=== PATIENT | male | born 1970 | race Caucasian/White ===

== ENCOUNTER 2017-01-16 16:30 | Inpatient (IN) | payer OTHER ==
[~2017-01-16] VITALS: Ht 188 cm; Wt 145.7 kg
[2017-01-16 16:00] VITALS: BP 145/91; PULSE 102; RESP 18; TEMP 100.5; O2SAT 98
[~2017-01-16 16:30] MED LIST: LOVA10TA; MORPHINE SULFATE 4 MG/ML INJ IV PRN; NALOXONE HCL 0.4 MG/ML AMP IV PRN
[2017-01-16] MEDS: MORPHINE SULFATE 4 MG/ML INJ IV PRN ×2 (17:11→21:00)
[2017-01-16] MEDS: NS + KCL 20 MEQ INJ 1,000 ML IV SCH (17:13)
--- NOTE | 2017-01-16 17:51 | PD.CONS ---
cc: Swapnil Nixon MD Attestation The exam, history, and the medical decision-making described in the above note were completed with the assistance of the mid-level provider. I reviewed and agree with the findings presented. I attest that I had a [id number] encounter with the patient on the same day, and personally performed and documented my assessment and findings in the medical record. HPI Service General Surgery Consult Requested By Dr. Carl Reason for Consult Diverticulitis with perforation Primary Care Physician Non-Staff History of Present Illness This is a 46-year-old male with a past medical history of high cholesterol. He started developing lower abdominal pain yesterday. He went about his day as usual at work. Yesterday evening he ate a yogurt and felt better. This morning , he woke up with chills and the pain had increased and became unbearable. The patient went to his Primary Care Physician who referred him to the [facility] in [place]. There he had a CT scan which showed a perforated sigmoid diverticulitis without abscess. He does have an elevated white count of 14.0. The patient was transferred to the main hospital and a General Surgery consultation has been requested. Review of Systems Constitutional: COMPLAINS OF: Fever, Chills Endocrine: DENIES: Polydipsia, Polyuria, Polyphagia Eyes: DENIES: Diplopia, Eye inflammation Ears, nose, mouth, throat: DENIES: Hearing loss, Vertigo Respiratory: DENIES: Apneas, Cough Cardiovascular: DENIES: Chest pain Gastrointestinal: COMPLAINS OF: Abdominal pain, DENIES: Nausea, Vomiting Genitourinary: DENIES: Urgency, Hematuria Musculoskeletal: DENIES: Joint pain Integumentary: DENIES: Abnormal pigmentation Hematologic/lymphatic: DENIES: Bruising Immunologic/allergic: DENIES: Eczema Neurologic: DENIES: Abnormal gait, Headache Psychiatric: DENIES: Confusion, Mood changes, Depression Past Family Social History Past Medical History High cholesterol Past Surgical History Right shoulder repair Right ACL repair Reported Medications Lovastatin 81 mg aspirin Allergies: Coded Allergies: No Known Allergies (Verified , 03/17/06) Active Ordered Medications Current Medications Medications (Trade) Dose Ordered Sig/Jesi Route Start Time Stop Time Status Last Admin (Tylenol) 650 mg Q4H PRN PO 01/16/17 15:45 (Zofran Inj) 4 mg Q6H PRN IVP 01/16/17 15:45 (Morphine Inj) 2 mg Q3H PRN IV 01/16/17 15:45 (Morphine Inj) 4 mg Q3H PRN IV 01/16/17 15:45 01/16/17 17:11 Naloxone HCl 0.4 mg 0.4 mg UNSCH PRN IV 01/16/17 15:45 Ciprofloxacin/ Dextrose 200 ml @ 200 mls/hr Q12H IV 01/17/17 04:00 Metronidazole 100 ml @ 100 mls/hr Q8H IV 01/16/17 23:00 (NS + KCl 20 Meq Inj) 1,000 ml @ 100 mls/hr Q10H IV 01/16/17 17:00 01/16/17 17:13 Family History Mother with an extensive cancer history including kidney and breast Social History Denies tobacco use Denies EtOH use Denies illicit drug use 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 SKIN: Warm and dry. HEAD: Atraumatic. Normocephalic. EYES: Pupils equal and round. No scleral icterus. No injection or drainage. ENT: No nasal bleeding or discharge. Mucous membranes pink and moist. NECK: Trachea midline. CARDIOVASCULAR: Regular rate and rhythm. RESPIRATORY: No accessory muscle use. Clear to auscultation. Breath sounds equal bilaterally. GASTROINTESTINAL: Abdomen soft, nondistended. Pain throughout abdomen with palpation---pain mainly concentrated in the bilateral lower quadrants. MUSCULOSKELETAL: Extremities without clubbing, cyanosis, or edema. No obvious deformities. NEUROLOGICAL: Awake and alert. No obvious cranial nerve deficits. Motor grossly within normal limits. Five out of 5 muscle strength in the arms and legs. Normal speech. PSYCHIATRIC: Appropriate mood and affect; insight and judgment normal. Result Diagram: 01/25/17 0354 01/25/[address] scan done at [facility] [place] [facility] shows perforated sigmoid diverticulitis without abscess Assessment and Plan Assessment and Plan 46-year-old male with perforated sigmoid diverticulitis -Continue Cipro/Flagyl IV -IVF -Monitor WBC and fevers -Labs in the AM -KUB in the AM -Pain control -NPO -Dr. Nixon to review CT and make decision of operative vs non operative treatment -General Surgery will follow along with you Discussed Condition With Dr. Nixon Phani Renteriarocky Attending Statement patient seen at bedside perforated diverticulitis with small localized free air, no abscess discussed with patient and family we will do nonoperative mgnt. Pt is clinically stable with no peritoneal signs. Will follow labs and serial abdominal exams Annemarie Hammonds January 16, 2017 17:51 Swapnil Nixon MD January 26, 2017 22:14
--- NOTE | 2017-01-16 18:09 | HHI.HP ---
[facility] Service [facility] Primary Care Physician Non-Staff Admission Diagnosis Diverticulitis with perforation Diagnoses: (1) Diverticulitis of both large and small intestine with perforation (2) Hyperlipidemia (3) Leukocytosis Chief Complaint: lower abdominal pain Travel History International Travel<30 Days: No Contact w/Intl Traveler <30 Da: No History of Present Illness Written by ARIANNE Nelson acting as scribe for Dr. Ortiz] on 01/16/17 at 17:35. 46 y/o with a history of hyperlipidemia presented to the ED with complaints of lower abdominal pain. Patient states yesterday he was having pain in his lower abdomen with associated fever, chills and night sweats. Then today he woke up and throughout the day the pain intensified. Patient states that this pain has come on and off for the last 6 months but never this severe. Denies any chest pain, shortness of breath, nausea. He does state that he vomited in the ED after receiving IV contrast for the CT scan. Denies any change in his bowel movements. Review of Systems Constitutional: COMPLAINS OF: Fever, Chills Respiratory: DENIES: Cough, Sputum production, Shortness of breath Cardiovascular: DENIES: Chest pain, Lower Extremity Edema Gastrointestinal: COMPLAINS OF: Abdominal pain, DENIES: Constipation, Diarrhea , Nausea, Vomiting Genitourinary: DENIES: Hematuria, Dysuria Musculoskeletal: DENIES: Back pain, Neck pain Integumentary: DENIES: Rash Hematologic/lymphatic: DENIES: Lymphadenopathy Immunologic/allergic: DENIES: Urticaria Neurologic: DENIES: Headache Past Family Social History Past Medical History Hyperlipidemia Past Surgical History Right shoulder surgery ACL repair right knee Reported Medications Reported Meds & Active Scripts Active Reported Mevacor (Lovastatin) 10 Mg Tab Allergies: Coded Allergies: No Known Allergies (Verified , 03/17/06) Active Ordered Medications Current Medications Medications (Trade) Dose Ordered Sig/Jesi Route Start Time Stop Time Status Last Admin (Tylenol) 650 mg Q4H PRN PO 01/16/17 15:45 (Zofran Inj) 4 mg Q6H PRN IVP 01/16/17 15:45 (Morphine Inj) 2 mg Q3H PRN IV 01/16/17 15:45 (Morphine Inj) 4 mg Q3H PRN IV 01/16/17 15:45 01/16/17 17:11 Naloxone HCl 0.4 mg 0.4 mg UNSCH PRN IV 01/16/17 15:45 Ciprofloxacin/ Dextrose 200 ml @ 200 mls/hr Q12H IV 01/17/17 04:00 Metronidazole 100 ml @ 100 mls/hr Q8H IV 01/16/17 23:00 (NS + KCl 20 Meq Inj) 1,000 ml @ 100 mls/hr Q10H IV 01/16/17 17:00 01/16/17 17:13 Family History Mom: Breast cancer, renal cell cancer, melanoma Dad: [place] Social History Tobacco use: Denies Alcohol use: Denies Illicit drug use: Denies Physical Exam Vital Signs Vital Signs Date Time Temp Pulse Resp B/P Pulse Ox O2 Delivery O2 Flow Rate FiO2 01/16/17 16:00 100.5 102 18 145/91 98 Physical Exam GENERAL: This is a well-nourished, well-developed patient, in no apparent distress. SKIN: No rashes, ecchymoses or lesions. Cool and dry. HEAD: Atraumatic. Normocephalic. No temporal or scalp tenderness. EYES: Pupils equal round and reactive. Extraocular motions intact. No scleral icterus. No injection or drainage. ENT: Nose without bleeding, purulent drainage or septal hematoma. Throat without erythema, tonsillar hypertrophy or exudate. Uvula midline. Airway patent. NECK: Trachea midline. No JVD. Supple, nontender, no meningeal signs. CARDIOVASCULAR: Regular rate and rhythm without murmurs, gallops, or rubs. RESPIRATORY: Clear to auscultation. Breath sounds equal bilaterally. No wheezes , rales, or rhonchi. GASTROINTESTINAL: Abdomen soft, LLQ tenderness, nondistended. No hepato- splenomegaly, or palpable masses. No guarding. MUSCULOSKELETAL: Extremities without clubbing, cyanosis, or edema. No joint tenderness, effusion, or edema noted. No calf tenderness. NEUROLOGICAL: Awake and alert. Motor and sensory grossly within normal limits. Normal speech. Assessment and Plan Problem List: (1) Diverticulitis of both large and small intestine with perforation ICD Code: K57.40 Status: Acute (2) Leukocytosis ICD Code: D72.829 Status: Acute (3) Hyperlipidemia ICD Code: E78.5 Status: Chronic Assessment and Plan 46-year-old male with a history of hyperlipidemia presented to the ED with complaints of lower abdominal pain. Diverticulitis with perforation, patient with left lower quadrant pain Abdomen CT shows sigmoid perforated diverticulitis without abscess. -IV antibiotics Cipro every 12 and Flagyl every 8 -Supportive IVF normal saline with 20 of K, nothing by mouth -Consultation Gen. surgery for recommendations -Pain management with IV morphine Leukocytosis, acute, likely related to perforated diverticuli, WBCs 14, neutrophils 79% -Continue IV antibiotics as above -CBC in AM Hyperlipidemia, chronic -Will cont home meds once a diet is ordered DVT prophylaxis: SCDs This note was transcribed by maria eugenia Villagomez. I, Dr. Diego Carl personally performed the history, physical exam, and medical decision making; and confirmed the accuracy of the information in the transcribed note. Authenticated by Dr. Diego Carl on 01/16/17 at 18:17. Code Status Full Discussed Condition With Patient, RN and ED physician Physician Certification 2 Midnight Certification Type: Admission for Inpatient Services Order for Inpatient Services The services are ordered in accordance with Medicare regulations or non- Medicare payer requirements, as applicable. In the case of services not specified as inpatient-only, they are appropriately provided as inpatient services in accordance with the 2-midnight benchmark. Estimated LOS (days): 3 days is the estimated time the patient will need to remain in the hospital, assuming treatment plan goals are met and no additional complications. Post-Hospital Plan: Home Problem Qualifiers (1) Hyperlipidemia: Qualified Code: E78.2 - Mixed hyperlipidemia Blessing Villagomez January 16, 2017 18:09 Diego Carl MD January 16, 2017 18:17
[2017-01-16 20:00] VITALS: BP 130/71; PULSE 104; RESP 18; TEMP 102; O2SAT 95
[2017-01-16] MEDS: ACETAMINOPHEN 1000 MG/100 ML VIAL IV SCH (22:01)
[2017-01-16] MEDS: metroNIDAZOLE 500 MG INJ 100 ML IV SCH (22:01)
[2017-01-17] VITALS: BP 116/68; PULSE 89; RESP 20; TEMP 97.9; O2SAT 94
[2017-01-17] MEDS: CIPROFLOXACIN 400 MG PREMIX 200 ML IV SCH ×2 (03:28→15:43)
[2017-01-17] MEDS: ACETAMINOPHEN 1000 MG/100 ML VIAL IV SCH ×4 (03:28→21:15)
[2017-01-17] MEDS: NS + KCL 20 MEQ INJ 1,000 ML IV SCH ×3 (03:28→21:15)
[2017-01-17 06:01] LABS: AUTOMATED NEUTROPHIL # 12.6 TH/MM3 (1.8-7.7); BASOPHIL # 0.1 TH/MM3 (0-0.2); BASOPHIL % 0.3 % (0.0-2.0); HEMATOCRIT 41.2 % (39.0-51.0); HEMO FLAGS DIFF FINAL; LYMPH % 8.5 % (9.0-44.0); LYMPHOCYTE # 1.3 TH/MM3 (1.0-4.8); MEAN CELL VOLUME 87.6 FL (80.0-100.0); MEAN CORPUSCULAR HGB CONC 33.1 % (32.0-36.0); MONO % 11.3 % (0.0-8.0); NEUT % 79.9 % (16.0-70.0); PLATELET COUNT 203 TH/MM3 (150-450); RED BLOOD COUNT 4.71 MIL/MM3 (4.50-5.90); RED CELL DISTRIBUTION WIDTH 13.6 % (11.6-17.2); WHITE BLOOD COUNT 15.8 TH/MM3 (4.0-11.0)
--- NOTE | 2017-01-17 06:25 | RADRPT ---
EXAM DATE/TIME: 01/17/2017 05:35 [facility] COMPARISON: No previous studies available for comparison. INDICATIONS : Mid lower abdomen pain. MEDICAL HISTORY : Hypercholesterolemia. SURGICAL HISTORY : None. ENCOUNTER: Subsequent ACUITY: 2 days PAIN SCORE: 7/10 LOCATION: Abdomen FINDINGS: Supine view of the abdomen was performed. The abdominal bowel gas pattern is normal. No abnormal ma sses, calcifications, or organomegaly is seen. The osseous structures are unremarkable. CONCLUSION: No acute findings. Residual contrast in large bowel. Casey Gaspar MD on January 17, 2017 at 6:21 Board Certified Radiologist. This report was verified electronically.
[2017-01-17 06:26] LABS: BICARBONATE 28.3 MEQ/L (21.0-32.0); POTASSIUM 3.8 MEQ/L (3.5-5.1)
[2017-01-17] MEDS: metroNIDAZOLE 500 MG INJ 100 ML IV SCH ×3 (06:50→23:55)
[2017-01-17 08:00] VITALS: BP 139/75; PULSE 50; RESP 16; TEMP 97.5; O2SAT 95
[2017-01-17] MEDS: ONDANSETRON HCL 4 MG/2 ML VIAL IVP PRN (09:20)
[2017-01-17] MEDS ORDERED: HYDROmorphone HCL PF 1 MG/ML VIAL IV PUSH PRN (09:45)
--- NOTE | 2017-01-17 11:02 | HHI.PR ---
Subjective Subjective Notes Sitting on the side of the bed Reports fever overnight Feels better in comparison to yesterday Objective Vitals/I&O Vital Signs Date Time Temp Pulse Resp B/P Pulse Ox O2 Delivery O2 Flow Rate FiO2 01/17/17 08:00 97.5 50 16 139/75 95 Labs Laboratory Tests Test 01/17/17 05:15 White Blood Count 15.8 Red Blood Count 4.71 Hemoglobin 13.6 Hematocrit 41.2 Mean Corpuscular Volume 87.6 Mean Corpuscular Hemoglobin 29.0 Mean Corpuscular Hemoglobin 33.1 Concent Red Cell Distribution Width 13.6 Platelet Count 203 Mean Platelet Volume 9.1 Neutrophils (%) (Auto) 79.9 Lymphocytes (%) (Auto) 8.5 Monocytes (%) (Auto) 11.3 Eosinophils (%) (Auto) 0.0 Basophils (%) (Auto) 0.3 Neutrophils # (Auto) 12.6 Lymphocytes # (Auto) 1.3 Monocytes # (Auto) 1.8 Eosinophils # (Auto) 0.0 Basophils # (Auto) 0.1 CBC Comment DIFF FINAL Differential Comment Sodium Level 138 Potassium Level 3.8 Chloride Level 102 Carbon Dioxide Level 28.3 Anion Gap 8 Blood Urea Nitrogen 12 Creatinine 1.01 Estimat Glomerular Filtration 79 Rate Random Glucose 115 Calcium Level 8.[address] scan done at [facility] ER shows perforated sigmoid diverticulitis without abscess Cardiovascular: Regular Lungs: Clear Abdomen: Other (obese abdomen; tender throughout; mildly distended ) Extremities: No edema A/P Assessment and Plan 46-year-old male with perforated sigmoid diverticulitis -Continue Cipro/Flagyl IV -IVF -Monitor WBC and fevers -Labs in the AM -KUB today stable -Pain control---changed to IV Dilaudid -NPO---okay for ice chips -Continue non operative treatment at this time Attending Statement patient see seen at bedside feels better, but spiked a fever overnight continue observation consider CT if continued fevers Attestation The exam, history, and the medical decision-making described in the above note were completed with the assistance of the mid-level provider. I reviewed and agree with the findings presented. I attest that I had a [id number] encounter with the patient on the same day, and personally performed and documented my assessment and findings in the medical record. Annemarie Hammonds January 17, 2017 11:02 Swapnil Nixon MD January 26, 2017 22:27
--- NOTE | 2017-01-17 11:29 | HHI.PR ---
Subjective Remarks Follow up diverticulitis. Patient is still having abdominal pain, slightly better today (02/08 compared to 03/10 yesterday). Had fever overnight. Subjective fever currently. Objective Vitals Vital Signs Date Time Temp Pulse Resp B/P Pulse Ox O2 Delivery O2 Flow Rate FiO2 01/17/17 08:00 97.5 50 16 139/75 95 01/17/17 00:00 97.9 89 20 116/68 94 01/16/17 20:00 102.0 104 18 130/71 95 01/16/17 16:00 100.5 102 18 145/91 98 I/O 01/16/17 01/16/17 01/16/17 01/17/17 01/17/17 01/17/17 07:00 15:00 23:00 07:00 15:00 23:00 Intake Total 0 ml 1108 ml Output Total 400 ml 450 ml Balance -400 ml 658 ml Intake Oral 0 ml 0 ml IV Total 1108 ml Output Urine Total 400 ml 450 ml # Bowel Movements 0 0 Result Diagram: 01/17/1751401/17/17 05 Imaging Last Impressions Abdomen X-Ray 01/17/17 06 Signed Impressions: Service Date/Time: Tuesday, January 17, 2017 05:35 - CONCLUSION: No acute findings. Residual contrast in large bowel. Casey Gaspar MD Objective Remarks General: Obese male in no acute distress. Heart: Regular rate and rhythm. No murmur. Lungs: Clear to auscultation bilaterally. No wheezes, rales, or rhonchi. Breathing is nonlabored. Abdomen: Soft, tender to palpation in right lower quadrant and left lower quadrant without rebound or guarding, nondistended. Extremities: No lower extremity edema. Psych: Alert and oriented. Urinary Catheter: No Vascular Central Line Catheter: No A/P Problem List: (1) Diverticulitis of colon with perforation ICD Code: K57.20 Status: Acute (2) Hyperlipidemia ICD Code: E78.5 Status: Chronic (3) Leukocytosis ICD Code: D72.829 Status: Acute Assessment and Plan 1. Diverticulitis with perforation: Appreciate general surgery recommendations. Continue bowel rest, antibiotics, IV fluids. Continue pain control. 2. Leukocytosis, fever: Secondary to diverticulitis. Monitor labs. Tylenol as needed. 3. Hyperlipidemia: Chronic. Resume statin when able to tolerate by mouth. 4. DVT prophylaxis: SCDs. Problem Qualifiers (1) Diverticulitis of colon with perforation: Qualified Code: K57.20 - Diverticulitis of large intestine with perforation without bleeding (2) Hyperlipidemia: Qualified Code: E78.2 - Mixed hyperlipidemia Diego Carl MD January 17, 2017 11:29
[2017-01-17 12:00] VITALS: BP 126/76; PULSE 61; RESP 16; TEMP 96.9
[2017-01-17 16:00] VITALS: BP 115/59; PULSE 93; RESP 18; TEMP 97.8; O2SAT 95
[2017-01-17 20:00] VITALS: BP 136/70; PULSE 83; RESP 20; TEMP 96.5; O2SAT 95
[2017-01-18] VITALS: BP 114/60; PULSE 74; RESP 20; TEMP 98.2; O2SAT 94
[2017-01-18] MEDS: ACETAMINOPHEN 1000 MG/100 ML VIAL IV SCH (03:55)
[2017-01-18] MEDS: CIPROFLOXACIN 400 MG PREMIX 200 ML IV SCH (03:55)
[2017-01-18 04:32] LABS: AUTOMATED NEUTROPHIL # 11.7 TH/MM3 (1.8-7.7); BASOPHIL % 0.3 % (0.0-2.0); EOSINOPHIL % 0.2 % (0.0-4.0); HEMATOCRIT 43.3 % (39.0-51.0); HEMO FLAGS DIFF FINAL; LYMPH % 9.4 % (9.0-44.0); LYMPHOCYTE # 1.4 TH/MM3 (1.0-4.8); MEAN CELL VOLUME 88.7 FL (80.0-100.0); MEAN CORPUSCULAR HEMOGLOBIN 28.7 PG (27.0-34.0); MEAN CORPUSCULAR HGB CONC 32.3 % (32.0-36.0); NEUT % 81.1 % (16.0-70.0); PLATELET COUNT 198 TH/MM3 (150-450); RED BLOOD COUNT 4.87 MIL/MM3 (4.50-5.90); RED CELL DISTRIBUTION WIDTH 13.4 % (11.6-17.2); WHITE BLOOD COUNT 14.4 TH/MM3 (4.0-11.0)
[2017-01-18 05:06] LABS: ALT (GPT) 32 U/L (12-78); ANION GAP 11 MEQ/L (5-15); AST (GOT) 27 U/L (15-37); BICARBONATE 21.7 MEQ/L (21.0-32.0); BLOOD UREA NITROGEN 10 MG/DL (7-18); CHLORIDE 104 MEQ/L (98-107); GLOMERULAR FILTRATION RATE 100 ML/MIN (>89); POTASSIUM 4.1 MEQ/L (3.5-5.1); SODIUM (NA) 137 MEQ/L (136-145)
[2017-01-18 05:07] LABS: ALKALINE PHOSPHATASE 69 U/L (45-117); TOTAL BILIRUBIN ADULT 0.9 MG/DL (0.2-1.0)
[2017-01-18] MEDS: metroNIDAZOLE 500 MG INJ 100 ML IV SCH (06:17)
[2017-01-18 08:00] VITALS: BP 139/78; PULSE 75; RESP 19; TEMP 96.9; O2SAT 95
[2017-01-18] MEDS ORDERED: PETROLEUM/SHARK LIVER OIL 60 GM TUBE RECTAL PRN (08:15)
--- NOTE | 2017-01-18 08:16 | HHI.PR ---
Subjective Subjective Notes Abdomen feels better, wants to go home. Having severe diarrhea, he thinks related to antibiotics, wants them changed Objective Vitals/I&O Vital Signs Date Time Temp Pulse Resp B/P Pulse Ox O2 Delivery O2 Flow Rate FiO2 01/18/17 00:00 98.2 74 20 114/60 94 Labs Laboratory Tests Test 01/18/17 03:33 White Blood Count 14.4 Red Blood Count 4.87 Hemoglobin 14.0 Hematocrit 43.3 Mean Corpuscular Volume 88.7 Mean Corpuscular Hemoglobin 28.7 Mean Corpuscular Hemoglobin 32.3 Concent Red Cell Distribution Width 13.4 Platelet Count 198 Mean Platelet Volume 9.4 Neutrophils (%) (Auto) 81.1 Lymphocytes (%) (Auto) 9.4 Monocytes (%) (Auto) 9.0 Eosinophils (%) (Auto) 0.2 Basophils (%) (Auto) 0.3 Neutrophils # (Auto) 11.7 Lymphocytes # (Auto) 1.4 Monocytes # (Auto) 1.3 Eosinophils # (Auto) 0.0 Basophils # (Auto) 0.0 CBC Comment DIFF FINAL Differential Comment Sodium Level 137 Potassium Level 4.1 Chloride Level 104 Carbon Dioxide Level 21.7 Anion Gap 11 Blood Urea Nitrogen 10 Creatinine 0.82 Estimat Glomerular Filtration 100 Rate Random Glucose 92 Calcium Level 8.9 Total Bilirubin 0.9 Aspartate Amino Transf 27 (AST/SGOT) Alanine Aminotransferase 32 (ALT/SGPT) Alkaline Phosphatase 69 Total Protein 7.[address] scan done at [facility] shows perforated sigmoid diverticulitis without abscess Abdomen: Non-distended, Non-tender Extremities: No edema, Perfused A/P Assessment and Plan complicated diverticulitis. Improved. WBC 15- 14. bad diarrhea. change abx to zosyn. preparation H for irritated anus. Probiotic Gordon Munson MD January 18, 2017 08:16
[2017-01-18] MEDS: NS + KCL 20 MEQ INJ 1,000 ML IV SCH ×3 (09:00→20:56)
[2017-01-18] MEDS: PIPERACIL-TAZO 4.5 GM PREMIX 100 ML IV SCH ×3 (09:55→20:56)
--- NOTE | 2017-01-18 11:36 | HHI.PR ---
Subjective Remarks Follow up diverticulitis with perforation. Patient reports significant diarrhea overnight and this morning. Abdominal pain is improving. No nausea/vomiting today. Objective Vitals Vital Signs Date Time Temp Pulse Resp B/P Pulse Ox O2 Delivery O2 Flow Rate FiO2 01/18/17 08:00 96.9 75 19 139/78 95 01/18/17 00:00 98.2 74 20 114/60 94 01/17/17 20:00 96.5 83 20 136/70 95 01/17/17 16:00 97.8 93 18 115/59 95 01/17/17 16:00 97.8 93 18 115/59 95 01/17/17 12:00 96.9 61 16 126/76 I/O 01/17/17 01/17/17 01/17/17 01/18/17 01/18/17 01/18/17 07:00 15:00 23:00 07:00 15:00 23:00 Intake Total 1108 ml 999 ml 0 ml 1670 ml Output Total 450 ml Balance 658 ml 999 ml 0 ml 1670 ml Intake Oral 0 ml 240 ml 0 ml 0 ml IV Total 1108 ml 759 ml 1670 ml Output Urine Total 450 ml # Voids 4 10 # Bowel Movements 0 8 15 Result Diagram: 01/18/17 0333 01/18/17 0333 Imaging Last Impressions Abdomen X-Ray 01/17/17 0600 Signed Impressions: Service Date/Time: Tuesday, January 17, 2017 05:35 - CONCLUSION: No acute findings. Residual contrast in large bowel. Casey Gaspar MD Objective Remarks General: Obese male in no acute distress. Heart: Regular rate and rhythm. No murmur. Lungs: Clear to auscultation bilaterally. No wheezes, rales, or rhonchi. Breathing is nonlabored. Abdomen: Soft, mildly tender to palpation in right lower quadrant and left lower quadrant without rebound or guarding, nondistended. Extremities: No lower extremity edema. Psych: Alert and oriented. Procedures None Urinary Catheter: No Vascular Central Line Catheter: No A/P Problem List: (1) Diverticulitis of colon with perforation ICD Code: K57.20 Status: Acute (2) Hyperlipidemia ICD Code: E78.5 Status: Chronic (3) Leukocytosis ICD Code: D72.829 Status: Acute (4) Diarrhea ICD Code: R19.7 Status: Acute Assessment and Plan 1. Diverticulitis with perforation: Appreciate general surgery recommendations. Continue antibiotics, IV fluids. Continue pain control. Full liquid diet. 2. Leukocytosis, fever: Secondary to diverticulitis. Monitor labs. Tylenol as needed. WBCs are trending down. 3. Hyperlipidemia: Chronic. Resume statin when able to tolerate by mouth. 4. DVT prophylaxis: SCDs. 5. Diarrhea: Check stool for C difficile. Problem Qualifiers (1) Diverticulitis of colon with perforation: Qualified Code: K57.20 - Diverticulitis of large intestine with perforation without bleeding (2) Hyperlipidemia: Qualified Code: E78.2 - Mixed hyperlipidemia Diego Carl MD January 18, 2017 11:36
[2017-01-18 11:39] VITALS: BP 128/63; PULSE 77; RESP 16; TEMP 98.5; O2SAT 95
[2017-01-18 15:59] LABS: C. DIFF EPI 027 PRESUMPTIVE NEGATIVE (NEGATIVE); C. DIFF TOXIN PCR NEGATIVE (NEGATIVE)
[2017-01-18 16:00] VITALS: BP 137/87; PULSE 99; RESP 18; TEMP 98.9; O2SAT 97
[2017-01-18 20:00] VITALS: BP 130/63; PULSE 95; RESP 20; TEMP 100; O2SAT 96
[2017-01-18] MEDS: ACETAMINOPHEN 325 MG TAB PO PRN (21:02)
[2017-01-19] VITALS: BP 140/70; PULSE 77; RESP 20; TEMP 98.4; O2SAT 96
[2017-01-19 04:00] VITALS: BP 150/87; PULSE 86; RESP 20; TEMP 99.6; O2SAT 95
[2017-01-19] MEDS: PIPERACIL-TAZO 4.5 GM PREMIX 100 ML IV SCH ×4 (04:14→20:35)
[2017-01-19] MEDS: ACETAMINOPHEN 325 MG TAB PO PRN ×3 (04:18→20:36)
[2017-01-19 05:08] LABS: AUTOMATED NEUTROPHIL # 11.8 TH/MM3 (1.8-7.7); BASOPHIL # 0.1 TH/MM3 (0-0.2); BASOPHIL % 0.5 % (0.0-2.0); EOSINOPHIL % 0.3 % (0.0-4.0); HEMATOCRIT 42.2 % (39.0-51.0); HEMO FLAGS DIFF FINAL; LYMPH % 8.5 % (9.0-44.0); LYMPHOCYTE # 1.2 TH/MM3 (1.0-4.8); MEAN CELL VOLUME 87.7 FL (80.0-100.0); MEAN CORPUSCULAR HEMOGLOBIN 29.7 PG (27.0-34.0); MEAN CORPUSCULAR HGB CONC 33.8 % (32.0-36.0); MONO % 10.5 % (0.0-8.0); NEUT % 80.2 % (16.0-70.0); PLATELET COUNT 223 TH/MM3 (150-450); RED BLOOD COUNT 4.81 MIL/MM3 (4.50-5.90); RED CELL DISTRIBUTION WIDTH 13.5 % (11.6-17.2); WHITE BLOOD COUNT 14.7 TH/MM3 (4.0-11.0)
[2017-01-19 05:22] LABS: BICARBONATE 25.2 MEQ/L (21.0-32.0)
[2017-01-19 08:00] VITALS: BP 140/81; PULSE 74; RESP 16; TEMP 96.6; O2SAT 95
[2017-01-19] MEDS: HYDROmorphone HCL PF 1 MG/ML VIAL IV PUSH PRN ×2 (11:38→20:36)
[2017-01-19] MEDS: NS + KCL 20 MEQ INJ 1,000 ML IV SCH ×2 (11:55→20:35)
[2017-01-19 12:00] VITALS: BP 129/79; PULSE 80; RESP 16; TEMP 98.5; O2SAT 95
--- NOTE | 2017-01-19 12:11 | HHI.PR ---
Subjective Remarks Follow-up diverticulitis. Pain control has improved. Diarrhea resolved. Tolerating full liquid diet. Objective Vitals Vital Signs Date Time Temp Pulse Resp B/P Pulse Ox O2 Delivery O2 Flow Rate FiO2 01/19/17 08:00 96.6 74 16 140/81 95 01/19/17 04:00 99.6 86 20 150/87 95 01/19/17 00:00 98.4 77 20 140/70 96 01/18/17 20:00 100.0 95 20 130/63 96 01/18/17 16:00 98.9 99 18 137/87 97 I/O 01/18/17 01/18/17 01/18/17 01/19/17 01/19/17 01/19/17 07:00 15:00 23:00 07:00 15:00 23:00 Intake Total 1670 ml 1020 ml 1470 ml 1245 ml Output Total 200 ml Balance 1670 ml 1020 ml 1470 ml 1045 ml Intake Oral 0 ml 120 ml 720 ml 480 ml IV Total 1670 ml 900 ml 750 ml 765 ml Output Urine Total 200 ml # Voids 10 3 4 3 # Bowel Movements 15 4 6 2 Result Diagram: 01/19/17 0409 01/19/17 0409 Imaging Last Impressions Abdomen X-Ray 01/17/17 0600 Signed Impressions: Service Date/Time: Tuesday, January 17, 2017 05:35 - CONCLUSION: No acute findings. Residual contrast in large bowel. Casey Gaspar MD Objective Remarks General: Obese male in no acute distress. Heart: Regular rate and rhythm. No murmur. Lungs: Clear to auscultation bilaterally. No wheezes, rales, or rhonchi. Breathing is nonlabored. Abdomen: Soft, mildly tender to palpation in right lower quadrant and left lower quadrant without rebound or guarding, nondistended. Extremities: No lower extremity edema. Psych: Alert and oriented. Procedures None Urinary Catheter: No Vascular Central Line Catheter: No A/P Problem List: (1) Diverticulitis of colon with perforation ICD Code: K57.20 Status: Acute (2) Hyperlipidemia ICD Code: E78.5 Status: Chronic (3) Leukocytosis ICD Code: D72.829 Status: Acute (4) Diarrhea ICD Code: R19.7 Status: Acute Assessment and Plan 1. Diverticulitis with perforation: Clinically improving. Appreciate general surgery recommendations. Continue antibiotics, IV fluids. Continue pain control. Full liquid diet. 2. Leukocytosis, fever: Secondary to diverticulitis. Monitor labs. Tylenol as needed. 3. Hyperlipidemia: Chronic. Resume statin at discharge. 4. DVT prophylaxis: SCDs. 5. Diarrhea: Resolved. C. difficile testing negative. Discharge Planning When cleared by general surgery. Problem Qualifiers (1) Diverticulitis of colon with perforation: Qualified Code: K57.20 - Diverticulitis of large intestine with perforation without bleeding (2) Hyperlipidemia: Qualified Code: E78.2 - Mixed hyperlipidemia Diego Carl MD January 19, 2017 12:11
[2017-01-19] MEDS ORDERED: HYDR-3288 PO (12:15)
[2017-01-19 16:00] VITALS: BP 136/73; PULSE 88; RESP 16; TEMP 98.1; O2SAT 95
[2017-01-19 20:00] VITALS: BP 134/71; PULSE 94; RESP 20; TEMP 98.8; O2SAT 95
--- NOTE | 2017-01-19 20:32 | HHI.PR ---
Subjective Subjective Notes More painful today than yesterday Objective Vitals/I&O Vital Signs Date Time Temp Pulse Resp B/P Pulse Ox O2 Delivery O2 Flow Rate FiO2 01/19/17 16:00 98.1 88 16 136/73 95 Labs Laboratory Tests Test 01/19/17 04:09 White Blood Count 14.7 Red Blood Count 4.81 Hemoglobin 14.3 Hematocrit 42.2 Mean Corpuscular Volume 87.7 Mean Corpuscular Hemoglobin 29.7 Mean Corpuscular Hemoglobin 33.8 Concent Red Cell Distribution Width 13.5 Platelet Count 223 Mean Platelet Volume 9.3 Neutrophils (%) (Auto) 80.2 Lymphocytes (%) (Auto) 8.5 Monocytes (%) (Auto) 10.5 Eosinophils (%) (Auto) 0.3 Basophils (%) (Auto) 0.5 Neutrophils # (Auto) 11.8 Lymphocytes # (Auto) 1.2 Monocytes # (Auto) 1.5 Eosinophils # (Auto) 0.0 Basophils # (Auto) 0.1 CBC Comment DIFF FINAL Differential Comment Sodium Level 139 Potassium Level 4.0 Chloride Level 105 Carbon Dioxide Level 25.2 Anion Gap 9 Blood Urea Nitrogen 8 Creatinine 0.87 Estimat Glomerular Filtration 94 Rate Random Glucose 107 Calcium Level 8.[address] scan done at [facility] ER shows perforated sigmoid diverticulitis without abscess Lungs: Clear Abdomen: Non-distended, Other (Tender in suprapubic region and LLQ to deep palpation) A/P Assessment and Plan Complicated diverticulitis Diarrhea better today; Dr. Munson switched pt. to [place] Discussed options if he fails to improve - surgery +/- colostomy if bowel cannot be prepped or inflammation too severe Lai Cordero MD January 19, 2017 20:31
[2017-01-19] MEDS: ONDANSETRON HCL 4 MG/2 ML VIAL IVP PRN (20:35)
[2017-01-20] VITALS: BP 118/62; PULSE 90; RESP 18; TEMP 97.6; O2SAT 96
[2017-01-20] MEDS: ACETAMINOPHEN 325 MG TAB PO PRN ×5 (02:21→23:19)
[2017-01-20] MEDS: PIPERACIL-TAZO 4.5 GM PREMIX 100 ML IV SCH ×4 (02:22→20:13)
[2017-01-20] MEDS: HYDROmorphone HCL PF 1 MG/ML VIAL IV PUSH PRN ×4 (02:22→23:20)
[2017-01-20 05:57] LABS: AUTOMATED NEUTROPHIL # 9.8 TH/MM3 (1.8-7.7); BASOPHIL # 0.1 TH/MM3 (0-0.2); BASOPHIL % 0.5 % (0.0-2.0); EOSINOPHIL % 0.2 % (0.0-4.0); HEMATOCRIT 41.2 % (39.0-51.0); HEMO FLAGS DIFF FINAL; LYMPH % 13.1 % (9.0-44.0); LYMPHOCYTE # 1.7 TH/MM3 (1.0-4.8); MEAN CELL VOLUME 88.1 FL (80.0-100.0); NEUT % 73.2 % (16.0-70.0); PLATELET COUNT 239 TH/MM3 (150-450); RED BLOOD COUNT 4.68 MIL/MM3 (4.50-5.90); RED CELL DISTRIBUTION WIDTH 13.1 % (11.6-17.2); WHITE BLOOD COUNT 13.3 TH/MM3 (4.0-11.0)
[2017-01-20 08:00] VITALS: BP 127/79; PULSE 79; RESP 18; TEMP 98.1; O2SAT 96
[2017-01-20] MEDS: ONDANSETRON HCL 4 MG/2 ML VIAL IVP PRN ×3 (08:32→23:19)
--- NOTE | 2017-01-20 11:57 | HHI.PR ---
Subjective Remarks Follow up diverticulitis. Patient still having abdominal pain, nausea. He states that the pain is slightly better today. Having small soft stools. Objective Vitals Vital Signs Date Time Temp Pulse Resp B/P Pulse Ox O2 Delivery O2 Flow Rate FiO2 01/20/17 08:00 98.1 79 18 127/79 96 01/20/17 00:00 97.6 90 18 118/62 96 01/19/17 20:00 98.8 94 20 134/71 95 01/19/17 16:00 98.1 88 16 136/73 95 01/19/17 12:08 18 01/19/17 12:00 98.5 80 16 129/79 95 I/O 01/19/17 01/19/17 01/19/17 01/20/17 01/20/17 01/20/17 07:00 15:00 23:00 07:00 15:00 23:00 Intake Total 1245 ml 2945 ml 975 ml 985 ml Output Total 200 ml 400 ml 480 ml Balance 1045 ml 2945 ml 575 ml 505 ml Intake Oral 480 ml 1560 ml 240 ml 240 ml IV Total 765 ml 1385 ml 735 ml 745 ml Output Urine Total 200 ml 400 ml 480 ml # Voids 3 6 # Bowel Movements 2 0 0 0 Result Diagram: 01/20/17 0508 01/19/17 0409 Imaging Last Impressions Abdomen X-Ray 01/17/17 0600 Signed Impressions: Service Date/Time: Tuesday, January 17, 2017 05:35 - CONCLUSION: No acute findings. Residual contrast in large bowel. Casey Gaspar MD Objective Remarks General: Obese male in no acute distress. Heart: Regular rate and rhythm. No murmur. Lungs: Clear to auscultation bilaterally. No wheezes, rales, or rhonchi. Breathing is nonlabored. Abdomen: Soft, mildly tender to palpation in right lower quadrant and left lower quadrant without rebound or guarding, nondistended. Extremities: No lower extremity edema. Psych: Alert and oriented. Procedures None Urinary Catheter: No Vascular Central Line Catheter: No A/P Problem List: (1) Diverticulitis of colon with perforation ICD Code: K57.20 Status: Acute (2) Hyperlipidemia ICD Code: E78.5 Status: Chronic (3) Leukocytosis ICD Code: D72.829 Status: Acute (4) Diarrhea ICD Code: R19.7 Status: Acute Assessment and Plan 1. Diverticulitis with perforation: Clinically improving. Appreciate general surgery recommendations. Continue antibiotics, IV fluids. Continue pain control. Full liquid diet. 2. Leukocytosis, fever: Secondary to diverticulitis. Monitor labs. Tylenol as needed. WBCs trending down. 3. Hyperlipidemia: Chronic. Resume statin at discharge. 4. DVT prophylaxis: SCDs. 5. Diarrhea: Resolved. C. difficile negative. Discharge Planning When cleared by general surgery. Problem Qualifiers (1) Diverticulitis of colon with perforation: Qualified Code: K57.20 - Diverticulitis of large intestine with perforation without bleeding (2) Hyperlipidemia: Qualified Code: E78.2 - Mixed hyperlipidemia Diego Carl MD January 20, 2017 11:56
[2017-01-20 12:00] VITALS: BP 153/91; PULSE 81; RESP 17; TEMP 97.8; O2SAT 95
[2017-01-20] MEDS: NS + KCL 20 MEQ INJ 1,000 ML IV SCH ×2 (12:27→20:13)
[2017-01-20 16:00] VITALS: BP 132/82; PULSE 68; RESP 18; TEMP 95.6; O2SAT 94
--- NOTE | 2017-01-20 17:17 | HHI.PR ---
Subjective Subjective Notes Patient seen around 0700 Resting in bed Minimal abdominal pain at time of exam Objective Vitals/I&O Vital Signs Date Time Temp Pulse Resp B/P Pulse Ox O2 Delivery O2 Flow Rate FiO2 01/20/17 16:00 95.6 68 18 132/82 94 Labs Laboratory Tests Test 01/20/17 05:08 White Blood Count 13.3 Red Blood Count 4.68 Hemoglobin 13.6 Hematocrit 41.2 Mean Corpuscular Volume 88.1 Mean Corpuscular Hemoglobin 29.0 Mean Corpuscular Hemoglobin 33.0 Concent Red Cell Distribution Width 13.1 Platelet Count 239 Mean Platelet Volume 9.3 Neutrophils (%) (Auto) 73.2 Lymphocytes (%) (Auto) 13.1 Monocytes (%) (Auto) 13.0 Eosinophils (%) (Auto) 0.2 Basophils (%) (Auto) 0.5 Neutrophils # (Auto) 9.8 Lymphocytes # (Auto) 1.7 Monocytes # (Auto) 1.7 Eosinophils # (Auto) 0.0 Basophils # (Auto) 0.1 CBC Comment DIFF FINAL Differential Comment Radiology CT scan done at [facility] ER shows perforated sigmoid diverticulitis without abscess Cardiovascular: Regular Lungs: Clear Abdomen: Other (obese abdomen; mildly distended; mild tenderness with palpation ) Extremities: No edema A/P Assessment and Plan 46-year-old male with perforated sigmoid diverticulitis -Continue Zosyn -IVF -Monitor WBC and fevers -Labs in the AM -Pain control--- IV Dilaudid -Full liquids as tolerated -Continue non operative treatment at this time Attending Statement patient seen at bedside ok for fulls non op mgnt abd exams Attestation The exam, history, and the medical decision-making described in the above note were completed with the assistance of the mid-level provider. I reviewed and agree with the findings presented. I attest that I had a [id number] encounter with the patient on the same day, and personally performed and documented my assessment and findings in the medical record. Annemarie Hammonds January 20, 2017 17:17 Swapnil Nixon MD Feb 01, 2017 13:11
[2017-01-20 20:00] VITALS: BP 144/64; PULSE 75; RESP 20; TEMP 99.1; O2SAT 95
[2017-01-21] VITALS: BP 129/63; PULSE 82; RESP 20; TEMP 98.3; O2SAT 93
[2017-01-21] MEDS: ACETAMINOPHEN 325 MG TAB PO PRN ×4 (03:51→18:47)
[2017-01-21] MEDS: PIPERACIL-TAZO 4.5 GM PREMIX 100 ML IV SCH ×2 (03:52→09:18)
[2017-01-21] MEDS: NS + KCL 20 MEQ INJ 1,000 ML IV SCH ×2 (03:52→18:00)
[2017-01-21] MEDS: ONDANSETRON HCL 4 MG/2 ML VIAL IVP PRN ×2 (06:10→12:51)
[2017-01-21] MEDS: HYDROmorphone HCL PF 1 MG/ML VIAL IV PUSH PRN ×3 (06:11→17:57)
[2017-01-21 06:58] LABS: BASOPHIL # 0.1 TH/MM3 (0-0.2); BASOPHIL % 0.5 % (0.0-2.0); EOSINOPHIL # 0.3 TH/MM3 (0-0.4); EOSINOPHIL % 2.4 % (0.0-4.0); HEMO FLAGS DIFF FINAL; LYMPH % 11.3 % (9.0-44.0); LYMPHOCYTE # 1.4 TH/MM3 (1.0-4.8); MEAN CELL VOLUME 87.7 FL (80.0-100.0); MEAN CORPUSCULAR HEMOGLOBIN 28.9 PG (27.0-34.0); MEAN CORPUSCULAR HGB CONC 32.9 % (32.0-36.0); MONO % 11.2 % (0.0-8.0); NEUT % 74.6 % (16.0-70.0); PLATELET COUNT 245 TH/MM3 (150-450); RED BLOOD COUNT 4.68 MIL/MM3 (4.50-5.90); RED CELL DISTRIBUTION WIDTH 13.5 % (11.6-17.2); WHITE BLOOD COUNT 12.1 TH/MM3 (4.0-11.0)
[2017-01-21 08:00] VITALS: BP 159/98; PULSE 100; RESP 17; TEMP 98.2; O2SAT 98
--- NOTE | 2017-01-21 09:42 | HHI.PR ---
Subjective Remarks Follow up diverticulitis. Still having LLQ abdominal pain. Some nausea with one episode of vomiting. Still with occasional loose stools. Requesting infectious disease consult. Objective Vitals Vital Signs Date Time Temp Pulse Resp B/P Pulse Ox O2 Delivery O2 Flow Rate FiO2 01/21/17 08:00 98.2 100 17 159/98 98 01/21/17 00:00 98.3 82 20 129/63 93 01/20/17 20:00 99.1 75 20 144/64 95 01/20/17 16:00 95.6 68 18 132/82 94 01/20/17 12:00 97.8 81 17 153/91 95 I/O 01/20/17 01/20/17 01/20/17 01/21/17 01/21/17 01/21/17 07:00 15:00 23:00 07:00 15:00 23:00 Intake Total 985 ml 1071 ml 1185 ml 1200 ml Output Total 480 ml 400 ml 650 ml Balance 505 ml 1071 ml 785 ml 550 ml Intake Oral 240 ml 350 ml 440 ml 440 ml IV Total 745 ml 721 ml 745 ml 760 ml Output Urine Total 480 ml 400 ml 650 ml # Voids 4 # Bowel Movements 0 0 0 0 Result Diagram: 01/21/17 0608 01/19/17 0409 Imaging Last Impressions Abdomen X-Ray 01/17/17 0600 Signed Impressions: Service Date/Time: Tuesday, January 17, 2017 05:35 - CONCLUSION: No acute findings. Residual contrast in large bowel. Casey Gaspar MD Objective Remarks General: Obese male in no acute distress. Heart: Regular rate and rhythm. No murmur. Lungs: Clear to auscultation bilaterally. No wheezes, rales, or rhonchi. Breathing is nonlabored. Abdomen: Soft, mildly tender to palpation in right lower quadrant and left lower quadrant without rebound or guarding, nondistended. Extremities: No lower extremity edema. Psych: Alert and oriented. Procedures None Urinary Catheter: No Vascular Central Line Catheter: No A/P Problem List: (1) Diverticulitis of colon with perforation ICD Code: K57.20 Status: Acute (2) Hyperlipidemia ICD Code: E78.5 Status: Chronic (3) Leukocytosis ICD Code: D72.829 Status: Acute (4) Diarrhea ICD Code: R19.7 Status: Acute (5) Sepsis ICD Code: A41.9 Status: Acute Assessment and Plan 1. Diverticulitis with perforation: Clinically improving. Appreciate general surgery recommendations. Continue antibiotics, IV fluids. Continue pain control. Full liquid diet. Consult infectious disease. 2. Leukocytosis, fever: Meets sepsis criteria. Secondary to diverticulitis. Monitor labs. Tylenol as needed. WBCs trending down. 3. Hyperlipidemia: Chronic. Resume statin at discharge. 4. DVT prophylaxis: SCDs. 5. Diarrhea: Resolved. C. difficile negative. Discharge Planning When cleared by general surgery. Problem Qualifiers (1) Diverticulitis of colon with perforation: Qualified Code: K57.20 - Diverticulitis of large intestine with perforation without bleeding (2) Hyperlipidemia: Qualified Code: E78.2 - Mixed hyperlipidemia Diego Carl MD January 21, 2017 09:42
--- NOTE | 2017-01-21 11:53 | HHI.PR ---
Subjective Subjective Notes Resting in bed Has been out of bed and mobilize Mother at beside Objective Vitals/I&O Vital Signs Date Time Temp Pulse Resp B/P Pulse Ox O2 Delivery O2 Flow Rate FiO2 01/21/17 10:17 17 01/21/17 08:00 98.2 100 159/98 98 Labs Laboratory Tests Test 01/21/17 06:08 White Blood Count 12.1 Red Blood Count 4.68 Hemoglobin 13.5 Hematocrit 41.0 Mean Corpuscular Volume 87.7 Mean Corpuscular Hemoglobin 28.9 Mean Corpuscular Hemoglobin 32.9 Concent Red Cell Distribution Width 13.5 Platelet Count 245 Mean Platelet Volume 9.3 Neutrophils (%) (Auto) 74.6 Lymphocytes (%) (Auto) 11.3 Monocytes (%) (Auto) 11.2 Eosinophils (%) (Auto) 2.4 Basophils (%) (Auto) 0.5 Neutrophils # (Auto) 9.0 Lymphocytes # (Auto) 1.4 Monocytes # (Auto) 1.4 Eosinophils # (Auto) 0.3 Basophils # (Auto) 0.1 CBC Comment DIFF FINAL Differential Comment Radiology CT scan done at [facility] ER shows perforated sigmoid diverticulitis without abscess Cardiovascular: Regular Lungs: Clear Abdomen: Non-distended, Other (tender in LLQ with palpation ) Extremities: No edema A/P Assessment and Plan 46-year-old male with perforated sigmoid diverticulitis -Continue Zosyn -IVF -Monitor WBC and fevers---afebrile overnight and WBC continues to trend down -Labs in the AM -Pain control--- IV Dilaudid -Full liquids as tolerated -Continue non operative treatment at this time Attending Statement Patient seen at bedside wbc continues to trend down pt is doing well continue non op mgnt Attestation The exam, history, and the medical decision-making described in the above note were completed with the assistance of the mid-level provider. I reviewed and agree with the findings presented. I attest that I had a [id number] encounter with the patient on the same day, and personally performed and documented my assessment and findings in the medical record. Annemarie Hammonds January 21, 2017 11:53 Swapnil Nixon MD Feb 02, 2017 21:10
[2017-01-21 12:00] VITALS: BP 118/55; PULSE 102; RESP 18; TEMP 100.8; O2SAT 94
--- NOTE | 2017-01-21 15:02 | HHI.IDPN ---
Subjective Subjective Allergies: Coded Allergies: No Known Allergies (Verified , 03/17/06) Objective . Vital Signs Date Time Temp Pulse Resp B/P Pulse Ox O2 Delivery O2 Flow Rate FiO2 01/21/17 13:22 18 01/21/17 12:00 100.8 102 18 118/55 94 01/21/17 10:17 17 01/21/17 08:00 98.2 100 17 159/98 98 01/21/17 00:00 98.3 82 20 129/63 93 01/20/17 20:00 99.1 75 20 144/64 95 01/20/17 16:00 95.6 68 18 132/82 94 01/20/17 01/20/17 01/21/17 15:00 23:00 07:00 Intake Total 1071 ml 1185 ml 1200 ml Output Total 400 ml 650 ml Balance 1071 ml 785 ml 550 ml Intake Oral 350 ml 440 ml 440 ml IV Total 721 ml 745 ml 760 ml Output Urine Total 400 ml 650 ml # Voids 4 # Bowel Movements 0 0 0 . Laboratory Tests Test 01/20/17 01/21/17 05:08 06:08 White Blood Count 13.3 TH/MM3 12.1 TH/MM3 Red Blood Count 4.68 MIL/MM3 4.68 MIL/MM3 Hemoglobin 13.6 GM/DL 13.5 GM/DL Hematocrit 41.2 % 41.0 % Mean Corpuscular Volume 88.1 FL 87.7 FL Mean Corpuscular Hemoglobin 29.0 PG 28.9 PG Mean Corpuscular Hemoglobin 33.0 % 32.9 % Concent Red Cell Distribution Width 13.1 % 13.5 % Platelet Count 239 TH/MM3 245 TH/MM3 Mean Platelet Volume 9.3 FL 9.3 FL Neutrophils (%) (Auto) 73.2 % 74.6 % Lymphocytes (%) (Auto) 13.1 % 11.3 % Monocytes (%) (Auto) 13.0 % 11.2 % Eosinophils (%) (Auto) 0.2 % 2.4 % Basophils (%) (Auto) 0.5 % 0.5 % Neutrophils # (Auto) 9.8 TH/MM3 9.0 TH/MM3 Lymphocytes # (Auto) 1.7 TH/MM3 1.4 TH/MM3 Monocytes # (Auto) 1.7 TH/MM3 1.4 TH/MM3 Eosinophils # (Auto) 0.0 TH/MM3 0.3 TH/MM3 Basophils # (Auto) 0.1 TH/MM3 0.1 TH/MM3 CBC Comment DIFF FINAL DIFF FINAL Differential Comment Mar Nicholson MD January 21, 2017 15:02
--- NOTE | 2017-01-21 15:07 | PD.ID.CON ---
History of Present Illness Service ID Consult Requested By Reason for Consult Evaluation of persistent fevers in a patient with diverticulitis with perforation. Primary Care Physician Non-Staff Diagnoses: History of Present Illness is a 46 y/o CM with PMHx of Obesity, hyperlipidemia, who presented to the ED with complaints of lower abdominal pain. Patient states yesterday he was having pain in his lower abdomen with associated fever, chills and night sweats. Then today he woke up and throughout the day the pain intensified. Patient states that this pain has come on and off for the last 6 months but never this severe. Denies any chest pain, shortness of breath, nausea. Denies any change in his bowel movements. Patient underwent imaging and evaluation by [facility] dept and is currently undergoing treatment for Diverticulitis and perforation with IV zosyn. Patient reports ongoing abdominal discomfort, sweats and low grade fevers. ID consulted for evaluation and Mment of persistent fevers on IV antibiotics. Review of Systems ROS Limitations: Poor Historian Constitutional: DENIES: Diaphoretic episodes, Fatigue, Fever, Weight gain, Weight loss, Chills, Dizziness, Change in appetite, Night Sweats Endocrine: DENIES: Heat/cold intolerance, Polydipsia, Polyuria, Polyphagia Eyes: DENIES: Blurred vision, Diplopia, Eye inflammation, Eye pain, Vision loss , Photosensitivity, Double Vision Ears, nose, mouth, throat: DENIES: Tinnitus, Hearing loss, Vertigo, Nasal discharge, Oral lesions, Throat pain, Hoarseness, Ear Pain, Running Nose, Epistaxis, Sinus Pain, Toothache, Odynophagia Respiratory: DENIES: Apneas, Cough, Snoring, Wheezing, Hemoptysis, Sputum production, Shortness of breath Cardiovascular: DENIES: Chest pain, Palpitations, Syncope, Dyspnea on Exertion , PND, Lower Extremity Edema, Orthopnea, Claudication Gastrointestinal: COMPLAINS OF: Abdominal pain, DENIES: Black stools, Bloody stools, Constipation, Diarrhea, Nausea, Vomiting, Difficulty Swallowing, Anorexia Musculoskeletal: DENIES: Joint pain, Muscle aches, Stiffness, Joint Swelling, Back pain, Neck pain Integumentary: DENIES: Abnormal pigmentation, Nail changes, Pruritus, Rash Hematologic/lymphatic: DENIES: Bruising, Lymphadenopathy Immunologic/allergic: DENIES: Eczema, Urticaria Neurologic: DENIES: Abnormal gait, Headache, Localized weakness, Paresthesias, Seizures, Speech Problems, Tremor, Poor Balance Psychiatric: DENIES: Anxiety, Confusion, Mood changes, Depression, Hallucinations, Agitation, Suicidal Ideation, Homicidal Ideation, Delusions Except as stated in HPI: all other systems reviewed are Neg Past Family Social History Allergies: Coded Allergies: No Known Allergies (Verified , 03/17/06) Past Medical History Hyperlipidemia Obesity Diverticulitis Constipation Past Surgical History Right shoulder surgery ACL repair right knee Reported Medications Reported Meds & Active Scripts Active [place] (Hydrocodone-Acetaminophen) 7.5-325 mg Tab 1 Tab PO Q6H PRN Reported Mevacor (Lovastatin) 10 Mg Tab Active Ordered Medications Current Medications Medications (Trade) Dose Ordered Sig/Jesi Route Start Time Stop Time Status Last Admin (Tylenol) 650 mg Q4H PRN PO 01/16/17 15:45 01/21/17 18:47 (Zofran Inj) 4 mg Q6H PRN IVP 01/16/17 15:45 01/21/17 12:51 Naloxone HCl 0.4 mg 0.4 mg UNSCH PRN IV 01/16/17 15:45 (NS + KCl 20 Meq Inj) 1,000 ml @ 100 mls/hr Q10H IV 01/16/17 17:00 01/21/17 18:00 (Dilaudid Pf Inj) 0.5 mg Q2H PRN IV PUSH 01/17/17 09:45 (Dilaudid Pf Inj) 1 mg Q2H PRN IV PUSH 01/17/17 09:45 01/21/17 17:57 Shark Liver Oil 1 applic 1 applic Q6H PRN RECTAL 01/18/17 08:15 Fluconazole/ Sodium Chloride 50 ml @ 50 mls/hr Q24H IV 01/21/17 17:00 01/21/17 17:03 Levofloxacin/ Dextrose 100 ml @ 100 mls/hr Q24H IV 01/21/17 16:00 01/21/17 15:57 (Flagyl 500 Mg Inj) 100 ml @ 100 mls/hr Q8H IV 01/21/17 18:00 01/21/17 18:00 Family History Mom: Breast cancer, renal cell cancer, melanoma Dad: [place] Social History Tobacco use: Denies Alcohol use: Denies Illicit drug use: Denies Physical Exam Vital Signs Vital Signs Date Time Temp Pulse Resp B/P Pulse Ox O2 Delivery O2 Flow Rate FiO2 01/21/17 13:22 18 01/21/17 12:00 100.8 102 18 118/55 94 01/21/17 10:17 17 01/21/17 08:00 98.2 100 17 159/98 98 01/21/17 00:00 98.3 82 20 129/63 93 01/20/17 20:00 99.1 75 20 144/64 95 01/20/17 16:00 95.6 68 18 132/82 94 Physical Exam GENERAL: This is a well-nourished, well-developed patient, in no apparent distress. SKIN: No rashes, ecchymoses or lesions. Cool and dry. HEAD: Atraumatic. Normocephalic. No temporal or scalp tenderness. EYES: Pupils equal round and reactive. Extraocular motions intact. No scleral icterus. No injection or drainage. ENT: Nose without bleeding, purulent drainage or septal hematoma. Throat without erythema, tonsillar hypertrophy or exudate. Uvula midline. Airway patent. NECK: Trachea midline. No JVD or lymphadenopathy. Supple, nontender, no meningeal signs. CARDIOVASCULAR: Regular rate and rhythm without murmurs, gallops, or rubs. RESPIRATORY: Clear to auscultation. Breath sounds equal bilaterally. No wheezes , rales, or rhonchi. GASTROINTESTINAL: Abdomen soft, diffuse tenderness in upper abdomen. No rebound or rigidity. MUSCULOSKELETAL: Extremities without clubbing, cyanosis, or edema. No joint tenderness, effusion, or edema noted. No calf tenderness. Negative Homans sign bilaterally. NEUROLOGICAL: Awake and alert. Grossly non focal Psych: cooperative IV line sites with no e/o infection. Laboratory Laboratory Tests Test 01/21/17 06:08 White Blood Count 12.1 Red Blood Count 4.68 Hemoglobin 13.5 Hematocrit 41.0 Mean Corpuscular Volume 87.7 Mean Corpuscular Hemoglobin 28.9 Mean Corpuscular Hemoglobin 32.9 Concent Red Cell Distribution Width 13.5 Platelet Count 245 Mean Platelet Volume 9.3 Neutrophils (%) (Auto) 74.6 Lymphocytes (%) (Auto) 11.3 Monocytes (%) (Auto) 11.2 Eosinophils (%) (Auto) 2.4 Basophils (%) (Auto) 0.5 Neutrophils # (Auto) 9.0 Lymphocytes # (Auto) 1.4 Monocytes # (Auto) 1.4 Eosinophils # (Auto) 0.3 Basophils # (Auto) 0.1 CBC Comment DIFF FINAL Differential Comment Result Diagram: 01/21/17 0608 01/19/17 0409 Imaging Last Impressions Abdomen X-Ray 01/17/17 0600 Signed Impressions: Service Date/Time: Tuesday, January 17, 2017 05:35 - CONCLUSION: No acute findings. Residual contrast in large bowel. Casey Gaspar MD Assessment and Plan Assessment and Plan Diverticulitis with perforation. Fever on antibiotics DDX: ? Drug fever (Zosyn IV), ? additional need for antifungal given tariq as normal GI rolando. Leucocytosis trending downwards. Obesity Recs DC Zosyn IV (may take upto 24 hours for fevers to defervesce depending on elimination life) Start IV Levaquin Start IV Flagyl Start Diflucan IV Hopefully if no fevers overnight and WBC stable or down trending may be considered as candidate for switch to oral. If fevers persist may consider repeat imaging after discussion with Dr.Lars Nixon. Will follow clinically for now. d/w Ms.Copley MCCLELLAND. Mar Nicholson MD January 21, 2017 15:07
[2017-01-21 16:00] VITALS: BP 128/74; PULSE 101; RESP 19; TEMP 99.8; O2SAT 95
[2017-01-21] MEDS ORDERED: LEVOFLOXACIN 500 MG PREMIX INJ 100 ML IV SCH (16:00)
[2017-01-21] MEDS: FLUCONAZOLE 100 MG PREMIX BAG 50 ML IV SCH (17:03)
[2017-01-21] MEDS: metroNIDAZOLE 500 MG INJ 100 ML IV SCH (18:00)
[2017-01-21 20:00] VITALS: BP 143/81; PULSE 96; RESP 20; TEMP 96.4; O2SAT 94
[2017-01-22] VITALS: BP 140/75; PULSE 94; RESP 20; TEMP 99.2; O2SAT 94
[2017-01-22] MEDS: HYDROmorphone HCL PF 1 MG/ML VIAL IV PUSH PRN ×5 (01:45→21:51)
[2017-01-22] MEDS: ONDANSETRON HCL 4 MG/2 ML VIAL IVP PRN ×3 (01:45→21:51)
[2017-01-22] MEDS: metroNIDAZOLE 500 MG INJ 100 ML IV SCH ×3 (01:46→10:00)
[2017-01-22 05:22] LABS: AUTOMATED NEUTROPHIL # 10.6 TH/MM3 (1.8-7.7); BASOPHIL # 0.1 TH/MM3 (0-0.2); BASOPHIL % 0.5 % (0.0-2.0); EOSINOPHIL # 0.1 TH/MM3 (0-0.4); EOSINOPHIL % 0.6 % (0.0-4.0); HEMATOCRIT 39.8 % (39.0-51.0); HEMO FLAGS DIFF FINAL; LYMPH % 8.6 % (9.0-44.0); LYMPHOCYTE # 1.1 TH/MM3 (1.0-4.8); MEAN CELL VOLUME 87.6 FL (80.0-100.0); MEAN CORPUSCULAR HEMOGLOBIN 29.2 PG (27.0-34.0); MEAN CORPUSCULAR HGB CONC 33.3 % (32.0-36.0); MONO % 11.5 % (0.0-8.0); NEUT % 78.8 % (16.0-70.0); PLATELET COUNT 291 TH/MM3 (150-450); RED BLOOD COUNT 4.54 MIL/MM3 (4.50-5.90); RED CELL DISTRIBUTION WIDTH 13.4 % (11.6-17.2); WHITE BLOOD COUNT 13.4 TH/MM3 (4.0-11.0)
[2017-01-22 05:48] LABS: BICARBONATE 28.4 MEQ/L (21.0-32.0); POTASSIUM 4.1 MEQ/L (3.5-5.1)
[2017-01-22 08:00] VITALS: BP 131/67; PULSE 98; RESP 17; TEMP 99.9; O2SAT 94
[2017-01-22] MEDS: NS + KCL 20 MEQ INJ 1,000 ML IV SCH ×3 (08:16→17:04)
[2017-01-22] MEDS: ACETAMINOPHEN 325 MG TAB PO PRN (08:19)
--- NOTE | 2017-01-22 11:08 | HHI.PR ---
Subjective Remarks Follow up diverticulitis. Patient still having some LLQ pain. He has had diarrhea overnight, which he attributes to Flagyl. Objective Vitals Vital Signs Date Time Temp Pulse Resp B/P Pulse Ox O2 Delivery O2 Flow Rate FiO2 01/22/17 09:19 17 01/22/17 08:00 99.9 98 17 131/67 94 01/22/17 02:15 18 01/22/17 00:00 99.2 94 20 140/75 94 01/21/17 20:00 96.4 96 20 143/81 94 01/21/17 16:00 99.8 101 19 128/74 95 01/21/17 12:00 100.8 102 18 118/55 94 I/O 01/21/17 01/21/17 01/21/17 01/22/17 01/22/17 01/22/17 07:00 15:00 23:00 07:00 15:00 23:00 Intake Total 1200 ml 1377 ml 960 ml 720 ml Output Total 650 ml Balance 550 ml 1377 ml 960 ml 720 ml Intake Oral 440 ml 560 ml 960 ml 720 ml IV Total 760 ml 817 ml Output Urine Total 650 ml # Voids 6 3 8 # Bowel Movements 0 4 3 8 Result Diagram: 01/22/178 01/22/17 0448 Imaging Last Impressions Abdomen X-Ray 01/17/17 0600 Signed Impressions: Service Date/Time: Tuesday, January 17, 2017 05:35 - CONCLUSION: No acute findings. Residual contrast in large bowel. Casey Gaspar MD Objective Remarks General: Obese male in no acute distress. Heart: Regular rate and rhythm. No murmur. Lungs: Clear to auscultation bilaterally. No wheezes, rales, or rhonchi. Breathing is nonlabored. Abdomen: Soft, mildly tender to palpation in right lower quadrant and left lower quadrant without rebound or guarding, nondistended. Extremities: No lower extremity edema. Psych: Alert and oriented. Procedures None Urinary Catheter: No Vascular Central Line Catheter: No A/P Problem List: (1) Diverticulitis of colon with perforation ICD Code: K57.20 Status: Acute (2) Hyperlipidemia ICD Code: E78.5 Status: Chronic (3) Leukocytosis ICD Code: D72.829 Status: Acute (4) Diarrhea ICD Code: R19.7 Status: Acute (5) Sepsis ICD Code: A41.9 Status: Acute Assessment and Plan 1. Diverticulitis with perforation: Clinically improving. Appreciate general surgery recommendations. Continue antibiotics, IV fluids. Continue pain control. Full liquid diet. Appreciate infectious disease recommendations. May need repeat CT. 2. Leukocytosis, fever: Meets sepsis criteria. Secondary to diverticulitis. Monitor labs. Tylenol as needed. WBCs increased again today. 3. Hyperlipidemia: Chronic. Resume statin at discharge. 4. DVT prophylaxis: SCDs. 5. Diarrhea: C. difficile negative. Patient feels that Flagyl is causing his diarrhea. Discharge Planning When cleared by general surgery. Problem Qualifiers (1) Diverticulitis of colon with perforation: Qualified Code: K57.20 - Diverticulitis of large intestine with perforation without bleeding (2) Hyperlipidemia: Qualified Code: E78.2 - Mixed hyperlipidemia Diego Carl MD January 22, 2017 11:08
[2017-01-22 12:00] VITALS: BP 139/82; PULSE 91; RESP 18; TEMP 98.7; O2SAT 93
--- NOTE | 2017-01-22 14:55 | HHI.IDPN ---
Subjective Subjective Remarks is a 46 y/o CM with PMHx of Obesity, hyperlipidemia, who presented to the ED with complaints of lower abdominal pain. Patient states yesterday he was having pain in his lower abdomen with associated fever, chills and night sweats. Then today he woke up and throughout the day the pain intensified. Patient states that this pain has come on and off for the last 6 months but never this severe. Denies any chest pain, shortness of breath, nausea. Denies any change in his bowel movements. Patient underwent imaging and evaluation by [facility] dept and is currently undergoing treatment for Diverticulitis and perforation with IV zosyn. Patient reports ongoing abdominal discomfort, sweats and low grade fevers. ID consulted for evaluation and Mment of persistent fevers on IV antibiotics. Overnight events reviewed Fevers defervesced. No rash Reports diarrhea with flagyl IV and has refused several doses. Antibiotics Levaquin IV Flagyl IV Diflucan IV Lines Line sites with no e/o infection Past Medical History reviewed Allergies: Coded Allergies: No Known Allergies (Verified , 03/17/06) Objective . Vital Signs Date Time Temp Pulse Resp B/P Pulse Ox O2 Delivery O2 Flow Rate FiO2 01/22/17 12:11 18 01/22/17 12:00 98.7 91 18 139/82 93 01/22/17 09:19 17 01/22/17 08:00 99.9 98 17 131/67 94 01/22/17 00:00 99.2 94 20 140/75 94 01/21/17 20:00 96.4 96 20 143/81 94 01/21/17 16:00 99.8 101 19 128/74 95 01/21/17 01/21/17 01/22/17 15:00 23:00 07:00 Intake Total 1377 ml 960 ml 720 ml Balance 1377 ml 960 ml 720 ml Intake Oral 560 ml 960 ml 720 ml IV Total 817 ml # Voids 6 3 8 # Bowel Movements 4 3 8 . Laboratory Tests Test 01/21/17 01/22/17 06:08 04:48 White Blood Count 12.1 TH/MM3 13.4 TH/MM3 Red Blood Count 4.68 MIL/MM3 4.54 MIL/MM3 Hemoglobin 13.5 GM/DL 13.2 GM/DL Hematocrit 41.0 % 39.8 % Mean Corpuscular Volume 87.7 FL 87.6 FL Mean Corpuscular Hemoglobin 28.9 PG 29.2 PG Mean Corpuscular Hemoglobin 32.9 % 33.3 % Concent Red Cell Distribution Width 13.5 % 13.4 % Platelet Count 245 TH/MM3 291 TH/MM3 Mean Platelet Volume 9.3 FL 9.1 FL Neutrophils (%) (Auto) 74.6 % 78.8 % Lymphocytes (%) (Auto) 11.3 % 8.6 % Monocytes (%) (Auto) 11.2 % 11.5 % Eosinophils (%) (Auto) 2.4 % 0.6 % Basophils (%) (Auto) 0.5 % 0.5 % Neutrophils # (Auto) 9.0 TH/MM3 10.6 TH/MM3 Lymphocytes # (Auto) 1.4 TH/MM3 1.1 TH/MM3 Monocytes # (Auto) 1.4 TH/MM3 1.5 TH/MM3 Eosinophils # (Auto) 0.3 TH/MM3 0.1 TH/MM3 Basophils # (Auto) 0.1 TH/MM3 0.1 TH/MM3 CBC Comment DIFF FINAL DIFF FINAL Differential Comment Laboratory Tests Test 01/22/17 04:48 Sodium Level 138 MEQ/L Potassium Level 4.1 MEQ/L Chloride Level 102 MEQ/L Carbon Dioxide Level 28.4 MEQ/L Anion Gap 8 MEQ/L Blood Urea Nitrogen 6 MG/DL Creatinine 0.82 MG/DL Estimat Glomerular Filtration 100 ML/MIN Rate Random Glucose 106 MG/DL Calcium Level 9.0 MG/DL Imaging Last Impressions Abdomen X-Ray 01/17/17 0600 Signed Impressions: Service Date/Time: Tuesday, January 17, 2017 05:35 - CONCLUSION: No acute findings. Residual contrast in large bowel. Casey Gaspar MD Physical Exam GENERAL: This is a well-nourished, well-developed patient, in no apparent distress. SKIN: No rashes, ecchymoses or lesions. Cool and dry. HEAD: Atraumatic. Normocephalic. No temporal or scalp tenderness. EYES: Pupils equal round and reactive. Extraocular motions intact. No scleral icterus. No injection or drainage. ENT: Nose without bleeding, purulent drainage or septal hematoma. Throat without erythema, tonsillar hypertrophy or exudate. Uvula midline. Airway patent. NECK: Trachea midline. No JVD or lymphadenopathy. Supple, nontender, no meningeal signs. CARDIOVASCULAR: Regular rate and rhythm without murmurs, gallops, or rubs. RESPIRATORY: Clear to auscultation. Breath sounds equal bilaterally. No wheezes , rales, or rhonchi. GASTROINTESTINAL: Abdomen soft, diffuse tenderness in upper abdomen. No rebound or rigidity. MUSCULOSKELETAL: Extremities without clubbing, cyanosis, or edema. No joint tenderness, effusion, or edema noted. No calf tenderness. Negative Homans sign bilaterally. NEUROLOGICAL: Awake and alert. Grossly non focal Psych: cooperative IV line sites with no e/o infection. Assessment & Plan Remarks Diverticulitis with perforation. Fever on antibiotics DDX: ? Drug fever (Zosyn IV), ? additional need for antifungal given tariq as normal GI rolando. Leucocytosis trending downwards. Obesity Recs DC IV Levaquin DC IV Flagyl Continue Diflucan IV Start Liquid augmentin Fevers defervescing some. Diarrhea and abdominal discomfort persist. Consider repeat imaging after discussion with Dr.Lars Nixon. Will follow clinically for now. d/w Ms.Copley MCCLELLAND and . Mar Nicholson MD January 22, 2017 14:55
--- NOTE | 2017-01-22 15:37 | HHI.PR ---
Subjective Subjective Notes Resting in bed Objective Vitals/I&O Vital Signs Date Time Temp Pulse Resp B/P Pulse Ox O2 Delivery O2 Flow Rate FiO2 01/22/17 12:11 18 01/22/17 12:00 98.7 91 139/82 93 Labs Laboratory Tests Test 01/22/17 04:48 White Blood Count 13.4 Red Blood Count 4.54 Hemoglobin 13.2 Hematocrit 39.8 Mean Corpuscular Volume 87.6 Mean Corpuscular Hemoglobin 29.2 Mean Corpuscular Hemoglobin 33.3 Concent Red Cell Distribution Width 13.4 Platelet Count 291 Mean Platelet Volume 9.1 Neutrophils (%) (Auto) 78.8 Lymphocytes (%) (Auto) 8.6 Monocytes (%) (Auto) 11.5 Eosinophils (%) (Auto) 0.6 Basophils (%) (Auto) 0.5 Neutrophils # (Auto) 10.6 Lymphocytes # (Auto) 1.1 Monocytes # (Auto) 1.5 Eosinophils # (Auto) 0.1 Basophils # (Auto) 0.1 CBC Comment DIFF FINAL Differential Comment Sodium Level 138 Potassium Level 4.1 Chloride Level 102 Carbon Dioxide Level 28.4 Anion Gap 8 Blood Urea Nitrogen 6 Creatinine 0.82 Estimat Glomerular Filtration 100 Rate Random Glucose 106 Calcium Level 9.[address] scan done at [facility] shows perforated sigmoid diverticulitis without abscess Cardiovascular: Regular Lungs: Clear Abdomen: Non-distended, Other (bilateral lower abdominal pain with tenderness ) Extremities: No edema A/P Assessment and Plan 46-year-old male with perforated sigmoid diverticulitis -Antibiotics per ID -IVF -Monitor WBC and fevers---tmax 100.8 overnight and WBC 13.4 -Labs in the AM -Pain control--- IV Dilaudid -Full liquids as tolerated -Continue non operative treatment at this time Attending Statement leukocytosis, slow progression obtain CTa/p with large abscess- consult IR for perc drain npo after mn pain control iv abx Annemarie Hammonds January 22, 2017 15:37 Swapnil Nixon MD January 22, 2017 21:50
[2017-01-22 16:00] VITALS: BP 131/83; PULSE 111; RESP 18; TEMP 98.5; O2SAT 93
[2017-01-22] MEDS: FLUCONAZOLE 100 MG PREMIX BAG 50 ML IV SCH (16:17)
[2017-01-22] MEDS ORDERED: IOHEXOL 350 MG/ML 10 ML VIAL (for RAD DIAG) IV ONE (19:25)
--- NOTE | 2017-01-22 19:36 | RADRPT ---
EXAM DATE/TIME: 01/22/2017 19:09 [facility] COMPARISON: CT ABDOMEN & PELVIS W CONTRAST, January 16, 2017, 13:59. INDICATIONS : Diffuse abdomen pain. IV CONTRAST: 80 cc Omnipaque 350 (iohexol) IV ORAL CONTRAST: No oral contrast ingested. RADIATION DOSE: 24.19 CTDIvol (mGy) MEDICAL HISTORY : Cardiovascular disease. SURGICAL HISTORY : None. ENCOUNTER: Subsequent ACUITY: 1 week PAIN SCALE: 5/10 LOCATION: Bilateral lower quadrant TECHNIQUE: Volumetric scanning of the abdomen and pelvis was performed. Using automated exposure control and ad justment of the mA and/or kV according to patient size, radiation dose was kept as low as reasonably achievable to obtain optimal diagnostic quality images. FINDINGS: Small pericardial effusion. Hepatic steatosis and perihepatic and perisplenic free fluid with fluid t racking into the right paracolic gutter into the pelvis. Prostatic calcifications are noted. Urinary bladder unremarkable. There is sigmoid diverticulosis and descending colonic diverticulosis. There is now identified at the level of extraluminal air seen previously adjacent to the sigmoid colon a rim- enhancing air fluid collection with adjacent inflammatory stranding characteristic of an abscess. Thi s measures 6.2 x 2.7 cm in transverse and AP dimension on axial 74. There are adjacent foci of extral uminal air consistent with the clinical or perforation. There is mild sigmoid wall thickening. No lym phadenopathy. Nonobstructing left renal calculus measuring 3.9 mm. Spleen, pancreas and adrenal gland s and gallbladder are normal. There is atelectasis at the left lung base. Osseous structures are inta ct. Foci of free air are also seen in the upper abdomen on image 30 in the right upper quadrant image 39 in the midline abdomen. There are dilated loops of small intestine also seen likely representing an ileus. CONCLUSION: 1. Perforated sigmoid diverticulitis with interval abscess formation in free fluid. 2. Hepatic steatosis. 3. Nonobstructing left renal calculus. 4. Distended loops of bowel are identified characteristic of an ileus. Breezy Borges MD on January 22, 2017 at 19:27 Board Certified Radiologist. This report was verified electronically.
[2017-01-22 20:00] VITALS: BP 162/80; PULSE 117; RESP 18; TEMP 98.1; O2SAT 95
[2017-01-22] MEDS: AMOXICIL-CLAV 600 MG/5 ML LIQ 125 ML BTL PO SCH (21:21)
[2017-01-22] MEDS ORDERED: CHOLESTYRAMINE 4 GM PACKET PO ONE (21:45)
[2017-01-23] VITALS (7 sets, daily range): BP systolic 136–149; BP diastolic 55–86; PULSE 84–108; RESP 17–20; TEMP 98–100.1; O2SAT 91–95
[2017-01-23] MEDS: HYDROmorphone HCL PF 1 MG/ML VIAL IV PUSH PRN ×3 (02:08→19:13)
[2017-01-23 05:38] LABS: AUTOMATED NEUTROPHIL # 11.7 TH/MM3 (1.8-7.7); BASOPHIL % 0.3 % (0.0-2.0); EOSINOPHIL % 0.2 % (0.0-4.0); HEMATOCRIT 37.7 % (39.0-51.0); HEMO FLAGS DIFF FINAL; LYMPH % 6.5 % (9.0-44.0); MEAN CELL VOLUME 87.8 FL (80.0-100.0); MEAN CORPUSCULAR HEMOGLOBIN 29.1 PG (27.0-34.0); MEAN CORPUSCULAR HGB CONC 33.1 % (32.0-36.0); MONO % 13.9 % (0.0-8.0); NEUT % 79.1 % (16.0-70.0); PLATELET COUNT 290 TH/MM3 (150-450); RED CELL DISTRIBUTION WIDTH 13.2 % (11.6-17.2); WHITE BLOOD COUNT 14.8 TH/MM3 (4.0-11.0)
[2017-01-23 05:41] LABS: APTT (PATIENT) 28.8 SEC (24.3-30.1); INTERNATIONAL NORMALIZED RATIO 1.3 RATIO
[2017-01-23] MEDS: NS + KCL 20 MEQ INJ 1,000 ML IV SCH ×2 (05:44→20:27)
[2017-01-23 06:11] LABS: BICARBONATE 27.5 MEQ/L (21.0-32.0)
[2017-01-23] MEDS: AMOXICIL-CLAV 600 MG/5 ML LIQ 125 ML BTL PO SCH (08:47)
[2017-01-23 09:39] LABS: C. DIFF EPI 027 PRESUMPTIVE NEGATIVE (NEGATIVE); C. DIFF TOXIN PCR NEGATIVE (NEGATIVE)
--- NOTE | 2017-01-23 10:45 | HHI.IDPN ---
Subjective Subjective Remarks is a 46 y/o CM with PMHx of Obesity, hyperlipidemia, who presented to the ED with complaints of lower abdominal pain. Patient states yesterday he was having pain in his lower abdomen with associated fever, chills and night sweats. Then today he woke up and throughout the day the pain intensified. Patient states that this pain has come on and off for the last 6 months but never this severe. Denies any chest pain, shortness of breath, nausea. Denies any change in his bowel movements. Patient underwent imaging and evaluation by [facility] dept and is currently undergoing treatment for Diverticulitis and perforation with IV zosyn. Patient reports ongoing abdominal discomfort, sweats and low grade fevers. ID consulted for evaluation and Mment of persistent fevers on IV antibiotics. Overnight events reviewed persistent low grade fevers. No rash Reports diarrhea 7-8 times watery large volume. Requests some med to stop it. Going to IR for CT guided aspiration of IA abscess. Antibiotics Levaquin IV Flagyl IV Diflucan IV Lines Line sites with no e/o infection Past Medical History reviewed Allergies: Coded Allergies: No Known Allergies (Verified , 03/17/06) Objective . Vital Signs Date Time Temp Pulse Resp B/P Pulse Ox O2 Delivery O2 Flow Rate FiO2 01/23/17 08:00 100.1 101 17 142/78 91 01/23/17 04:00 98.2 96 18 147/86 95 01/23/17 00:00 100.1 108 20 149/85 92 01/22/17 20:00 98.1 117 18 162/80 95 01/22/17 16:41 17 01/22/17 16:00 98.5 111 18 131/83 93 01/22/17 12:00 98.7 91 18 139/82 93 01/22/17 01/22/17 01/23/17 15:00 23:00 07:00 Intake Total 2282 ml 782 ml 740 ml Balance 2282 ml 782 ml 740 ml Intake Oral 240 ml IV Total 2282 ml 542 ml 740 ml # Voids 2 2 # Bowel Movements 0 1 . Laboratory Tests Test 01/22/17 01/23/17 04:48 04:49 White Blood Count 13.4 TH/MM3 14.8 TH/MM3 Red Blood Count 4.54 MIL/MM3 4.30 MIL/MM3 Hemoglobin 13.2 GM/DL 12.5 GM/DL Hematocrit 39.8 % 37.7 % Mean Corpuscular Volume 87.6 FL 87.8 FL Mean Corpuscular Hemoglobin 29.2 PG 29.1 PG Mean Corpuscular Hemoglobin 33.3 % 33.1 % Concent Red Cell Distribution Width 13.4 % 13.2 % Platelet Count 291 TH/MM3 290 TH/MM3 Mean Platelet Volume 9.1 FL 9.3 FL Neutrophils (%) (Auto) 78.8 % 79.1 % Lymphocytes (%) (Auto) 8.6 % 6.5 % Monocytes (%) (Auto) 11.5 % 13.9 % Eosinophils (%) (Auto) 0.6 % 0.2 % Basophils (%) (Auto) 0.5 % 0.3 % Neutrophils # (Auto) 10.6 TH/MM3 11.7 TH/MM3 Lymphocytes # (Auto) 1.1 TH/MM3 1.0 TH/MM3 Monocytes # (Auto) 1.5 TH/MM3 2.0 TH/MM3 Eosinophils # (Auto) 0.1 TH/MM3 0.0 TH/MM3 Basophils # (Auto) 0.1 TH/MM3 0.0 TH/MM3 CBC Comment DIFF FINAL DIFF FINAL Differential Comment Laboratory Tests Test 01/22/17 01/23/17 04:48 04:49 Sodium Level 138 MEQ/L 137 MEQ/L Potassium Level 4.1 MEQ/L 4.0 MEQ/L Chloride Level 102 MEQ/L 102 MEQ/L Carbon Dioxide Level 28.4 MEQ/L 27.5 MEQ/L Anion Gap 8 MEQ/L 8 MEQ/L Blood Urea Nitrogen 6 MG/DL 7 MG/DL Creatinine 0.82 MG/DL 0.78 MG/DL Estimat Glomerular Filtration 100 ML/MIN 106 ML/MIN Rate Random Glucose 106 MG/DL 101 MG/DL Calcium Level 9.0 MG/DL 8.6 MG/DL Imaging Last Impressions Abdomen X-Ray 01/17/17 0600 Signed Impressions: Service Date/Time: Tuesday, January 17, 2017 05:35 - CONCLUSION: No acute findings. Residual contrast in large bowel. Casey Gaspar MD Physical Exam GENERAL: This is a well-nourished, well-developed patient, in no apparent distress. SKIN: No rashes, ecchymoses or lesions. Cool and dry. HEAD: Atraumatic. Normocephalic. No temporal or scalp tenderness. EYES: Pupils equal round and reactive. Extraocular motions intact. No scleral icterus. No injection or drainage. ENT: Nose without bleeding, purulent drainage or septal hematoma. Throat without erythema, tonsillar hypertrophy or exudate. Uvula midline. Airway patent. NECK: Trachea midline. No JVD or lymphadenopathy. Supple, nontender, no meningeal signs. CARDIOVASCULAR: Regular rate and rhythm without murmurs, gallops, or rubs. RESPIRATORY: Clear to auscultation. Breath sounds equal bilaterally. No wheezes , rales, or rhonchi. GASTROINTESTINAL: Abdomen soft, diffuse tenderness in upper abdomen. No rebound or rigidity. MUSCULOSKELETAL: Extremities without clubbing, cyanosis, or edema. No joint tenderness, effusion, or edema noted. No calf tenderness. Negative Homans sign bilaterally. NEUROLOGICAL: Awake and alert. Grossly non focal Psych: cooperative IV line sites with no e/o infection. Assessment & Plan Remarks Diverticulitis with perforation. Intra abdominal abscess Fever on antibiotics DDX: source control needs to be achieved. Leucocytosis persistent. Obesity Recs Start Zosyn IV (may need Carbapenem post procedure if fevers persist until cultures back) Continue Diflucan IV DC Liquid augmentin Fevers defervescing some. Diarrhea and abdominal discomfort persist: Imodium ok as Cdiff negative. d/w Ms.Copley MCCLELLAND and . I will be OOT from 01/24/17 to 01/29/2017. Other ID MDs covering for me. Please call center. Mar Nicholson MD January 23, 2017 10:45
[2017-01-23] MEDS ORDERED: PIPERACIL-TAZO 4.5 GM PREMIX 100 ML IV ONE (11:00)
--- NOTE | 2017-01-23 13:49 | HHI.PR ---
Subjective Remarks Follow up diverticulitis, abscess. Patient still having diarrhea. Intermittent low-grade fevers. Still having abdominal pain. Objective Vitals Vital Signs Date Time Temp Pulse Resp B/P Pulse Ox O2 Delivery O2 Flow Rate FiO2 01/23/17 12:00 98.0 84 17 136/55 92 01/23/17 08:00 100.1 101 17 142/78 91 01/23/17 04:00 98.2 96 18 147/86 95 01/23/17 00:00 100.1 108 20 149/85 92 01/22/17 20:00 98.1 117 18 162/80 95 01/22/17 16:41 17 01/22/17 16:00 98.5 111 18 131/83 93 I/O 01/22/17 01/22/17 01/22/17 01/23/17 01/23/17 01/23/17 07:00 15:00 23:00 07:00 15:00 23:00 Intake Total 720 ml 2282 ml 782 ml 740 ml Balance 720 ml 2282 ml 782 ml 740 ml Intake Oral 720 ml 240 ml IV Total 2282 ml 542 ml 740 ml # Voids 8 2 2 # Bowel Movements 8 0 1 Result Diagram: 01/23/17 0449 01/23/17 0449 Imaging Last Impressions Abdomen/Pelvis CT 01/22/17 0000 Signed Impressions: Service Date/Time: Sunday, January 22, 2017 19:09 - CONCLUSION: 1. Perforated sigmoid diverticulitis with interval abscess formation in free fluid. 2. Hepatic steatosis. 3. Nonobstructing left renal calculus. 4. Distended loops of bowel are identified characteristic of an ileus. Breezy Borges MD Abdomen X-Ray 01/17/17 0600 Signed Impressions: Service Date/Time: Tuesday, January 17, 2017 05:35 - CONCLUSION: No acute findings. Residual contrast in large bowel. Casey Gaspar MD Objective Remarks General: Obese male in no acute distress. Heart: Regular rate and rhythm. No murmur. Lungs: Clear to auscultation bilaterally. No wheezes, rales, or rhonchi. Breathing is nonlabored. Abdomen: Soft, mildly tender to palpation in right lower quadrant and left lower quadrant without rebound or guarding, nondistended. Extremities: No lower extremity edema. Psych: Alert and oriented. Procedures None Urinary Catheter: No Vascular Central Line Catheter: No A/P Problem List: (1) Diverticulitis of colon with perforation ICD Code: K57.20 Status: Acute (2) Hyperlipidemia ICD Code: E78.5 Status: Chronic (3) Leukocytosis ICD Code: D72.829 Status: Acute (4) Diarrhea ICD Code: R19.7 Status: Acute (5) Sepsis ICD Code: A41.9 Status: Acute Assessment and Plan 1. Diverticulitis with perforation, abscess: Patient still febrile. Appreciate general surgery recommendations. Continue antibiotics, IV fluids. Continue pain control. Full liquid diet. Appreciate infectious disease recommendations. Repeat CT shows abscess. IR consulted for CT-guided drainage. 2. Leukocytosis, fever: Meets sepsis criteria. Secondary to diverticulitis, abscess. Monitor labs. Tylenol as needed. WBCs are increasing. 3. Hyperlipidemia: Chronic. Resume statin at discharge. 4. DVT prophylaxis: SCDs. 5. Diarrhea: C. difficile negative. Patient feels that Flagyl is causing his diarrhea. Problem Qualifiers (1) Diverticulitis of colon with perforation: Qualified Code: K57.20 - Diverticulitis of large intestine with perforation without bleeding (2) Hyperlipidemia: Qualified Code: E78.2 - Mixed hyperlipidemia Diego Carl MD January 23, 2017 13:49
[2017-01-23] MEDS: LOPERAMIDE HCL SOLN 2 MG/10 ML UDC PO PRN ×2 (14:29→19:16)
--- NOTE | 2017-01-23 14:39 | HHI.PR ---
Subjective Subjective Notes Out of bed Had multiple episodes of diarrhea overnight Inquiring about timing of IR drainage Objective Vitals/I&O Vital Signs Date Time Temp Pulse Resp B/P Pulse Ox O2 Delivery O2 Flow Rate FiO2 01/23/17 12:00 98.0 84 17 136/55 92 Labs Laboratory Tests Test 01/23/17 01/23/17 04:49 05:09 White Blood Count 14.8 Red Blood Count 4.30 Hemoglobin 12.5 Hematocrit 37.7 Mean Corpuscular Volume 87.8 Mean Corpuscular Hemoglobin 29.1 Mean Corpuscular Hemoglobin 33.1 Concent Red Cell Distribution Width 13.2 Platelet Count 290 Mean Platelet Volume 9.3 Neutrophils (%) (Auto) 79.1 Lymphocytes (%) (Auto) 6.5 Monocytes (%) (Auto) 13.9 Eosinophils (%) (Auto) 0.2 Basophils (%) (Auto) 0.3 Neutrophils # (Auto) 11.7 Lymphocytes # (Auto) 1.0 Monocytes # (Auto) 2.0 Eosinophils # (Auto) 0.0 Basophils # (Auto) 0.0 CBC Comment DIFF FINAL Differential Comment Prothrombin Time 14.0 Prothromb Time International 1.3 Ratio Activated Partial 28.8 Thromboplast Time Sodium Level 137 Potassium Level 4.0 Chloride Level 102 Carbon Dioxide Level 27.5 Anion Gap 8 Blood Urea Nitrogen 7 Creatinine 0.78 Estimat Glomerular Filtration 106 Rate Random Glucose 101 Calcium Level 8.6 Stool C. difficile Toxin (PCR) NEGATIVE Stl C. difficile Toxin PRESUMPTIVE Epiderm [address] scan done at [facility] shows perforated sigmoid diverticulitis without abscess Cardiovascular: Regular Lungs: Clear Abdomen: Other (BLQ tenderness; obese abdomen; mildly tender ) Extremities: No edema A/P Assessment and Plan 46-year-old male with perforated sigmoid diverticulitis -Repeat CT abd/pelvis shows abscess---IR consulted for drainage today -NPO for procedure -Added Imodium -Antibiotics per ID -IVF -Monitor WBC and fevers---tmax 100.1 overnight and WBC 14.8 today -Labs in the AM -Pain control--- IV Dilaudid -Continue non operative treatment at this time Attending Statement Patient seen at bedside ct with abscess consult IR for drainage Attestation The exam, history, and the medical decision-making described in the above note were completed with the assistance of the mid-level provider. I reviewed and agree with the findings presented. I attest that I had a [id number] encounter with the patient on the same day, and personally performed and documented my assessment and findings in the medical record. Annemarie Hammonds January 23, 2017 14:39 Swapnil Nixon MD Feb 02, 2017 21:15
[2017-01-23] MEDS ORDERED: LIDOCAINE HCL 1% 20 ML VIAL ONE (15:06)
[2017-01-23] MEDS ORDERED: fentaNYL CITRATE 250 MCG/5 ML AMP ONE (15:14)
[2017-01-23] MEDS ORDERED: MIDAZOLAM HCL 5 MG/5 ML VIAL ONE (15:15)
--- NOTE | 2017-01-23 16:46 | RADRPT ---
EXAM DATE/TIME: 01/23/2017 15:32 [facility] COMPARISON: CT ABDOMEN & PELVIS W CONTRAST, January 22, 2017, 19:09. INDICATIONS : Perforated diverticulitis with abscess SEDATION TIME: 15 minutes MEDICATION(S): 1.) 2 mg midazolam (Versed) IV 2.) 100 mcg fentanyl (Sublimaze) IV DEVICE(S): 1.) 18 gauge Cano blunt needle 15cm FLUID: Total volume of 15 cc of brown fluid was removed. Fluid was sent for laboratory ordered studies. MEDICAL HISTORY : None. SURGICAL HISTORY : None. ENCOUNTER: Initial ACUITY: 1 day PAIN SCORE: 3/10 LOCATION: Bilateral pelvis PROCEDURE: 1.) Conscious sedation with continuous EKG and oximetry monitoring. PROCEDURE : CT guided aspiration of a pelvis/pericolonic abscess. The risks, benefits and alternatives to the procedure were explained and verbal and written consent w as obtained. Using automated exposure control and adjustment of the mA and/or kV according to patien t size, radiation dose was kept as low as reasonably achievable to obtain optimal diagnostic quality images. The site was prepped in sterile fashion. Full sterile technique was used, including cap, ma sk, sterile gloves and gown and a large sterile sheet. Hand hygiene and 2% chlorhexidine and/or beta dine/alcohol prep was utilized per protocol for cutaneous antisepsis. The skin and subcutaneous tiss ues were infiltrated with local anesthetic solution. Initial images demonstrate the extraluminal fluid collection in the upper midline pelvis to measure 5 .6 x 2.3 cm. This is too small to place a drain. Therefore, aspiration was performed. An 18 gauge 15 cm Cano needle was advanced into the fluid collection under CT guidance. Once an appropriate locat ion, aspiration yielded 15 cc of dark brown fluid. Post-aspiration images demonstrate essentially com plete evacuation of the fluid collection with a few small extraluminal air bubbles remaining. Patient tolerated the procedure well. CONCLUSION: Uncomplicated aspiration of the pericolonic pelvic fluid collection with removal of 15 cc of dark bro wn fluid. Sample was saved and sent to the lab for evaluation. No drain was left in the fluid collect ion due to the small size. Hi Wood MD on January 23, 2017 at 16:42 Board Certified Radiologist. This report was verified electronically.
[2017-01-23] MEDS: FLUCONAZOLE 100 MG PREMIX BAG 50 ML IV SCH (17:04)
[2017-01-23] MEDS: PIPERACIL-TAZO 4.5 GM PREMIX 100 ML IV SCH (20:28)
[2017-01-23] MEDS: ACETAMINOPHEN 325 MG TAB PO PRN (23:35)
[2017-01-24] VITALS: BP 149/79; PULSE 91; RESP 20; TEMP 99.6; O2SAT 96
[2017-01-24 04:00] VITALS: BP 137/87; PULSE 71; RESP 18; TEMP 98.4; O2SAT 96
[2017-01-24] MEDS: ACETAMINOPHEN 325 MG TAB PO PRN (04:36)
[2017-01-24] MEDS: PIPERACIL-TAZO 4.5 GM PREMIX 100 ML IV SCH ×3 (04:37→20:43)
[2017-01-24 05:33] LABS: AUTOMATED NEUTROPHIL # 8.3 TH/MM3 (1.8-7.7); BASOPHIL # 0.1 TH/MM3 (0-0.2); BASOPHIL % 0.6 % (0.0-2.0); EOSINOPHIL # 0.3 TH/MM3 (0-0.4); EOSINOPHIL % 2.5 % (0.0-4.0); HEMATOCRIT 36.1 % (39.0-51.0); HEMO FLAGS DIFF FINAL; LYMPHOCYTE # 0.7 TH/MM3 (1.0-4.8); MEAN CELL VOLUME 87.2 FL (80.0-100.0); MEAN CORPUSCULAR HEMOGLOBIN 30.1 PG (27.0-34.0); MEAN CORPUSCULAR HGB CONC 34.5 % (32.0-36.0); MONO % 12.2 % (0.0-8.0); NEUT % 77.7 % (16.0-70.0); PLATELET COUNT 307 TH/MM3 (150-450); RED BLOOD COUNT 4.15 MIL/MM3 (4.50-5.90); RED CELL DISTRIBUTION WIDTH 13.3 % (11.6-17.2); WHITE BLOOD COUNT 10.7 TH/MM3 (4.0-11.0)
[2017-01-24] MEDS: NS + KCL 20 MEQ INJ 1,000 ML IV SCH ×3 (05:48→17:40)
[2017-01-24] MEDS: LOPERAMIDE HCL SOLN 2 MG/10 ML UDC PO PRN (07:48)
[2017-01-24 08:00] VITALS: BP 128/76; PULSE 78; RESP 17; TEMP 96.8; O2SAT 95
--- NOTE | 2017-01-24 09:19 | HHI.PR ---
Subjective Remarks f/u for diverticulitis with drain patient stated abdominal pain has improved. Denied any N/V and tolerating diet. afebrile. anxious to go home. Objective Vitals Vital Signs Date Time Temp Pulse Resp B/P Pulse Ox O2 Delivery O2 Flow Rate FiO2 01/24/17 08:00 96.8 78 17 128/76 95 01/24/17 04:00 98.4 71 18 137/87 96 01/24/17 00:00 99.6 91 20 149/79 96 01/23/17 20:00 99.9 102 18 140/83 92 01/23/17 16:30 85 20 141/73 92 01/23/17 16:15 89 20 142/84 94 01/23/17 12:00 98.0 84 17 136/55 92 I/O 01/23/17 01/23/17 01/23/17 01/24/17 01/24/17 01/24/17 07:00 15:00 23:00 07:00 15:00 23:00 Intake Total 740 ml 891 ml 744 ml 1243 ml Balance 740 ml 891 ml 744 ml 1243 ml Intake Oral 0 ml 360 ml 360 ml IV Total 740 ml 891 ml 384 ml 883 ml # Voids 2 2 2 2 # Bowel Movements 1 1 0 0 Result Diagram: 01/24/17 0503 01/23/17 0449 Objective Remarks GENERAL: in NAD SKIN: Warm and dry. HEAD: Normocephalic. EYES: No scleral icterus. No injection or drainage. NECK: Supple, trachea midline. No JVD or lymphadenopathy. CARDIOVASCULAR: Regular rate and rhythm without murmurs, gallops, or rubs. RESPIRATORY: Breath sounds equal bilaterally. No accessory muscle use. GASTROINTESTINAL: Abdomen soft, mild TTP with deep palpitations in the lower abdominal region, nondistended. no peritoneal signs. MUSCULOSKELETAL: No cyanosis, or edema. BACK: Nontender without obvious deformity. No CVA tenderness. Procedures None Medications and IVs Current Medications Acetaminophen (Tylenol) 650 mg Q4H PRN PO TEMP > 100.4 or headache Last administered on 01/24/17t 04:36; Start 01/16/17 at 15:45 Ondansetron HCl (Zofran Inj) 4 mg Q6H PRN IVP NAUSEA OR VOMITING Last administered on 01/22/17 21:51; Start 01/16/17 at 15:45 Morphine Sulfate (Morphine Inj) 2 mg Q3H PRN IV Pain 3-5; if unable to take PO Last administered on 01/17/17 09:21; Start 01/16/17 at 15:45; Stop 01/17/17 at 09:39; Status DC Morphine Sulfate (Morphine Inj) 4 mg Q3H PRN IV Pain 6-10;if unable to take PO Last administered on 01/16/17 21:00; Start 01/16/17 at 15:45; Stop 01/17/17 at 09:39; Status DC Naloxone HCl 0.4 mg 0.4 mg UNSCH PRN IV SEE LABEL COMMENTS; Start 01/16/17 at 15:45 Ciprofloxacin/ Dextrose 200 ml @ 200 mls/hr Q12H IV Last administered on 15:43; Start 01/17/17 at 04:00; Stop 01/18/17 at 08:13; Status DC Metronidazole 100 ml @ 100 mls/hr Q8H IV Last administered on 01/18/17 06:17 ; Start 01/16/17 at 23:00; Stop 01/18/17 at 08:14; Status DC Potassium Chloride/Sodium Chloride (NS + KCl 20 Meq Inj) 1,000 ml @ 100 mls/hr Q10H IV Last administered on 01/24/17 05:48; Start 01/16/17 at 17:00 Acetaminophen (Ofirmev Inj) 1,000 mg Q6H IV Last administered on 01/18/17 03: 55; Start 01/16/17 at 22:00; Stop 01/18/17 at 11:33; Status DC Hydromorphone HCl (Dilaudid Pf Inj) 0.5 mg Q2H PRN IV PUSH pain 1-5; Start at 09:45 Hydromorphone HCl 1 mg 1 mg Q2H PRN IV PUSH pain 6-10 Last administered on 01/23 19:13; Start 01/17/17 at 09:45 Piperacillin Sod/ Tazobactam Sod (Zosyn 4.5 Gm Premix) 100 ml @ 200 mls/hr Q6H IV Last administered on 01/21/17 09:18; Start 01/18/17 at 10:00; Stop at 15:08; Status DC Shark Liver Oil 1 applic 1 applic Q6H PRN RECTAL HEMORRHOIDS; Start 01/18/17 at 08:15 Fluconazole/ Sodium Chloride 50 ml @ 50 mls/hr Q24H IV Last administered on 17:04; Start 01/21/17 at 17:00 Levofloxacin/ Dextrose 100 ml @ 100 mls/hr Q24H IV Last administered on 15:57; Start 01/21/17 at 16:00; Stop 01/22/17 at 14:56; Status DC Metronidazole (Flagyl 500 Mg Inj) 100 ml @ 100 mls/hr Q8H IV Last administered on 01/21/17 18:00; Start 01/21/17 at 18:00; Stop 01/22/17 at 14:56 ; Status DC Amoxicillin/ Clavulanate Potassium (Augmentin 600 Mg/5 ml Liq) 600 mg Q12HR PO Last administered on 01/23/17 08:47; Start 01/22/17 at 21:00; Stop 01/23/17 at 10:26; Status DC Iohexol (Omnipaque 350 Inj) 80 ml STK-MED ONCE IV Last administered on 19:25; Start 01/22/17 at 19:25; Stop 01/22/17 at 19:26; Status DC Cholestyramine Resin 4 gm 4 gm ONCE ONCE PO Last administered on 01/22/17 22: 41; Start 01/22/17 at 21:45; Stop 01/22/17 at 21:48; Status DC Piperacillin Sod/ Tazobactam Sod 100 ml @ 200 mls/hr ONCE ONCE IV Last administered on 01/23/17 11:28; Start 01/23/17 at 11:00; Stop 01/23/17 at 11:29 ; Status DC Piperacillin Sod/ Tazobactam Sod (Zosyn 4.5 Gm Premix) 100 ml @ 200 mls/hr Q8H IV Last administered on 01/24/17 04:37; Start 01/23/17 at 20:00 Loperamide HCl (Imodium Liq) 2 mg UNSCH PRN PO DIARRHEA Last administered on 07:48; Start 01/23/17 at 11:30 Lidocaine HCl (Xylocaine 1% Inj) 20 ml STK-MED ONCE .ROUTE Last administered on 01/23/17 15:06; Start 01/23/17 at 15:06; Stop 01/23/17 at 15:07; Status DC Fentanyl Citrate (fentaNYL INJ) 250 mcg STK-MED ONCE .ROUTE Last administered on 01/23/17 15:30; Start 01/23/17 at 15:14; Stop 01/23/17 at 15:15; Status DC Midazolam HCl (Versed Inj) 5 mg STK-MED ONCE .ROUTE Last administered on 15:30; Start 01/23/17 at 15:15; Stop 01/23/17 at 15:16; Status DC A/P Problem List: (1) Diverticulitis of colon with perforation ICD Code: K57.20 Status: Acute (2) Hyperlipidemia ICD Code: E78.5 Status: Chronic (3) Leukocytosis ICD Code: D72.829 Status: Acute (4) Diarrhea ICD Code: R19.7 Status: Acute (5) Sepsis ICD Code: A41.9 Status: Acute Assessment and Plan Diverticulitis with perforation, abscess: -last fever was low grade yesterday. improving and clinically doing well. -on clear liquid. advance per surgery. -on zosyn pending cultures. Diarrhea -C-diff neg. on imodium. -due to antibiotics use. Sepsis - Leukocytosis, fever. + infectious source. see treatment as above. Hyperlipidemia - Chronic. Resume statin at discharge. DVT prophylaxis: SCDs. Problem Qualifiers (1) Diverticulitis of colon with perforation: Qualified Code: K57.20 - Diverticulitis of large intestine with perforation without bleeding (2) Hyperlipidemia: Qualified Code: E78.2 - Mixed hyperlipidemia Rosalina Simpson MD January 24, 2017 09:19
[2017-01-24 12:00] VITALS: BP 139/85; PULSE 86; RESP 18; TEMP 95.8; O2SAT 98
[2017-01-24] MEDS: ONDANSETRON HCL 4 MG/2 ML VIAL IVP PRN (13:22)
[2017-01-24] MEDS: HYDROmorphone HCL PF 1 MG/ML VIAL IV PUSH PRN (13:23)
--- NOTE | 2017-01-24 15:20 | HHI.PR ---
Subjective Subjective Notes Resting in bed Reports pain much improved from yesterday Only one episode of diarrhea since last evening Objective Vitals/I&O Vital Signs Date Time Temp Pulse Resp B/P Pulse Ox O2 Delivery O2 Flow Rate FiO2 01/24/17 12:00 95.8 86 18 139/85 98 Labs Laboratory Tests Test 01/24/17 05:03 White Blood Count 10.7 Red Blood Count 4.15 Hemoglobin 12.5 Hematocrit 36.1 Mean Corpuscular Volume 87.2 Mean Corpuscular Hemoglobin 30.1 Mean Corpuscular Hemoglobin 34.5 Concent Red Cell Distribution Width 13.3 Platelet Count 307 Mean Platelet Volume 8.9 Neutrophils (%) (Auto) 77.7 Lymphocytes (%) (Auto) 7.0 Monocytes (%) (Auto) 12.2 Eosinophils (%) (Auto) 2.5 Basophils (%) (Auto) 0.6 Neutrophils # (Auto) 8.3 Lymphocytes # (Auto) 0.7 Monocytes # (Auto) 1.3 Eosinophils # (Auto) 0.3 Basophils # (Auto) 0.1 CBC Comment DIFF FINAL Differential Comment Date/Time Procedure Status Source Growth 01/23/17 16:00 Gram Stain - Final Resulted Abscess Abdomen 01/23/17 16:00 Wound Culture - Preliminary Resulted Gram Negative Cesar 01/23/17 16:00 Fungal Smear - Final Resulted Abscess Abdomen RARE BUDDING YEAST WITH PSEUDOHYPHAE 01/23/17 16:00 Fungal Culture Resulted Abscess Abdomen Pending 01/23/17 05:09 Cryptosporidium Exam Received Stool Stool Pending 01/23/17 05:09 Giardia Antigen (LAY) Received Stool Stool Pending 01/23/17 05:09 Received Stool Stool Pending Radiology CT scan done at [facility] ER shows perforated sigmoid diverticulitis without abscess Cardiovascular: Regular Lungs: Clear Abdomen: Other (minimal pain with palpation; abdomen soft ) Extremities: No edema A/P Assessment and Plan 46-year-old male with perforated sigmoid diverticulitis -S/p IR drainage of abscess -Advanced to soft diet -Imodium -Antibiotics per ID -IVF -Monitor WBC and fevers---tmax 99.9 overnight and WBC 10.7 today -Labs in the AM -Pain control--- IV Dilaudid -Continue non operative treatment at this time Attending Statement Patient seen at bedside patient significantly improved after ir aspiration f/u cx Attestation The exam, history, and the medical decision-making described in the above note were completed with the assistance of the mid-level provider. I reviewed and agree with the findings presented. I attest that I had a [id number] encounter with the patient on the same day, and personally performed and documented my assessment and findings in the medical record. Annemarie Hammonds January 24, 2017 15:20 Swapnil Nixon MD Feb 02, 2017 21:42
[2017-01-24 16:00] VITALS: BP 135/72; PULSE 81; RESP 17; TEMP 98.6; O2SAT 95
[2017-01-24] MEDS: FLUCONAZOLE 100 MG PREMIX BAG 50 ML IV SCH (17:40)
[2017-01-24 20:00] VITALS: BP 121/63; PULSE 88; RESP 20; TEMP 98.6; O2SAT 98
[2017-01-24] MEDS ORDERED: TEMAZEPAM 7.5 MG CAP PO PRN (22:45)
[2017-01-25] VITALS: BP 128/70; PULSE 90; RESP 20; TEMP 97.9; O2SAT 94
[2017-01-25] MEDS: PIPERACIL-TAZO 4.5 GM PREMIX 100 ML IV SCH ×2 (04:17→14:00)
[2017-01-25] MEDS: NS + KCL 20 MEQ INJ 1,000 ML IV SCH ×2 (04:17→20:30)
[2017-01-25 05:25] LABS: HEMATOCRIT 37.5 % (39.0-51.0); MEAN CELL VOLUME 88.3 FL (80.0-100.0); MEAN CORPUSCULAR HEMOGLOBIN 30.5 PG (27.0-34.0); MEAN CORPUSCULAR HGB CONC 34.6 % (32.0-36.0); PLATELET COUNT 351 TH/MM3 (150-450); RED BLOOD COUNT 4.25 MIL/MM3 (4.50-5.90); RED CELL DISTRIBUTION WIDTH 13.3 % (11.6-17.2); REVIEW FLAG FINAL; WHITE BLOOD COUNT 9.2 TH/MM3 (4.0-11.0)
[2017-01-25 05:39] LABS: BICARBONATE 26.3 MEQ/L (21.0-32.0); POTASSIUM 4.2 MEQ/L (3.5-5.1)
[2017-01-25 08:00] VITALS: BP 131/66; PULSE 88; RESP 18; TEMP 97.6; O2SAT 96
--- NOTE | 2017-01-25 09:20 | HHI.PR ---
Subjective Subjective Notes feels fine, wants to go home. bowels working. pain much improved, no fever Objective Vitals/I&O Vital Signs Date Time Temp Pulse Resp B/P Pulse Ox O2 Delivery O2 Flow Rate FiO2 01/25/17 08:00 97.6 88 18 131/66 96 Labs Laboratory Tests Test 01/25/17 03:54 White Blood Count 9.2 Red Blood Count 4.25 Hemoglobin 13.0 Hematocrit 37.5 Mean Corpuscular Volume 88.3 Mean Corpuscular Hemoglobin 30.5 Mean Corpuscular Hemoglobin 34.6 Concent Red Cell Distribution Width 13.3 Platelet Count 351 Mean Platelet Volume 9.3 Sodium Level 137 Potassium Level 4.2 Chloride Level 103 Carbon Dioxide Level 26.3 Anion Gap 8 Blood Urea Nitrogen 7 Creatinine 0.80 Estimat Glomerular Filtration 103 Rate Random Glucose 100 Calcium Level 9.0 Date/Time Procedure Status Source Growth 01/23/17 16:00 Gram Stain - Final Complete Abscess Abdomen 01/23/17 16:00 Wound Culture - Final Complete Escherichia Coli Yamileth Albicans 01/23/17 16:00 Fungal Smear - Final Resulted Abscess Abdomen RARE BUDDING YEAST WITH PSEUDOHYPHAE 01/23/17 16:00 Fungal Culture Resulted Abscess Abdomen Pending 01/23/17 05:09 Cryptosporidium Exam Received Stool Stool Pending 01/23/17 05:09 Giardia Antigen (LAY) Received Stool Stool Pending 01/23/17 05:09 - Final Complete Stool Stool NO ENTERIC PATHOGENS DETECTED BY PCR... Abdomen: Non-distended, Non-tender, BS normal A/P Assessment and Plan Perforated diverticulitis doing well ok for DC home - FU Dr. Nixon next week in office PO ABX per ID Kleber Russell MD January 25, 2017 09:20
--- NOTE | 2017-01-25 10:02 | HHI.PR ---
Subjective Remarks Follow-up for abdominal infection Patient is very anxious to go home. Mild abdominal pain. He stated that he is not requiring any pain medication. Denies any nausea vomiting. He has been afebrile. Objective Vitals Vital Signs Date Time Temp Pulse Resp B/P Pulse Ox O2 Delivery O2 Flow Rate FiO2 01/25/17 08:00 97.6 88 18 131/66 96 01/25/17 00:00 97.9 90 20 128/70 94 01/24/17 20:00 98.6 88 20 121/63 98 01/24/17 16:00 98.6 81 17 135/72 95 01/24/17 12:00 95.8 86 18 139/85 98 I/O 01/24/17 01/24/17 01/24/17 01/25/17 01/25/17 01/25/17 07:00 15:00 23:00 07:00 15:00 23:00 Intake Total 1243 ml 1044 ml 2280 ml 1427 ml Balance 1243 ml 1044 ml 2280 ml 1427 ml Intake Oral 360 ml 240 ml 1440 ml 720 ml IV Total 883 ml 804 ml 840 ml 707 ml # Voids 2 4 4 4 # Bowel Movements 0 2 4 Result Diagram: 01/25/17 0354 01/25/17 0354 Objective Remarks GENERAL: in NAD SKIN: Warm and dry. HEAD: Normocephalic. EYES: No scleral icterus. No injection or drainage. NECK: Supple, trachea midline. No JVD or lymphadenopathy. CARDIOVASCULAR: Regular rate and rhythm without murmurs, gallops, or rubs. RESPIRATORY: Breath sounds equal bilaterally. No accessory muscle use. GASTROINTESTINAL: Abdomen soft, mild TTP with deep palpitations in the lower abdominal region, nondistended. no peritoneal signs. MUSCULOSKELETAL: No cyanosis, or edema. BACK: Nontender without obvious deformity. No CVA tenderness. Procedures None Medications and IVs Current Medications Acetaminophen (Tylenol) 650 mg Q4H PRN PO TEMP > 100.4 or headache Last administered on 01/24/17 04:36; Start 01/16/17 at 15:45 Ondansetron HCl (Zofran Inj) 4 mg Q6H PRN IVP NAUSEA OR VOMITING Last administered on 01/24/17 13:22; Start 01/16/17 at 15:45 Morphine Sulfate (Morphine Inj) 2 mg Q3H PRN IV Pain 3-5; if unable to take PO Last administered on 01/17/17 09:21; Start 01/16/17 at 15:45; Stop 01/17/17 at 09:39; Status DC Morphine Sulfate (Morphine Inj) 4 mg Q3H PRN IV Pain 6-10;if unable to take PO Last administered on 01/16/17 21:00; Start 01/16/17 at 15:45; Stop 01/17/17 at 09:39; Status DC Naloxone HCl 0.4 mg 0.4 mg UNSCH PRN IV SEE LABEL COMMENTS; Start 01/16/17 at 15:45 Ciprofloxacin/ Dextrose 200 ml @ 200 mls/hr Q12H IV Last administered on 15:43; Start 01/17/17 at 04:00; Stop 01/18/17 at 08:13; Status DC Metronidazole 100 ml @ 100 mls/hr Q8H IV Last administered on 01/18/17 06:17 ; Start 01/16/17 at 23:00; Stop 01/18/17 at 08:14; Status DC Potassium Chloride/Sodium Chloride (NS + KCl 20 Meq Inj) 1,000 ml @ 100 mls/hr Q10H IV Last administered on 01/25/17 04:17; Start 01/16/17 at 17:00 Acetaminophen (Ofirmev Inj) 1,000 mg Q6H IV Last administered on 01/18/17 03: 55; Start 01/16/17 at 22:00; Stop 01/18/17 at 11:33; Status DC Hydromorphone HCl (Dilaudid Pf Inj) 0.5 mg Q2H PRN IV PUSH pain 1-5 Last administered on 01/24/17 23:40; Start 01/17/17 at 09:45 Hydromorphone HCl 1 mg 1 mg Q2H PRN IV PUSH pain 6-10 Last administered on 01/24 13:23; Start 01/17/17 at 09:45 Piperacillin Sod/ Tazobactam Sod (Zosyn 4.5 Gm Premix) 100 ml @ 200 mls/hr Q6H IV Last administered on 01/21/17 09:18; Start 01/18/17 at 10:00; Stop at 15:08; Status DC Shark Liver Oil 1 applic 1 applic Q6H PRN RECTAL HEMORRHOIDS; Start 01/18/17 at 08:15 Fluconazole/ Sodium Chloride 50 ml @ 50 mls/hr Q24H IV Last administered on 17:40; Start 01/21/17 at 17:00 Levofloxacin/ Dextrose 100 ml @ 100 mls/hr Q24H IV Last administered on 15:57; Start 01/21/17 at 16:00; Stop 01/22/17 at 14:56; Status DC Metronidazole (Flagyl 500 Mg Inj) 100 ml @ 100 mls/hr Q8H IV Last administered on 01/21/17 18:00; Start 01/21/17 at 18:00; Stop 01/22/17 at 14:56 ; Status DC Amoxicillin/ Clavulanate Potassium (Augmentin 600 Mg/5 ml Liq) 600 mg Q12HR PO Last administered on 01/23/17 08:47; Start 01/22/17 at 21:00; Stop 01/23/17 at 10:26; Status DC Iohexol (Omnipaque 350 Inj) 80 ml STK-MED ONCE IV Last administered on 19:25; Start 01/22/17 at 19:25; Stop 01/22/17 at 19:26; Status DC Cholestyramine Resin 4 gm 4 gm ONCE ONCE PO Last administered on 01/22/17 22: 41; Start 01/22/17 at 21:45; Stop 01/22/17 at 21:48; Status DC Piperacillin Sod/ Tazobactam Sod 100 ml @ 200 mls/hr ONCE ONCE IV Last administered on 01/23/17 11:28; Start 01/23/17 at 11:00; Stop 01/23/17 at 11:29 ; Status DC Piperacillin Sod/ Tazobactam Sod (Zosyn 4.5 Gm Premix) 100 ml @ 200 mls/hr Q8H IV Last administered on 01/25/17 04:17; Start 01/23/17 at 20:00 Loperamide HCl (Imodium Liq) 2 mg UNSCH PRN PO DIARRHEA Last administered on 07:48; Start 01/23/17 at 11:30 Lidocaine HCl (Xylocaine 1% Inj) 20 ml STK-MED ONCE .ROUTE Last administered on 01/23/17 15:06; Start 01/23/17 at 15:06; Stop 01/23/17 at 15:07; Status DC Fentanyl Citrate (fentaNYL INJ) 250 mcg STK-MED ONCE .ROUTE Last administered on 01/23/17 15:30; Start 01/23/17 at 15:14; Stop 01/23/17 at 15:15; Status DC Midazolam HCl (Versed Inj) 5 mg STK-MED ONCE .ROUTE Last administered on 15:30; Start 01/23/17 at 15:15; Stop 01/23/17 at 15:16; Status DC Temazepam (Restoril) 7.5 mg HS PRN PO INSOMNIA Last administered on 01/24/17 23:42; Start 01/24/17 at 22:45 A/P Problem List: (1) Diverticulitis of colon with perforation ICD Code: K57.20 Status: Acute (2) Hyperlipidemia ICD Code: E78.5 Status: Chronic (3) Leukocytosis ICD Code: D72.829 Status: Acute (4) Diarrhea ICD Code: R19.7 Status: Acute (5) Sepsis ICD Code: A41.9 Status: Acute Assessment and Plan Diverticulitis with perforation, abscess: -Patient has been afebrile on Zosyn. -He is tolerating his diet. He has been cleared by general surgery. -Dealt with Dr. Finnegan, infectious disease in regards to cultures. Cultures growing Escherichia coli and Yamileth albicans. Resistance to oral medication. Dr. Finnegan will see patient. Diarrhea -C-diff neg. on imodium. -due to antibiotics use. Sepsis - Leukocytosis, fever. + infectious source. see treatment as above. Hyperlipidemia - Chronic. Resume statin at discharge. DVT prophylaxis: SCDs. Discharge Planning Pending final recommendations from infectious disease. Cultures are resistance to PO medication. Problem Qualifiers (1) Diverticulitis of colon with perforation: Qualified Code: K57.20 - Diverticulitis of large intestine with perforation without bleeding (2) Hyperlipidemia: Qualified Code: E78.2 - Mixed hyperlipidemia Rosalina Simpson MD January 25, 2017 10:01
[2017-01-25 12:00] VITALS: BP 124/71; PULSE 85; RESP 18; TEMP 98.2; O2SAT 96
--- NOTE | 2017-01-25 12:58 | HHI.FF ---
Infusion Therapy Location of Infusion Therapy: Home [facility] Care IV Infusion Order Patient Information Patient Weight 145.7 kg Diagnosis: Diagnosis Perforated diverticulus Coded Allergies: No Known Allergies (Verified , 03/17/06) Administer Medication Ceftriaxone 2 grams IV q 24 hours Start Treatment: January 25, 2017 Stop Treatment: Feb 05, 2017 Additional Information Venous access: Other (midlene) Additional Instructions [x] Peripheral flush and dressing changes per protocol [x] Implanted port and central line analyst: * Implanted port: 10 ml Normal Saline followed by 5 ml Heparin 100 units/ml Heparin flush after each use and monthly to maintain. [] May leave port accessed during therapy. [] May leave peripheral site accessed for duration of therapy. [x] If patient has SOB or respiratory distress, check oxygen saturation. If less than 90% or clinical signs of respiratory distress, administer oxygen at 2 L/min. via nasal cannula and notify physician. [x] Anaphylaxis/Reaction orders: * Stop infusion. * Keep IV line open with saline flush. * Notify physician. * Monitor vital signs every 15 minutes until symptoms resolve. * Check Oxygen saturation; Oxygen at 2 L/min. via nasal cannula if less than 90% or clinical signs of respiratory distress. * Administer diphenhydramine (Benadryl) 25 mg IV STAT, (unless patient has received as pre-med). May repeat once, if necessary. * Solu-Cortef 250 mg IVP over 30-60 seconds, use 100 mg vials for each dissolution. * Epinephrine (1mg/1 ml) 0.3 mg subcutaneously or IVP now with any signs of respiratory distress. * Check with physician for new additional pre-med orders if patient is re- challenged or re-treated. [x] May remove PICC line when treatment complete, after confirming with Physician. [x] If the patient is admitted to the hospital, the ED, or transferred via [facility] , complete transfer form including medication reconciliation order sheet. Laboratory Tests Weekly Labs: CBC w/diff, Creatinine, LFT's (Hepatic function test) Nikki Finnegan MD January 25, 2017 12:58
--- NOTE | 2017-01-25 13:50 | HHI.IDPN ---
Subjective Subjective Remarks ID X cover for Dr Nicholson is a 46 y/o admitted with perforated diverticulitis with abscess sp CT guided aspiration of IA abscess. cont to have diarrhea C.diff negative 2/2 no fever WBC down Antibiotics zosyn Diflucan IV Lines Line sites with no e/o infection Past Medical History reviewed Allergies: Coded Allergies: No Known Allergies (Verified , 03/17/06) Objective . Vital Signs Date Time Temp Pulse Resp B/P Pulse Ox O2 Delivery O2 Flow Rate FiO2 01/25/17 12:00 98.2 85 18 124/71 96 01/25/17 08:00 97.6 88 18 131/66 96 01/25/17 00:00 97.9 90 20 128/70 94 01/24/17 20:00 98.6 88 20 121/63 98 01/24/17 16:00 98.6 81 17 135/72 95 01/24/17 01/24/17 01/25/17 15:00 23:00 07:00 Intake Total 1044 ml 2280 ml 1427 ml Balance 1044 ml 2280 ml 1427 ml Intake Oral 240 ml 1440 ml 720 ml IV Total 804 ml 840 ml 707 ml # Voids 4 4 4 # Bowel Movements 2 4 . Laboratory Tests Test 01/24/17 01/25/17 05:03 03:54 White Blood Count 10.7 TH/MM3 9.2 TH/MM3 Red Blood Count 4.15 MIL/MM3 4.25 MIL/MM3 Hemoglobin 12.5 GM/DL 13.0 GM/DL Hematocrit 36.1 % 37.5 % Mean Corpuscular Volume 87.2 FL 88.3 FL Mean Corpuscular Hemoglobin 30.1 PG 30.5 PG Mean Corpuscular Hemoglobin 34.5 % 34.6 % Concent Red Cell Distribution Width 13.3 % 13.3 % Platelet Count 307 TH/MM3 351 TH/MM3 Mean Platelet Volume 8.9 FL 9.3 FL Neutrophils (%) (Auto) 77.7 % Lymphocytes (%) (Auto) 7.0 % Monocytes (%) (Auto) 12.2 % Eosinophils (%) (Auto) 2.5 % Basophils (%) (Auto) 0.6 % Neutrophils # (Auto) 8.3 TH/MM3 Lymphocytes # (Auto) 0.7 TH/MM3 Monocytes # (Auto) 1.3 TH/MM3 Eosinophils # (Auto) 0.3 TH/MM3 Basophils # (Auto) 0.1 TH/MM3 CBC Comment DIFF FINAL Differential Comment Laboratory Tests Test 01/25/17 03:54 Sodium Level 137 MEQ/L Potassium Level 4.2 MEQ/L Chloride Level 103 MEQ/L Carbon Dioxide Level 26.3 MEQ/L Anion Gap 8 MEQ/L Blood Urea Nitrogen 7 MG/DL Creatinine 0.80 MG/DL Estimat Glomerular Filtration 103 ML/MIN Rate Random Glucose 100 MG/DL Calcium Level 9.0 MG/DL Microbiology Date/Time Procedure Status Source Growth 01/23/17 05:09 - Final Complete Stool Stool NO ENTERIC PATHOGENS DETECTED BY PCR... 01/23/17 05:09 Cryptosporidium Exam Received Stool Stool Pending 01/23/17 05:09 Giardia Antigen (LAY) Received Stool Stool Pending 01/23/17 16:00 Gram Stain - Final Complete Abscess Abdomen 01/23/17 16:00 Wound Culture - Final Complete Escherichia Coli Yamileth Albicans 01/23/17 16:00 Fungal Smear - Final Resulted Abscess Abdomen RARE BUDDING YEAST WITH PSEUDOHYPHAE 01/23/17 16:00 Fungal Culture Resulted Abscess Abdomen Pending Imaging Last Impressions Needle Aspiration CT 01/22/17 0000 Signed Impressions: Service Date/Time: December 15:32 - CONCLUSION: Uncomplicated aspiration of the pericolonic pelvic fluid collection with removal of 15 cc of dark brown fluid. Sample was saved and sent to the lab for evaluation. No drain was left in the fluid collection due to the small size. Hi Wood MD Abdomen/Pelvis CT 01/22/17 0000 Signed Impressions: Service Date/Time: Sunday, January 22, 2017 19:09 - CONCLUSION: 1. Perforated sigmoid diverticulitis with interval abscess formation in free fluid. 2. Hepatic steatosis. 3. Nonobstructing left renal calculus. 4. Distended loops of bowel are identified characteristic of an ileus. Breezy Borges MD Abdomen X-Ray 01/17/17 0600 Signed Impressions: Service Date/Time: Tuesday, January 17, 2017 05:35 - CONCLUSION: No acute findings. Residual contrast in large bowel. Casey Gaspar MD Physical Exam GENERAL: This is a well-nourished, well-developed patient, in no apparent distress. SKIN: No rashes, ecchymoses or lesions. Cool and dry. EYES: Pupils equal round and reactive. Extraocular motions intact. No scleral icterus. No injection or drainage. ENT: oral muucosae moist wo thrush CARDIOVASCULAR: Regular rate and rhythm without murmurs, gallops, or rubs. RESPIRATORY: Clear to auscultation. Breath sounds equal bilaterally. No wheezes , rales, or rhonchi. GASTROINTESTINAL: Abdomen soft, minimal tenderness in LLQ. No rebound or rigidity. MUSCULOSKELETAL: Extremities without clubbing, cyanosis, or edema. No joint tenderness, effusion, or edema noted. No calf tenderness. Negative Homans sign bilaterally. NEUROLOGICAL: Awake and alert. Grossly non focal Psych: cooperative IV line sites with no e/o infection. Assessment & Plan Remarks Diverticulitis with perforation. Intra abdominal abscess, E.coli, C. albicans - no oral options for E.coli - R zosyn Clinically improved, ready to be d/c'd Fever resolved Leucocytosis persistent. Obesity Recs dc Zosyn Continue Diflucan PO Dc Ceftriaxone 2 gm +Flagyl po + fluconazole x 10 days other optionon : Ertapenem + Fluconazole Nikki Finnegan MD January 25, 2017 13:50
[2017-01-25] MEDS ORDERED: FLUC200T2 PO (14:04)
[2017-01-25] MEDS ORDERED: METR-1 PO (14:04)
[2017-01-25 16:00] VITALS: BP 136/73; PULSE 83; RESP 18; TEMP 98.5; O2SAT 96
[2017-01-25] MEDS: FLUCONAZOLE 100 MG PREMIX BAG 50 ML IV SCH (16:32)
[2017-01-25] MEDS ORDERED: cefTRIAXone INJ 2,000 MG in SODIUM CHLORIDE 0.9% INJ 100 ML IV SCH (18:00)
[2017-01-25 20:00] VITALS: BP 131/74; PULSE 77; RESP 20; TEMP 98.6; O2SAT 95
[2017-01-25] MEDS: metroNIDAZOLE 500 MG TAB PO SCH (22:00)
[2017-01-26] MEDS: metroNIDAZOLE 500 MG TAB PO SCH (05:25)
[2017-01-26] MEDS: NS + KCL 20 MEQ INJ 1,000 ML IV SCH (06:34)
[2017-01-26 08:00] VITALS: BP 139/76; PULSE 72; RESP 19; TEMP 97.7; O2SAT 95
[2017-01-26] MEDS ORDERED: FLUCONAZOLE 200 MG TAB PO SCH (09:00)
--- NOTE | 2017-01-26 10:13 | HHI.PR ---
Subjective Subjective Notes "i want to go home", patient refusing IV antibiotics at home Objective Vitals/I&O Vital Signs Date Time Temp Pulse Resp B/P Pulse Ox O2 Delivery O2 Flow Rate FiO2 01/26/17 08:00 97.7 72 19 139/76 95 Labs Date/Time Procedure Status Source Growth 01/23/17 16:00 Gram Stain - Final Complete Abscess Abdomen 01/23/17 16:00 Wound Culture - Final Complete Escherichia Coli Yamileth Albicans 01/23/17 16:00 Fungal Smear - Final Resulted Abscess Abdomen RARE BUDDING YEAST WITH PSEUDOHYPHAE 01/23/17 16:00 Fungal Culture Resulted Abscess Abdomen Pending 01/23/17 05:09 - Final Complete Stool Stool NO ENTERIC PATHOGENS DETECTED BY PCR... 01/23/17 05:09 Cancelled Stool Stool Abdomen: Non-distended, Non-tender A/P Assessment and Plan 46yo male with diverticulitis, MDR Ecoli, clinically resolved. - diverticulitis clinically resolved - awaiting infusion for home IV ABX per ID recs, patient refusing home IV abx, will consent to oral abx only, will write for ABX and fu with Dr Nixon this week, - patient states that he understands refusing ID rec ABX could result in worse outcome and possibly , DC from surgery standpoint, will sing off Ryan Solano MD January 26, 2017 10:13
[2017-01-26] MEDS ORDERED: CEFD300C PO (10:57)
--- NOTE | 2017-01-26 10:59 | HHI.DS ---
Discharge Summary Admission Date January 16, 2017 at 16:31 Discharge Date: January 26, 2017 Admitting Diagnosis Diverticulitis with perforation (1) Diverticulitis of colon with perforation ICD Code: K57.20 Diagnosis: Principal (2) Hyperlipidemia ICD Code: E78.5 Diagnosis: Secondary (3) Diarrhea ICD Code: R19.7 Diagnosis: Secondary (4) Sepsis ICD Code: A41.9 Diagnosis: Principal Procedures None Brief History - From Admission Written by ARIANNE Nelson acting as scribe for Dr. Ortiz] on 01/16/17 at 17:35. 46 y/o with a history of hyperlipidemia presented to the ED with complaints of lower abdominal pain. Patient states yesterday he was having pain in his lower abdomen with associated fever, chills and night sweats. Then today he woke up and throughout the day the pain intensified. Patient states that this pain has come on and off for the last 6 months but never this severe. Denies any chest pain, shortness of breath, nausea. He does state that he vomited in the ED after receiving IV contrast for the CT scan. Denies any change in his bowel movements. CBC/BMP: 01/25/17 0354 01/25/17 0354 Significant Findings Laboratory Tests Test 01/24/17 01/25/17 05:03 03:54 Red Blood Count 4.15 MIL/MM3 4.25 MIL/MM3 (4.50-5.90) (4.50-5.90) Hemoglobin 12.5 GM/DL (13.0-17.0) Hematocrit 36.1 % 37.5 % (39.0-51.0) (39.0-51.0) Neutrophils (%) (Auto) 77.7 % (16.0-70.0) Lymphocytes (%) (Auto) 7.0 % (9.0-44.0) Monocytes (%) (Auto) 12.2 % (0.0-8.0) Neutrophils # (Auto) 8.3 TH/MM3 (1.8-7.7) Lymphocytes # (Auto) 0.7 TH/MM3 (1.0-4.8) Monocytes # (Auto) 1.3 TH/MM3 (0-0.9) Imaging Last Impressions Needle Aspiration CT 01/22/17 0000 Signed Impressions: Service Date/Time: December 15:32 - CONCLUSION: Uncomplicated aspiration of the pericolonic pelvic fluid collection with removal of 15 cc of dark brown fluid. Sample was saved and sent to the lab for evaluation. No drain was left in the fluid collection due to the small size. Hi Wood MD Abdomen/Pelvis CT 01/22/17 0000 Signed Impressions: Service Date/Time: Sunday, January 22, 2017 19:09 - CONCLUSION: 1. Perforated sigmoid diverticulitis with interval abscess formation in free fluid. 2. Hepatic steatosis. 3. Nonobstructing left renal calculus. 4. Distended loops of bowel are identified characteristic of an ileus. Breezy Borges MD Abdomen X-Ray 01/17/17 0600 Signed Impressions: Service Date/Time: Tuesday, January 17, 2017 05:35 - CONCLUSION: No acute findings. Residual contrast in large bowel. Casey Gaspar MD PE at Discharge GENERAL: in NAD NECK: Supple, trachea midline. No JVD or lymphadenopathy. CARDIOVASCULAR: Regular rate and rhythm without murmurs, gallops, or rubs. RESPIRATORY: Breath sounds equal bilaterally. No accessory muscle use. GASTROINTESTINAL: Abdomen soft, mild TTP with deep palpitations in the lower abdominal region, nondistended. no peritoneal signs. MUSCULOSKELETAL: No cyanosis, or edema. BACK: Nontender without obvious deformity. No CVA tenderness. Pt update on day of discharge Follow-up for infection Patient stated that he is not waiting for arrangements for IV antibiotics and that he wants to go home today. Patient stated that he will follow-up with Dr. Nixon on Friday. Patient has remained afebrile. No other issues. Per patient's nurse Dr. Finnegan is aware of this and would rather patient be on IV antibiotics based on cultures. Hospital Course Diverticulitis with perforation, abscess: -Patient was put empirically on Zosyn and did well. -He had aspiration by IR of an abscess. -Cultures grew E.coli, C. albican no oral options for E.coli so infectious disease recommended Rocephin, flucanazole, Flagyl for 10 days. -Patient refused IV antibiotics and stated that he will not stay for IV antibiotics. He spoke to general surgery and they stated that they will give him Ceftin despite knowing this may be resistant to this antibiotic. -Patient was educated extensively on treatment of infection. He was told that our recommendation was to continue with IV antibiotics due to persistence to oral medication. Despite this patient continued to refuse IV antibiotics. Patient stated that if he's not treated on the right medication this may lead to severe infection that may lead to . Patient stated that he understood and he wants to take this risk. Patient is to follow-up with Dr. Nixon on Friday. Diarrhea -C-diff neg. on imodium. -due to antibiotics use. Sepsis - Leukocytosis, fever. + infectious source. see treatment as above. Hyperlipidemia - Chronic. Resume statin at discharge. DVT prophylaxis: SCDs. Pt Condition on Discharge: Good Discharge Disposition: Discharge Home Discharge Time: <= 30 minutes Discharge Instructions DIET: Follow Instructions for: As Tolerated, No Restrictions Activities you can perform: Regular-No Restrictions Follow up Referrals: Surgical - 2-3 Days with Swapnil Nixon MD New Medications: Cefdinir (Cefdinir) 300 Mg Cap 300 MG PO BID Infection #14 Ref 0 CAP Fluconazole (Fluconazole) 200 Mg Tab 200 MG PO DAILY Infection Days 10 Ref 0 TAB Hydrocodone-Acetaminophen ([place]) 7.5-325 mg Tab 1 TAB PO Q6H PRN PAIN #15 Ref 0 TAB Metronidazole (Flagyl) 500 Mg Tab 500 MG PO TID Infection Days 10 Ref 0 TAB Continued Medications: Lovastatin (Mevacor) 10 Mg Tab Rosalina Simpson MD January 26, 2017 10:59
--- NOTE | 2017-01-26 10:59 | HHI.DCPOC ---
Discharge Care Plan Diagnosis: (1) Diverticulitis of colon with perforation (2) Hyperlipidemia Goals to Promote Your Health * To prevent worsening of your condition and complications * To maintain your health at the optimal level Directions to Meet Your Goals Take your medications as prescribed Follow your dietary instruction Follow activity as directed Keep your appointments as scheduled Take your immunizations and boosters as scheduled If your symptoms worsen call your PCP, if no PCP go to Urgent Care Center or Emergency Room Smoking is Dangerous to Your Health. Avoid second hand smoke Call the 24-hour hour crisis hotline for domestic abuse at Rosalina Simpson MD January 26, 2017 10:59
[2017-01-26 12:00] VITALS: BP 136/79; PULSE 77; RESP 18; TEMP 96.8; O2SAT 96
== END 2017-01-26 12:37 | disposition home or self-care (01) | DRG 391 ==
LOC: NEDDLT 16:30 → N07A 16:31
PROVIDERS: ADMIT Family Medicine; ATTEND Family Medicine
PROC: 0W9G3ZX Drainage of Peritoneal Cavity, Percutaneous Approach, Diagnostic (ICD-10-PCS; principal; 2017-01-23)
DX: K57.20 Diverticulitis of large intestine with perforation and abscess without bleeding (principal); A41.9 Sepsis, unspecified organism; Z68.41 Body mass index [BMI] 40.0-44.9, adult; E78.2 Mixed hyperlipidemia; R19.7 Diarrhea, unspecified; E66.9 Obesity, unspecified; K59.00 Constipation, unspecified; B96.20 Unspecified Escherichia coli [E. coli] as the cause of diseases classified elsewhere
CPT/HCPCS: 10022; 36569; 74000; 74177; 76937; 77012; 80048; 80053; 81001; 83605; 83690; 85025; 85027; 85610; 85730; 87070; 87077; 87102; 87186; 87205; 87206; 87328; 87329; 87493; 87506; 94150; 96374; 96375; 99152; 99281; J0131; J0696; J0744; J1170; J1450; J1956; J2250; J2270; J2405; J2543; J3010; J3480; Q9963; Q9967

== ENCOUNTER 2017-02-17 13:06 | Inpatient (IN) | payer OTHER ==
[~2017-02-17] VITALS: Ht 188 cm; Wt 135.5 kg
[~2017-02-17 13:06] MED LIST changes: +CEFD300C PO; +FLUC200T2 PO; +HYDR-3288 PO; +METR-1 PO; -MORPHINE SULFATE 4 MG/ML INJ IV PRN; -NALOXONE HCL 0.4 MG/ML AMP IV PRN
[2017-02-17 13:09] VITALS: BP 194/95; PULSE 94; RESP 18; TEMP 97.4; O2SAT 97
[2017-02-17] MEDS ORDERED: LOVA10TA PO (14:47)
[2017-02-17] MEDS ORDERED: SODIUM CHLORIDE 0.9% FLUSH 10 ML FLUSH IV FLUSH PRN ×2 (15:30→19:00)
--- NOTE | 2017-02-17 15:58 | PD ---
HPI Chief Complaint: Abdominal Pain Time Seen by Provider: 14:53 Travel History International Travel<30 days: No Contact w/Intl Traveler<30days: No Traveled to known affect area: No History of Present Illness HPI 46yo M with PMH of HLD, diverticulitis with perforation and abscess presents to the ED with c/o diffuse abdominal pain for 1 day. States it feels like the last time he was here. Denies any fever, n/v, chest pain, sob, diarrhea. Pt was admitted 01/16/17-01/26/17 with abscess s/p IR drainage. Pt was discharged with cefdinir, fluconazole and flagyl because he refused to stay for IV antibiotics. PFSH Past Medical History Medical History: Denies Significant Hx Cardiovascular Problems: Yes High Cholesterol: Yes Diminished Hearing: No Genitourinary: No Musculoskeletal: Yes Neurologic: No Reproductive: No Respiratory: No Tetanus Vaccination: < 5 Years Influenza Vaccination: No Past Surgical History Surgical History: No Previous Surgery Social History Alcohol Use: No Tobacco Use: No Substance Use: No Allergies-Medications (Allergen,Severity, Reaction): Coded Allergies: Flagyl (Verified Allergy, Severe, extreme diarrhea, 02/17/17) Reported Meds & Prescriptions Reported Meds & Active Scripts Active Cefdinir 300 Mg Cap 300 Mg PO BID Fluconazole 200 Mg Tab 200 Mg PO DAILY 10 Days Flagyl (Metronidazole) 500 Mg Tab 500 Mg PO TID 10 Days Reported Lovastatin 10 Mg Tab 5 Mg PO EVERY OTHER DAY Review of Systems Except as stated in HPI: all other systems reviewed are Neg Physical Exam Narrative GENERAL: 46yo M SKIN: Focused skin assessment warm/dry. HEAD: Atraumatic. Normocephalic. EYES: Pupils equal and round. No scleral icterus. No injection or drainage. ENT: No nasal bleeding or discharge. Mucous membranes pink and moist. NECK: Trachea midline. No JVD. CARDIOVASCULAR: Regular rate and rhythm. No murmur appreciated. RESPIRATORY: No accessory muscle use. Clear to auscultation. Breath sounds equal bilaterally. GASTROINTESTINAL: Abdomen soft, non-tender, nondistended. Hepatic and splenic margins not palpable. MUSCULOSKELETAL: No obvious deformities. No clubbing. No cyanosis. No edema. NEUROLOGICAL: Awake and alert. No obvious cranial nerve deficits. Motor grossly within normal limits. Normal speech. PSYCHIATRIC: Appropriate mood and affect; insight and judgment normal. Data Data Last Documented VS Vital Signs Date Time Temp Pulse Resp B/P Pulse Ox O2 Delivery O2 Flow Rate FiO2 02/17/17 16:40 20 02/17/17 13:09 97.4 94 194/95 97 Orders Complete Blood Count With Diff (02/17/17 15:17) Comprehensive Metabolic Panel (02/17/17 15:17) Lipase (02/17/17 15:17) Prothrombin Time / Inr (Pt) (02/17/17 15:17) Act Partial Throm Time (Ptt) (02/17/17 15:17) Ct Abd/Pel W Iv Contrast(Rout) (02/17/17 15:17) Iv Access Insert/Monitor (02/17/17 15:17) Ecg Monitoring (02/17/17 15:17) Oximetry (02/17/17 15:17) Sodium Chloride 0.9% Flush (Ns Flush) (02/17/17 15:30) Ondansetron Inj (Zofran Inj) (02/17/17 16:15) Morphine Inj (Morphine Inj) (02/17/17 16:30) Iohexol 350 Inj (Omnipaque 350 Inj) (02/17/17 17:56) Piperacil-Tazo 3.375 Gm Premix (Zosyn 3. (02/17/17 19:00) Blood Culture (02/17/17 18:53) Admit Order (Ed Use Only) (02/17/17 18:53) Labs Laboratory Tests Test 02/17/17 15:45 White Blood Count 13.8 TH/MM3 Red Blood Count 5.13 MIL/MM3 Hemoglobin 14.7 GM/DL Hematocrit 44.5 % Mean Corpuscular Volume 86.7 FL Mean Corpuscular Hemoglobin 28.7 PG Mean Corpuscular Hemoglobin 33.0 % Concent Red Cell Distribution Width 13.6 % Platelet Count 274 TH/MM3 Mean Platelet Volume 9.5 FL Neutrophils (%) (Auto) 82.6 % Lymphocytes (%) (Auto) 9.9 % Monocytes (%) (Auto) 6.8 % Eosinophils (%) (Auto) 0.2 % Basophils (%) (Auto) 0.5 % Neutrophils # (Auto) 11.4 TH/MM3 Lymphocytes # (Auto) 1.4 TH/MM3 Monocytes # (Auto) 0.9 TH/MM3 Eosinophils # (Auto) 0.0 TH/MM3 Basophils # (Auto) 0.1 TH/MM3 CBC Comment DIFF FINAL Differential Comment Prothrombin Time 12.0 SEC Prothromb Time International 1.1 RATIO Ratio Activated Partial 25.7 SEC Thromboplast Time Sodium Level 139 MEQ/L Potassium Level 4.3 MEQ/L Chloride Level 104 MEQ/L Carbon Dioxide Level 29.6 MEQ/L Anion Gap 5 MEQ/L Blood Urea Nitrogen 10 MG/DL Creatinine 0.96 MG/DL Estimat Glomerular Filtration 84 ML/MIN Rate Random Glucose 94 MG/DL Calcium Level 9.0 MG/DL Total Bilirubin 0.3 MG/DL Aspartate Amino Transf 47 U/L (AST/SGOT) Alanine Aminotransferase 45 U/L (ALT/SGPT) Alkaline Phosphatase 65 U/L Total Protein 7.9 GM/DL Albumin 3.3 GM/DL Lipase 215 U/L [facility] Medical Decision Making Medical Screen Exam Complete: Yes Emergency Medical Condition: Yes Differential Diagnosis Diverticulitis vs. recurrent abscess Narrative Course 46yo M with diffuse abdominal pain. Pt had history of perforated diverticulitis and abscess recently. Pt given morphine and zofran for pain and nausea. Pt also empirically given zosyn. Labs reviewed, leukocytosis at 13.8. CTa/p showed extraluminal air and fluid collection next to sigmoid colon. Place consultation for IR drainage. Discussed with hospitalist and accepted to their service. Diagnosis Primary Impression: Abscess of abdominal cavity Admitting Information Admitting Physician Requests: Admit Josephine Khalil DO Feb 17, 2017 15:58
[2017-02-17 16:10] LABS: AUTOMATED NEUTROPHIL # 11.4 TH/MM3 (1.8-7.7); BASOPHIL # 0.1 TH/MM3 (0-0.2); BASOPHIL % 0.5 % (0.0-2.0); EOSINOPHIL % 0.2 % (0.0-4.0); HEMATOCRIT 44.5 % (39.0-51.0); HEMO FLAGS DIFF FINAL; LYMPH % 9.9 % (9.0-44.0); LYMPHOCYTE # 1.4 TH/MM3 (1.0-4.8); MEAN CELL VOLUME 86.7 FL (80.0-100.0); MEAN CORPUSCULAR HEMOGLOBIN 28.7 PG (27.0-34.0); MONO % 6.8 % (0.0-8.0); NEUT % 82.6 % (16.0-70.0); PLATELET COUNT 274 TH/MM3 (150-450); RED BLOOD COUNT 5.13 MIL/MM3 (4.50-5.90); RED CELL DISTRIBUTION WIDTH 13.6 % (11.6-17.2); WHITE BLOOD COUNT 13.8 TH/MM3 (4.0-11.0)
[2017-02-17] MEDS ORDERED: ONDANSETRON HCL 4 MG/2 ML VIAL IV PUSH ONE (16:15)
[2017-02-17 16:18] LABS: APTT (PATIENT) 25.7 SEC (24.3-30.1); INTERNATIONAL NORMALIZED RATIO 1.1 RATIO
[2017-02-17] MEDS ORDERED: MORPHINE SULFATE 4 MG/ML INJ IV PUSH ONE (16:30)
[2017-02-17 16:34] LABS: ALT (GPT) 45 U/L (12-78); ANION GAP 5 MEQ/L (5-15); AST (GOT) 47 U/L (15-37); BICARBONATE 29.6 MEQ/L (21.0-32.0); BLOOD UREA NITROGEN 10 MG/DL (7-18); CHLORIDE 104 MEQ/L (98-107); GLOMERULAR FILTRATION RATE 84 ML/MIN (>89); POTASSIUM 4.3 MEQ/L (3.5-5.1); SODIUM (NA) 139 MEQ/L (136-145)
[2017-02-17 16:36] LABS: ALKALINE PHOSPHATASE 65 U/L (45-117); TOTAL BILIRUBIN ADULT 0.3 MG/DL (0.2-1.0)
[2017-02-17] MEDS ORDERED: IOHEXOL 350 MG/ML 10 ML VIAL (for RAD DIAG) IV ONE (17:56)
--- NOTE | 2017-02-17 18:33 | RADRPT ---
EXAM DATE/TIME: 02/17/2017 17:41 [facility] COMPARISON: CT ABDOMEN & PELVIS W CONTRAST, January 22, 2017, 19:09. INDICATIONS : Diffuse abdomen pain for one week. IV CONTRAST: 90 cc Omnipaque 350 (iohexol) IV ORAL CONTRAST: No oral contrast ingested. RADIATION DOSE: 24.12 CTDIvol (mGy) MEDICAL HISTORY : None SURGICAL HISTORY : None. ENCOUNTER: Initial ACUITY: 1 week PAIN SCALE: 5/10 LOCATION: Bilateral abdomen TECHNIQUE: Volumetric scanning of the abdomen and pelvis was performed. Using automated exposure control and ad justment of the mA and/or kV according to patient size, radiation dose was kept as low as reasonably achievable to obtain optimal diagnostic quality images. FINDINGS: LOWER LUNGS: The visualized lower lungs are clear. LIVER: Liver demonstrates severe low-density with sparing ap gallbladder fossa and measures 19.1 cm in zo gth. No focal lesion is seen. There is no dilation of the biliary tree. No calcified gallstones. SPLEEN: Normal size without lesion. PANCREAS: Within normal limits. KIDNEYS: Normal in size and shape. There is no mass or hydronephrosis. There is a stable 4 mm nonobstructing stone in the left mid kidney. ADRENAL GLANDS: Within normal limits. VASCULAR: There is no aortic aneurysm. There is mild atherosclerotic disease. BOWEL/MESENTERY: The stomach demonstrates no abnormality. Sort segment approximate jejunum is dilated measuring up to 3.3 cm. There is sigmoid diverticulosis with a small extraluminal air and fluid collection adjacent t o the proximal sigmoid colon measuring 3.3 x 1.9 cm. It consists mostly of air and extends into the s igmoid meso- colon. It is directly adjacent to small bowel which appears mildly thickened and inflame d. There is a small volume of free fluid in the abdomen and pelvis. ABDOMINAL WALL: Within normal limits. RETROPERITONEUM: There is no lymphadenopathy. BLADDER: No wall thickening or mass. REPRODUCTIVE: Within normal limits. INGUINAL: There is no lymphadenopathy or hernia. MUSCULOSKELETAL: There are degenerative changes of the spine. CONCLUSION: 1. There is a small extraluminal air and fluid collection extending from the proximal sigmoid colon i n the prior area of abscess. This measures approximately 3.3 x 1.9 cm and represents residual change related to prior bout of diverticulitis. 2. The extraluminal air and fluid collection again is causing inflammation and wall thickening of the adjacent small bowel. There are no features to suggest small bowel obstruction. 3. There is a small volume of free fluid in the abdomen and pelvis. 4. Stable nonacute findings include severe hepatic steatosis and 4 mm nonobstructing left renal stone . Hi Wood MD on February 17, 2017 at 18:24 Board Certified Radiologist. This report was verified electronically.
[2017-02-17] MEDS ORDERED: BISACODYL 10 MG SUPP RECTAL PRN (19:00)
[2017-02-17] MEDS ORDERED: ACETAMINOPHEN 325 MG TAB PO PRN (19:00)
[2017-02-17] MEDS ORDERED: ONDANSETRON HCL 4 MG/2 ML VIAL IVP PRN (19:00)
[2017-02-17] MEDS ORDERED: PIPERACIL-TAZO 3.375 GM PREMIX 50 ML IV SCH ×2 (19:00→21:00)
[2017-02-17] MEDS ORDERED: SENNOSIDES 8.6 MG TAB PO PRN (19:00)
[2017-02-17] MEDS ORDERED: NALOXONE HCL 0.4 MG/ML AMP IV PRN (19:00)
[2017-02-17] MEDS ORDERED: LACTULOSE SYRUP 20 GM/30 ML CUP PO PRN (19:00)
[2017-02-17] MEDS ORDERED: MAGNESIUM HYDROXIDE SUSP 30 ML CUP PO PRN (19:00)
[2017-02-17 19:22] VITALS: BP 141/65; PULSE 101; RESP 18; O2SAT 95
[2017-02-17 20:20] VITALS: BP 128/74; PULSE 100; RESP 18; TEMP 99.7; O2SAT 95
[2017-02-17] MEDS: SODIUM CHLORIDE 0.9% FLUSH 10 ML FLUSH IV FLUSH SCH (21:00)
[2017-02-17] MEDS: DOCUSATE SODIUM 50 MG/SENNA 8.6 MG TAB PO SCH (21:34)
[2017-02-17] MEDS: SODIUM CHLOR 0.9% 1000 ML INJ 1,000 ML IV SCH (21:48)
[2017-02-18] VITALS: BP 106/58; PULSE 87; RESP 16; TEMP 98.9; O2SAT 94
[2017-02-18] MEDS ORDERED: METOCLOPRAMIDE HCL 10 MG/2 ML VIAL IV PUSH ONE (02:00)
[2017-02-18] MEDS ORDERED: MORPHINE SULFATE 4 MG/ML INJ IV PUSH PRN (02:00)
--- NOTE | 2017-02-18 02:30 | HHI.HP ---
HPI Service [facility] Hospitalists Primary Care Physician Non-Staff Admission Diagnosis Intraabdominal abscess Diagnoses: Chief Complaint: abdominal pain Travel History International Travel<30 Days: No Contact w/Intl Traveler <30 Da: No Traveled to Known Affected Are: No History of Present Illness This is a 46 y/o with a history of hyperlipidemia recently treated for diverticulitis with perforation, abscess. Patient had aspiration by IR of an abscess, cultures grew E.coli, C. albican. Patient discharged January 26, 2017 with by mouth Cefdinir, fluconazole and Flagyl. Patient reports he felt, "fine, " for the first 3 weeks then, "my prescriptions ran out, " and he started having abdominal tenderness which progressively worsened. Patient contacted Dr. Nixon's office who renewed prescription. The pain continued to worsen therefore patient proceeded to ER for further evaluation and treatment. Pain described abdominal pain as a tenderness worse with palpation. Abdominal pain/ tenderness located bilateral upper quadrant and suprapubic area. Patient also has associated nausea, generalized weakness and malaise. Patient denies dysuria, fevers, chills, vomiting, diarrhea, chest pain or shortness of breath. Review of Systems Except as stated in HPI: all other systems reviewed are Neg Past Family Social History Past Medical History Hyperlipidemia diverticulitis with abscess Past Surgical History Right shoulder surgery ACL repair right knee IR drainage of abscess Reported Medications Cefdinir 300 Mg Cap 300 Mg PO BID Fluconazole 200 Mg Tab 200 Mg PO DAILY 10 Days Flagyl (Metronidazole) 500 Mg Tab 500 Mg PO TID 10 Days Lovastatin 10 Mg Tab 5 Mg PO EVERY OTHER DAY Allergies: Coded Allergies: Flagyl (Verified Allergy, Severe, extreme diarrhea, 02/17/17) Fluconazole (Verified Allergy, Unknown, Hives, 02/19/17) HIVES AND RASH Piperacillin (Verified Allergy, Unknown, Hives, 02/19/17) HIVES AND RASH Zosyn (Verified Allergy, Unknown, Hives, 02/19/17) HIVES AND RASH Active Ordered Medications Current Medications Medications (Trade) Dose Ordered Sig/Jesi Route Start Time Stop Time Status Last Admin (NS 1000 ml Inj) 1,000 ml @ 100 mls/hr Q10H IV 02/17/17 18:55 02/17/17 21:48 (NS Flush) 2 ml UNSCH PRN IV FLUSH 02/17/17 19:00 (NS Flush) 2 ml BID IV FLUSH 02/17/17 21:00 (Tylenol) 650 mg Q4H PRN PO 02/17/17 19:00 (Zofran Inj) 4 mg Q6H PRN IVP 02/17/17 19:00 02/17/17 21:51 (Narcan Inj) 0.4 mg UNSCH PRN IV 02/17/17 19:00 (Yoselyn-Colace) 1 tab BID PO 02/17/17 21:00 02/17/17 21:34 (Milk Of Magnesia Liq) 30 ml Q12H PRN PO 02/17/17 19:00 (Senokot) 17.2 mg Q12H PRN PO 02/17/17 19:00 (Dulcolax Supp) 10 mg DAILY PRN RECTAL 02/17/17 19:00 (Lactulose Liq) 30 ml DAILY PRN PO 02/17/17 19:00 (Pneumovax-23 Inj) 25 mcg ONCE ONCE IM 02/18/17 10:00 02/18/17 10:01 Morphine Sulfate 2 mg 2 mg Q4H PRN IV PUSH 02/18/17 02:00 02/18/17 02:32 (Diflucan 100 Mg Premix Bag) 50 ml @ 50 mls/hr Q24H IV 02/18/17 03:00 Family History Mom: Breast cancer, Uterine cancer, renal cell cancer, melanoma Dad: 84 living has had ND with CABG Social History Patient denies ETOH use, tobacco use or illicit drug use Physical Exam Vital Signs Vital Signs Date Time Temp Pulse Resp B/P Pulse Ox O2 Delivery O2 Flow Rate FiO2 02/18/17 00:00 98.9 87 16 106/58 94 02/17/17 20:20 99.7 100 18 128/74 95 02/17/17 19:22 101 18 141/65 95 Room Air 02/17/17 16:40 20 02/17/17 13:09 97.4 94 18 194/95 97 Physical Exam GENERAL: This is a obese, well-developed patient, in no apparent distress. SKIN: No rashes, ecchymoses or lesions. Cool and dry. HEAD: Atraumatic. Normocephalic. No temporal or scalp tenderness. EYES: Extraocular motions intact. No scleral icterus. No injection or drainage. CARDIOVASCULAR: Regular rate and rhythm without murmurs, gallops, or rubs. RESPIRATORY: Clear to auscultation. Breath sounds equal bilaterally. No wheezes , rales, or rhonchi. GASTROINTESTINAL: Abdomen soft, generalized tenderness to palpation, nondistended. MUSCULOSKELETAL: Extremities without clubbing, cyanosis, or edema. No joint tenderness, effusion, or edema noted. No calf tenderness. Negative Homans sign bilaterally. NEUROLOGICAL: Awake and alert. no focal deficits appreciated. Motor and sensory grossly within normal limits. Five out of 5 muscle strength in all muscle groups. Normal speech. Laboratory Laboratory Tests Test 02/17/17 15:45 White Blood Count 13.8 Red Blood Count 5.13 Hemoglobin 14.7 Hematocrit 44.5 Mean Corpuscular Volume 86.7 Mean Corpuscular Hemoglobin 28.7 Mean Corpuscular Hemoglobin 33.0 Concent Red Cell Distribution Width 13.6 Platelet Count 274 Mean Platelet Volume 9.5 Neutrophils (%) (Auto) 82.6 Lymphocytes (%) (Auto) 9.9 Monocytes (%) (Auto) 6.8 Eosinophils (%) (Auto) 0.2 Basophils (%) (Auto) 0.5 Neutrophils # (Auto) 11.4 Lymphocytes # (Auto) 1.4 Monocytes # (Auto) 0.9 Eosinophils # (Auto) 0.0 Basophils # (Auto) 0.1 CBC Comment DIFF FINAL Differential Comment Prothrombin Time 12.0 Prothromb Time International 1.1 Ratio Activated Partial 25.7 Thromboplast Time Sodium Level 139 Potassium Level 4.3 Chloride Level 104 Carbon Dioxide Level 29.6 Anion Gap 5 Blood Urea Nitrogen 10 Creatinine 0.96 Estimat Glomerular Filtration 84 Rate Random Glucose 94 Calcium Level 9.0 Total Bilirubin 0.3 Aspartate Amino Transf 47 (AST/SGOT) Alanine Aminotransferase 45 (ALT/SGPT) Alkaline Phosphatase 65 Total Protein 7.9 Albumin 3.3 Lipase 215 Date/Time Procedure Status Source Growth 02/17/17 19:20 Aerobic Blood Culture Received Blood Peripheral Pending 02/17/17 19:20 Anaerobic Blood Culture Received Blood Peripheral Pending Result Diagram: 02/17/17 1545 02/17/17 1545 Imaging Last Impressions Abdomen/Pelvis CT 02/17/17 1517 Signed Impressions: Service Date/Time: Friday, February 17, 2017 17:41 - CONCLUSION: 1. There is a small extraluminal air and fluid collection extending from the proximal sigmoid colon in the prior area of abscess. This measures approximately 3.3 x 1.9 cm and represents residual change related to prior bout of diverticulitis. 2. The extraluminal air and fluid collection again is causing inflammation and wall thickening of the adjacent small bowel. There are no features to suggest small bowel obstruction. 3. There is a small volume of free fluid in the abdomen and pelvis. 4. Stable nonacute findings include severe hepatic steatosis and 4 mm nonobstructing left renal stone. Hi Wood MD Assessment and Plan Problem List: (1) Diverticulitis ICD Code: K57.92 Status: Acute (2) Leukocytosis ICD Code: D72.829 Status: Acute (3) Hyperlipidemia ICD Code: E78.5 Status: Chronic Assessment and Plan This is a 46 y/o with a history of hyperlipidemia recently treated for diverticulitis with perforation, abscess. Patient had aspiration by IR of an abscess, cultures grew E.coli, C. albicans. Patient discharged January 26, 2017 with by mouth cefdinir, fluconazole and Flagyl. Patient reports he felt, "fine, " for the first 3 weeks then, "my prescriptions ran out, " and he started having abdominal tenderness which progressively worsened, with associated nausea , generalized weakness and malaise. Diverticulitis with possible recurrent abscess Leukocytosis abdominal pain CT abd/pelvis reviewed by myself and Dr. France reveals 1. There is a small extraluminal air and fluid collection extending from the proximal sigmoid colon in the prior area of abscess. This measures approximately 3.3 x 1.9 cm and represents residual change related to prior bout of diverticulitis. 2. The extraluminal air and fluid collection again is causing inflammation and wall thickening of the adjacent small bowel. There are no features to suggest small bowel obstruction. 3. There is a small volume of free fluid in the abdomen and pelvis. 4. Stable nonacute findings include severe hepatic steatosis and 4 mm nonobstructing left renal stone. Morphine IV as needed for pain Start Fluconazole IV patient has already seen a Zosyn Fluid culture reviewed resistant to Zosyn we'll DC Zosyn and consult ID for further antibiotic recommendations Patient had abscess drainage with cultures which revealed Escherichia coli and Yamileth albicans on 01/23/2017 Consult infectious disease Consult general surgery Nausea Supportive care IV fluids for hydration Nothing by mouth Zofran as needed for nausea/vomiting Hyperlipidemia- chronic continue home medications DVT prophylaxis with SCDs Discussed his ear provider, nursing and patient This is a shared visit patient seen by myself as well as Dr. France The exam, history, and the medical decision-making described in the above note were completed with the assistance of the mid-level provider. I reviewed and agree with the findings presented. I attest that I had a [id number] encounter with the patient on the same day, and personally performed and documented my assessment and findings in the medical record. pt with abdominal pain, diverticulitis, possible abscess prior culture results reviewed pt reports he cant tolerate flagyl and zosyn previously will resume antifungal regimen as per previous ID recommendations: fluconazole - and will need ID approval for imepenem group Discussed Condition With patient, his nurse, ER physician Physician Certification 2 Midnight Certification Type: Admission for Inpatient Services Order for Inpatient Services The services are ordered in accordance with Medicare regulations or non- Medicare payer requirements, as applicable. In the case of services not specified as inpatient-only, they are appropriately provided as inpatient services in accordance with the 2-midnight benchmark. Estimated LOS (days): 4 days is the estimated time the patient will need to remain in the hospital, assuming treatment plan goals are met and no additional complications. Post-Hospital Plan: Home Nayely Chavez Feb 18, 2017 02:30 Luz France MD Mar 07, 2017 05:54
[2017-02-18] MEDS ORDERED: FLUCONAZOLE 100 MG PREMIX BAG 50 ML IV SCH (03:00)
[2017-02-18] MEDS ORDERED: PILL SPLITTER OTHER PRN (03:15)
[2017-02-18 04:00] VITALS: BP 127/82; PULSE 97; RESP 16; TEMP 98.8; O2SAT 94
[2017-02-18] MEDS: SODIUM CHLOR 0.9% 1000 ML INJ 1,000 ML IV SCH ×3 (04:35→23:24)
[2017-02-18 07:01] LABS: AUTOMATED NEUTROPHIL # 9.1 TH/MM3 (1.8-7.7); BASOPHIL % 0.1 % (0.0-2.0); EOSINOPHIL % 0.1 % (0.0-4.0); HEMATOCRIT 42.9 % (39.0-51.0); HEMO FLAGS DIFF FINAL; LYMPH % 10.7 % (9.0-44.0); LYMPHOCYTE # 1.2 TH/MM3 (1.0-4.8); MEAN CELL VOLUME 86.3 FL (80.0-100.0); MEAN CORPUSCULAR HEMOGLOBIN 29.2 PG (27.0-34.0); MEAN CORPUSCULAR HGB CONC 33.8 % (32.0-36.0); MONO % 10.2 % (0.0-8.0); NEUT % 78.9 % (16.0-70.0); PLATELET COUNT 262 TH/MM3 (150-450); RED BLOOD COUNT 4.97 MIL/MM3 (4.50-5.90); RED CELL DISTRIBUTION WIDTH 14.2 % (11.6-17.2); WHITE BLOOD COUNT 11.5 TH/MM3 (4.0-11.0)
[2017-02-18 07:17] LABS: BICARBONATE 28.7 MEQ/L (21.0-32.0)
[2017-02-18 08:00] VITALS: BP 130/74; PULSE 82; RESP 18; TEMP 97.8; O2SAT 94
[2017-02-18] MEDS ORDERED: diphenhydrAMINE HCL ELIXIR 12.5 MG/5 ML CUP PO PRN (09:00)
--- NOTE | 2017-02-18 09:25 | RADRPT ---
EXAM DATE/TIME: 02/18/2017 09:15 [place] COMPARISON: CT ABDOMEN & PELVIS W CONTRAST, February 17, 2017, 17:41. INDICATIONS : Evaluate for possible abdominal abscess drainage. CONCLUSION: There is some extraluminal air on most recent CT the abdomen/pelvis but inadequate amount of fluid is seen to warrant a CT guided drain placement at this time. Terrell Vargas MD on February 18, 2017 at 9:20 Board Certified Radiologist. This report was verified electronically.
--- NOTE | 2017-02-18 09:46 | PD.CONS ---
cc: Swapnil Nixon MD [facility] Service General Surgery Consult Requested By Dr. France Reason for Consult Recurrent diverticulitis with abscess Primary Care Physician Non-Staff History of Present Illness This is a 46 year old male known to Dr. Nixon for diverticulitis with abscess who was admitted about a month ago. He was treated with antibiotics and a CT guided aspiration was completed. The patient was DCed home with PO antibiotics. He completed the prescriptions about 10 days ago and started feeling bad again. He called the office and a prescription for antibiotics was called in for him. He started the antibiotics but yesterday started feeling increased abdominal pain. A CT abdominal/pelvis was completed which shows a small fluid and air collection. He was started on antibiotics. A consult to ID has been requested. A General Surgery consultation has been requested. Review of Systems Constitutional: COMPLAINS OF: Weight loss, DENIES: Fever, Chills Endocrine: DENIES: Polydipsia, Polyuria, Polyphagia Eyes: DENIES: Diplopia, Eye inflammation Ears, nose, mouth, throat: DENIES: Vertigo Respiratory: DENIES: Cough, Snoring Cardiovascular: DENIES: Chest pain Gastrointestinal: COMPLAINS OF: Abdominal pain, DENIES: Nausea, Vomiting Genitourinary: DENIES: Urgency Musculoskeletal: DENIES: Joint pain Integumentary: DENIES: Abnormal pigmentation Hematologic/lymphatic: DENIES: Bruising Immunologic/allergic: DENIES: Eczema Neurologic: DENIES: Headache, Localized weakness Psychiatric: DENIES: Mood changes, Depression, Hallucinations Past Family Social History Past Medical History Diverticulitis with abscess (December 2016) Hyperlipidemia Past Surgical History Right shoulder surgery ACL repair right knee Reported Medications Flagyl Diflucan Cefdinir Lovastatin Allergies: Coded Allergies: Flagyl (Verified Allergy, Severe, extreme diarrhea, 02/17/17) Active Ordered Medications Current Medications Medications (Trade) Dose Ordered Sig/Jesi Route Start Time Stop Time Status Last Admin (NS 1000 ml Inj) 1,000 ml @ 100 mls/hr Q10H IV 02/17/17 18:55 02/18/17 04:35 (NS Flush) 2 ml UNSCH PRN IV FLUSH 02/17/17 19:00 (NS Flush) 2 ml BID IV FLUSH 02/17/17 21:00 (Tylenol) 650 mg Q4H PRN PO 02/17/17 19:00 (Zofran Inj) 4 mg Q6H PRN IVP 02/17/17 19:00 02/17/17 21:51 (Narcan Inj) 0.4 mg UNSCH PRN IV 02/17/17 19:00 (Yoselyn-Colace) 1 tab BID PO 02/17/17 21:00 02/17/17 21:34 (Milk Of Magnesia Liq) 30 ml Q12H PRN PO 02/17/17 19:00 (Senokot) 17.2 mg Q12H PRN PO 02/17/17 19:00 (Dulcolax Supp) 10 mg DAILY PRN RECTAL 02/17/17 19:00 (Lactulose Liq) 30 ml DAILY PRN PO 02/17/17 19:00 (Pneumovax-23 Inj) 25 mcg ONCE ONCE IM 02/18/17 10:00 02/18/17 10:01 Morphine Sulfate 2 mg 2 mg Q4H PRN IV PUSH 02/18/17 02:00 02/18/17 02:32 (Diflucan 100 Mg Premix Bag) 50 ml @ 50 mls/hr Q24H IV 02/18/17 03:00 02/18/17 04:35 (Pill Splitter) 1 ea UNSCH PRN OTHER 02/18/17 03:15 (Benadryl Liq) 12.5 mg Q6H PRN PO 02/18/17 09:00 Family History Noncontributory Social History Denies tobacco use Denies EtOH use Denies illicit drug use 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 Also on abdomen. HEAD: Atraumatic. Normocephalic. EYES: Pupils equal and round. No scleral icterus. No injection or drainage. ENT: No nasal bleeding or discharge. Mucous membranes pink and moist. NECK: Trachea midline. CARDIOVASCULAR: Regular rate and rhythm. RESPIRATORY: No accessory muscle use. Clear to auscultation. Breath sounds equal bilaterally. GASTROINTESTINAL: Abdomen soft, nondistended; minimal tenderness around umbilicus. MUSCULOSKELETAL: Extremities without clubbing, cyanosis, or edema. No obvious deformities. NEUROLOGICAL: Awake and alert. No obvious cranial nerve deficits. Motor grossly within normal limits. Five out of 5 muscle strength in the arms and legs. Normal speech. PSYCHIATRIC: Appropriate mood and affect; insight and judgment normal. Laboratory Laboratory Tests Test 02/17/17 02/18/17 15:45 06:20 White Blood Count 13.8 11.5 Red Blood Count 5.13 4.97 Hemoglobin 14.7 14.5 Hematocrit 44.5 42.9 Mean Corpuscular Volume 86.7 86.3 Mean Corpuscular Hemoglobin 28.7 29.2 Mean Corpuscular Hemoglobin 33.0 33.8 Concent Red Cell Distribution Width 13.6 14.2 Platelet Count 274 262 Mean Platelet Volume 9.5 9.5 Neutrophils (%) (Auto) 82.6 78.9 Lymphocytes (%) (Auto) 9.9 10.7 Monocytes (%) (Auto) 6.8 10.2 Eosinophils (%) (Auto) 0.2 0.1 Basophils (%) (Auto) 0.5 0.1 Neutrophils # (Auto) 11.4 9.1 Lymphocytes # (Auto) 1.4 1.2 Monocytes # (Auto) 0.9 1.2 Eosinophils # (Auto) 0.0 0.0 Basophils # (Auto) 0.1 0.0 CBC Comment DIFF FINAL DIFF FINAL Differential Comment Prothrombin Time 12.0 Prothromb Time International 1.1 Ratio Activated Partial 25.7 Thromboplast Time Sodium Level 139 140 Potassium Level 4.3 4.0 Chloride Level 104 104 Carbon Dioxide Level 29.6 28.7 Anion Gap 5 7 Blood Urea Nitrogen 10 10 Creatinine 0.96 1.01 Estimat Glomerular Filtration 84 79 Rate Random Glucose 94 118 Calcium Level 9.0 8.8 Total Bilirubin 0.3 Aspartate Amino Transf 47 (AST/SGOT) Alanine Aminotransferase 45 (ALT/SGPT) Alkaline Phosphatase 65 Total Protein 7.9 Albumin 3.3 Lipase 215 Date/Time Procedure Status Source Growth 02/17/17 19:20 Aerobic Blood Culture Received Blood Peripheral Pending 02/17/17 19:20 Anaerobic Blood Culture Received Blood Peripheral Pending Result Diagram: 02/18/17 0620 02/18/17 0620 Imaging Last 48 hours Impressions Consultation 02/18/17 0000 Signed Impressions: Service Date/Time: Saturday, February 18, 2017 09:15 - CONCLUSION: There is some extraluminal air on most recent CT the abdomen/pelvis but inadequate amount of fluid is seen to warrant a CT guided drain placement at this time. Terrell Vargas MD Abdomen/Pelvis CT 02/17/17 1517 Signed Impressions: Service Date/Time: Friday, February 17, 2017 17:41 - CONCLUSION: 1. There is a small extraluminal air and fluid collection extending from the proximal sigmoid colon in the prior area of abscess. This measures approximately 3.3 x 1.9 cm and represents residual change related to prior bout of diverticulitis. 2. The extraluminal air and fluid collection again is causing inflammation and wall thickening of the adjacent small bowel. There are no features to suggest small bowel obstruction. 3. There is a small volume of free fluid in the abdomen and pelvis. 4. Stable nonacute findings include severe hepatic steatosis and 4 mm nonobstructing left renal stone. Hi Wood MD Assessment and Plan Assessment and Plan 46 year old male with recurrent diverticulitis with small fluid/air collection visualized on CT -Spoke with Radiology--- collection mostly consists of air; not enough to aspirate or place drain -Start clear liquids -Continue antibiotics -Continue IVF -Await ID consult -Thank you for this consult; we will continue to follow along with you Discussed Condition With Dr. Hussain Shah Giuseppe Annemarie Hammonds Feb 18, 2017 09:46
[2017-02-18] MEDS ORDERED: PNEUMOCOCCAL POLYVALENT INJ 25 MCG/0.5 ML SYR IM ONE (10:00)
[2017-02-18] MEDS: DOCUSATE SODIUM 50 MG/SENNA 8.6 MG TAB PO SCH ×2 (10:18→21:00)
[2017-02-18] MEDS: PRAVASTATIN SOD 10 MG TAB PO SCH (10:18)
[2017-02-18] MEDS: SODIUM CHLORIDE 0.9% FLUSH 10 ML FLUSH IV FLUSH SCH ×2 (10:20→21:00)
[2017-02-18 12:00] VITALS: BP 130/83; PULSE 82; RESP 18; TEMP 97.7; O2SAT 95
[2017-02-18] MEDS: diphenhydrAMINE HCL ELIXIR 12.5 MG/5 ML CUP PO PRN ×2 (12:19→18:00)
[2017-02-18] MEDS ORDERED: ASP: Documented allergy to Penicillins or Cephalosporins PRN (13:00)
[2017-02-18] MEDS ORDERED: MISCELLANEOUS PHARMACY INFORMATION XX PRN (13:00)
--- NOTE | 2017-02-18 13:22 | MB ---
cc: SEUN PABON MD DATE OF CONSULTATION 02/18/[address] Avila REASON FOR CONSULTATION Diverticulitis with abscess, recently drained and now with abdominal pain and fluid collection. HISTORY OF PRESENT ILLNESS This is a 46-year-old white male who was just discharged from the hospital on January 26, 2017. The patient was admitted with diverticulitis with a perforated diverticular abscess. He was treated with intravenous antibiotics in the hospital and then he was discharged on oral antibiotics because he refused to have IV antibiotics as an outpatient. The patient had cultures taken from the abdomen fluid collection which came back with E-coli and Yamileth albicans. The E-coli was resistant to many antibiotics except for cephalosporins and Carbapenems and aztreonam. He was discharged on Cefdinir in addition to Flagyl and fluconazole p.o. He took the antibiotics for 10 days and after he started having discomfort of the abdomen, he called the surgeon and the antibiotics were continued, but he subsequently came to the emergency department for evaluation because of persistent abdominal pain. A repeat CT scan of the abdomen was performed and it shows extraluminal air and fluid collection extending from the proximal sigmoid colon in the area of the prior abscess. The fluid amount was felt to be too small for aspiration. The patient had a low grade fever of 99.7. His white blood cell count was elevated at 13.8 yesterday evening. He was started on IV antibiotics in the form of piperacillin and has developed welts with erythema of the abdomen, arms, neck and he has erythema of the face and he notes intense itching. He did receive piperacillin during the last hospitalization. He states that he has some nausea since admission. He did not have nausea prior to admission. He has no fevers today. He notes generalized weakness. PAST MEDICAL HISTORY 1. Hyperlipidemia 2. Diverticulitis with diverticular abscess 3. Right shoulder injury with right shoulder surgery 4. Right knee ACL repair ALLERGIES FLAGYL. The patient notes that he developed diarrhea with Flagyl in the hospital. He did, however, taking Flagyl as an outpatient. He does not recall any intense diarrhea while on the Flagyl as an outpatient. MEDICATIONS 1. Fluconazole 2. Piperacillin/Tazobactam, discontinued last night. 3. Yoselyn-Colace. 4. Pravachol 5. Benadryl SOCIAL HISTORY No tobacco, no alcohol. No illicit drugs. FAMILY HISTORY Noncontributory REVIEW OF SYSTEMS Negative on 10-point review except for abdominal pain and nausea and itching of the skin. PHYSICAL EXAMINATION This is an obese male who is in no acute distress. He is awake and alert and oriented. VITAL SIGNS: Temperature 97.7, BP 130/83, heart rate 82, respirations 18. HEENT: Extraocular movements grossly intact. Pupils reactive to light. No icterus. Oropharynx, moist mucosa without lesions. NECK: Supple. No adenopathy. LUNGS: Clear breath sounds. HEART: Regular rate and rhythm without murmurs. ABDOMEN: Obese, soft, tenderness around the periumbilical area. No rebound. RECTAL: Not performed. EXTREMITIES: No clubbing, cyanosis or edema. SKIN: Diffuse rash at the abdomen and neck and arms and trunk with welts. Also, the patient has erythema of the face. NEUROLOGIC: No gross focal findings. PSYCHIATRIC: The patient is calm and cooperative. LABORATORY DATA WBC 11.5, platelets 262, 78% neutrophils, 10% monocytes, 10% lymphocytes. Creatinine 1.01, BUN 10, sodium 140, AST 47, ALT 45. Blood cultures no growth in one day. IMPRESSION 1. Diverticular abscess. The patient was recently discharged on oral antibiotics and developed recurrence of abdominal pain. Fluid collection noted on CT scan of the abdomen at the proximal sigmoid colon. 2. Allergic reaction to piperacillin/Tazobactam. 3. Mild renal insufficiency. RECOMMENDATIONS 1. Continue fluconazole 2. Begin Ertapenem in a patient who is allergic to piperacillin/ Tazobactam and recent E-coli bacteria resistant to many antibiotics. 3. Short course of Solu-Medrol for the intense allergy to antibiotic reaction. 4. Monitor clinical status. Thank you for this consultation. I will monitor this patient's progress with you and make further recommendations on followup if necessary. Seun Pabon MD FD/NASRIN /12:54 PM /1:10 PM SAUNDRA
[2017-02-18] MEDS: methylPREDNISolone SOD SUCC 40 MG/1 ML VIAL IV PUSH SCH (14:38)
[2017-02-18] MEDS: ERTAPENEM INJ 1,000 MG in SODIUM CHLORIDE 0.9% INJ 100 ML IV SCH (14:38)
[2017-02-18 16:00] VITALS: BP 132/79; PULSE 78; RESP 18; TEMP 98; O2SAT 94
[2017-02-18] MEDS ORDERED: ASP: Path resistant to other antimicrobials, culture proven PRN (18:00)
[2017-02-18 19:02] LABS: BLOOD, URINE NEG (NEG); COMMENT (UR) CULT NOT INDICATED; CULTURE IF INDICATED CULT NOT INDICATED; GLUCOSE,URINE NEG (NEG); KETONE, URINE NEG (NEG); MUCUS URINE FEW /lpf (OCC); NITRITE,URINE NEG (NEG); SQUAMOUS EPITHELIAL CELL URINE <1 /hpf (0-5); URINE COLOR YELLOW (YELLW/STRAW)
[2017-02-18 20:30] VITALS: BP 126/86; PULSE 101; RESP 18; TEMP 98.1; O2SAT 94
[2017-02-18] MEDS ORDERED: methylPREDNISolone SOD SUCC 125 MG/2 ML VIAL IV PUSH ONE (22:30)
[2017-02-18] MEDS ORDERED: EPINEPHrine HCL (1:10,000) 1 MG/10 ML SYRINGE IV PRN (22:30)
[2017-02-18] MEDS ORDERED: diphenhydrAMINE HCL 50 MG/ML VIAL IV PUSH ONE (22:30)
[2017-02-19] VITALS: BP 132/76; PULSE 83; RESP 16; TEMP 97.5; O2SAT 95
[2017-02-19] MEDS: methylPREDNISolone SOD SUCC 40 MG/1 ML VIAL IV PUSH SCH (01:52)
[2017-02-19] MEDS ORDERED: diphenhydrAMINE HCL 50 MG/ML VIAL IV PUSH ONE (02:15)
[2017-02-19 04:30] VITALS: BP 119/80; PULSE 74; RESP 16; TEMP 96.5; O2SAT 94
[2017-02-19 05:47] LABS: HEMATOCRIT 45.1 % (39.0-51.0); MEAN CELL VOLUME 87.3 FL (80.0-100.0); MEAN CORPUSCULAR HEMOGLOBIN 29.5 PG (27.0-34.0); MEAN CORPUSCULAR HGB CONC 33.7 % (32.0-36.0); PLATELET COUNT 270 TH/MM3 (150-450); RED BLOOD COUNT 5.17 MIL/MM3 (4.50-5.90); RED CELL DISTRIBUTION WIDTH 14.1 % (11.6-17.2); REVIEW FLAG FINAL; WHITE BLOOD COUNT 11.3 TH/MM3 (4.0-11.0)
[2017-02-19] MEDS: diphenhydrAMINE HCL 50 MG/ML VIAL IV PUSH PRN ×4 (06:40→20:18)
[2017-02-19 07:50] VITALS: BP 122/62; PULSE 76; RESP 20; TEMP 97.2; O2SAT 95
[2017-02-19] MEDS: DOCUSATE SODIUM 50 MG/SENNA 8.6 MG TAB PO SCH ×2 (09:14→20:05)
[2017-02-19] MEDS: SODIUM CHLORIDE 0.9% FLUSH 10 ML FLUSH IV FLUSH SCH ×2 (09:14→20:04)
[2017-02-19 11:30] VITALS: BP 119/60; PULSE 69; RESP 20; TEMP 97.3; O2SAT 94
--- NOTE | 2017-02-19 12:16 | HHI.PR ---
Subjective Subjective Notes Has been up and out of bed today Reports no abdominal pain Overall feeling better Objective Vitals/I&O Vital Signs Date Time Temp Pulse Resp B/P Pulse Ox O2 Delivery O2 Flow Rate FiO2 02/19/17 07:50 97.2 76 20 122/62 95 02/17/17 19:22 Room Air Labs Laboratory Tests Test 02/18/17 02/19/17 18:45 05:13 Urine Color YELLOW Urine Turbidity CLEAR Urine pH 5.0 Urine Specific [place] 1.019 Urine Protein NEG Urine Glucose (UA) NEG Urine Ketones NEG Urine Occult Blood NEG Urine Nitrite NEG Urine Bilirubin NEG Urine Urobilinogen LESS THAN 2.0 Urine Leukocyte Esterase NEG Urine RBC 23 Urine WBC 2 Urine Squamous Epithelial <1 Cells Urine Mucus FEW Microscopic Urinalysis Comment CULT NOT INDICATED White Blood Count 11.3 Red Blood Count 5.17 Hemoglobin 15.2 Hematocrit 45.1 Mean Corpuscular Volume 87.3 Mean Corpuscular Hemoglobin 29.5 Mean Corpuscular Hemoglobin 33.7 Concent Red Cell Distribution Width 14.1 Platelet Count 270 Mean Platelet Volume 9.9 Date/Time Procedure Status Source Growth 02/17/17 19:20 Aerobic Blood Culture - Preliminary Resulted Blood Peripheral NO GROWTH IN 2 DAYS 02/17/17 19:20 Anaerobic Blood Culture - Preliminary Resulted Blood Peripheral NO GROWTH IN 2 DAYS Radiology Last 48 hours Impressions Consultation 02/18/17 0000 Signed Impressions: Service Date/Time: Saturday, February 18, 2017 09:15 - CONCLUSION: There is some extraluminal air on most recent CT the abdomen/pelvis but inadequate amount of fluid is seen to warrant a CT guided drain placement at this time. Terrell Vargas MD Abdomen/Pelvis CT 02/17/17 1517 Signed Impressions: Service Date/Time: Friday, February 17, 2017 17:41 - CONCLUSION: 1. There is a small extraluminal air and fluid collection extending from the proximal sigmoid colon in the prior area of abscess. This measures approximately 3.3 x 1.9 cm and represents residual change related to prior bout of diverticulitis. 2. The extraluminal air and fluid collection again is causing inflammation and wall thickening of the adjacent small bowel. There are no features to suggest small bowel obstruction. 3. There is a small volume of free fluid in the abdomen and pelvis. 4. Stable nonacute findings include severe hepatic steatosis and 4 mm nonobstructing left renal stone. Hi Wood MD Cardiovascular: Regular Lungs: Clear Abdomen: Non-distended, Non-tender Narrative Exam BUE with areas of redness A/P Assessment and Plan 46 year old male with recurrent abdominal pain; s/p diverticulitis with abscess -Continue to monitor WBC and for fevers -Advance to full liquid diet -Antibiotics per ID; will need PICC placed if going home with IV antibiotics -OOB and mobilize -Continue non operative treatment Attending Statement patient seen at bedside as above doing better Attestation The exam, history, and the medical decision-making described in the above note were completed with the assistance of the mid-level provider. I reviewed and agree with the findings presented. I attest that I had a [id number] encounter with the patient on the same day, and personally performed and documented my assessment and findings in the medical record. Annemarie Hammonds Feb 19, 2017 12:15 Swapnil Nioxn MD Feb 25, 2017 22:46
--- NOTE | 2017-02-19 12:27 | HHI.IDPN ---
Note Infectious Disease Note Patient feels better. Has less itching. Afebrile. Denies abdominal pain. Previously discharged from the hospital on January 26, 2017. The patient was admitted with diverticulitis with a perforated diverticular abscess. PAST MEDICAL HISTORY 1. Hyperlipidemia 2. Diverticulitis with diverticular abscess 3. Right shoulder injury with right shoulder surgery 4. Right knee ACL repair ALLERGIES FLAGYL. The patient notes that he developed diarrhea with Flagyl in the hospital. He did, however, taking Flagyl as an outpatient. He does not recall any intense diarrhea while on the Flagyl as an outpatient. MEDICATIONS 1. Fluconazole 2. Ertapenem. SOCIAL HISTORY No tobacco, no alcohol. No illicit drugs. FAMILY HISTORY Noncontributory PHYSICAL EXAMINATION GEN: No acute distress. He is awake and alert and oriented. HEENT: No icterus. Oropharynx, moist mucosa without lesions. NECK: Supple. No adenopathy. LUNGS: Clear breath sounds. HEART: Regular rate and rhythm without murmurs. ABDOMEN: Obese, soft, Non tender. EXTREMITIES: No clubbing, cyanosis or edema. SKIN: Rash almost completely resolved. Erythema of the face decreased. NEUROLOGIC: No gross focal findings. PSYCHIATRIC: Calm and cooperative. IMPRESSION 1. Diverticular abscess. The patient was recently discharged on oral antibiotics and developed recurrence of abdominal pain. Fluid collection noted on CT scan of the abdomen at the proximal sigmoid colon. 2. Allergic reaction to piperacillin/Tazobactam. 3. Mild renal insufficiency. RECOMMENDATIONS 1. Continue fluconazole 2. Continue Ertapenem 3. Begin arrangement for outpatient antibiotics after discharge. PIC line. 4. Case management to begin IV outpatient arrangements. 5. Monitor clinical status. Jarek Munoz MD Feb 19, 2017 12:27 Jarek Munoz MD Feb 19, 2017 12:27
--- NOTE | 2017-02-19 12:41 | HHI.FF ---
Infusion Therapy Location of Infusion Therapy: Home [facility] IV Infusion Order Patient Information Patient Weight 137 kg Diagnosis: Diagnosis Diverticular abscess Coded Allergies: Flagyl (Verified Allergy, Severe, extreme diarrhea, 02/17/17) Administer Medication Ertapenem 1 gram IV q 24 hours Stop Treatment: Mar 10, 2017 Additional Information Venous access: PICC Line Additional Instructions [x] Peripheral flush and dressing changes per protocol [x] Implanted port and central online content editor: * Implanted port: 10 ml Normal Saline followed by 5 ml Heparin 100 units/ml Heparin flush after each use and monthly to maintain. [] May leave port accessed during therapy. [] May leave peripheral site accessed for duration of therapy. [x] If patient has SOB or respiratory distress, check oxygen saturation. If less than 90% or clinical signs of respiratory distress, administer oxygen at 2 L/min. via nasal cannula and notify physician. [x] Anaphylaxis/Reaction orders: * Stop infusion. * Keep IV line open with saline flush. * Notify physician. * Monitor vital signs every 15 minutes until symptoms resolve. * Check Oxygen saturation; Oxygen at 2 L/min. via nasal cannula if less than 90% or clinical signs of respiratory distress. * Administer diphenhydramine (Benadryl) 25 mg IV STAT, (unless patient has received as pre-med). May repeat once, if necessary. * Solu-Cortef 250 mg IVP over 30-60 seconds, use 100 mg vials for each dissolution. * Epinephrine (1mg/1 ml) 0.3 mg subcutaneously or IVP now with any signs of respiratory distress. * Check with physician for new additional pre-med orders if patient is re- challenged or re-treated. [x] May remove PICC line when treatment complete, after confirming with Physician. [x] If the patient is admitted to the hospital, the ED, or transferred via [facility] , complete transfer form including medication reconciliation order sheet. Laboratory Tests Weekly Labs: BMP, CBC w/diff Additional Information Follow up with ID Dr Mendiola. Jarek Munoz MD Feb 19, 2017 12:41
--- NOTE | 2017-02-19 13:22 | HHI.PR ---
Subjective Remarks Patient has had a generalized rash,? Reaction to antibiotics. He was switched to ertapenem and fluconazole. He reports his abdominal pain has improved. He is eating okay. No fevers or chills. Objective Vitals Vital Signs Date Time Temp Pulse Resp B/P Pulse Ox O2 Delivery O2 Flow Rate FiO2 02/19/17 11:30 97.3 69 20 119/60 94 02/19/17 07:50 97.2 76 20 122/62 95 02/19/17 04:30 96.5 74 16 119/80 94 02/19/17 00:00 97.5 83 16 132/76 95 02/18/17 20:30 98.1 101 18 126/86 94 02/18/17 16:00 98.0 78 18 132/79 94 I/O 02/18/17 02/18/17 02/18/17 02/19/17 02/19/17 02/19/17 07:00 15:00 23:00 07:00 15:00 23:00 Intake Total 960 ml 720 ml 240 ml Balance 960 ml 720 ml 240 ml Intake Oral 960 ml 720 ml 240 ml # Voids 3 5 2 1 # Bowel Movements 2 1 Result Diagram: 02/19/17 0513 02/18/17 0620 Imaging Last Impressions Consultation 02/18/17 0000 Signed Impressions: Service Date/Time: Saturday, February 18, 2017 09:15 - CONCLUSION: There is some extraluminal air on most recent CT the abdomen/pelvis but inadequate amount of fluid is seen to warrant a CT guided drain placement at this time. Terrell Vargas MD Abdomen/Pelvis CT 02/17/17 1517 Signed Impressions: Service Date/Time: Friday, February 17, 2017 17:41 - CONCLUSION: 1. There is a small extraluminal air and fluid collection extending from the proximal sigmoid colon in the prior area of abscess. This measures approximately 3.3 x 1.9 cm and represents residual change related to prior bout of diverticulitis. 2. The extraluminal air and fluid collection again is causing inflammation and wall thickening of the adjacent small bowel. There are no features to suggest small bowel obstruction. 3. There is a small volume of free fluid in the abdomen and pelvis. 4. Stable nonacute findings include severe hepatic steatosis and 4 mm nonobstructing left renal stone. Hi Wood MD Objective Remarks GENERAL: Obese male in no apparent distress. CARDIOVASCULAR: Normal rate and regular rhythm without murmurs, gallops, or rubs. RESPIRATORY: Good respiratory efforts. Breath sounds equal and clear to auscultation bilaterally. GASTROINTESTINAL: Abdomen soft, mild diffuse tenderness, non-distended. Normal active bowel sounds MUSCULOSKELETAL: Extremities without cyanosis, or edema. NEURO: Alert & Oriented x4 to person, place, time, situation. Moves all ext x4 PSYCH: Appropriate mood and affect. A/P Problem List: (1) Diverticulitis ICD Code: K57.92 Status: Acute (2) Leukocytosis ICD Code: D72.829 Status: Acute (3) Hyperlipidemia ICD Code: E78.5 Status: Chronic Assessment and Plan 46-year-old male recently treated for diverticulitis with perforation, abscess. Patient had aspiration by IR of an abscess, cultures grew E.coli, C. albicans. Patient discharged January 26, 2017 with by mouth cefdinir, fluconazole and Flagyl. Patient readmitted to the hospital because symptoms recurred. Not enough for repeat drainage. He is being treated with antibiotics per infectious disease. Diverticulitis with possible recurrent abscess Leukocytosis abdominal pain Morphine IV as needed for pain On fluconazole and ertapenem per infectious disease. Appreciate general surgery following. Continue conservative management. He is improving. Nausea Supportive care IV fluids for hydration Diet as tolerated Zofran as needed for nausea/vomiting Allergic reaction: Offending agent is unclear. Possibly Zosyn. This was discontinued.?Flagyl but he tolerated this in the past. On Solu-Medrol IV Benadryl as needed. Continue to monitor Hyperlipidemia- chronic continue home medications DVT prophylaxis with SCDs Discharge Planning If continues to improve. Expect discharge in 1-2 days with home IV antibiotics. Connie Avitia MD Feb 19, 2017 13:22
[2017-02-19] MEDS: SODIUM CHLOR 0.9% 1000 ML INJ 1,000 ML IV SCH ×2 (15:47→20:04)
[2017-02-19] MEDS: ERTAPENEM INJ 1,000 MG in SODIUM CHLORIDE 0.9% INJ 100 ML IV SCH (15:47)
[2017-02-19 15:50] VITALS: BP 135/61; PULSE 80; RESP 20; TEMP 97.6; O2SAT 96
[2017-02-19 20:00] VITALS: BP 115/59; PULSE 71; RESP 16; TEMP 97.4; O2SAT 95
[2017-02-20] VITALS: BP 105/56; PULSE 68; RESP 16; TEMP 96.8; O2SAT 97
[2017-02-20] MEDS: diphenhydrAMINE HCL 50 MG/ML VIAL IV PUSH PRN (00:21)
[2017-02-20 04:15] VITALS: BP 118/67; PULSE 62; RESP 16; TEMP 96.1; O2SAT 96
[2017-02-20] MEDS: SODIUM CHLOR 0.9% 1000 ML INJ 1,000 ML IV SCH (05:42)
[2017-02-20 07:52] LABS: HEMATOCRIT 36.4 % (39.0-51.0); MEAN CELL VOLUME 87.6 FL (80.0-100.0); MEAN CORPUSCULAR HEMOGLOBIN 29.2 PG (27.0-34.0); MEAN CORPUSCULAR HGB CONC 33.3 % (32.0-36.0); PLATELET COUNT 238 TH/MM3 (150-450); RED BLOOD COUNT 4.15 MIL/MM3 (4.50-5.90); RED CELL DISTRIBUTION WIDTH 13.9 % (11.6-17.2); REVIEW FLAG FINAL; WHITE BLOOD COUNT 14.3 TH/MM3 (4.0-11.0)
[2017-02-20 08:00] VITALS: BP 124/70; PULSE 84; RESP 20; TEMP 96.6; O2SAT 96
[2017-02-20] MEDS: DOCUSATE SODIUM 50 MG/SENNA 8.6 MG TAB PO SCH (08:18)
[2017-02-20] MEDS: PRAVASTATIN SOD 10 MG TAB PO SCH (08:18)
[2017-02-20] MEDS: SODIUM CHLORIDE 0.9% FLUSH 10 ML FLUSH IV FLUSH SCH (08:19)
[2017-02-20 08:21] LABS: BICARBONATE 26.6 MEQ/L (21.0-32.0); POTASSIUM 4.4 MEQ/L (3.5-5.1)
--- NOTE | 2017-02-20 09:08 | HHI.DS ---
Discharge Summary Admission Date Feb 17, 2017 at 18:55 Discharge Date: Feb 20, 2017 Admitting Diagnosis Intraabdominal abscess (1) Diverticulitis ICD Code: K57.92 (2) Leukocytosis ICD Code: D72.829 (3) Hyperlipidemia ICD Code: E78.5 Procedures None Brief History - From Admission History of present illness from the admitting physician This is a 46 y/o with a history of hyperlipidemia recently treated for diverticulitis with perforation, abscess. Patient had aspiration by IR of an abscess, cultures grew E.coli, C. albican. Patient discharged January 26, 2017 with by mouth Cefdinir, fluconazole and Flagyl. Patient reports he felt, "fine, " for the first 3 weeks then, "my prescriptions ran out, " and he started having abdominal tenderness which progressively worsened. Patient contacted Dr. Nixon's office who renewed prescription. The pain continued to worsen therefore patient proceeded to ER for further evaluation and treatment. Pain described abdominal pain as a tenderness worse with palpation. Abdominal pain/ tenderness located bilateral upper quadrant and suprapubic area. Patient also has associated nausea, generalized weakness and malaise. Patient denies dysuria, fevers, chills, vomiting, diarrhea, chest pain or shortness of breath. CBC/BMP: 02/20/17 0708 02/20/17 0708 Significant Findings Laboratory Tests Test 02/17/17 02/18/17 02/18/17 02/19/17 15:45 06:20 18:45 05:13 White Blood Count 13.8 TH/MM3 11.5 TH/MM3 11.3 TH/MM3 (4.0-11.0) (4.0-11.0) (4.0-11.0) Neutrophils (%) (Auto) 82.6 % 78.9 % (16.0-70.0) (16.0-70.0) Neutrophils # (Auto) 11.4 TH/MM3 9.1 TH/MM3 (1.8-7.7) (1.8-7.7) Prothrombin Time 12.0 SEC (9.8-11.6) Estimat Glomerular Filtration 84 ML/MIN (>89) 79 ML/MIN (>89) Rate Aspartate Amino Transf 47 U/L (15-37) (AST/SGOT) Albumin 3.3 GM/DL (3.4-5.0) Monocytes (%) (Auto) 10.2 % (0.0-8.0) Monocytes # (Auto) 1.2 TH/MM3 (0-0.9) Random Glucose 118 MG/DL (74-106) Urine RBC 23 /hpf (0-3) Urine Mucus FEW /lpf (OCC) Test 02/20/17 07:08 White Blood Count 14.3 TH/MM3 (4.0-11.0) Red Blood Count 4.15 MIL/MM3 (4.50-5.90) Hemoglobin 12.1 GM/DL (13.0-17.0) Hematocrit 36.4 % (39.0-51.0) Random Glucose 117 MG/DL (74-106) Calcium Level 8.4 MG/DL (8.5-10.1) Imaging Last Impressions Consultation 02/18/17 0000 Signed Impressions: Service Date/Time: Saturday, February 18, 2017 09:15 - CONCLUSION: There is some extraluminal air on most recent CT the abdomen/pelvis but inadequate amount of fluid is seen to warrant a CT guided drain placement at this time. Terrell Vargas MD Abdomen/Pelvis CT 02/17/17 1517 Signed Impressions: Service Date/Time: Friday, February 17, 2017 17:41 - CONCLUSION: 1. There is a small extraluminal air and fluid collection extending from the proximal sigmoid colon in the prior area of abscess. This measures approximately 3.3 x 1.9 cm and represents residual change related to prior bout of diverticulitis. 2. The extraluminal air and fluid collection again is causing inflammation and wall thickening of the adjacent small bowel. There are no features to suggest small bowel obstruction. 3. There is a small volume of free fluid in the abdomen and pelvis. 4. Stable nonacute findings include severe hepatic steatosis and 4 mm nonobstructing left renal stone. Hi Wood MD PE at Discharge GENERAL: Obese male in no apparent distress. CARDIOVASCULAR: Normal rate and regular rhythm without murmurs, gallops, or rubs. RESPIRATORY: Good respiratory efforts. Breath sounds equal and clear to auscultation bilaterally. GASTROINTESTINAL: Abdomen soft, nontender, nondistended. Normal active bowel sounds MUSCULOSKELETAL: Extremities without cyanosis, or edema. NEURO: Alert & Oriented x4 to person, place, time, situation. Moves all ext x4 PSYCH: Appropriate mood and affect. Pt update on day of discharge Patient reports he is feeling great today. The best he has ever felt. No abdominal pain. No nausea or vomiting. He is eating well. Wants to go home. Hospital Course 46-year-old male recently treated for diverticulitis with perforation, abscess. Patient had aspiration by IR of an abscess, cultures grew E.coli, C. albicans. Patient discharged January 26, 2017 with by mouth cefdinir, fluconazole and Flagyl. Patient readmitted to the hospital because symptoms recurred. Not enough fluid for repeat drainage. Evaluation treatment course detailed below: Diverticulitis with possible recurrent abscess Leukocytosis abdominal pain - Patient followed by general surgery and infectious disease. Conservative management. per ID, he was treated with ertapenem and Fluconazole but appeared to develop a rash with fluconazole. Patient's symptoms significantly improved. He is discharged on IV antibiotics, ertapenem until March 10. A mid line was placed. I discussed with infectious disease, Dr. Munoz on the day of discharge. Patient will follow-up outpatient with infectious disease Dr. Mendiola. Nausea Supportive care Patient received IV fluids for hydration Symptoms resolved. Allergic reaction: Patient appear to have had allergic reaction to Zosyn, fluconazole, and possibly Flagyl. He was treated with IV Solu-Medrol and Benadryl. Symptoms resolved once the offending agents were discontinued. Hyperlipidemia- chronic continue home medications Discharge planning discussed extensively with the patient, RN, and Dr. Munoz. Pt Condition on Discharge: Good Discharge Disposition: Disch w/ Home Health Serv Discharge Time: > 30 minutes Discharge Instructions DIET: Follow Instructions for: As Tolerated, No Restrictions Activities you can perform: Regular-No Restrictions Follow up Referrals: Infectious Disease - 1 Week with Rogelio Mendiola MD Continued Medications: Lovastatin (Lovastatin) 10 Mg Tab 5 MG PO EVERY OTHER DAY Cholesterol Management Ref 0 TAB Discontinued Medications: Cefdinir (Cefdinir) 300 Mg Cap 300 MG PO BID Infection #14 Ref 0 CAP Fluconazole (Fluconazole) 200 Mg Tab 200 MG PO DAILY Infection Days 10 Ref 0 TAB Metronidazole (Flagyl) 500 Mg Tab 500 MG PO TID Infection Days 10 Ref 0 TAB Connie Avitia MD Feb 20, 2017 09:08
--- NOTE | 2017-02-20 12:05 | HHI.PR ---
Subjective Subjective Notes Up to chair "I feel the best I have felt in weeks!' Objective Vitals/I&O Vital Signs Date Time Temp Pulse Resp B/P Pulse Ox O2 Delivery O2 Flow Rate FiO2 02/20/17 08:00 96.6 84 20 124/70 96 02/17/17 19:22 Room Air Labs Laboratory Tests Test 02/20/17 07:08 White Blood Count 14.3 Red Blood Count 4.15 Hemoglobin 12.1 Hematocrit 36.4 Mean Corpuscular Volume 87.6 Mean Corpuscular Hemoglobin 29.2 Mean Corpuscular Hemoglobin 33.3 Concent Red Cell Distribution Width 13.9 Platelet Count 238 Mean Platelet Volume 10.3 Sodium Level 140 Potassium Level 4.4 Chloride Level 107 Carbon Dioxide Level 26.6 Anion Gap 6 Blood Urea Nitrogen 13 Creatinine 0.67 Estimat Glomerular Filtration 127 Rate Random Glucose 117 Calcium Level 8.4 Date/Time Procedure Status Source Growth 02/17/17 19:20 Aerobic Blood Culture - Preliminary Resulted Blood Peripheral NO GROWTH IN 3 DAYS 02/17/17 19:20 Anaerobic Blood Culture - Preliminary Resulted Blood Peripheral NO GROWTH IN 3 DAYS Radiology Last 48 hours Impressions Consultation 02/18/17 0000 Signed Impressions: Service Date/Time: Saturday, February 18, 2017 09:15 - CONCLUSION: There is some extraluminal air on most recent CT the abdomen/pelvis but inadequate amount of fluid is seen to warrant a CT guided drain placement at this time. Terrell Vargas MD Abdomen/Pelvis CT 02/17/17 1517 Signed Impressions: Service Date/Time: Friday, February 17, 2017 17:41 - CONCLUSION: 1. There is a small extraluminal air and fluid collection extending from the proximal sigmoid colon in the prior area of abscess. This measures approximately 3.3 x 1.9 cm and represents residual change related to prior bout of diverticulitis. 2. The extraluminal air and fluid collection again is causing inflammation and wall thickening of the adjacent small bowel. There are no features to suggest small bowel obstruction. 3. There is a small volume of free fluid in the abdomen and pelvis. 4. Stable nonacute findings include severe hepatic steatosis and 4 mm nonobstructing left renal stone. Hi Wood MD Cardiovascular: Regular Lungs: Clear Abdomen: Non-distended, Non-tender Extremities: No edema Narrative Exam RUE PICC in place A/P Assessment and Plan 46 year old male with recurrent abdominal pain; s/p diverticulitis with abscess -Continue to monitor WBC and for fevers; slightly elevated WBC today but clinical stable -Tolerating full liquids; suggested protein shakes as well -Antibiotics per ID; PICC in place -OOB and mobilize -HHC -Continue non operative treatment -GS clear for DC; follow up in about 2 weeks Attending Statement patient seen at bedside as above continue non op mgnt picc iv abx dc planning Annemarie Hammonds Feb 20, 2017 12:04 Swapnil Nixon MD Mar 04, 2017 14:49
[2017-02-20 12:27] VITALS: BP 105/59; PULSE 69; RESP 20; TEMP 96.3; O2SAT 96
[2017-02-20] MEDS: ERTAPENEM INJ 1,000 MG in SODIUM CHLORIDE 0.9% INJ 100 ML IV SCH (14:05)
== END 2017-02-20 17:04 | disposition home health service (06) | DRG 392 ==
LOC: NEPC 13:06 → NEDA 18:55 → HOCB 20:07
PROVIDERS: ADMIT Family Medicine; ATTEND Family Medicine
PROC: 05H533Z Insertion of Infusion Device into Right Subclavian Vein, Percutaneous Approach (ICD-10-PCS; principal; 2017-02-19)
PROC: B546ZZA Ultrasonography of Right Subclavian Vein, Guidance (ICD-10-PCS; 2017-02-19)
DX: K57.20 Diverticulitis of large intestine with perforation and abscess without bleeding (principal); E78.5 Hyperlipidemia, unspecified; E66.9 Obesity, unspecified; Z68.38 Body mass index [BMI] 38.0-38.9, adult; R21 Rash and other nonspecific skin eruption; T37.8X5A Adverse effect of other specified systemic anti-infectives and antiparasitics, initial encounter; Y92.238 Other place in hospital as the place of occurrence of the external cause; N28.9 Disorder of kidney and ureter, unspecified
CPT/HCPCS: 36569; 74177; 76937; 80048; 80053; 81001; 83690; 85025; 85027; 85610; 85730; 87040; 96374; 96375; J1200; J1335; J1450; J2270; J2405; J2543; J2765; J2920; J2930; J7030; Q9967

== ENCOUNTER 2017-04-03 00:30 | Inpatient (IN) | payer OTHER ==
[~2017-04-03] VITALS: Ht 188 cm; Wt 130.5 kg
[~2017-04-03 00:30] MED LIST changes: -CEFD300C PO; -FLUC200T2 PO; -HYDR-3288 PO; -LOVA10TA; -METR-1 PO; +MORPHINE SULFATE 4 MG/ML INJ IV PUSH PRN; +NALOXONE HCL 0.4 MG/ML AMP IV PRN; +ONDANSETRON HCL 4 MG/2 ML VIAL IVP PRN; +SODIUM CHLORIDE 0.9% FLUSH 10 ML FLUSH IV FLUSH PRN
[2017-04-03] MEDS ORDERED: diphenhydrAMINE HCL 50 MG/ML VIAL IV PUSH ONE ×2 (01:30→04:30)
[2017-04-03] MEDS ORDERED: methylPREDNISolone SOD SUCC 125 MG/2 ML VIAL IV PUSH ONE ×2 (01:30→04:30)
[2017-04-03] MEDS ORDERED: FAMOTIDINE 20 MG TAB PO SCH ×2 (01:30)
[2017-04-03 01:32] VITALS: BP 131/74; PULSE 94; RESP 18; TEMP 99.2; O2SAT 94
[2017-04-03] MEDS: SODIUM CHLOR 0.9% 1000 ML INJ 1,000 ML IV SCH ×2 (01:56→19:44)
[2017-04-03] MEDS ORDERED: EPINEPHrine HCL (1:1000) 1 MG/ML VIAL IM ONE (04:30)
[2017-04-03] MEDS ORDERED: FAMOTIDINE 20 MG/2 ML VIAL IV PUSH SCH (04:45)
--- NOTE | 2017-04-03 05:32 | HHI.HP ---
[facility] Service [facility] Primary Care Physician Non-Staff Admission Diagnosis Diagnoses: Chief Complaint: Abdominal pain, nausea, vomiting Travel History International Travel<30 Days: No Contact w/Intl Traveler <30 Da: No Traveled to Known Affected Are: No History of Present Illness History from patient, ER physician communication, nursing staff, and review of medical records. Patient is known to me from his prior hospitalization here at our facility. He reports that he came to the hospital yesterday because he was having abdominal pain. He has had prior history of complicated diverticulitis with abscess formations and therefore he got worried. He also states that he was having a high-grade fever at home. He denies any nausea. Stated he vomited once when he was going for the CAT scan at [facility]. At our facility though, he just has low-grade fever. Patient reports he was having bowel movement about 4 times a day. Somewhat diarrhea. Somewhat soft stool. Patient was on ertapenem for complicated diverticulitis with abscess formation and he was discharged home with midline to finish his antibiotics. He states that he finished the antibiotics course on March 07, 2017 and midline was removed at the same time. Patient presented to [facility] emergency room. Workup there revealed small bowel obstruction and was therefore called for admission of this patient. Upon patient's arrival to our main hospital floors, I was called by patient's nurse the patient was breaking out in hives and was itching and was complaining of difficulty breathing and some chest tightness. She reported to me that patient had similar episode which is actually worse than what he was feeling here while at [facility]. I was not informed of this then. He was given epinephrine/Solu-Medrol/Benadryl/Pepcid there which somewhat improved his symptoms. Both patient and the nurse stated that patient really started having some small rash with itching starting around 3 PM yesterday evening prior to his arrival to [facility]. Patient himself could not remember anything different that he has done. He denies being on any new medications. There is no change in laundry or house environmental situations. However, patient confirms that his rash and breathing trouble got worse after he arrives the hospital. In his previous hospitalization, patient had similar episode though not as severe. At that time, he mostly had welts, itching all over. At that time his symptoms had stopped after we had discontinued fluconazole. Prior to that similar Event happened with Zosyn use. Review of Systems Constitutional: COMPLAINS OF: Diaphoretic episodes, Fever, DENIES: Fatigue, Weight gain, Weight loss, Chills, Dizziness, Night Sweats Respiratory: DENIES: Apneas, Cough, Snoring, Wheezing, Sputum production, Shortness of breath Cardiovascular: DENIES: Chest pain, Palpitations, Syncope, Dyspnea on Exertion , PND, Lower Extremity Edema, Orthopnea Gastrointestinal: COMPLAINS OF: Abdominal pain, Diarrhea, Nausea, DENIES: Black stools, Bloody stools, Constipation, Vomiting Genitourinary: DENIES: Urinary frequency, Urinary incontinence, Urgency, Hematuria, Dysuria, Nocturia Integumentary: COMPLAINS OF: Abnormal pigmentation, Pruritus, Rash Except as stated in HPI: all other systems reviewed are Neg Past Family Social History Past Medical History Hyperlipidemia diverticulitis with abscess Past Surgical History Right shoulder surgery ACL repair right knee IR drainage of abscess Allergies: Coded Allergies: Flagyl (Verified Allergy, Severe, extreme diarrhea, 02/17/17) Fluconazole (Verified Allergy, Unknown, Hives, 02/19/17) HIVES AND RASH Piperacillin (Verified Allergy, Unknown, Hives, 02/19/17) HIVES AND RASH Zosyn (Verified Allergy, Unknown, Hives, 02/19/17) HIVES AND RASH Family History Mom: Breast cancer, Uterine cancer, renal cell cancer, melanoma Dad: 84 living has had AK with CABG Social History denies ETOH use, tobacco use or illicit drug use Physical Exam Vital Signs Vital Signs Date Time Temp Pulse Resp B/P Pulse Ox O2 Delivery O2 Flow Rate FiO2 04/03/17 01:32 99.2 94 18 131/74 94 Physical Exam GENERAL: This is a well-nourished, well-developed patient, in no apparent distress. SKIN: Diffuse nonblanching erythematous rash welts all over and then bilateral upper extremity, anterior chest, face and forehead, and bilateral lower extremity thighs. HEAD: Atraumatic. Normocephalic. No temporal or scalp tenderness. EYES:No scleral icterus. No injection or drainage. ENT: Nose without bleeding, purulent drainage or septal hematoma. Airway patent. NECK: Trachea midline. No JVD CARDIOVASCULAR: Regular rate and rhythm without murmurs, gallops, or rubs. RESPIRATORY: Clear to auscultation. Breath sounds equal bilaterally. No wheezes , rales, or rhonchi. GASTROINTESTINAL: Abdomen soft, non-tender, nondistended. No guarding. MUSCULOSKELETAL: Extremities without clubbing, cyanosis, or edema. . No calf tenderness. NEUROLOGICAL: Awake and alert. Motor and sensory grossly within normal limits Normal speech. Laboratory Labs done at [facility]. Imaging CT [facility]. Small Bowel Obstruction , No Evidence of Diverticulitis or Abscess Formation. No Free Air. Assessment and Plan Assessment and Plan Impression: Small bowel obstruction Allergic reaction/anaphylaxissource unknown Leukocytosis with left shift History of diverticulitis with abscess formations Plan: Nothing by mouth. IV hydration. Pain control. Give Solu-Medrol 125 mg IV stat one dose now. Give Benadryl 50 mg IV 1 dose now. Epinephrine 1-1000 solution 0.3 mg IM one dose now. Pepcid 20 mg IV push 1 dose now. We'll have to schedule Solu-Medrol/Benadryl/Pepcid every 4 hours for now. DVT prophylaxiswith scd GI prophylaxis on pantoprazole. Discussed Condition With patient, ER , nursing staff Physician Certification 2 Midnight Certification Type: Admission for Inpatient Services Order for Inpatient Services The services are ordered in accordance with Medicare regulations or non- Medicare payer requirements, as applicable. In the case of services not specified as inpatient-only, they are appropriately provided as inpatient services in accordance with the 2-midnight benchmark. Estimated LOS (days): 3 days is the estimated time the patient will need to remain in the hospital, assuming treatment plan goals are met and no additional complications. Post-Hospital Plan: Home Luz France MD Apr 03, 2017 05:31
[2017-04-03 05:49] VITALS: BP 128/68; PULSE 67; RESP 18; TEMP 98.5; O2SAT 97
[2017-04-03] MEDS: methylPREDNISolone SOD SUCC 40 MG/1 ML VIAL IV PUSH SCH ×3 (06:00→18:41)
[2017-04-03] MEDS ORDERED: hydrOXYzine HCL 25 MG TAB PO ONE (07:45)
[2017-04-03 08:15] VITALS: BP 126/72; PULSE 89; RESP 25; TEMP 98.2
[2017-04-03] MEDS: PANTOPRAZOLE SODIUM 40 MG VIAL IV PUSH SCH (08:16)
[2017-04-03] MEDS: diphenhydrAMINE HCL 50 MG/ML VIAL IV PUSH PRN ×4 (08:17→20:37)
[2017-04-03] MEDS: SODIUM CHLORIDE 0.9% FLUSH 10 ML FLUSH IV FLUSH SCH ×2 (09:00→19:44)
--- NOTE | 2017-04-03 09:11 | HHI.PR ---
Subjective Remarks I was contacted by the patient's nurse regarding worsening hives and itching. The patient states that he has itching "all over". It is affecting his face, chest, arms, legs, abdomen. It also involves his hands including the palms. He states that the itching started before he arrived at the ER, but worsened significantly following the CT scan, which was done with IV contrast. He denies any shortness of breath or wheezing. He states that his abdominal pain feels "significantly better". Objective Vitals Vital Signs Date Time Temp Pulse Resp B/P Pulse Ox O2 Delivery O2 Flow Rate FiO2 04/03/17 05:49 98.5 67 18 128/68 97 04/03/17 01:32 99.2 94 18 131/74 94 Objective Remarks General: Obese male in no acute distress. Heart: Regular rate and rhythm. No murmur. Lungs: Clear to auscultation bilaterally. No wheezes, rales, or rhonchi. Breathing is nonlabored. Abdomen: Soft, nontender, nondistended. Extremities: No lower extremity edema. Psych: Alert and oriented. Skin: Diffuse urticaria involving the face, neck, chest, abdomen, arms, legs. The back is mostly spared. Procedures None Urinary Catheter: No Vascular Central Line Catheter: No A/P Problem List: (1) Bowel obstruction ICD Code: K56.60 Status: Acute (2) Leukocytosis ICD Code: D72.829 Status: Acute (3) Urticaria ICD Code: L50.9 Status: Acute Assessment and Plan 1. Small bowel obstruction: Improving. Patient has had multiple bowel movements this morning. Abdominal pain has improved significantly. Gastroenterology consult is pending. Patient is nothing by mouth. Continue IV fluids. 2. Urticaria, likely allergic reaction: Uncertain etiology. The patient states that the itching started prior to his arrival at the ER. The only medication he had taken prior to that was an [id number] magnesium tablet. He states that the symptoms worsen significantly following CT of the abdomen/pelvis, for which he was given IV contrast. Solu-Medrol scheduled, Benadryl as needed. Patient has received epinephrine, Pepcid, and hydroxyzine as well. Currently no respiratory symptoms. Lungs are clear on exam. Oxygen saturation is normal on room air. Continue to monitor. 3. Leukocytosis: Likely secondary to above. Monitor labs. 4. GI prophylaxis: PPI. 5. DVT prophylaxis: SCDs. Diego Carl MD Apr 03, 2017 09:11
[2017-04-03] MEDS: diphenhydrAMINE HCL 2%/ZINC ACETATE 0.1% CREAM 30 APPLIC/30 GM TUBE TOPICAL PRN ×2 (11:38→20:37)
[2017-04-03 12:15] VITALS: BP 154/70; PULSE 81; RESP 10; TEMP 97.6
--- NOTE | 2017-04-03 13:42 | PD.CONS ---
cc: Swapnil Nixon MD [facility] Service General Surgery Consult Requested By Dr. Carl Reason for Consult Eval for SBO Primary Care Physician Non-Staff History of Present Illness This is a 46 year old male well known to our General Surgery service for diverticulitis was abscess. He has been treated with IR placed drains and antibiotics. He was DCed home about 4 weeks ago with a PICC line and infusions of Erlapenem. He has been doing well and tolerating a diet for the past few weeks. He is scheduled to have a colonoscopy on Friday with Dr. Pickett and from there was to follow up with Dr. Nixon for an elective procedure to remove diseased diverticulitis. Yesterday morning, the patient developed severe onset of acute sharp abdominal pain which he rates a 8/10 with associated fever. He called Dr. Pickett and was instructed to go to the Emergency Room. A CT abd/plevis was obtained which was suspicious of a small bowel obstruction. He denies any nausea but did have emesis after administration of contrast dye which has happened to him in the past. He has an elevated WBC at 16.1. He has had several soft brown bowel movements in the past few days. He developed shortness of breath, chest tightness and a generalized skin rash. He was given Benadryl and the shortness of breath, chest tightness resolved. His skin rash has improved since given Benadryl. The patient was transferred from [facility] to the [facility] in [facility]. A General Surgery consultation has been requested for evaluation of small bowel obstruction. Review of Systems Constitutional: COMPLAINS OF: Fever, Chills, Change in appetite Endocrine: DENIES: Polydipsia, Polyuria, Polyphagia Eyes: DENIES: Blurred vision Ears, nose, mouth, throat: DENIES: Hearing loss Respiratory: DENIES: Apneas Cardiovascular: DENIES: Chest pain Gastrointestinal: COMPLAINS OF: Abdominal pain, Vomiting, DENIES: Nausea Genitourinary: DENIES: Urinary frequency Musculoskeletal: DENIES: Muscle aches Integumentary: DENIES: Abnormal pigmentation Hematologic/lymphatic: DENIES: Bruising Immunologic/allergic: DENIES: Eczema Neurologic: DENIES: Headache, Localized weakness Psychiatric: DENIES: Mood changes, Depression, Hallucinations Past Family Social History Past Medical History Hyperlipidemia Diverticulitis was abscess Past Surgical History IR placed for diverticulitis for abscess Reported Medications None Allergies: Coded Allergies: Codeine (Verified Allergy, Severe, Constipation, 04/06/17) Flagyl (Verified Allergy, Severe, extreme diarrhea, 04/06/17) Fluconazole (Verified Allergy, Unknown, Hives, 04/06/17) HIVES AND RASH Morphine (Verified Allergy, Unknown, 04/06/17) Piperacillin (Verified Allergy, Unknown, Hives, 04/06/17) HIVES AND RASH Zosyn (Verified Allergy, Unknown, Hives, 04/06/17) HIVES AND RASH Active Ordered Medications Current Medications Medications (Trade) Dose Ordered Sig/Jesi Route Start Time Stop Time Status Last Admin (NS 1000 ml Inj) 1,000 ml @ 100 mls/hr Q10H IV 04/03/17 00:13 04/03/17 01:56 (NS Flush) 2 ml UNSCH PRN IV FLUSH 04/03/17 00:15 (NS Flush) 2 ml BID IV FLUSH 04/03/17 09:00 (Zofran Inj) 4 mg Q6H PRN IVP 04/03/17 00:15 (Narcan Inj) 0.4 mg UNSCH PRN IV 04/03/17 00:15 (Morphine Inj) 2 mg Q6H PRN IV PUSH 04/03/17 00:15 (SoluMEDROL INJ) 40 mg Q6HR IV PUSH 04/03/17 06:00 04/03/17 11:32 (Benadryl Inj) 50 mg Q4H PRN IV PUSH 04/03/17 08:00 04/03/17 12:49 (Protonix Inj) 40 mg Q24H IV PUSH 04/03/17 09:00 04/03/17 08:16 (Benadryl 2% Cream) 1 applic TID PRN TOPICAL 04/03/17 11:00 04/03/17 11:38 Family History Noncontributory Social History Denies tobacco use Denies illicit drug use Denies ETOH use 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 SKIN: Red hive on BUE and BLE; minimally on trunk. HEAD: Atraumatic. Normocephalic. EYES: Pupils equal and round. No scleral icterus. No injection or drainage. ENT: No nasal bleeding or discharge. Mucous membranes pink and moist. NECK: Trachea midline. CARDIOVASCULAR: Regular rate and rhythm. RESPIRATORY: No accessory muscle use. Clear to auscultation. Breath sounds equal bilaterally. GASTROINTESTINAL: Abdomen soft, non-tender, nondistended. Obese. MUSCULOSKELETAL: Extremities without clubbing, cyanosis, or edema. No obvious deformities. NEUROLOGICAL: Awake and alert. No obvious cranial nerve deficits. Motor grossly within normal limits. Five out of 5 muscle strength in the arms and legs. Normal speech. PSYCHIATRIC: Appropriate mood and affect; insight and judgment normal. Result Diagram: 04/04/1753904/04/17539 Assessment and Plan Assessment and Plan 46 year old male know to Dr. Nixon with diverticulitis; evaluation for SBO -Reviewed CT scan; unlikely SBO -+BM -IVF -Await GI consult -Repeat labs this afternoon -NPO; okay to start clear liquids after evaluation of GI and okay -Thank you fort this consult; we will continue to follow Discussed Condition With Dr. Nixon Phani Veratomasz Attending Statement patient seen at bedside acute diverticulitis unlikely sbo as air in colon and clinically having bowel fxn concern for multiple admissions, and high wbc will consider operation this admission will trend wbc and response to abx discuss with gi possible colonoscopy this admission Attestation The exam, history, and the medical decision-making described in the above note were completed with the assistance of the mid-level provider. I reviewed and agree with the findings presented. I attest that I had a [id number] encounter with the patient on the same day, and personally performed and documented my assessment and findings in the medical record. Annemarie Hammonds Apr 03, 2017 13:42 Swapnil Nixon MD Apr 07, 2017 21:46
[2017-04-03 16:15] VITALS: BP 123/61; PULSE 92; RESP 17; TEMP 97.9
--- NOTE | 2017-04-03 16:37 | PD.CONS ---
GI Consult GI Consult Thank you for the consultation, GI pt seen and dictated. It was a pleasure seeing [facility] . Thank you for this consult. Entered by: Ana Maria Dc MD Apr 03, 2017 16:37
--- NOTE | 2017-04-03 18:00 | MB ---
cc: CROW WHALEY DATE OF CONSULTATION 04/03/17 [address] Radhames Pickett. REASON FOR CONSULTATION Abdominal pain, possible small bowel obstruction, diverticulosis/diverticulitis. HISTORY OF PRESENT ILLNESS This is a 46-year-old very pleasant gentleman who has had a recent admission to the hospital for acute complicated diverticulitis with an abscess, required drainage and long-term antibiotic placement. He was doing reasonably well, had finished his course of antibiotics and actually is planning on undergoing colonoscopy, a 6-week post diverticulitis colonoscopy by Dr. Pickett on Friday of this month. They called the answering service last night complaining of having abdominal pain over the last two days associated with occasional fevers and, due to his history and his symptoms, I advised them to go to the nearest emergency room. They went to the nearest emergency room which is [facility]. At that point, he underwent further workup and evaluation and due to his history underwent a abdominal CT scan suggesting possible small bowel obstruction in the mid small bowel with moderate dilated loops in the proximal bowel. The point of obstruction appears to be in the matted loops of small bowel in the mid abdomen marked with wall thickening surrounding mesenteric induration and mild amount of free fluid. Due to this, he was transferred over to the main hospital. Several hours after the transfer, he began having loose bowel movements and started feeling much better. His nausea and vomiting resolved. His abdominal pain resolved once he started having bowel movements. By this morning, he was feeling much better. The pressure in the abdomen that he felt has nearly resolved. He currently has no nausea or vomiting, fevers or chills. He did complain of having a rash which began a day or so ago and slowly worsened after his CT imaging and throughout the day and, due to this, he was appropriately treated as an allergic reaction. It is unclear as to what his allergic reaction was, but he was given Benadryl, steroids as well as epinephrine which has resolved his symptoms although he still has a slight macular papular rash throughout his arms, legs, hands and his torso and back. PAST MEDICAL HISTORY 1. Dyslipidemia 2. Diverticulitis with abscess. PAST SURGICAL HISTORY Interventional radiology with an abscess drainage ALLERGIES FLAGYL FLUCONAZOLE PIPERACILLIN ZOSYN (ALL LISTED HIVES AND RASH MEDICATIONS Please see MAR for complete accurate list. Hospital medications include 1. Benadryl. 2. Protonix 3. Solu-Medrol. 4. Morphine. FAMILY HISTORY No GI malignancies. SOCIAL HISTORY Denies any tobacco, alcohol, drug abuse. REVIEW OF SYSTEMS A 12-point review of system was obtained by me and showed to be negative or noncontributory to the above-mentioned HPI. PHYSICAL EXAMINATION VITAL SIGNS 97.5. 81, 154/70, O2 sat 97% on room air. GENERAL: Alert, oriented, no focal deficits. HEENT: Normocephalic. Oral mucosa is moist. Pupils equal, round, reactive to light. CARDIOVASCULAR: Regular rhythm. No murmurs heard. RESPIRATORY: Clear to auscultation. Bilateral breath sounds. ABDOMEN: Soft, nontender, nondistended. No rebound appreciated. No sign. NO periumbilical ecchymosis. Hepatosplenomegaly not appreciated. Bowel sounds are present in all four quadrants. GENITOURINARY: No CVA angle tenderness noted. NECK: Supple, nontender. No JVD. MUSCULOSKELETAL: Equal upper and lower strength. Normal pulses. LYMPH NODES: No lymphadenopathy noted. NEUROLOGIC: Alert and oriented. PSYCHIATRIC: Cooperative mood and affect. LABORATORY DATA WBC 16.1, hemoglobin 15.8, MCV 86, platelet count 293. Sodium 137, potassium 3.8, chloride 101, bicarb 24, BUN 11, creatinine 1.1, lactic acid 1.1, total bili 1.4, AST 33, ALT 37, alk phos 70, lipase 134, INR 1.1. C diff was negative in December 2016. IMPRESSION Intermittent partial bowel obstruction which appears to have clinically resolved. It is unclear as to the etiology of this, possibility of persistent mild diverticulitis. diverticular inflammation. Other differential diagnosis would include inflammatory bowel disease such as small bowel Crohn's. At this time clinically he appears to be improved. There does not appear to be any signs or symptoms of an infection or a recurrence of an abscess. RECOMMENDATIONS The patient is scheduled to undergo a colonoscopy next Friday. We will discuss with the performing endoscopist, Dr. Pickett, if he is willing to continue and keep this appointment. We may add an upper endoscopy for an EGD and colonoscopy to evaluate for inflammatory bowel disease as well as further evaluation in regards to his history of diverticulitis and further evaluate the colon for any occult pathology. At some point, given the severity of his diverticular disease he may require surgical intervention. An evaluation of the small bowel at this time may not be necessary. If he has another bout of partial bowel obstruction, may consider ordering an upper GI series with small-bowel follow-through in order to better delineate any small bowel pathology. At this time I recommend continuing conservative management, trial of clear liquid diet and slowly advance as tolerated and with the eventual goal of early discharge and follow up with Dr. Pickett either in the office or keep his appointment for next Friday for the procedure. Thank you for calling our clinic to participate in the care of this patient. MD INES Thomas/ /4:11 PM /5:28 PM
[2017-04-03 20:00] VITALS: BP 133/67; PULSE 69; RESP 12; TEMP 98.1; O2SAT 94
[2017-04-03 20:07] LABS: AUTOMATED NEUTROPHIL # 18.1 TH/MM3 (1.8-7.7); BASOPHIL # 0.1 TH/MM3 (0-0.2); BASOPHIL % 0.3 % (0.0-2.0); HEMATOCRIT 42.1 % (39.0-51.0); HEMO FLAGS DIFF FINAL; LYMPH % 4.2 % (9.0-44.0); LYMPHOCYTE # 0.8 TH/MM3 (1.0-4.8); MEAN CELL VOLUME 86.8 FL (80.0-100.0); MEAN CORPUSCULAR HEMOGLOBIN 28.7 PG (27.0-34.0); MONO % 3.4 % (0.0-8.0); NEUT % 92.1 % (16.0-70.0); PLATELET COUNT 260 TH/MM3 (150-450); RED BLOOD COUNT 4.85 MIL/MM3 (4.50-5.90); RED CELL DISTRIBUTION WIDTH 14.2 % (11.6-17.2); WHITE BLOOD COUNT 19.6 TH/MM3 (4.0-11.0)
[2017-04-04] VITALS: BP 116/58; PULSE 76; RESP 15; TEMP 97.6; O2SAT 94
[2017-04-04] MEDS: methylPREDNISolone SOD SUCC 40 MG/1 ML VIAL IV PUSH SCH ×3 (01:33→12:39)
[2017-04-04 04:00] VITALS: BP 101/53; PULSE 78; RESP 14; TEMP 97.6; O2SAT 92
[2017-04-04] MEDS: SODIUM CHLOR 0.9% 1000 ML INJ 1,000 ML IV SCH (06:23)
[2017-04-04] MEDS: diphenhydrAMINE HCL 50 MG/ML VIAL IV PUSH PRN (06:33)
[2017-04-04 06:44] LABS: AUTOMATED NEUTROPHIL # 19.3 TH/MM3 (1.8-7.7); BASOPHIL % 0.1 % (0.0-2.0); HEMATOCRIT 38.8 % (39.0-51.0); HEMO FLAGS DIFF FINAL; LYMPH % 3.8 % (9.0-44.0); LYMPHOCYTE # 0.8 TH/MM3 (1.0-4.8); MEAN CELL VOLUME 87.7 FL (80.0-100.0); MONO % 3.8 % (0.0-8.0); NEUT % 92.3 % (16.0-70.0); PLATELET COUNT 243 TH/MM3 (150-450); RED BLOOD COUNT 4.42 MIL/MM3 (4.50-5.90); RED CELL DISTRIBUTION WIDTH 14.2 % (11.6-17.2); WHITE BLOOD COUNT 20.9 TH/MM3 (4.0-11.0)
[2017-04-04 06:59] LABS: BICARBONATE 26.3 MEQ/L (21.0-32.0)
[2017-04-04 07:00] LABS: POTASSIUM 5.2 MEQ/L (3.5-5.1)
[2017-04-04 08:00] VITALS: BP 108/55; PULSE 68; RESP 12; TEMP 97.7; O2SAT 92
[2017-04-04] MEDS: PANTOPRAZOLE SODIUM 40 MG VIAL IV PUSH SCH (08:29)
[2017-04-04 12:00] VITALS: BP 135/72; PULSE 89; RESP 11; TEMP 97.7; O2SAT 92
[2017-04-04] MEDS ORDERED: ALLE10TA PO (14:05)
[2017-04-04] MEDS ORDERED: LACTTAB8 PO (14:05)
[2017-04-04] MEDS ORDERED: BENA25TA6 PO (14:05)
[2017-04-04] MEDS ORDERED: CIPR500T2 PO (14:05)
[2017-04-04] MEDS ORDERED: METR-1 PO (14:05)
--- NOTE | 2017-04-04 14:10 | HHI.DS ---
Discharge Summary Admission Date Apr 03, 2017 at 00:40 Discharge Date: Apr 04, 2017 Admitting Diagnosis (1) Bowel obstruction ICD Code: K56.60 Diagnosis: Principal (2) Leukocytosis ICD Code: D72.829 Diagnosis: Principal (3) Urticaria ICD Code: L50.9 Diagnosis: Principal Procedures None Brief History - From Admission History from patient, ER physician communication, nursing staff, and review of medical records. Patient is known to me from his prior hospitalization here at our facility. He reports that he came to the hospital yesterday because he was having abdominal pain. He has had prior history of complicated diverticulitis with abscess formations and therefore he got worried. He also states that he was having a high-grade fever at home. He denies any nausea. Stated he vomited once when he was going for the CAT scan at [facility]. At our facility though, he just has low-grade fever. Patient reports he was having bowel movement about 4 times a day. Somewhat diarrhea. Somewhat soft stool. Patient was on ertapenem for complicated diverticulitis with abscess formation and he was discharged home with midline to finish his antibiotics. He states that he finished the antibiotics course on March 07, 2017 and midline was removed at the same time. Patient presented to [facility] emergency room. Workup there revealed small bowel obstruction and was therefore called for admission of this patient. Upon patient's arrival to our main hospital floors, I was called by patient's nurse the patient was breaking out in hives and was itching and was complaining of difficulty breathing and some chest tightness. She reported to me that patient had similar episode which is actually worse than what he was feeling here while at [facility]. I was not informed of this then. He was given epinephrine/Solu-Medrol/Benadryl/Pepcid there which somewhat improved his symptoms. Both patient and the nurse stated that patient really started having some small rash with itching starting around 3 PM yesterday evening prior to his arrival to [facility]. Patient himself could not remember anything different that he has done. He denies being on any new medications. There is no change in laundry or house environmental situations. However, patient confirms that his rash and breathing trouble got worse after he arrives the hospital. In his previous hospitalization, patient had similar episode though not as severe. At that time, he mostly had welts, itching all over. At that time his symptoms had stopped after we had discontinued fluconazole. Prior to that similar Event happened with Zosyn use. CBC/BMP: 04/04/17 0540 04/04/17 0540 Significant Findings Laboratory Tests Test 04/03/17 04/04/17 19:28 05:40 White Blood Count 19.6 TH/MM3 20.9 TH/MM3 (4.0-11.0) (4.0-11.0) Neutrophils (%) (Auto) 92.1 % 92.3 % (16.0-70.0) (16.0-70.0) Lymphocytes (%) (Auto) 4.2 % 3.8 % (9.0-44.0) (9.0-44.0) Neutrophils # (Auto) 18.1 TH/MM3 19.3 TH/MM3 (1.8-7.7) (1.8-7.7) Lymphocytes # (Auto) 0.8 TH/MM3 0.8 TH/MM3 (1.0-4.8) (1.0-4.8) Red Blood Count 4.42 MIL/MM3 (4.50-5.90) Hemoglobin 12.8 GM/DL (13.0-17.0) Hematocrit 38.8 % (39.0-51.0) Potassium Level 5.2 MEQ/L (3.5-5.1) Estimat Glomerular Filtration 79 ML/MIN (>89) Rate Random Glucose 131 MG/DL (74-106) PE at Discharge GENERAL: NAD, A&Ox3 HEAD: Normocephalic. NECK: Supple, trachea midline. No lymphadenopathy. EYES: No scleral icterus. No injection or drainage. CARDIOVASCULAR: Regular rate and rhythm without murmurs, gallops, or rubs. RESPIRATORY: Breath sounds equal bilaterally. No accessory muscle use. GASTROINTESTINAL: Abdomen soft, non-tender, nondistended. MUSCULOSKELETAL: No cyanosis, or edema. No abdominal tenderness SKIN: Warm and dry. No rash NEURO: No focal neurological deficitis. Hospital Course Mr. Renteria is a 46-year-old male. He came into the emergency department secondary to abdominal pain. She also had had rash and fevers. He has a history of diverticulitis with recent infections. CT image did not show evidence of diverticulitis. However, patient did have a white blood cell count. She received steroids which may be contributory to his elevation in white blood cell count but this cannot be distinguished from natural elevations of early infection. Patient does not report any persisting abdominal pain or fevers. Of note he did have an allergic response of an unknown etiology that started the day prior to coming to the emergency department. After he received contrast in the ER for a CT study he had worsening of his rash and respiratory symptoms. This has improved with the steroids and antihistamines. At this point he's feeling at baseline and requesting discharge. Leukocytosis remains but again hasn't mixed picture secondary to steroids. At this point I feel patient is safe for discharge in regards to his allergic reaction. The symptoms seem to have tapered to a safe level. He is recommended to take Benadryl on a when necessary basis for any recurrence of symptoms and I'm placing him on loratadine for 3 days. Additionally, the CT findings do not demonstrate diverticulitis, given his history he may have had early symptoms of diverticulitis and choosing to discharge him on 1 week of Flagyl and ciprofloxacin. She will be following up with his GI doctor in approximately 1 week for colonoscopy and EGD. Laparoscopic removal of severe diverticular disease is planned shortly thereafter. Patient medically clear for discharge today. Pt Condition on Discharge: Stable Discharge Disposition: Discharge Home Discharge Time: <= 30 minutes Discharge Instructions DIET: Follow Instructions for: Full Liquid Diet Activities you can perform: Regular-No Restrictions Follow up Referrals: Gastroenterology - 1 Week PCP Follow-up - 2 Weeks New Medications: Ciprofloxacin (Ciprofloxacin) 500 Mg Tab 500 MG PO BID Infection #14 Ref 0 TAB Diphenhydramine HCl (Benadryl Allergy) 25 Mg Tablet 1 TAB PO Q6HR PRN ALLERGIC REACTION #10 TAB Lactobacillus Acidophilus (Lactobacillus Acidophilus) 1 Tab Tab 1 TAB PO TIDAC Nutritional Supplement #30 Ref 0 TAB Loratadine (Allergy Relief) 10 Mg Tab 10 MG PO DAILY Allergic Reaction #3 TAB Metronidazole (Flagyl) 500 Mg Tab 500 MG PO TID Infection #21 Ref 0 TAB Taj Cat MD Apr 04, 2017 14:10
--- NOTE | 2017-04-04 18:41 | HHI.PR ---
Subjective Subjective Notes Up to chair No complaints Objective Vitals/I&O Vital Signs Date Time Temp Pulse Resp B/P Pulse Ox O2 Delivery O2 Flow Rate FiO2 04/04/17 12:00 97.7 89 11 135/72 92 Labs Laboratory Tests Test 04/03/17 04/04/17 19:28 05:40 White Blood Count 19.6 20.9 Red Blood Count 4.85 4.42 Hemoglobin 13.9 12.8 Hematocrit 42.1 38.8 Mean Corpuscular Volume 86.8 87.7 Mean Corpuscular Hemoglobin 28.7 29.0 Mean Corpuscular Hemoglobin 33.0 33.0 Concent Red Cell Distribution Width 14.2 14.2 Platelet Count 260 243 Mean Platelet Volume 9.4 9.9 Neutrophils (%) (Auto) 92.1 92.3 Lymphocytes (%) (Auto) 4.2 3.8 Monocytes (%) (Auto) 3.4 3.8 Eosinophils (%) (Auto) 0.0 0.0 Basophils (%) (Auto) 0.3 0.1 Neutrophils # (Auto) 18.1 19.3 Lymphocytes # (Auto) 0.8 0.8 Monocytes # (Auto) 0.7 0.8 Eosinophils # (Auto) 0.0 0.0 Basophils # (Auto) 0.1 0.0 CBC Comment DIFF FINAL DIFF FINAL Differential Comment Sodium Level 140 Potassium Level 5.2 Chloride Level 106 Carbon Dioxide Level 26.3 Anion Gap 8 Blood Urea Nitrogen 15 Creatinine 1.01 Estimat Glomerular Filtration 79 Rate Random Glucose 131 Calcium Level 8.6 Cardiovascular: Regular Lungs: Clear Abdomen: Non-distended, Non-tender Extremities: No edema A/P Assessment and Plan 46 year old male know to Dr. Nixon with diverticulitis; evaluation for SBO -Reviewed CT scan; unlikely SBO -+BM -IVF -GI following----planning for colonoscopy Friday -WBC continues to be elevated -Tolerating clears; advance as tolerated Annemarie Hammonds Apr 04, 2017 18:41
[2017-04-06] MEDS ORDERED: PERC5TAB12 PO (19:23)
== END 2017-04-04 18:37 | disposition home or self-care (01) | DRG 389 ==
LOC: NEDDLT 00:30 → NEPFCDU 00:40 → N03A 06:05 → N03B 12:53 → N03A 12:55
PROVIDERS: ADMIT Hospitalist; ATTEND Hospitalist
DX: K56.60 Unspecified intestinal obstruction (principal); K57.92 Diverticulitis of intestine, part unspecified, without perforation or abscess without bleeding; L50.0 Allergic urticaria; L29.9 Pruritus, unspecified; D72.829 Elevated white blood cell count, unspecified; Z88.1 Allergy status to other antibiotic agents; Z88.8 Allergy status to other drugs, medicaments and biological substances
CPT/HCPCS: 80048; 85025; C9113; J0171; J1200; J2920; J2930; J7030

== ENCOUNTER 2017-04-06 21:53 | Inpatient (IN) | payer OTHER ==
[~2017-04-06 21:53] MED LIST changes: +ALLE10TA PO; +BENA25TA6 PO; +CIPR500T2 PO; +LACTTAB8 PO; +METR-1 PO; -MORPHINE SULFATE 4 MG/ML INJ IV PUSH PRN; -NALOXONE HCL 0.4 MG/ML AMP IV PRN; -ONDANSETRON HCL 4 MG/2 ML VIAL IVP PRN; +PERC5TAB12 PO; -SODIUM CHLORIDE 0.9% FLUSH 10 ML FLUSH IV FLUSH PRN
[2017-04-06] MEDS ORDERED: SODIUM CHLOR 0.9% 1000 ML INJ 1,000 ML IV SCH (22:23)
[2017-04-06 22:25] VITALS: BP 129/76; PULSE 86; RESP 18; TEMP 98.8; O2SAT 98
--- NOTE | 2017-04-06 23:25 | HHI.HP ---
HPI Service [facility] Primary Care Physician Non-Staff Admission Diagnosis Diagnoses: Chief Complaint: increasing abdominal pain Travel History International Travel<30 Days: No Contact w/Intl Traveler <30 Da: No History of Present Illness 46 y/o male with a history of HLD and diverticulitis with abscess presented to the [place] ED with complaints of increasing abdominal pain. Patient was recently admitted for diverticulitis with abscess and possible bowel obstruction , surgery and gastroenterology was consulted and it was believed she did not have small bowel obstruction, he was discharged on 04/04/17 and a colonoscopy is scheduled for Friday with Dr. Pickett. Patient states on Friday he began to have increasing sharp abdominal pain, 10 out of 10, localized mainly in his right lower quadrant with associated liquid stools and nausea. Patient states he could not take the pain anymore and did not believe he could wait till Friday to be seen. He he was discharged on antibiotics Flagyl by mouth ciprofloxacin by mouth, he states he is allergic to Flagyl IV and does break out in severe hives. He denies any chest pain, shortness of breath, vomiting, fever, chills, dizziness or headaches. Review of Systems Except as stated in HPI: all other systems reviewed are Neg Past Family Social History Past Medical History Hyperlipidemia Diverticulitis abscess Past Surgical History Right shoulder surgery ACL repair right knee IR drainage of abscess Reported Medications Reported Meds & Active Scripts Active Percocet (Oxycodone-Acetaminophen) 5-325 mg Tab 1 Tab PO Q4H PRN Benadryl Allergy (Diphenhydramine HCl) 25 Mg Tablet 1 Tab PO Q6HR PRN Allergy Relief (Loratadine) 10 Mg Tab 10 Mg PO DAILY Ciprofloxacin (Ciprofloxacin HCl) 500 Mg Tab 500 Mg PO BID Flagyl (Metronidazole) 500 Mg Tab 500 Mg PO TID Lactobacillus Acidophilus 1 Tab Tab 1 Tab PO TIDAC Allergies: Coded Allergies: Codeine (Verified Allergy, Severe, Constipation, 04/06/17) Flagyl (Verified Allergy, Severe, extreme diarrhea, 04/06/17) Fluconazole (Verified Allergy, Unknown, Hives, 04/06/17) HIVES AND RASH Morphine (Verified Allergy, Unknown, 04/06/17) Piperacillin (Verified Allergy, Unknown, Hives, 04/06/17) HIVES AND RASH Zosyn (Verified Allergy, Unknown, Hives, 04/06/17) HIVES AND RASH Active Ordered Medications Current Medications Medications (Trade) Dose Ordered Sig/Jesi Route Start Time Stop Time Status Last Admin (NS 1000 ml Inj) 1,000 ml @ 100 mls/hr Q10H IV 04/06/17 22:23 (Tylenol) 650 mg Q4H PRN PO 04/06/17 22:30 (Zofran Inj) 4 mg Q6H PRN IVP 04/06/17 22:30 (Dilaudid Pf Inj) 0.5 mg Q4H PRN IV PUSH 04/07/17 00:15 Hydroxyzine Pamoate 25 mg 25 mg Q6H PRN PO 04/07/17 00:30 (Cipro 400 Mg Premix) 200 ml @ 200 mls/hr Q12H IV 04/07/17 01:00 Family History Mom: Breast cancer, Uterine cancer, renal cell cancer, melanoma Dad: 84 living has had ME with CABG Social History Patient denies any tobacco, alcohol or illicit drug use Physical Exam Vital Signs Vital Signs Date Time Temp Pulse Resp B/P Pulse Ox O2 Delivery O2 Flow Rate FiO2 04/06/17 22:25 98.8 86 18 129/76 98 Physical Exam GENERAL: This is a well-nourished, well-developed patient, in no apparent distress. SKIN: Diffuse erythematous rash hives all over and then bilateral upper extremity, anterior chest, face and forehead, and bilateral lower extremity thighs. HEAD: Atraumatic. Normocephalic. No temporal or scalp tenderness. EYES:No scleral icterus. No injection or drainage. ENT: Nose without bleeding, purulent drainage or septal hematoma. Airway patent. NECK: Trachea midline. No JVD CARDIOVASCULAR: Regular rate and rhythm without murmurs, gallops, or rubs. RESPIRATORY: Clear to auscultation. Breath sounds equal bilaterally. No wheezes , rales, or rhonchi. GASTROINTESTINAL: Abdomen soft,RLQ tenderness, nondistended. No guarding. MUSCULOSKELETAL: Extremities without clubbing, cyanosis, or edema. . No calf tenderness. NEUROLOGICAL: Awake and alert. Motor and sensory grossly within normal limits Normal speech. Assessment and Plan Problem List: (1) Bowel obstruction ICD Code: K56.60 Status: Acute (2) Leukocytosis ICD Code: D72.829 Status: Acute (3) Urticaria ICD Code: L50.9 Status: Chronic Assessment and Plan 46 y/o male with a history of HLD and diverticulitis with abscess presented to the [place] ED with complaints of increasing abdominal pain. Patient was recently admitted for diverticulitis with abscess and possible bowel obstruction , surgery and gastroenterology was consulted and it was believed she did not have small bowel obstruction, he was discharged on 04/04/17 and a colonoscopy is scheduled for Friday with Dr. Pickett. Small bowel obstruction Abdominal x-ray reviewed and shows a small bowel dilation similar to CT from April 02. There is colonic gas, most characteristic of partial small bowel obstruction -Consult gastroenterology for recommendations, patient is known to Dr. Pickett -Consult general surgery for recommendations, patient has been to Dr. Nixon -[facility] for hydration, nothing by mouth -Ciprofloxacin IV -Pain management with IV Dilaudid Leukocytosis, WBCs 14.4, likely due to diverticulitis abscess, patient was treated with outpatient by mouth ciprofloxacin and by mouth Flagyl. Patient is allergic to IV Flagyl -Continue antibiotics as above -Trend CBC in am Urticaria, due to allergic reaction from last admission -Continue Vistaril when necessary for itching DVT prophylaxis: SCDs Discussed Condition With Patient and RN Physician Certification 2 Midnight Certification Type: Admission for Inpatient Services Order for Inpatient Services The services are ordered in accordance with Medicare regulations or non- Medicare payer requirements, as applicable. In the case of services not specified as inpatient-only, they are appropriately provided as inpatient services in accordance with the 2-midnight benchmark. Estimated LOS (days): 2 days is the estimated time the patient will need to remain in the hospital, assuming treatment plan goals are met and no additional complications. Post-Hospital Plan: Home Problem Qualifiers (1) Bowel obstruction: Qualified Code: K56.60 - Intestinal obstruction, unspecified type Blessing Villagomez Apr 06, 2017 23:25
[2017-04-07] MEDS: hydrOXYzine PAMOATE 25 MG CAP PO PRN ×4 (01:02→21:50)
[2017-04-07] MEDS: CIPROFLOXACIN 400 MG PREMIX 200 ML IV SCH ×2 (01:03→13:00)
[2017-04-07] MEDS: HYDROmorphone HCL PF 1 MG/ML VIAL IV PUSH PRN ×2 (01:04→05:25)
[2017-04-07] MEDS: NS + KCL 20 MEQ INJ 1,000 ML IV SCH ×3 (01:29→21:15)
[2017-04-07 04:17] VITALS: BP 114/75; PULSE 90; RESP 18; TEMP 97.6; O2SAT 97
[2017-04-07 08:00] VITALS: BP 140/84; PULSE 92; RESP 18; TEMP 96; O2SAT 92
[2017-04-07 08:36] LABS: AUTOMATED NEUTROPHIL # 13.7 TH/MM3 (1.8-7.7); BASOPHIL % 0.1 % (0.0-2.0); EOSINOPHIL # 0.1 TH/MM3 (0-0.4); EOSINOPHIL % 0.4 % (0.0-4.0); HEMATOCRIT 42.8 % (39.0-51.0); HEMO FLAGS DIFF FINAL; LYMPH % 5.4 % (9.0-44.0); LYMPHOCYTE # 0.8 TH/MM3 (1.0-4.8); MEAN CORPUSCULAR HEMOGLOBIN 28.7 PG (27.0-34.0); MEAN CORPUSCULAR HGB CONC 32.6 % (32.0-36.0); NEUT % 88.1 % (16.0-70.0); PLATELET COUNT 233 TH/MM3 (150-450); RED BLOOD COUNT 4.87 MIL/MM3 (4.50-5.90); RED CELL DISTRIBUTION WIDTH 14.5 % (11.6-17.2); WHITE BLOOD COUNT 15.5 TH/MM3 (4.0-11.0)
[2017-04-07 09:34] LABS: BICARBONATE 26.8 MEQ/L (21.0-32.0); POTASSIUM 3.5 MEQ/L (3.5-5.1)
--- NOTE | 2017-04-07 11:08 | PD.CONS ---
GI Consult GI Consult Thank you for the consultation, Full consult dictated. ASSESSMENT/PLAN: 1. Abdominal pain with Abdo distention 2. Recent Diverticulitis attack 3. N/V PLAN: 1. Keep NPO 2. IVF bolus 1 L NS stat 3. Start IVF at 150 cc per hr 4. Will order Lactate level. 5. Discussed with Dr Nxion. pt will not tolerate a full bowel prep for colon and unsure if it will be beneficial for treatment. It was a pleasure seeing [facility] . Thank you for this consult. Entered by: Ana Maria Dc MD Apr 07, 2017 11:08
[2017-04-07] MEDS ORDERED: SODIUM CHLOR 0.9% 1000 ML INJ 1,000 ML IV ONE (11:30)
[2017-04-07] MEDS: SODIUM CHLOR 0.9% 1000 ML INJ 1,000 ML IV SCH ×2 (11:33→18:07)
[2017-04-07] MEDS: HYDROmorphone HCL PF 1 MG/ML VIAL IV PRN ×4 (11:33→21:46)
[2017-04-07 12:00] VITALS: BP 133/68; PULSE 92; RESP 18; TEMP 98.6; O2SAT 96
--- NOTE | 2017-04-07 12:25 | MB ---
cc: CROW BINGHAM DATE OF CONSULTATION: 04/07/2017 SERVICE: GI ATTENDING PHYSICIAN Crow Bingham MD PRIMARY ALUM OPERATOR Radhames Pickett MD HISTORY OF PRESENT ILLNESS This is a 46-year-old very pleasant gentleman with a recent history of diverticulitis and abscess, who was recently admitted to the hospital for similar symptoms, had improvement and was discharged. He came back to the emergency room with the complaint of having sudden onset abdominal pain, abdominal distension associated with nausea and vomiting as well as several episodes of diarrhea. Due to the intensity of his pain he finally decided to come back to the emergency room and it was admitted to the hospital for further workup and evaluation. PAST MEDICAL HISTORY 1. Dyslipidemia. 2. Diverticulitis with an abscess. PAST SURGICAL HISTORY 1. Right shoulder surgery. 2. ACL repair. ALLERGIES Multiple allergies of unclear if they are true medicine allergies. The patient has a history of a rash and unclear if the etiology was Flagyl or Zosyn. CURRENT MEDICATIONS 1. Percocet. 2. Benadryl. 3. Cipro. 4. Lactobacillus. FAMILY HISTORY No GI malignancies. SOCIAL HISTORY No tobacco, alcohol or drug abuse. REVIEW OF SYSTEMS A 12-point review of systems was obtained and showed negative or noncontributory except for the above-mentioned in the HPI. PHYSICAL EXAMINATION VITAL SIGNS: Temperature 93.0, heart rate 92, respirations 16, blood pressure 140/84, 92% on 2 liters. GENERAL: Alert and oriented, in mild acute distress, complaining of abdominal pain. EYES: Pupils equal, round, reactive to light. HEENT: Mucosa moist and pink. Atraumatic. NECK: Supple, nontender. No carotid bruits. No thyromegaly. CARDIOVASCULAR: Regular rate and rhythm. No murmurs heard. RESPIRATORY: Clear to auscultation bilaterally. Nonlabored breath sounds. ABDOMEN: Soft, mildly distended, full on the left and right lower quadrants. Hypoactive bowel sounds. Mild rebound appreciated and voluntary guarding noted bilaterally. GENITOURINARY: No CVA angle tenderness noted. MUSCULOSKELETAL: Upper and lower extremities equal. NEURO: Alert and oriented, no focal deficits. SKIN: Warm, dry, intact. A maculopapular diffuse rash noted on the abdomen and upper and lower extremities. EXTREMITIES: No edema noted. PSYCHIATRIC: Cooperative, appropriate mood and affect. LABORATORY DATA WBCs 15.5, hemoglobin 14.0, platelet count 233, sodium 137, potassium 3.5, chloride 101, BUN 12, creatinine 0.73. IMPRESSION 1. Abdominal pain with abdominal distension with likely a partial small bowel obstruction versus ileus. ___ differential diagnosis including persistent chronic diverticulitis changes. Other differential includes Crohn's related, possibility of occult Crohn's disease. 2. Abdominal pain secondary to above. 3. Dehydration. 4. Nausea and vomiting. RECOMMENDATIONS 1. Aggressive IV hydration. We will bolus 1 liter normal saline and then increase normal saline to 150 cc/hour. 2. Will add lab work including celiac disease panel and a stat lactic acid level. 3. Given the patient's current signs and symptoms, I do not believe that he will tolerate a bowel prep and having him undergo an EGD and colonoscopy may not be beneficial to him for therapeutic reasons. I 4. I had discussion with Dr. Nixon on the phone and we discussed his case in detail and we discussed possibility of further surgical interventions if needed in order to get accurate diagnosis and further treatment. Therefore, at this time keep the patient n.p.o., will proceed with further workup and hold off on any endoscopic procedures at this time. Thank you for allowing [facility] to participate in the care of this patient, will follow along with you and make recommendation as per the patient's clinical course. MD INES Thomas/DEYSIL /11:08 AM /11:57 AM
--- NOTE | 2017-04-07 13:37 | HHI.PR ---
Subjective Remarks Pt having pain in the RLQ rates it about an 8/10 w movement. States that they just adjusted his pain regimen and when he gets the pain meds he does get some relief. Admits to dry heaving earlier today, no nausea at this time. no CP/SOB Objective Vitals Vital Signs Date Time Temp Pulse Resp B/P Pulse Ox O2 Delivery O2 Flow Rate FiO2 04/07/17 12:00 98.6 92 18 133/68 96 04/07/17 08:00 96.0 92 18 140/84 92 04/07/17 07:49 Nasal Cannula 2.00 04/07/17 04:17 97.6 90 18 114/75 97 04/06/17 22:25 98.8 86 18 129/76 98 I/O 04/06/17 04/06/17 04/06/17 04/07/17 04/07/17 04/07/17 07:00 15:00 23:00 07:00 15:00 23:00 Intake Total 0 ml Balance 0 ml Intake Oral 0 ml # Voids 2 # Bowel Movements 0 Result Diagram: 04/07/17 0710 04/07/17 0710 Objective Remarks GENERAL: This is a well-nourished, well-developed patient, laying in bed EYES:EOMI NECK: Trachea midline. CARDIOVASCULAR: Regular rate and rhythm without murmurs RESPIRATORY: Clear to auscultation. Breath sounds equal bilaterally. No wheezes GASTROINTESTINAL: Abdomen soft,RLQ tenderness, but also uncomfortable throughout abdomen, hypoactive bowel sounds. nondistended. voluntary guarding but no rebound. MUSCULOSKELETAL: Extremities without edema. moves all extremities. NEUROLOGICAL: Awake and alert. normal speech. A/P Problem List: (1) Bowel obstruction ICD Code: K56.60 Status: Acute (2) Leukocytosis ICD Code: D72.829 Status: Acute (3) Urticaria ICD Code: L50.9 Status: Chronic Assessment and Plan 46 y/o male with a history of HLD and diverticulitis with abscess presented to the [place] ED with complaints of increasing abdominal pain. Patient was recently admitted for diverticulitis with abscess and possible bowel obstruction , was discharged on 04/04/17 and a colonoscopy was scheduled for Friday with Dr. Pickett. Small bowel obstruction Abdominal x-ray reviewed and shows a small bowel dilation similar to CT from April 02. There is colonic gas, most characteristic of partial small bowel obstruction -Gastroenterology evaluated the patient and at this time will hold off on colonoscopy. Did discuss w GS. -I spoke w Dr. Nixon today,who saw the patient, he recommends advancing to a clear diet for now and possible OR on friday -IVF for hydration -Continue ciprofloxacin IV -Pain management with IV Dilaudid and po norco Leukocytosis, WBCs 14.4-->15.5, likely due to diverticulitis abscess, patient was treated with outpatient by mouth ciprofloxacin and by mouth Flagyl. Patient is allergic to IV Flagyl -Continue antibiotics as above -Trend CBC in am Urticaria, due to allergic reaction from last admission -Continue Vistaril when necessary for itching DVT prophylaxis: SCDs, encourage ambulation. heparin Discharge Planning clears diet anticipate OR on friday Problem Qualifiers (1) Bowel obstruction: Qualified Code: K56.60 - Intestinal obstruction, unspecified type Sally Nickerson MD Apr 07, 2017 13:37
[2017-04-07] MEDS ORDERED: ACETAMINOPHEN/HYDROcodone 325 MG/10 MG TAB PO PRN (13:45)
[2017-04-07] MEDS ORDERED: ACETAMINOPHEN/HYDROcodone 325 MG/7.5 MG TAB PO PRN (13:45)
[2017-04-07 16:00] VITALS: BP 120/58; PULSE 90; RESP 18; TEMP 97.8; O2SAT 93
--- NOTE | 2017-04-07 17:32 | PD.CONS ---
cc: Swapnil iNxon MD [facility] Service General Surgery Consult Requested By eMndy ACUÑA Reason for Consult Acute abdominal pain Questionable SBO Primary Care Physician Non-Staff History of Present Illness his is a 46 year old male well known to our General Surgery service for diverticulitis was abscess. He has been treated with IR aspirations and antibiotics. He was DCed home about 5 weeks ago with a PICC line and infusions of Erlapenem. He has been doing well and tolerating a diet for the past few weeks. He is scheduled to have a colonoscopy on Friday with Dr. Pickett and from there was to follow up with Dr. Nixon for an elective procedure to remove diseased diverticulitis. The patient was admitted last week after he developed severe onset of acute sharp abdominal pain which he rates a 8/10 with associated fever. He called Dr. Pickett and was instructed to go to the Emergency Room. A CT abd/plevis was obtained which was suspicious of a small bowel obstruction. He denies any nausea but did have emesis after administration of contrast dye which has happened to him in the past. He has an elevated WBC at 16.1. He has had several soft brown bowel movements in the past few days. He developed shortness of breath, chest tightness and a generalized skin rash. He was given Benadryl and the shortness of breath, chest tightness resolved. His skin rash has improved since given Benadryl. The patient was transferred from [place] ED to the [facility] in [facility]. The patient was DCed home. The patient arrives back to the ED in [place] on April 06 with acute intractable abdominal pain with distention. A KUB was done which was concerning for a small bowel obstruction. The patient was transferred to [facility] for Surgical and GI evaluations. Review of Systems Constitutional: COMPLAINS OF: Change in appetite, DENIES: Fever, Chills Endocrine: DENIES: Polydipsia, Polyuria, Polyphagia Eyes: DENIES: Eye inflammation Ears, nose, mouth, throat: DENIES: Hearing loss Respiratory: DENIES: Apneas Cardiovascular: DENIES: Chest pain Gastrointestinal: COMPLAINS OF: Abdominal pain, Nausea, DENIES: Vomiting Genitourinary: DENIES: Urinary frequency Musculoskeletal: DENIES: Muscle aches Integumentary: DENIES: Abnormal pigmentation Hematologic/lymphatic: DENIES: Bruising Immunologic/allergic: DENIES: Eczema Neurologic: DENIES: Headache Psychiatric: DENIES: Mood changes, Depression, Hallucinations Past Family Social History Past Medical History Hypertension Diverticulitis Past Surgical History Orthopedic procedures IR aspiration of diverticular abscesses Reported Medications Cipro Flagyl Allergies: Coded Allergies: Codeine (Verified Allergy, Severe, Constipation, 04/06/17) Flagyl (Verified Allergy, Severe, extreme diarrhea, 04/06/17) Fluconazole (Verified Allergy, Unknown, Hives, 04/06/17) HIVES AND RASH Morphine (Verified Allergy, Unknown, 04/06/17) Piperacillin (Verified Allergy, Unknown, Hives, 04/06/17) HIVES AND RASH Zosyn (Verified Allergy, Unknown, Hives, 04/06/17) HIVES AND RASH Active Ordered Medications Current Medications Medications (Trade) Dose Ordered Sig/Jesi Route Start Time Stop Time Status Last Admin (Tylenol) 650 mg Q4H PRN PO 04/06/17 22:30 (Zofran Inj) 4 mg Q6H PRN IVP 04/06/17 22:30 Hydroxyzine Pamoate 25 mg 25 mg Q6H PRN PO 04/07/17 00:30 04/07/17 14:17 Ciprofloxacin/ Dextrose 200 ml @ 200 mls/hr Q12H IV 04/07/17 01:00 04/07/17 13:00 (NS + KCl 20 Meq Inj) 1,000 ml @ 100 mls/hr Q10H IV 04/07/17 01:15 04/07/17 01:29 Hydromorphone HCl 1 mg 1 mg Q3H PRN IV 04/07/17 11:30 04/07/17 14:25 (NS 1000 ml Inj) 1,000 ml @ 150 mls/hr Q6H40M IV 04/07/17 11:30 04/07/17 11:33 (Joshua 7.5-325 Mg) 1 tab Q4H PRN PO 04/07/17 13:45 (Joshua 10-325 Mg) 1 tab Q6H PRN PO 04/07/17 13:45 (Heparin Inj) 5,000 units Q12HR SQ 04/07/17 21:00 Family History Noncontributory Social History Denies tobacco use Denies EtOH use Denies illicit drug use 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 SKIN: Several areas of red patchy rash over bilateral upper extremity and trunk region. HEAD: Atraumatic. Normocephalic. EYES: Pupils equal and round. No scleral icterus. No injection or drainage. ENT: No nasal bleeding or discharge. Mucous membranes pink and moist. NECK: Trachea midline. No JVD. CARDIOVASCULAR: Regular rate and rhythm. RESPIRATORY: No accessory muscle use. Clear to auscultation. Breath sounds equal bilaterally. GASTROINTESTINAL: Abdomen mildly distended; tender throughout to palpation. MUSCULOSKELETAL: Extremities without clubbing, cyanosis, or edema. No obvious deformities. NEUROLOGICAL: Awake and alert. No obvious cranial nerve deficits. Motor grossly within normal limits. Five out of 5 muscle strength in the arms and legs. Normal speech. PSYCHIATRIC: Appropriate mood and affect; insight and judgment normal. Laboratory Laboratory Tests Test 04/07/17 04/07/17 07:10 16:23 White Blood Count 15.5 Red Blood Count 4.87 Hemoglobin 14.0 Hematocrit 42.8 Mean Corpuscular Volume 88.0 Mean Corpuscular Hemoglobin 28.7 Mean Corpuscular Hemoglobin 32.6 Concent Red Cell Distribution Width 14.5 Platelet Count 233 Mean Platelet Volume 9.5 Neutrophils (%) (Auto) 88.1 Lymphocytes (%) (Auto) 5.4 Monocytes (%) (Auto) 6.0 Eosinophils (%) (Auto) 0.4 Basophils (%) (Auto) 0.1 Neutrophils # (Auto) 13.7 Lymphocytes # (Auto) 0.8 Monocytes # (Auto) 0.9 Eosinophils # (Auto) 0.1 Basophils # (Auto) 0.0 CBC Comment DIFF FINAL Differential Comment Sodium Level 137 Potassium Level 3.5 Chloride Level 101 Carbon Dioxide Level 26.8 Anion Gap 9 Blood Urea Nitrogen 12 Creatinine 0.73 Estimat Glomerular Filtration 115 Rate Random Glucose 116 Calcium Level 8.1 Lactic Acid Level 1.0 Result Diagram: 04/12/17 0543 04/12/17 0543 Assessment and Plan Assessment and Plan 46-year-old male with recurrent acute diverticulitis -Clear liquids -GI following -Continue IVF -Continue antibiotics -Plan for OR with --- will give bowel prep starting tomorrow Discussed Condition With Dr. Hussain Chin Attending Statement recurrent diverticulitis with partial sbo, inflamed small bowel will give gental prep plan for surgery this week Attestation The exam, history, and the medical decision-making described in the above note were completed with the assistance of the mid-level provider. I reviewed and agree with the findings presented. I attest that I had a [id number] encounter with the patient on the same day, and personally performed and documented my assessment and findings in the medical record. Annemarie Hammonds Apr 07, 2017 17:31 Swapnil Nixon MD Apr 12, 2017 14:38
[2017-04-07 20:25] VITALS: BP 132/65; PULSE 95; RESP 18; TEMP 97.9; O2SAT 95
[2017-04-07] MEDS: HEPARIN SODIUM - SQ 10,000 UNITS/ML VIAL SQ SCH (21:50)
[2017-04-08 00:25] VITALS: BP 154/91; PULSE 100; RESP 18; TEMP 99.1; O2SAT 95
[2017-04-08] MEDS: CIPROFLOXACIN 400 MG PREMIX 200 ML IV SCH ×3 (00:47→23:41)
[2017-04-08] MEDS: HYDROmorphone HCL PF 1 MG/ML VIAL IV PRN ×8 (00:48→23:41)
[2017-04-08] MEDS: SODIUM CHLOR 0.9% 1000 ML INJ 1,000 ML IV SCH ×4 (00:52→20:31)
[2017-04-08] MEDS: hydrOXYzine PAMOATE 25 MG CAP PO PRN ×3 (04:07→17:28)
[2017-04-08 08:00] VITALS: BP 125/86; PULSE 97; RESP 17; TEMP 99; O2SAT 96
[2017-04-08] MEDS: HEPARIN SODIUM - SQ 10,000 UNITS/ML VIAL SQ SCH ×2 (08:32→20:31)
[2017-04-08] MEDS: NS + KCL 20 MEQ INJ 1,000 ML IV SCH ×3 (08:32→20:32)
[2017-04-08 09:12] LABS: AUTOMATED NEUTROPHIL # 12.9 TH/MM3 (1.8-7.7); BASOPHIL % 0.1 % (0.0-2.0); EOSINOPHIL # 0.2 TH/MM3 (0-0.4); EOSINOPHIL % 1.4 % (0.0-4.0); HEMO FLAGS DIFF FINAL; LYMPH % 8.7 % (9.0-44.0); LYMPHOCYTE # 1.4 TH/MM3 (1.0-4.8); MEAN CELL VOLUME 87.2 FL (80.0-100.0); MEAN CORPUSCULAR HEMOGLOBIN 29.6 PG (27.0-34.0); MEAN CORPUSCULAR HGB CONC 33.9 % (32.0-36.0); NEUT % 81.8 % (16.0-70.0); PLATELET COUNT 235 TH/MM3 (150-450); RED BLOOD COUNT 4.82 MIL/MM3 (4.50-5.90); RED CELL DISTRIBUTION WIDTH 14.7 % (11.6-17.2); WHITE BLOOD COUNT 15.8 TH/MM3 (4.0-11.0)
[2017-04-08 09:14] LABS: BICARBONATE 25.2 MEQ/L (21.0-32.0)
--- NOTE | 2017-04-08 11:46 | HHI.PR ---
Subjective Subjective Notes Resting in bed Reports pain is better Tolerating clear liquids Objective Vitals/I&O Vital Signs Date Time Temp Pulse Resp B/P Pulse Ox O2 Delivery O2 Flow Rate FiO2 04/08/17 08:00 99.0 97 17 125/86 96 04/07/17 07:49 Nasal Cannula 2.00 Labs Laboratory Tests Test 04/07/17 04/08/17 16:23 06:56 Lactic Acid Level 1.0 White Blood Count 15.8 Red Blood Count 4.82 Hemoglobin 14.2 Hematocrit 42.0 Mean Corpuscular Volume 87.2 Mean Corpuscular Hemoglobin 29.6 Mean Corpuscular Hemoglobin 33.9 Concent Red Cell Distribution Width 14.7 Platelet Count 235 Mean Platelet Volume 9.6 Neutrophils (%) (Auto) 81.8 Lymphocytes (%) (Auto) 8.7 Monocytes (%) (Auto) 8.0 Eosinophils (%) (Auto) 1.4 Basophils (%) (Auto) 0.1 Neutrophils # (Auto) 12.9 Lymphocytes # (Auto) 1.4 Monocytes # (Auto) 1.3 Eosinophils # (Auto) 0.2 Basophils # (Auto) 0.0 CBC Comment DIFF FINAL Differential Comment Sodium Level 134 Potassium Level 4.0 Chloride Level 102 Carbon Dioxide Level 25.2 Anion Gap 7 Blood Urea Nitrogen 9 Creatinine 0.70 Estimat Glomerular Filtration 120 Rate Random Glucose 113 Calcium Level 7.9 Cardiovascular: Regular Lungs: Clear Abdomen: Non-distended, Other (minimally tender to palpation ) Extremities: No edema A/P Assessment and Plan 46-year-old male with recurrent acute diverticulitis -Clear liquids -Continue IVF -Continue antibiotics -OOB and mobilize as tolerated -Plan for OR of this week -Will start bowel prep tomorrow Attending Statement patient seen and examined at bedside recurrent diverticulitis and abdominal pain leukocytosis plan for OR this week Annemarie Hammonds Apr 08, 2017 11:46 Swapnil Nixon MD Apr 10, 2017 21:21
--- NOTE | 2017-04-08 13:04 | HHI.GIFU ---
GI Follow-up Note Consult Follow-up Subjective: Patient laying in bed comfortably, no new c/o. passing gas, no bowel movements. Objective: PHYSICAL EXAMINATION: Vitals signs stable No fever HEENT: Pupils round and reactive to light; normocephalic; atraumatic; no jaundice. Throat is clear. NECK: Neck is supple, no JVD, no lymphadenopathy. CHEST: Chest is clear to auscultation and percussion. CARDIAC: Regular rate and rhythm with no murmur gallop or rubs. ABDOMEN: Soft, nondistended, nontender; no hepatosplenomegaly; bowel sounds are present in all four quadrants. EXTREMITIES: No clubbing, cyanosis, or edema. SKIN: Normal; no rash; no jaundice. DICE SPOTTER: No focal deficits; alert and oriented times three. Available Data (labs, X- Rays, Procedures) : ASSESSMENT/PLAN: 1. Abdominal pain with distention 2. Diverticulitis 3. Ileus PLAN: 1. Agree with surgical recs. 2. OR planned for . 3. Dr Gale will be following starting tomorrow. It was a pleasure seeing [facility]. Thank you for this consult. Entered by: Ana Maria Dc MD Apr 08, 2017 13:04
[2017-04-08 14:29] VITALS: BP 144/80; PULSE 82; RESP 18; TEMP 98.9; O2SAT 92
[2017-04-08 16:00] VITALS: BP 150/94; PULSE 101; RESP 21; TEMP 99.5; O2SAT 97
[2017-04-08] MEDS ORDERED: BISACODYL 10 MG SUPP RECTAL ONE (20:00)
[2017-04-08 20:25] VITALS: BP 131/69; PULSE 96; RESP 17; TEMP 99.6; O2SAT 95
--- NOTE | 2017-04-08 23:40 | HHI.PR ---
Subjective Remarks Patient seen today around noon. Says he is feeling all right. Reports pain is under control. Denies any chest pain or shortness breath. Denies any nausea or vomiting. Denies any history of exertional chest pain or of heart problems. Objective Vital Signs Date Time Temp Pulse Resp B/P Pulse Ox O2 Delivery O2 Flow Rate FiO2 04/08/17 20:25 99.6 96 17 131/69 95 04/08/17 16:00 99.5 101 21 150/94 97 04/08/17 14:29 98.9 82 18 144/80 92 04/08/17 08:00 99.0 97 17 125/86 96 04/08/17 00:25 99.1 100 18 154/91 95 I/O 04/07/17 04/07/17 04/07/17 04/08/17 04/08/17 04/08/17 06:59 14:59 22:59 06:59 14:59 22:59 Intake Total 0 ml 1452 ml 1440 ml 1537 ml 2053 ml Output Total 800 ml Balance 0 ml 1452 ml 1440 ml 1537 ml 1253 ml Intake Oral 0 ml 0 ml 360 ml 240 ml 480 ml IV Total 1452 ml 1080 ml 1297 ml 1573 ml Output Urine Total 800 ml # Voids 2 3 1 3 3 # Bowel Movements 0 0 0 0 Result Diagram: 04/08/1765504/08/17655 Objective Remarks GENERAL: patient sitting up in bed. Appears comfortable. SKIN: Warm and dry. HEAD: Normocephalic. EYES: No scleral icterus. No injection or drainage. NECK: Supple, trachea midline. No JVD. CARDIOVASCULAR: Regular rate and rhythm without murmurs, gallops, or rubs. RESPIRATORY: Breath sounds equal bilaterally. No accessory muscle use. GASTROINTESTINAL: Abdomen soft, non-tender, nondistended. MUSCULOSKELETAL: No cyanosis, or edema. BACK: Nontender without obvious deformity. No CVA tenderness. A/P Assessment and Plan 04/08/17 Plan for bowel surgery on . Continue to monitor 46 y/o male with a history of HLD and diverticulitis with abscess presented to the [place] ED with complaints of increasing abdominal pain. Patient was recently admitted for diverticulitis with abscess and possible bowel obstruction , was discharged on 04/04/17 and a colonoscopy was scheduled for Friday with Dr. Pickett. //Small bowel obstruction -Abdominal x-ray reviewed and shows a small bowel dilation similar to CT from April 02. There is colonic gas, most characteristic of partial small bowel obstruction -Gastroenterology evaluated the patient and at this time will hold off on colonoscopy. Did discuss w GS. -IVF for hydration -Continue ciprofloxacin IV -Pain management with IV Dilaudid and po norco //Leukocytosis, WBCs 14.4-->15.5, likely due to diverticulitis abscess, patient was treated with outpatient by mouth ciprofloxacin and by mouth Flagyl. Patient is allergic to IV Flagyl -Continue antibiotics as above -04/08. 15.8. Stable. //Urticaria, due to allergic reaction from last admission -Continue Vistaril when necessary for itching //DVT prophylaxis: SCDs, encourage ambulation. heparin Gomez Russell MD Apr 08, 2017 23:40 Gomez Russell MD Apr 08, 2017 23:40
[2017-04-08] MEDS: diphenhydrAMINE HCL 50 MG CAP PO PRN (23:41)
[2017-04-09] VITALS (7 sets, daily range): BP systolic 133–159; BP diastolic 61–91; PULSE 61–102; RESP 16–18; TEMP 96.3–99.8; O2SAT 91–94
[2017-04-09] MEDS: HYDROmorphone HCL PF 1 MG/ML VIAL IV PRN ×8 (02:47→22:32)
[2017-04-09] MEDS: SODIUM CHLOR 0.9% 1000 ML INJ 1,000 ML IV SCH ×3 (03:30→15:45)
[2017-04-09] MEDS: diphenhydrAMINE HCL 50 MG CAP PO PRN ×2 (05:54→15:45)
[2017-04-09 08:21] LABS: AUTOMATED NEUTROPHIL # 8.1 TH/MM3 (1.8-7.7); BASOPHIL % 0.1 % (0.0-2.0); EOSINOPHIL # 0.3 TH/MM3 (0-0.4); EOSINOPHIL % 2.8 % (0.0-4.0); HEMATOCRIT 37.3 % (39.0-51.0); HEMO FLAGS DIFF FINAL; LYMPH % 8.7 % (9.0-44.0); LYMPHOCYTE # 0.9 TH/MM3 (1.0-4.8); MEAN CORPUSCULAR HEMOGLOBIN 29.4 PG (27.0-34.0); MEAN CORPUSCULAR HGB CONC 34.2 % (32.0-36.0); MONO % 11.8 % (0.0-8.0); NEUT % 76.6 % (16.0-70.0); PLATELET COUNT 240 TH/MM3 (150-450); RED BLOOD COUNT 4.33 MIL/MM3 (4.50-5.90); RED CELL DISTRIBUTION WIDTH 14.6 % (11.6-17.2); WHITE BLOOD COUNT 10.6 TH/MM3 (4.0-11.0)
[2017-04-09 08:40] LABS: ALT (GPT) 14 U/L (12-78); ANION GAP 8 MEQ/L (5-15); AST (GOT) 11 U/L (15-37); BICARBONATE 28.2 MEQ/L (21.0-32.0); BLOOD UREA NITROGEN 6 MG/DL (7-18); CHLORIDE 101 MEQ/L (98-107); GLOMERULAR FILTRATION RATE 141 ML/MIN (>89); POTASSIUM 3.7 MEQ/L (3.5-5.1); SODIUM (NA) 137 MEQ/L (136-145)
[2017-04-09 08:42] LABS: ALKALINE PHOSPHATASE 54 U/L (45-117); TOTAL BILIRUBIN ADULT 0.5 MG/DL (0.2-1.0)
[2017-04-09] MEDS: HEPARIN SODIUM - SQ 10,000 UNITS/ML VIAL SQ SCH (09:31)
[2017-04-09] MEDS ORDERED: METOPROLOL TARTRATE 25 MG TAB PO PRN (12:00)
[2017-04-09] MEDS ORDERED: INSULIN HUMAN REGULAR 1,000 UNITS/10 ML VIAL SQ PRN (12:00)
[2017-04-09] MEDS ORDERED: SODIUM CHLORID 0.9% 500 ML IV PRN (12:00)
[2017-04-09] MEDS ORDERED: CHLORHEXIDINE GLUCONATE 2 % 1 PACK (2 CLOTHS) TOPICAL PRN (12:00)
[2017-04-09] MEDS ORDERED: LACTATED RINGER'S 1000 ML IV PRN (12:00)
[2017-04-09] MEDS ORDERED: POVIDONE IODINE 5% (ANTISEPSIS KIT) 4 APPLICATIONS EACH NARE PRN (12:00)
[2017-04-09] MEDS: CIPROFLOXACIN 400 MG PREMIX 200 ML IV SCH (12:20)
[2017-04-09] MEDS ORDERED: MAGNESIUM CITRATE SOLN 300 ML BTL PO ONE (14:30)
--- NOTE | 2017-04-09 15:57 | HHI.PR ---
Subjective Remarks Patient seen this morning around 11 AM. Says he is feeling all right. Denies any chest pain or shortness of breath. Denies any nausea or vomiting. His report difficulty sleeping at night. He says at home he takes NyQuil to help him sleep sometimes. Objective Vital Signs Date Time Temp Pulse Resp B/P Pulse Ox O2 Delivery O2 Flow Rate FiO2 04/09/17 11:59 96.3 89 18 148/91 93 04/09/17 08:00 97.7 91 18 133/72 91 04/09/17 07:51 Room Air 04/09/17 04:50 99.2 102 18 133/61 94 04/09/17 00:30 99.8 96 18 159/87 93 04/08/17 20:25 99.6 96 17 131/69 95 04/08/17 16:00 99.5 101 21 150/94 97 I/O 04/08/17 04/08/17 04/08/17 04/09/17 04/09/17 04/09/17 07:00 15:00 23:00 07:00 15:00 23:00 Intake Total 1537 ml 480 ml 1813 ml 1180 ml 950 ml Output Total 800 ml 1 ml Balance 1537 ml -320 ml 1812 ml 1180 ml 950 ml Intake Oral 240 ml 480 ml 240 ml 240 ml IV Total 1297 ml 1573 ml 940 ml 950 ml Output Urine Total 800 ml 1 ml # Voids 3 3 2 # Bowel Movements 0 0 0 Result Diagram: 04/09/17 0735 04/09/17 0735 Objective Remarks GENERAL: patient sitting up in bed. Appears comfortable. Alert and oriented. SKIN: Warm and dry. HEAD: Normocephalic. EYES: No scleral icterus. No injection or drainage. NECK: Supple, trachea midline. No JVD. CARDIOVASCULAR: Regular rate and rhythm without murmurs, gallops, or rubs. RESPIRATORY: Breath sounds equal bilaterally. No accessory muscle use. GASTROINTESTINAL: Abdomen soft, non-tender, nondistended. MUSCULOSKELETAL: No cyanosis, or edema. BACK: Nontender without obvious deformity. No CVA tenderness. A/P Assessment and Plan 04/09/17 -Leukocytosis. White blood cell count now 10. Improving. Continue Cipro. Add fluconazole for anaerobic coverage given site of the infection. Violent diarrhea from Flagyl is most likely not an allergy, simply antibiotic associated diarrhea. -And D5 to IV fluids given nothing by mouth status. -Add Benadryl at night for insomnia. -Plan for possible bowel surgery tomorrow. 46 y/o male with a history of HLD and diverticulitis with abscess presented to the [place] ED with complaints of increasing abdominal pain. Patient was recently admitted for diverticulitis with abscess and possible bowel obstruction , was discharged on 04/04/17 and a colonoscopy was scheduled for Friday with Dr. Pickett. //Small bowel obstruction -Abdominal x-ray reviewed and shows a small bowel dilation similar to CT from April 02. There is colonic gas, most characteristic of partial small bowel obstruction -Gastroenterology evaluated the patient and at this time will hold off on colonoscopy. Did discuss w GS. -IVF for hydration -Continue ciprofloxacin IV, Flagyl IV. -Pain management with IV Dilaudid and po norco //Leukocytosis, WBCs 14.4-->15.5, likely due to diverticulitis abscess, patient was treated with outpatient by mouth ciprofloxacin and by mouth Flagyl. Patient is allergic to IV Flagyl -Continue antibiotics as above -04/08. 15.8. Stable. //Insomnia. Add Benadryl at night. //Urticaria, due to allergic reaction from last admission -Continue Vistaril when necessary for itching //DVT prophylaxis: SCDs, encourage ambulation. heparin Gomez Russell MD Apr 09, 2017 15:57
[2017-04-09] MEDS ORDERED: diphenhydrAMINE HCL 50 MG CAP PO PRN (16:00)
[2017-04-09] MEDS ORDERED: metroNIDAZOLE 500 MG INJ 100 ML IV SCH (17:00)
--- NOTE | 2017-04-09 17:10 | HHI.GIFU ---
Subjective Remarks alert NAD mild abd pain scheduled for surgery in AM tomorrow Objective Vitals I&O Vital Signs Date Time Temp Pulse Resp B/P Pulse Ox O2 Delivery O2 Flow Rate FiO2 04/09/17 11:59 96.3 89 18 148/91 93 04/09/17 08:00 97.7 91 18 133/72 91 04/09/17 07:51 Room Air 04/09/17 04:50 99.2 102 18 133/61 94 04/09/17 00:30 99.8 96 18 159/87 93 04/08/17 20:25 99.6 96 17 131/69 95 I/O 04/08/17 04/08/17 04/08/17 04/09/17 04/09/17 04/09/17 07:00 15:00 23:00 07:00 15:00 23:00 Intake Total 1537 ml 480 ml 1813 ml 1180 ml 950 ml Output Total 800 ml 1 ml Balance 1537 ml -320 ml 1812 ml 1180 ml 950 ml Intake Oral 240 ml 480 ml 240 ml 240 ml IV Total 1297 ml 1573 ml 940 ml 950 ml Output Urine Total 800 ml 1 ml # Voids 3 3 2 # Bowel Movements 0 0 0 Laboratory Laboratory Tests Test 04/09/17 07:35 White Blood Count 10.6 Red Blood Count 4.33 Hemoglobin 12.7 Hematocrit 37.3 Mean Corpuscular Volume 86.0 Mean Corpuscular Hemoglobin 29.4 Mean Corpuscular Hemoglobin 34.2 Concent Red Cell Distribution Width 14.6 Platelet Count 240 Mean Platelet Volume 9.2 Neutrophils (%) (Auto) 76.6 Lymphocytes (%) (Auto) 8.7 Monocytes (%) (Auto) 11.8 Eosinophils (%) (Auto) 2.8 Basophils (%) (Auto) 0.1 Neutrophils # (Auto) 8.1 Lymphocytes # (Auto) 0.9 Monocytes # (Auto) 1.3 Eosinophils # (Auto) 0.3 Basophils # (Auto) 0.0 CBC Comment DIFF FINAL Differential Comment Sodium Level 137 Potassium Level 3.7 Chloride Level 101 Carbon Dioxide Level 28.2 Anion Gap 8 Blood Urea Nitrogen 6 Creatinine 0.61 Estimat Glomerular Filtration 141 Rate Random Glucose 101 Calcium Level 8.2 Total Bilirubin 0.5 Aspartate Amino Transf 11 (AST/SGOT) Alanine Aminotransferase 14 (ALT/SGPT) Alkaline Phosphatase 54 Total Protein 6.1 Albumin 2.2 Prealbumin 7 Imaging Laboratory Tests Test 04/07/17 04/09/17 16:23 07:35 Lactic Acid Level 1.0 mmol/L White Blood Count 10.6 TH/MM3 Red Blood Count 4.33 MIL/MM3 Hemoglobin 12.7 GM/DL Hematocrit 37.3 % Mean Corpuscular Volume 86.0 FL Mean Corpuscular Hemoglobin 29.4 PG Mean Corpuscular Hemoglobin 34.2 % Concent Red Cell Distribution Width 14.6 % Platelet Count 240 TH/MM3 Mean Platelet Volume 9.2 FL Neutrophils (%) (Auto) 76.6 % Lymphocytes (%) (Auto) 8.7 % Monocytes (%) (Auto) 11.8 % Eosinophils (%) (Auto) 2.8 % Basophils (%) (Auto) 0.1 % Neutrophils # (Auto) 8.1 TH/MM3 Lymphocytes # (Auto) 0.9 TH/MM3 Monocytes # (Auto) 1.3 TH/MM3 Eosinophils # (Auto) 0.3 TH/MM3 Basophils # (Auto) 0.0 TH/MM3 CBC Comment DIFF FINAL Differential Comment Sodium Level 137 MEQ/L Potassium Level 3.7 MEQ/L Chloride Level 101 MEQ/L Carbon Dioxide Level 28.2 MEQ/L Anion Gap 8 MEQ/L Blood Urea Nitrogen 6 MG/DL Creatinine 0.61 MG/DL Estimat Glomerular Filtration 141 ML/MIN Rate Random Glucose 101 MG/DL Calcium Level 8.2 MG/DL Total Bilirubin 0.5 MG/DL Aspartate Amino Transf 11 U/L (AST/SGOT) Alanine Aminotransferase 14 U/L (ALT/SGPT) Alkaline Phosphatase 54 U/L Total Protein 6.1 GM/DL Albumin 2.2 GM/DL Prealbumin 7 MG/DL Laboratory Tests Test 04/07/17 04/09/17 16:23 07:35 Lactic Acid Level 1.0 mmol/L White Blood Count 10.6 TH/MM3 Red Blood Count 4.33 MIL/MM3 Hemoglobin 12.7 GM/DL Hematocrit 37.3 % Mean Corpuscular Volume 86.0 FL Mean Corpuscular Hemoglobin 29.4 PG Mean Corpuscular Hemoglobin 34.2 % Concent Red Cell Distribution Width 14.6 % Platelet Count 240 TH/MM3 Mean Platelet Volume 9.2 FL Neutrophils (%) (Auto) 76.6 % Lymphocytes (%) (Auto) 8.7 % Monocytes (%) (Auto) 11.8 % Eosinophils (%) (Auto) 2.8 % Basophils (%) (Auto) 0.1 % Neutrophils # (Auto) 8.1 TH/MM3 Lymphocytes # (Auto) 0.9 TH/MM3 Monocytes # (Auto) 1.3 TH/MM3 Eosinophils # (Auto) 0.3 TH/MM3 Basophils # (Auto) 0.0 TH/MM3 CBC Comment DIFF FINAL Differential Comment Sodium Level 137 MEQ/L Potassium Level 3.7 MEQ/L Chloride Level 101 MEQ/L Carbon Dioxide Level 28.2 MEQ/L Anion Gap 8 MEQ/L Blood Urea Nitrogen 6 MG/DL Creatinine 0.61 MG/DL Estimat Glomerular Filtration 141 ML/MIN Rate Random Glucose 101 MG/DL Calcium Level 8.2 MG/DL Total Bilirubin 0.5 MG/DL Aspartate Amino Transf 11 U/L (AST/SGOT) Alanine Aminotransferase 14 U/L (ALT/SGPT) Alkaline Phosphatase 54 U/L Total Protein 6.1 GM/DL Albumin 2.2 GM/DL Prealbumin 7 MG/DL Laboratory Tests Test 04/07/17 04/09/17 16:23 07:35 Lactic Acid Level 1.0 mmol/L White Blood Count 10.6 TH/MM3 Red Blood Count 4.33 MIL/MM3 Hemoglobin 12.7 GM/DL Hematocrit 37.3 % Mean Corpuscular Volume 86.0 FL Mean Corpuscular Hemoglobin 29.4 PG Mean Corpuscular Hemoglobin 34.2 % Concent Red Cell Distribution Width 14.6 % Platelet Count 240 TH/MM3 Mean Platelet Volume 9.2 FL Neutrophils (%) (Auto) 76.6 % Lymphocytes (%) (Auto) 8.7 % Monocytes (%) (Auto) 11.8 % Eosinophils (%) (Auto) 2.8 % Basophils (%) (Auto) 0.1 % Neutrophils # (Auto) 8.1 TH/MM3 Lymphocytes # (Auto) 0.9 TH/MM3 Monocytes # (Auto) 1.3 TH/MM3 Eosinophils # (Auto) 0.3 TH/MM3 Basophils # (Auto) 0.0 TH/MM3 CBC Comment DIFF FINAL Differential Comment Sodium Level 137 MEQ/L Potassium Level 3.7 MEQ/L Chloride Level 101 MEQ/L Carbon Dioxide Level 28.2 MEQ/L Anion Gap 8 MEQ/L Blood Urea Nitrogen 6 MG/DL Creatinine 0.61 MG/DL Estimat Glomerular Filtration 141 ML/MIN Rate Random Glucose 101 MG/DL Calcium Level 8.2 MG/DL Total Bilirubin 0.5 MG/DL Aspartate Amino Transf 11 U/L (AST/SGOT) Alanine Aminotransferase 14 U/L (ALT/SGPT) Alkaline Phosphatase 54 U/L Total Protein 6.1 GM/DL Albumin 2.2 GM/DL Prealbumin 7 MG/DL Physical Exam CHEST: Chest is clear to auscultation and percussion. CARDIAC: Regular rate and rhythm with no murmur gallop or rubs. ABDOMEN: Soft, nondistended, nontender; no hepatosplenomegaly; bowel sounds are present in all four quadrants. EXTREMITIES: No clubbing, cyanosis, or edema. SKIN: Normal; no rash; no jaundice. Assessment and Plan Assessment: (1) Diverticulitis of both large and small intestine with perforation (2) Ileus (3) Abdominal pain (4) Bowel obstruction Plan Continue present therapy ..agree with surgical evaluation in AM ?? diverticultitis...which may require resection and or colostomy. Discussed with pt. Will follow up with you Problem Qualifiers (1) Bowel obstruction: Qualified Code: K56.60 - Intestinal obstruction, unspecified type Júnior Gale MD Apr 09, 2017 17:10
--- NOTE | 2017-04-09 17:59 | HHI.PR ---
Subjective Subjective Notes Resting in bed Started Mag Citrate at bedside Objective Vitals/I&O Vital Signs Date Time Temp Pulse Resp B/P Pulse Ox O2 Delivery O2 Flow Rate FiO2 04/09/17 11:59 96.3 89 18 148/91 93 04/09/17 07:51 Room Air 04/07/17 07:49 2.00 Labs Laboratory Tests Test 04/09/17 07:35 White Blood Count 10.6 Red Blood Count 4.33 Hemoglobin 12.7 Hematocrit 37.3 Mean Corpuscular Volume 86.0 Mean Corpuscular Hemoglobin 29.4 Mean Corpuscular Hemoglobin 34.2 Concent Red Cell Distribution Width 14.6 Platelet Count 240 Mean Platelet Volume 9.2 Neutrophils (%) (Auto) 76.6 Lymphocytes (%) (Auto) 8.7 Monocytes (%) (Auto) 11.8 Eosinophils (%) (Auto) 2.8 Basophils (%) (Auto) 0.1 Neutrophils # (Auto) 8.1 Lymphocytes # (Auto) 0.9 Monocytes # (Auto) 1.3 Eosinophils # (Auto) 0.3 Basophils # (Auto) 0.0 CBC Comment DIFF FINAL Differential Comment Sodium Level 137 Potassium Level 3.7 Chloride Level 101 Carbon Dioxide Level 28.2 Anion Gap 8 Blood Urea Nitrogen 6 Creatinine 0.61 Estimat Glomerular Filtration 141 Rate Random Glucose 101 Calcium Level 8.2 Total Bilirubin 0.5 Aspartate Amino Transf 11 (AST/SGOT) Alanine Aminotransferase 14 (ALT/SGPT) Alkaline Phosphatase 54 Total Protein 6.1 Albumin 2.2 Prealbumin 7 Cardiovascular: Regular Lungs: Clear Abdomen: Other (mildly distended; tender to palpation ) Extremities: No edema A/P Assessment and Plan 46-year-old male with recurrent acute diverticulitis -Clear liquids; NPO after MN -Continue IVF -Continue antibiotics -OOB and mobilize as tolerated -OR tomorrow; consents signed on chart Attending Statement patient seen at bedside doing well clear diet, bowel prep discussed surgery tomorrow. Very likely for open surgery due to habitus and complex issues pt with small bowel thickening and hx of interloop abscess suspected from perforation of sigmoid diverticuli npo after mn Attestation The exam, history, and the medical decision-making described in the above note were completed with the assistance of the mid-level provider. I reviewed and agree with the findings presented. I attest that I had a [id number] encounter with the patient on the same day, and personally performed and documented my assessment and findings in the medical record. Annemarie Hammonds Apr 09, 2017 17:59 Swapnil Nixon MD Apr 13, 2017 16:05
[2017-04-09] MEDS: D5-1/2 NS + KCL 30 MEQ INJ 1,000 ML IV SCH (19:16)
[2017-04-10] MEDS: diphenhydrAMINE HCL 50 MG CAP PO PRN (00:47)
[2017-04-10] MEDS ORDERED: diphenhydrAMINE HCL 25 MG CAP PO ONE (01:00)
[2017-04-10] MEDS: CIPROFLOXACIN 400 MG PREMIX 200 ML IV SCH ×2 (01:14→16:41)
[2017-04-10] MEDS ORDERED: TEMAZEPAM 7.5 MG CAP PO ONE (01:15)
[2017-04-10] MEDS: HYDROmorphone HCL PF 1 MG/ML VIAL IV PRN ×4 (01:17→17:35)
[2017-04-10] MEDS: D5-1/2 NS + KCL 30 MEQ INJ 1,000 ML IV SCH ×2 (01:17→16:08)
[2017-04-10 03:50] LABS: IGA SERUM 202 mg/dL (81-463)
[2017-04-10 04:57] VITALS: BP 151/87; PULSE 83; RESP 16; TEMP 98.4; O2SAT 93
[2017-04-10 07:21] LABS: AUTOMATED NEUTROPHIL # 6.8 TH/MM3 (1.8-7.7); BASOPHIL % 0.3 % (0.0-2.0); EOSINOPHIL # 0.4 TH/MM3 (0-0.4); EOSINOPHIL % 4.2 % (0.0-4.0); HEMATOCRIT 37.5 % (39.0-51.0); HEMO FLAGS DIFF FINAL; LYMPH % 10.6 % (9.0-44.0); MEAN CELL VOLUME 85.7 FL (80.0-100.0); MEAN CORPUSCULAR HEMOGLOBIN 29.6 PG (27.0-34.0); MEAN CORPUSCULAR HGB CONC 34.5 % (32.0-36.0); NEUT % 71.9 % (16.0-70.0); PLATELET COUNT 247 TH/MM3 (150-450); RED BLOOD COUNT 4.37 MIL/MM3 (4.50-5.90); RED CELL DISTRIBUTION WIDTH 14.4 % (11.6-17.2); WHITE BLOOD COUNT 9.5 TH/MM3 (4.0-11.0)
[2017-04-10 07:49] LABS: BICARBONATE 32.6 MEQ/L (21.0-32.0); MAGNESIUM 2.5 MG/DL (1.5-2.5); POTASSIUM 3.9 MEQ/L (3.5-5.1)
[2017-04-10 08:00] VITALS: BP 167/92; PULSE 85; RESP 18; TEMP 97.6; O2SAT 95
[2017-04-10] MEDS ORDERED: ALVIMOPAN 12 MG CAPSULE PO ONE (08:30)
[2017-04-10] MEDS ORDERED: GELFOAM SIZE 100 ONE (09:47)
[2017-04-10] MEDS ORDERED: THROMBIN (TOPICAL) 5,000 UNIT VIAL ONE (09:47)
[2017-04-10] MEDS ORDERED: BUPIVACAINE/EPINEPHRINE 0.25% 50 ML VIAL ONE (09:57)
[2017-04-10] MEDS ORDERED: ACETAMINOPHEN 1000 MG/100 ML VIAL IV ONE (10:05)
[2017-04-10] MEDS ORDERED: MIDAZOLAM HCL 2 MG/2 ML VIAL ONE (10:05)
--- NOTE | 2017-04-10 10:55 | PD.ID.CON ---
History of Present Illness Service ID Consult Requested By Dr Russell Reason for Consult Diverticulitis Primary Care Physician Non-Staff Diagnoses: History of Present Illness 46 yo male with h/o recurretn diverticulitis, He was admitted in December with perforated diverticulitis with abscess sp CT guided aspiration of IA abscess. He grew out E.coli + tariq back the n He was discharged on CFTX, flagyl, fluconazole He reports extreme diarrhea to flagyl and apparently refused to take it previously 2/2 diarrhea He denies hives to flagyl, but has hives to zosyn He tolerated Invanz uneventfully Pt is sp 3 weeks of Invanz in January initially imoproved, but later developped increasing abdominal pain. Patient was admitted last week for diverticulitis with abscess and possible bowel obstruction, surgery and gastroenterology was consulted and it was believed she did not have small bowel obstruction, he was discharged on 04/04/17 and a colonoscopy is scheduled for Friday with Dr. Pickett, but was readmitted few days ago 2/2 increasing abdominal pain, with associated liquid stools and nausea. He was evaluated by gen surgery and diagnosed with perforated diverticulitis with interloop abscess and partial small bowell obstruction and underwent open sigmoidectomy with primary reanstomosis , small bowel repair, Intraop findings included abscess cavity with thick bowel loops, adhesions, Review of Systems Except as stated in HPI: all other systems reviewed are Neg Past Family Social History Allergies: Coded Allergies: codeine (Unverified Allergy, Severe, Constipation, 04/15/17) metronidazole (Unverified Allergy, Severe, extreme diarrhea, 04/15/17) fluconazole (Unverified Allergy, Unknown, Hives, 04/15/17) HIVES AND RASH morphine (Unverified Allergy, Unknown, 04/15/17) piperacillin (Unverified Allergy, Unknown, Hives, 04/15/17) HIVES AND RASH tazobactam (Unverified Allergy, Unknown, Hives, 04/15/17) HIVES AND RASH Past Medical History Past Medical History Hyperlipidemia Diverticulitis abscess Past Surgical History Right shoulder surgery ACL repair right knee IR drainage of abscess Active Ordered Medications Medications where reviewed in EMR Antibiotics Include: cipro Family History Mom: Breast cancer, Uterine cancer, renal cell cancer, melanoma Dad: 84 living has had OK with CABG Social History Patient denies any tobacco, alcohol or illicit drug use Physical Exam Vital Signs Vital Signs Date Time Temp Pulse Resp B/P Pulse Ox O2 Delivery O2 Flow Rate FiO2 04/10/17 08:00 97.6 85 18 167/92 95 04/10/17 04:57 98.4 83 16 151/87 93 04/09/17 23:50 98.7 98 16 146/83 93 04/09/17 20:35 99.3 89 16 143/85 93 04/09/17 16:00 98.5 61 18 135/89 91 04/09/17 11:59 96.3 89 18 148/91 93 Physical Exam CONSTITUTIONAL/GENERAL: This is an obese young male patient, in no apparent distress. TUBES/LINES/DRAINS: SKIN: No jaundice, rashes, or lesions. Ecchymoses on upper extremities. No wounds seen anteriorly. Skin temperature appropriate. Not diaphoretic. HEAD: Atraumatic. Normocephalic. EYES: Pupils equal and round and reactive. Extraocular motions intact. No scleral icterus. No injection or drainage. Fundi not examined. ENT: Hearing grossly normal. Nose without bleeding or purulent drainage. Throat without visible erythema, exudates, masses, or lesions. CARDIOVASCULAR: Regular rate and rhythm without murmurs, gallops, or rubs. No JVD. Peripheral pulses symmetric. RESPIRATORY/CHEST: Symmetric, unlabored respirations. Clear to auscultation. Breath sounds equal bilaterally. No wheezes, rales, or rhonchi. GASTROINTESTINAL: Abdomen post surgical, soft, distended. Medial lapartomy incision covered with intact dressing. TAHMINA in place with serosang d/c No guarding. Bowel sounds present. MUSCULOSKELETAL: Extremities without clubbing, cyanosis, or edema. No mottling or clubbing. LYMPHATICS: No palpable cervical or supraclavicular adenopathy. NEUROLOGICAL: Awake and alert. Motor and sensory grossly within normal limits. Follows commands. Clear speech Moves all extremities. PSYCHIATRIC: No obvious anxiety/depression. no apparent hallucinations or other psychotic thought process. Laboratory Laboratory Tests Test 04/10/17 06:47 White Blood Count 9.5 Red Blood Count 4.37 Hemoglobin 13.0 Hematocrit 37.5 Mean Corpuscular Volume 85.7 Mean Corpuscular Hemoglobin 29.6 Mean Corpuscular Hemoglobin 34.5 Concent Red Cell Distribution Width 14.4 Platelet Count 247 Mean Platelet Volume 8.8 Neutrophils (%) (Auto) 71.9 Lymphocytes (%) (Auto) 10.6 Monocytes (%) (Auto) 13.0 Eosinophils (%) (Auto) 4.2 Basophils (%) (Auto) 0.3 Neutrophils # (Auto) 6.8 Lymphocytes # (Auto) 1.0 Monocytes # (Auto) 1.2 Eosinophils # (Auto) 0.4 Basophils # (Auto) 0.0 CBC Comment DIFF FINAL Differential Comment Sodium Level 138 Potassium Level 3.9 Chloride Level 100 Carbon Dioxide Level 32.6 Anion Gap 5 Blood Urea Nitrogen 5 Creatinine 0.62 Estimat Glomerular Filtration 138 Rate Random Glucose 111 Calcium Level 8.3 Phosphorus Level 2.8 Magnesium Level 2.5 Albumin 2.3 Result Diagram: 04/10/17 0647 04/10/17 0647 Assessment and Plan Assessment and Plan perforated diverticulitis with interloop abscess and partial small bowell obstruction sp open sigmoidectomy with primary reanstomosis , small bowel repair Apr Allergic reaction to zosyn, hives, self reported Adverse reaction to Flagyl, diarrhea, self reported - pt denies hives to Flagyl - pt is willing to try flagyl again and see if can tolerate it w/o diarrhea Pt self reports fluconazol rection (hives) dc cipro (previous h/o resistance) start Invanz add micafungin Discussed Condition With pt Nikki Farris MD Apr 10, 2017 10:54
[2017-04-10] MEDS ORDERED: ONDANSETRON HCL 4 MG/2 ML VIAL IV PUSH ONE (12:00)
[2017-04-10] MEDS ORDERED: NORMOSOL R INJ 1,000 ML IV ONE (12:00)
[2017-04-10] MEDS ORDERED: KETOROLAC TROMETHAMINE 60 MG/2 ML (IM) VIAL IM ONE (12:00)
[2017-04-10] MEDS ORDERED: LACTATED RINGER'S 1000 ML INJ 1,000 ML IV ONE (12:00)
[2017-04-10] MEDS ORDERED: PROPOFOL 200 MG/20 ML AMP IV ONE (12:00)
--- NOTE | 2017-04-10 14:55 | HHI.PR ---
Immediate Post Op Note Procedure Date: Apr 10, 2017 Pre Op Diagnosis: perforated diverticulitis with interloop abscess and partial sbo Post Op Diagnosis: same Surgeon: Swapnil Nixon MD Packager And Strapper(s): Dr. Kleber Russell needed due to the complexity of the operative case Procedure: dx lap, lap AFSHAN, ex lap, sigmoidectomy, small bowel repair, placement of karol, rigid sigmoidoscopy Findings: abscess cavity with thick bowel loops, adhesions, no leak on saline submersion Anesthesia: General Drains: TAHMINA IVF (3000) Patient to: PACU Patient Condition: Good Swapnil Nixon MD Apr 10, 2017 14:55
[2017-04-10] MEDS ORDERED: NALOXONE HCL 0.4 MG/ML AMP IV PRN (15:00)
[2017-04-10] MEDS ORDERED: fentaNYL CITRATE 250 MCG/5 ML AMP ONE (16:11)
[2017-04-10] MEDS: HYDROmorphone HCL PCA 6 MG/30 ML IV SCH (16:30)
[2017-04-10] MEDS ORDERED: DO NOT ADM ANY ANTICOAGULANT DRUGS PRN (16:45)
[2017-04-10 18:40] VITALS: BP 127/69; PULSE 88; RESP 17; TEMP 95.4; O2SAT 97
[2017-04-10] MEDS ORDERED: metroNIDAZOLE 500 MG INJ 100 ML IV SCH (18:45)
[2017-04-10] MEDS ORDERED: MISCELLANEOUS PHARMACY INFORMATION XX PRN (19:15)
[2017-04-10] MEDS ORDERED: ASP: Documented allergy to Penicillins or Cephalosporins PRN (19:15)
[2017-04-10] MEDS ORDERED: ASP: Path resistant to other antimicrobials, culture proven PRN (19:15)
[2017-04-10 20:00] VITALS: BP 139/68; PULSE 99; RESP 18; TEMP 97.9; O2SAT 96
[2017-04-10] MEDS: PCA - TOTAL MG DILAUDID DELIVERED PER SHIFT OTHER SCH (20:58)
[2017-04-10] MEDS: ERTAPENEM INJ 1,000 MG in SODIUM CHLORIDE 0.9% INJ 100 ML IV SCH (21:10)
[2017-04-10] MEDS: MICAFUNGIN INJ 150 MG in SODIUM CHLORIDE 0.9% INJ 100 ML IV SCH (21:10)
--- NOTE | 2017-04-10 23:16 | HHI.PR ---
Subjective Remarks Patient seen this morning prior to surgery. Says he feels all right. Denies any chest pain or shortness of breath. Objective Vital Signs Date Time Temp Pulse Resp B/P Pulse Ox O2 Delivery O2 Flow Rate FiO2 04/10/17 20:58 16 04/10/17 20:00 97.9 99 18 139/68 96 04/10/17 18:40 95.4 88 17 127/69 97 04/10/17 18:24 97.9 85 13 102/53 95 Nasal Cannula 3 04/10/17 18:00 84 12 104/57 96 Nasal Cannula 3 04/10/17 17:30 81 19 105/57 96 Nasal Cannula 3 04/10/17 17:00 81 23 126/64 96 Nasal Cannula 3 04/10/17 16:30 74 24 117/60 96 Nasal Cannula 4 04/10/17 16:30 14 04/10/17 16:15 82 24 117/67 96 Nasal Cannula 4 04/10/17 16:00 78 15 117/63 96 Nasal Cannula 4 04/10/17 15:45 79 18 110/60 96 Nasal Cannula 4 04/10/17 15:35 Nasal Cannula 4 04/10/17 15:30 79 21 111/68 96 Simple Mask 6 04/10/17 15:15 76 12 108/58 95 Simple Mask 6 04/10/17 15:04 98.1 75 14 125/58 85 T-Piece 15 04/10/17 09:00 Room Air 04/10/17 08:00 97.6 85 18 167/92 95 04/10/17 04:57 98.4 83 16 151/87 93 04/09/17 23:50 98.7 98 16 146/83 93 I/O 04/09/17 04/09/17 04/09/17 04/10/17 04/10/17 04/10/17 06:59 14:59 22:59 06:59 14:59 22:59 Intake Total 1180 ml 1650 ml 877 ml 942 ml 3492 ml Output Total 1465 ml Balance 1180 ml 1650 ml 877 ml 942 ml 2027 ml Intake Oral 240 ml 700 ml 240 ml 0 ml 0 ml IV Total 940 ml 950 ml 637 ml 942 ml 492 ml Other 3000 ml Output Urine Total 850 ml Gastric Drainage Total 5 ml Drainage Total 210 ml Estimated Blood Loss 400 ml # Voids 2 5 2 2 # Bowel Movements 0 0 0 0 Result Diagram: 04/10/17 0647 04/10/17 0647 Objective Remarks GENERAL: patient lying in bed. Appears comfortable. Alert and oriented. SKIN: Warm and dry. HEAD: Normocephalic. EYES: No scleral icterus. No injection or drainage. NECK: Supple, trachea midline. No JVD. CARDIOVASCULAR: Regular rate and rhythm without murmurs, gallops, or rubs. RESPIRATORY: Breath sounds equal bilaterally. No accessory muscle use. GASTROINTESTINAL: Abdomen soft, non-tender, nondistended. MUSCULOSKELETAL: No cyanosis, or edema. BACK: Nontender without obvious deformity. No CVA tenderness. A/P Assessment and Plan 04/10/17 -Leukocytosis. White blood cell count now 9.5. Improving. -Continue -Postoperative care as per surgical service. 46 y/o male with a history of HLD and diverticulitis with abscess presented to the [facility] with complaints of increasing abdominal pain. Patient was recently admitted for diverticulitis with abscess and possible bowel obstruction , was discharged on 04/04/17 and a colonoscopy was scheduled for Friday with Dr. Pickett. //Small bowel obstruction -Abdominal x-ray reviewed and shows a small bowel dilation similar to CT from April 02. There is colonic gas, most characteristic of partial small bowel obstruction -Gastroenterology evaluated the patient and at this time will hold off on colonoscopy. Did discuss w GS. -IVF for hydration -Continue ciprofloxacin IV, Flagyl IV. -Pain management with IV Dilaudid and po norco //Leukocytosis, WBCs 14.4-->15.5, likely due to diverticulitis abscess, patient was treated with outpatient by mouth ciprofloxacin and by mouth Flagyl. Patient is allergic to IV Flagyl -Continue antibiotics as above -04/08. 15.8. Stable. //Insomnia. Add Benadryl at night. //Urticaria, due to allergic reaction from last admission -Continue Vistaril when necessary for itching //DVT prophylaxis: SCDs, encourage ambulation. heparin Gomez Russell MD Apr 10, 2017 23:16
[2017-04-11] VITALS: BP 124/76; PULSE 112; RESP 18; TEMP 98.6; O2SAT 93
[2017-04-11] MEDS: D5-1/2 NS + KCL 30 MEQ INJ 1,000 ML IV SCH ×4 (02:06→15:47)
[2017-04-11 04:00] VITALS: BP 140/81; PULSE 109; RESP 18; TEMP 96.6; O2SAT 93
[2017-04-11] MEDS: PCA - TOTAL MG DILAUDID DELIVERED PER SHIFT OTHER SCH ×3 (05:43→21:56)
[2017-04-11 07:16] LABS: AUTOMATED NEUTROPHIL # 14.6 TH/MM3 (1.8-7.7); BASOPHIL # 0.1 TH/MM3 (0-0.2); BASOPHIL % 0.3 % (0.0-2.0); EOSINOPHIL # 0.1 TH/MM3 (0-0.4); EOSINOPHIL % 0.5 % (0.0-4.0); HEMATOCRIT 43.4 % (39.0-51.0); LYMPH % 5.9 % (9.0-44.0); MEAN CELL VOLUME 87.8 FL (80.0-100.0); MEAN CORPUSCULAR HEMOGLOBIN 28.8 PG (27.0-34.0); MEAN CORPUSCULAR HGB CONC 32.8 % (32.0-36.0); MONO % 11.2 % (0.0-8.0); NEUT % 82.1 % (16.0-70.0); PLATELET COUNT 333 TH/MM3 (150-450); RED BLOOD COUNT 4.94 MIL/MM3 (4.50-5.90); RED CELL DISTRIBUTION WIDTH 14.7 % (11.6-17.2); WHITE BLOOD COUNT 17.8 TH/MM3 (4.0-11.0)
[2017-04-11 07:27] LABS: HEMO FLAGS AUTO DIFF
[2017-04-11 08:00] VITALS: BP 137/78; PULSE 107; RESP 17; TEMP 98.1; O2SAT 93
[2017-04-11 08:06] LABS: BANDS 12 % (0-6); METAMYELOCYTES 2 % (0-1); MYELOCYTES 2 % (0-0); NEUTROPHIL # MANUAL DIFF 15.5 TH/MM3 (1.8-7.7); POLYS (SEG NEUTROPHILS) 71 % (16-70); SCAN/DIFF FINAL DIFF MANUAL; WBC DIFF SAMPLE 100
[2017-04-11 08:07] LABS: PLATELET ESTIMATE SMEAR NORMAL (NORMAL); PLATELET MORPHOLOGY NORMAL (NORMAL)
[2017-04-11] MEDS: HYDROmorphone HCL PCA 6 MG/30 ML IV SCH ×2 (08:51→18:02)
[2017-04-11 12:00] VITALS: BP 140/86; PULSE 112; RESP 17; TEMP 98.4; O2SAT 94
[2017-04-11 12:16] LABS: BICARBONATE 28.4 MEQ/L (21.0-32.0); MAGNESIUM 2.7 MG/DL (1.5-2.5)
[2017-04-11 12:19] LABS: POTASSIUM 5.5 MEQ/L (3.5-5.1)
[2017-04-11] MEDS: diphenhydrAMINE HCL 50 MG CAP PO PRN ×2 (14:22→20:37)
[2017-04-11 16:00] VITALS: BP 154/101; PULSE 110; RESP 17; TEMP 95.5; O2SAT 93
--- NOTE | 2017-04-11 17:15 | HHI.PR ---
Subjective Subjective Notes no acute issues, c/o pain but controlled with meds, good uop Objective Vitals/I&O Vital Signs Date Time Temp Pulse Resp B/P Pulse Ox O2 Delivery O2 Flow Rate FiO2 04/11/17 16:00 95.5 110 17 154/101 93 04/11/17 09:00 Nasal Cannula 3.00 Labs Laboratory Tests Test 04/11/17 04/11/17 04:01 11:31 White Blood Count 17.8 Red Blood Count 4.94 Hemoglobin 14.2 Hematocrit 43.4 Mean Corpuscular Volume 87.8 Mean Corpuscular Hemoglobin 28.8 Mean Corpuscular Hemoglobin 32.8 Concent Red Cell Distribution Width 14.7 Platelet Count 333 Mean Platelet Volume 9.1 Neutrophils (%) (Auto) 82.1 Lymphocytes (%) (Auto) 5.9 Monocytes (%) (Auto) 11.2 Eosinophils (%) (Auto) 0.5 Basophils (%) (Auto) 0.3 Neutrophils # (Auto) 14.6 Lymphocytes # (Auto) 1.0 Monocytes # (Auto) 2.0 Eosinophils # (Auto) 0.1 Basophils # (Auto) 0.1 CBC Comment AUTO DIFF Differential Total Cells 100 Counted Neutrophils % (Manual) 71 Band Neutrophils % 12 Lymphocytes % 5 Monocytes % 8 Neutrophils # (Manual) 15.5 Metamyelocytes 2 Myelocytes 2 Differential Comment FINAL DIFF MANUAL Platelet Estimate NORMAL Platelet Morphology Comment NORMAL Red Cell Morphology Comment NORMAL Sodium Level 132 Potassium Level 5.5 Chloride Level 100 Carbon Dioxide Level 28.4 Anion Gap 4 Blood Urea Nitrogen 10 Creatinine 0.72 Estimat Glomerular Filtration 117 Rate Random Glucose 143 Calcium Level 8.1 Phosphorus Level 3.1 Magnesium Level 2.7 Albumin 1.8 Cardiovascular: Regular Lungs: Clear Abdomen: Other (soft incisional tenderness, inferior karol saturation) A/P Assessment and Plan POD 1 dx lap lap eric, ex lap, sigmoidectomy with primary anastomosis, small bowel repair PLAN 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
[2017-04-11 20:00] VITALS: BP 160/85; PULSE 114; RESP 18; TEMP 98.4; O2SAT 97
[2017-04-11] MEDS: MICAFUNGIN INJ 150 MG in SODIUM CHLORIDE 0.9% INJ 100 ML IV SCH (21:56)
[2017-04-11] MEDS: ERTAPENEM INJ 1,000 MG in SODIUM CHLORIDE 0.9% INJ 100 ML IV SCH (21:56)
--- NOTE | 2017-04-11 23:43 | HHI.PR ---
Subjective Remarks Patient seen today around noon. Patient reports that pain is under control. Denies any chest pain or shortness of breath. No flatus. Objective Vital Signs Date Time Temp Pulse Resp B/P Pulse Ox O2 Delivery O2 Flow Rate FiO2 04/11/17 21:56 18 04/11/17 20:00 98.4 114 18 160/85 97 04/11/17 18:02 16 04/11/17 16:00 95.5 110 17 154/101 93 04/11/17 14:00 16 04/11/17 12:00 98.4 112 17 140/86 94 04/11/17 09:00 93 Nasal Cannula 3.00 04/11/17 08:51 17 04/11/17 08:00 98.1 107 17 137/78 93 04/11/17 05:43 18 04/11/17 04:00 96.6 109 18 140/81 93 04/11/17 00:00 98.6 112 18 124/76 93 I/O 04/10/17 04/10/17 04/10/17 04/11/17 04/11/17 04/11/17 07:00 15:00 23:00 07:00 15:00 23:00 Intake Total 942 ml 3984 ml 1035 ml 1091 ml Output Total 1495 ml 200 ml 190 ml Balance 942 ml 2489 ml 835 ml 901 ml Intake Oral 0 ml 100 ml 0 ml IV Total 942 ml 884 ml 1035 ml 1091 ml Other 3000 ml Output Urine Total 850 ml 150 ml 150 ml Gastric Drainage Total 5 ml 10 ml Drainage Total 240 ml 50 ml 30 ml Estimated Blood Loss 400 ml # Voids 2 # Bowel Movements 0 0 Result Diagram: 04/11/17 0401 04/11/17 1131 Objective Remarks GENERAL: patient lying in bed. Appears comfortable. Alert and oriented.alert and oriented 3. SKIN: Warm and dry. HEAD: Normocephalic. EYES: No scleral icterus. No injection or drainage. NECK: Supple, trachea midline. No JVD. CARDIOVASCULAR: Regular rate and rhythm without murmurs, gallops, or rubs. RESPIRATORY: Breath sounds equal bilaterally. No accessory muscle use. GASTROINTESTINAL: Abdomen soft, non-tender, nondistended. MUSCULOSKELETAL: No cyanosis, or edema. BACK: Nontender without obvious deformity. No CVA tenderness. A/P Assessment and Plan 04/11/17 //Leukocytosis. 17.8. No signs of new infection. Continue antibiotics as per infectious disease. Continue to monitor. //Hyperkalemia. 5.5. Hemolysis noted. Repeat labs ordered stat around 3:30 PM.. Discussed with nurse. Moved potassium from maintenance fluids. -= Continue postoperative care as per surgical service. Await return of bowel function. 46 y/o male with a history of HLD and diverticulitis with abscess presented to the [facility] ED with complaints of increasing abdominal pain. Patient was recently admitted for diverticulitis with abscess and possible bowel obstruction , was discharged on 04/04/17 and a colonoscopy was scheduled for Friday with Dr. Pickett. //Small bowel obstruction -Abdominal x-ray reviewed and shows a small bowel dilation similar to CT from April 02. There is colonic gas, most characteristic of partial small bowel obstruction -Gastroenterology evaluated the patient and at this time will hold off on colonoscopy. Did discuss w GS. -IVF for hydration -Continue ciprofloxacin IV, Flagyl IV. -Pain management with IV Dilaudid and po norco //Leukocytosis, WBCs 14.4-->15.5, likely due to diverticulitis abscess, patient was treated with outpatient by mouth ciprofloxacin and by mouth Flagyl. Patient is allergic to IV Flagyl -Continue antibiotics as above -04/11 initially had resolved, however 17.8 on 04/11. Likely secondary to stress. No signs of infection. Continue to monitor. //Insomnia. Add Benadryl at night. //Urticaria, due to allergic reaction from last admission -Continue Vistaril when necessary for itching //DVT prophylaxis: SCDs, encourage ambulation. heparin Discharge Planning as per surgical service. Gomez Russell MD Apr 11, 2017 23:43
[2017-04-12] VITALS (7 sets, daily range): BP systolic 129–179; BP diastolic 72–95; PULSE 101–112; RESP 18–20; TEMP 97–99.4; O2SAT 92–96
[2017-04-12 01:12] LABS: BICARBONATE 30.5 MEQ/L (21.0-32.0); POTASSIUM 4.9 MEQ/L (3.5-5.1)
[2017-04-12] MEDS: DEXT 5%-NACL 0.45% 1000 ML INJ 1,000 ML IV SCH ×3 (01:20→21:28)
[2017-04-12] MEDS: PCA - TOTAL MG DILAUDID DELIVERED PER SHIFT OTHER SCH ×3 (04:01→21:31)
[2017-04-12] MEDS: HYDROmorphone HCL PCA 6 MG/30 ML IV SCH ×2 (04:02→16:33)
[2017-04-12 07:36] LABS: AUTOMATED NEUTROPHIL # 16.1 TH/MM3 (1.8-7.7); BASOPHIL % 0.2 % (0.0-2.0); EOSINOPHIL # 0.2 TH/MM3 (0-0.4); EOSINOPHIL % 0.9 % (0.0-4.0); HEMATOCRIT 37.9 % (39.0-51.0); HEMO FLAGS DIFF FINAL; LYMPH % 7.7 % (9.0-44.0); LYMPHOCYTE # 1.5 TH/MM3 (1.0-4.8); MEAN CELL VOLUME 86.7 FL (80.0-100.0); MEAN CORPUSCULAR HGB CONC 33.5 % (32.0-36.0); NEUT % 82.2 % (16.0-70.0); PLATELET COUNT 313 TH/MM3 (150-450); RED BLOOD COUNT 4.37 MIL/MM3 (4.50-5.90); RED CELL DISTRIBUTION WIDTH 14.7 % (11.6-17.2); WHITE BLOOD COUNT 19.6 TH/MM3 (4.0-11.0)
[2017-04-12 07:50] LABS: BICARBONATE 28.5 MEQ/L (21.0-32.0); MAGNESIUM 2.3 MG/DL (1.5-2.5); POTASSIUM 4.5 MEQ/L (3.5-5.1)
--- NOTE | 2017-04-12 08:56 | MP ---
cc: FRANTZ RODRIGEZ M.D. DATE OF SURGERY 04/10/2017 PREOPERATIVE DIAGNOSIS Recurrent diverticulitis refractory to medical management with previous intra-abdominal abscess. POSTOPERATIVE DIAGNOSIS Recurrent diverticulitis refractory to medical management with previous intra-abdominal abscess. PROCEDURE PERFORMED Rigid sigmoidoscopy SURGEON Frantz Rodrigez MD ANESTHESIA General endotracheal COMPLICATIONS None INDICATIONS FOR PROCEDURE Mr. Chin is a pleasant 46-year-old gentleman who is currently undergoing a sigmoid colectomy by Dr. Swapnil Nixon. Dr. Nixon asked me to performed rigid sigmoidoscopy to evaluate the distal colon. This was prior to the anastomosis with an EEA. Please see his operative note for the details of his portion of the procedure. DETAILS The patient was prepped and draped in standard surgical fashion. He was under general anesthesia by Dr. Nixon. A digital rectal exam revealed no ano or rectal masses. A rigid sigmoidoscope was then inserted. It was insufflated and advanced up to about 20 cm without any difficulty whatsoever. Colonic mucosa appeared healthy and pink. There is no obvious diverticula that I could appreciate no obvious masses and no bleeding. There was a small amount of green liquid stool which was evacuated. The scope was then withdrawn. Dr. Nixon then performed an EEA anastomosis with a 29 EEA. I then reinserted the rigid sigmoidoscope and advanced again to 20 cm. The rectal stump was then insufflated and the anastomosis was tested and found to be intact without evidence of leakage of air and there was no evidence of bleeding in the distal rectal stump. The rigid sigmoidoscope was then opened and the colon allowed to decompress. The rigid sigmoidoscope was then withdrawn. The patient was then left in the care of Dr. Swapnil Nixon who is going to complete the surgical procedure. MD LAILA Carpenter/NASRIN /3:19 PM /8:48 AM
--- NOTE | 2017-04-12 10:58 | HHI.GIFU ---
Subjective Remarks Post op day [address] w bile recieving pain meds S/p sigmoid resection Objective Vitals I&O Vital Signs Date Time Temp Pulse Resp B/P Pulse Ox O2 Delivery O2 Flow Rate FiO2 04/12/17 04:07 Nasal Cannula 2.00 04/12/17 04:02 20 04/12/17 04:01 20 04/12/17 04:00 97.4 112 18 151/74 95 04/12/17 00:00 98.5 108 18 136/81 96 04/11/17 21:56 18 04/11/17 20:00 98.4 114 18 160/85 97 04/11/17 18:02 16 04/11/17 16:00 95.5 110 17 154/101 93 04/11/17 14:00 16 04/11/17 12:00 98.4 112 17 140/86 94 I/O 04/11/17 04/11/17 04/11/17 04/12/17 04/12/17 04/12/17 06:59 14:59 22:59 06:59 14:59 22:59 Intake Total 1035 ml 1091 ml 388 ml 556 ml Output Total 200 ml 190 ml 500 ml 520 ml Balance 835 ml 901 ml -112 ml 36 ml Intake Oral 0 ml IV Total 1035 ml 1091 ml 388 ml 556 ml Output Urine Total 150 ml 150 ml 500 ml 250 ml Gastric Drainage Total 10 ml 250 ml Drainage Total 50 ml 30 ml 20 ml # Bowel Movements 0 Laboratory Laboratory Tests Test 04/11/17 04/12/17 04/12/17 11:31 00:44 05:43 Sodium Level 132 136 133 Potassium Level 5.5 4.9 4.5 Chloride Level 100 100 98 Carbon Dioxide Level 28.4 30.5 28.5 Anion Gap 4 6 7 Blood Urea Nitrogen 10 11 10 Creatinine 0.72 0.72 0.69 Estimat Glomerular Filtration 117 117 122 Rate Random Glucose 143 117 108 Calcium Level 8.1 8.0 7.9 Phosphorus Level 3.1 2.7 Magnesium Level 2.7 2.3 Albumin 1.8 1.9 White Blood Count 19.6 Red Blood Count 4.37 Hemoglobin 12.7 Hematocrit 37.9 Mean Corpuscular Volume 86.7 Mean Corpuscular Hemoglobin 29.0 Mean Corpuscular Hemoglobin 33.5 Concent Red Cell Distribution Width 14.7 Platelet Count 313 Mean Platelet Volume 9.4 Neutrophils (%) (Auto) 82.2 Lymphocytes (%) (Auto) 7.7 Monocytes (%) (Auto) 9.0 Eosinophils (%) (Auto) 0.9 Basophils (%) (Auto) 0.2 Neutrophils # (Auto) 16.1 Lymphocytes # (Auto) 1.5 Monocytes # (Auto) 1.8 Eosinophils # (Auto) 0.2 Basophils # (Auto) 0.0 CBC Comment DIFF FINAL Differential Comment Imaging Laboratory Tests Test 04/07/17 04/09/17 04/10/17 04/11/17 16:23 07:35 10:40 04:01 Immunoglobulin A 202 mg/dL Tissue Transglutaminase IgG Ab U/mL Total Bilirubin 0.5 MG/DL Aspartate Amino Transf 11 U/L (AST/SGOT) Alanine Aminotransferase 14 U/L (ALT/SGPT) Alkaline Phosphatase 54 U/L Total Protein 6.1 GM/DL Prealbumin 7 MG/DL Blood Type A POSITIVE Antibody Screen NEGATIVE Blood Bank Comment Differential Total Cells 100 Counted Neutrophils % (Manual) 71 % Band Neutrophils % 12 % Lymphocytes % 5 % Monocytes % 8 % Neutrophils # (Manual) 15.5 TH/MM3 Metamyelocytes 2 % Myelocytes 2 % Platelet Estimate NORMAL Platelet Morphology Comment NORMAL Red Cell Morphology Comment NORMAL Test 04/12/17 05:43 White Blood Count 19.6 TH/MM3 Red Blood Count 4.37 MIL/MM3 Hemoglobin 12.7 GM/DL Hematocrit 37.9 % Mean Corpuscular Volume 86.7 FL Mean Corpuscular Hemoglobin 29.0 PG Mean Corpuscular Hemoglobin 33.5 % Concent Red Cell Distribution Width 14.7 % Platelet Count 313 TH/MM3 Mean Platelet Volume 9.4 FL Neutrophils (%) (Auto) 82.2 % Lymphocytes (%) (Auto) 7.7 % Monocytes (%) (Auto) 9.0 % Eosinophils (%) (Auto) 0.9 % Basophils (%) (Auto) 0.2 % Neutrophils # (Auto) 16.1 TH/MM3 Lymphocytes # (Auto) 1.5 TH/MM3 Monocytes # (Auto) 1.8 TH/MM3 Eosinophils # (Auto) 0.2 TH/MM3 Basophils # (Auto) 0.0 TH/MM3 CBC Comment DIFF FINAL Differential Comment Sodium Level 133 MEQ/L Potassium Level 4.5 MEQ/L Chloride Level 98 MEQ/L Carbon Dioxide Level 28.5 MEQ/L Anion Gap 7 MEQ/L Blood Urea Nitrogen 10 MG/DL Creatinine 0.69 MG/DL Estimat Glomerular Filtration 122 ML/MIN Rate Random Glucose 108 MG/DL Calcium Level 7.9 MG/DL Phosphorus Level 2.7 MG/DL Magnesium Level 2.3 MG/DL Albumin 1.9 GM/DL Physical Exam CHEST: Chest is clear to auscultation and percussion. CARDIAC: Regular rate and rhythm with no murmur gallop or rubs. ABDOMEN: mild distention incioncs and draains intact BS diminished EXTREMITIES: No clubbing, cyanosis, or edema. Assessment and Plan Assessment: (1) Diverticulitis of both large and small intestine with perforation (2) Ileus (3) Abdominal pain (4) Bowel obstruction Plan Continue present therapy .. appears stable ... proceed as per surgery will sign of call if needed f/u w Dr Pickett after d/c discussed w family Problem Qualifiers (1) Bowel obstruction: Qualified Code: K56.60 - Intestinal obstruction, unspecified type Júnior Gale MD Apr 12, 2017 10:58
[2017-04-12 13:53] LABS: ENDOMYSIAL AB TITER ND (<1:5); TISSUE TRANSGLUTAMINASE AB LESS THAN 1 U/mL (())
[2017-04-12] MEDS ORDERED: LIDOCAINE VISCOUS 2% SOLN 15 ML UDC SWISH-SWAL PRN (15:45)
--- NOTE | 2017-04-12 16:41 | HHI.PR ---
Subjective Subjective Notes doing pretty well. Says no one has told him what he can and can not do. Was in chair for 45 minutes today. No flatus or BM. RN reports 400 cc output from NG over last 15 hours. Objective Vitals/I&O Vital Signs Date Time Temp Pulse Resp B/P Pulse Ox O2 Delivery O2 Flow Rate FiO2 04/12/17 16:33 16 04/12/17 12:00 97.0 109 141/95 92 04/12/17 04:07 Nasal Cannula 2.00 Labs Laboratory Tests Test 04/12/17 04/12/17 00:44 05:43 Sodium Level 136 133 Potassium Level 4.9 4.5 Chloride Level 100 98 Carbon Dioxide Level 30.5 28.5 Anion Gap 6 7 Blood Urea Nitrogen 11 10 Creatinine 0.72 0.69 Estimat Glomerular Filtration 117 122 Rate Random Glucose 117 108 Calcium Level 8.0 7.9 White Blood Count 19.6 Red Blood Count 4.37 Hemoglobin 12.7 Hematocrit 37.9 Mean Corpuscular Volume 86.7 Mean Corpuscular Hemoglobin 29.0 Mean Corpuscular Hemoglobin 33.5 Concent Red Cell Distribution Width 14.7 Platelet Count 313 Mean Platelet Volume 9.4 Neutrophils (%) (Auto) 82.2 Lymphocytes (%) (Auto) 7.7 Monocytes (%) (Auto) 9.0 Eosinophils (%) (Auto) 0.9 Basophils (%) (Auto) 0.2 Neutrophils # (Auto) 16.1 Lymphocytes # (Auto) 1.5 Monocytes # (Auto) 1.8 Eosinophils # (Auto) 0.2 Basophils # (Auto) 0.0 CBC Comment DIFF FINAL Differential Comment Phosphorus Level 2.7 Magnesium Level 2.3 Albumin 1.9 Cardiovascular: Regular Lungs: Clear Abdomen: Non-distended, Other (dressing dry and intact. Drain with serosanguinous output.), Post-op tenderness Extremities: No edema, Perfused A/P Assessment and Plan Postop sigmoid resection, SB enterotomy repair. Clamp ZULY CEBALLOS at [facility]. I told patient and family, the more he is up moving around, the better he will do. If tolerates NG clamp, could remove it tomorrow. Gordon Munson MD Apr 12, 2017 16:41
[2017-04-12] MEDS ORDERED: BENZOCAINE 6 MG/MENTHOL 10 MG LOZENGE BUCCAL PRN (16:45)
[2017-04-12] MEDS: MICAFUNGIN INJ 150 MG in SODIUM CHLORIDE 0.9% INJ 100 ML IV SCH (21:31)
[2017-04-12] MEDS: ERTAPENEM INJ 1,000 MG in SODIUM CHLORIDE 0.9% INJ 100 ML IV SCH (21:31)
[2017-04-12] MEDS: diphenhydrAMINE HCL 50 MG CAP PO PRN (21:33)
--- NOTE | 2017-04-12 23:50 | HHI.PR ---
Subjective Remarks Patient seen this morning. Reports that abdominal pain is controlled. He does report a sore throat. Denies any chest pain or Shortness of breath. Still no bowel movement. Objective Vital Signs Date Time Temp Pulse Resp B/P Pulse Ox O2 Delivery O2 Flow Rate FiO2 04/12/17 21:31 18 04/12/17 20:04 96 Nasal Cannula 3.00 04/12/17 20:00 99.4 111 19 155/92 96 04/12/17 16:33 16 04/12/17 16:00 98.6 101 20 179/72 96 04/12/17 14:00 16 04/12/17 12:00 97.0 109 20 141/95 92 04/12/17 08:00 98.4 110 20 129/86 94 04/12/17 04:07 Nasal Cannula 2.00 04/12/17 04:02 20 04/12/17 04:01 20 04/12/17 04:00 97.4 112 18 151/74 95 04/12/17 00:00 98.5 108 18 136/81 96 I/O 04/11/17 04/11/17 04/11/17 04/12/17 04/12/17 04/12/17 07:00 15:00 23:00 07:00 15:00 23:00 Intake Total 1035 ml 1091 ml 388 ml 556 ml 1432 ml 800 ml Output Total 200 ml 190 ml 500 ml 520 ml 1055 ml 405 ml Balance 835 ml 901 ml -112 ml 36 ml 377 ml 395 ml Intake Oral 0 ml 460 ml IV Total 1035 ml 1091 ml 388 ml 556 ml 972 ml 800 ml Output Urine Total 150 ml 150 ml 500 ml 250 ml 650 ml Gastric Drainage Total 10 ml 250 ml 400 ml 400 ml Drainage Total 50 ml 30 ml 20 ml 5 ml 5 ml # Bowel Movements 0 0 Result Diagram: 04/12/1743 04/12/1743 Objective Remarks GENERAL: patient lying in bed. Appears comfortable. Alert and oriented.alert and oriented 3. SKIN: Warm and dry. HEAD: Normocephalic. EYES: No scleral icterus. No injection or drainage. NECK: Supple, trachea midline. No JVD. CARDIOVASCULAR: Regular rate and rhythm without murmurs, gallops, or rubs. RESPIRATORY: Breath sounds equal bilaterally. No accessory muscle use. GASTROINTESTINAL: Abdomen soft, non-tender, nondistended. MUSCULOSKELETAL: No cyanosis, or edema. BACK: Nontender without obvious deformity. No CVA tenderness. A/P Assessment and Plan 04/12/17 still with leukocytosis 19.continue to monitor for signs of infection. Continue postoperative care. NG tube with continued output. Await return of bowel function. 46 y/o male with a history of HLD and diverticulitis with abscess presented to the [place] ED with complaints of increasing abdominal pain. Patient was recently admitted for diverticulitis with abscess and possible bowel obstruction , was discharged on 04/04/17 and a colonoscopy was scheduled for Friday with Dr. Pickett. //Small bowel obstruction -Abdominal x-ray reviewed and shows a small bowel dilation similar to CT from April 02. There is colonic gas, most characteristic of partial small bowel obstruction -Gastroenterology evaluated the patient and at this time will hold off on colonoscopy. Did discuss w GS. -IVF for hydration -Continue ciprofloxacin IV, Flagyl IV. -Pain management with IV Dilaudid and po norco //Leukocytosis, WBCs 14.4-->15.5, likely due to diverticulitis abscess, patient was treated with outpatient by mouth ciprofloxacin and by mouth Flagyl. Patient is allergic to IV Flagyl -Continue antibiotics as above -04/11 initially had resolved, however 17.8 on 04/11. Likely secondary to stress. No signs of infection. Continue to monitor. //Insomnia. Add Benadryl at night. //Urticaria, due to allergic reaction from last admission -Continue Vistaril when necessary for itching //DVT prophylaxis: SCDs, encourage ambulation. heparin Discharge Planning as per surgical service. Gomez Russell MD Apr 12, 2017 23:50
[2017-04-13] VITALS (7 sets, daily range): BP systolic 141–174; BP diastolic 64–104; PULSE 84–111; RESP 18–20; TEMP 95.9–98.7; O2SAT 90–97
[2017-04-13] MEDS: HYDROmorphone HCL PCA 6 MG/30 ML IV SCH ×3 (01:00→16:53)
[2017-04-13] MEDS: PCA - TOTAL MG DILAUDID DELIVERED PER SHIFT OTHER SCH ×3 (06:00→21:42)
[2017-04-13] MEDS: DEXT 5%-NACL 0.45% 1000 ML INJ 1,000 ML IV SCH ×2 (06:40→15:31)
--- NOTE | 2017-04-13 12:48 | HHI.PR ---
Subjective Subjective Notes feels ok. no bowel activity yet. pain controlled. up walking around and sitting in chair. wants NG out sandra Objective Vitals/I&O Vital Signs Date Time Temp Pulse Resp B/P Pulse Ox O2 Delivery O2 Flow Rate FiO2 04/13/17 09:04 16 04/13/17 04:00 96.6 84 174/64 95 04/12/17 20:04 Nasal Cannula 3.00 Cardiovascular: Regular Lungs: Clear Abdomen: Post-op tenderness Narrative Exam few BS, MAGALI changed at bedside, wound is clean, no drainage or redness Wound Wound : Appearance: Clean & Dry Dressing: VAC A/P Assessment and Plan s/p sigmoid colectomy, repair SB entertomy await bowel function will try clamping NG and see if he tolerates it was clamped last night and had nausea. hooked up and they got 600cc of bile colored fluid FU CBC Kleber Russell MD Apr 13, 2017 12:48
[2017-04-13 19:04] LABS: AUTOMATED NEUTROPHIL # 13.8 TH/MM3 (1.8-7.7); BASOPHIL % 0.1 % (0.0-2.0); EOSINOPHIL # 0.3 TH/MM3 (0-0.4); HEMATOCRIT 39.9 % (39.0-51.0); HEMO FLAGS DIFF FINAL; LYMPH % 6.7 % (9.0-44.0); LYMPHOCYTE # 1.1 TH/MM3 (1.0-4.8); MEAN CELL VOLUME 87.3 FL (80.0-100.0); MEAN CORPUSCULAR HEMOGLOBIN 28.7 PG (27.0-34.0); MEAN CORPUSCULAR HGB CONC 32.9 % (32.0-36.0); MONO % 6.3 % (0.0-8.0); NEUT % 84.9 % (16.0-70.0); PLATELET COUNT 285 TH/MM3 (150-450); RED BLOOD COUNT 4.57 MIL/MM3 (4.50-5.90); RED CELL DISTRIBUTION WIDTH 14.8 % (11.6-17.2); WHITE BLOOD COUNT 16.3 TH/MM3 (4.0-11.0)
[2017-04-13 19:14] LABS: AST (GOT) 27 U/L (15-37); CHLORIDE 97 MEQ/L (98-107); POTASSIUM 4.6 MEQ/L (3.5-5.1); SODIUM (NA) 131 MEQ/L (136-145)
[2017-04-13 19:15] LABS: ANION GAP 7 MEQ/L (5-15); BICARBONATE 27.2 MEQ/L (21.0-32.0); BLOOD UREA NITROGEN 10 MG/DL (7-18); GLOMERULAR FILTRATION RATE 177 ML/MIN (>89)
[2017-04-13 19:20] LABS: ALKALINE PHOSPHATASE 61 U/L (45-117); ALT (GPT) 13 U/L (12-78); TOTAL BILIRUBIN ADULT 0.4 MG/DL (0.2-1.0)
--- NOTE | 2017-04-13 19:52 | HHI.PR ---
Subjective Remarks Patient seen this morning around 11 AM. Says he is feeling all right. Did have some nausea overnight which resolved with placing NG tube back to suction. Denies any chest pain or shortness of breath.no bowel movements. Objective Vital Signs Date Time Temp Pulse Resp B/P Pulse Ox O2 Delivery O2 Flow Rate FiO2 04/13/17 16:53 16 04/13/17 16:00 98.7 111 20 164/81 90 04/13/17 14:00 16 04/13/17 12:00 95.9 102 18 141/92 90 04/13/17 09:04 16 04/13/17 08:00 96.0 105 20 154/104 93 04/13/17 06:00 18 04/13/17 04:00 96.6 84 19 174/64 95 04/13/17 01:30 18 04/13/17 01:00 22 04/13/17 00:02 96.5 94 19 163/66 97 04/13/17 00:01 96.5 94 19 163/66 97 04/12/17 21:31 18 04/12/17 20:04 96 Nasal Cannula 3.00 04/12/17 20:00 99.4 111 19 155/92 96 I/O 04/12/17 04/12/17 04/12/17 04/13/17 04/13/17 04/13/17 07:00 15:00 23:00 07:00 15:00 23:00 Intake Total 556 ml 1432 ml 800 ml 0 ml 2188 ml Output Total 520 ml 1055 ml 805 ml 500 ml 600 ml 600 ml Balance 36 ml 377 ml -5 ml -500 ml 1588 ml -600 ml Intake Oral 460 ml 0 ml 0 ml IV Total 556 ml 972 ml 800 ml 2188 ml Output Urine Total 250 ml 650 ml 400 ml 200 ml 600 ml Gastric Drainage Total 250 ml 400 ml 400 ml 300 ml 600 ml Drainage Total 20 ml 5 ml 5 ml 0 ml # Bowel Movements 0 0 0 0 Result Diagram: 04/13/17181804/13/171818 Objective Remarks GENERAL: patient lying in bed. Appears comfortable. Alert and oriented.alert and oriented 3.NG tube to suction with bilious drainage. SKIN: Warm and dry. HEAD: Normocephalic. EYES: No scleral icterus. No injection or drainage. NECK: Supple, trachea midline. No JVD. CARDIOVASCULAR: Regular rate and rhythm without murmurs, gallops, or rubs. RESPIRATORY: Breath sounds equal bilaterally. No accessory muscle use. GASTROINTESTINAL: Abdomen soft, non-tender, nondistended. postsurgical. Dressing clean and dry and intact. MUSCULOSKELETAL: No cyanosis, or edema. BACK: Nontender without obvious deformity. No CVA tenderness. A/P Assessment and Plan 04/13/17 still with leukocytosis 16.3. Improving.continue to monitor for signs of infection. Continue postoperative care. -Postoperative care as per surgical service. NG tube to low intermittent suction. -Hyponatremia. 131. Mild. Change fluids to D5 normal saline. 46 y/o male with a history of HLD and diverticulitis with abscess presented to the [place] ED with complaints of increasing abdominal pain. Patient was recently admitted for diverticulitis with abscess and possible bowel obstruction , was discharged on 04/04/17 and a colonoscopy was scheduled for Friday with Dr. Pickett. //Small bowel obstruction -Abdominal x-ray reviewed and shows a small bowel dilation similar to CT from April 02. There is colonic gas, most characteristic of partial small bowel obstruction -Gastroenterology evaluated the patient and at this time will hold off on colonoscopy. Did discuss w GS. -IVF for hydration -Continue ciprofloxacin IV, Flagyl IV. -Postoperative pain control as per surgical service. //Perforated diverticulitis with interloop abscess and partial small bowel obstruction - patient was treated with outpatient by mouth ciprofloxacin and by mouth Flagyl. Patient is allergic to IV Flagyl -Continue antibiotics as above -04/11 initially had resolved, however 17.8 on 04/11. Likely secondary to stress. No signs of infection. Improving. Continue to monitor. -Infectious disease following. Continue antibiotics as per infectious disease. //Insomnia. Add Benadryl at night. //Urticaria, due to allergic reaction from last admission -Continue Vistaril when necessary for itching //DVT prophylaxis: SCDs, encourage ambulation. heparin Discharge Planning as per surgical service. Gomez Russell MD Apr 13, 2017 19:52
[2017-04-13] MEDS: ERTAPENEM INJ 1,000 MG in SODIUM CHLORIDE 0.9% INJ 100 ML IV SCH (21:35)
[2017-04-13] MEDS: MICAFUNGIN INJ 150 MG in SODIUM CHLORIDE 0.9% INJ 100 ML IV SCH (21:38)
[2017-04-13] MEDS: DEXT 5%-NACL 0.9% 1000 ML INJ 1,000 ML IV SCH (21:41)
[2017-04-14] VITALS (8 sets, daily range): BP systolic 141–184; BP diastolic 72–85; PULSE 86–131; RESP 14–20; TEMP 97.9–101.5; O2SAT 90–95
[2017-04-14] MEDS: HYDROmorphone HCL PCA 6 MG/30 ML IV SCH ×2 (01:36→21:41)
[2017-04-14 05:42] LABS: BASOPHIL # 0.2 TH/MM3 (0-0.2); BASOPHIL % 0.8 % (0.0-2.0); EOSINOPHIL # 0.2 TH/MM3 (0-0.4); EOSINOPHIL % 0.8 % (0.0-4.0); HEMATOCRIT 40.2 % (39.0-51.0); HEMO FLAGS DIFF FINAL; LYMPH % 2.9 % (9.0-44.0); LYMPHOCYTE # 0.7 TH/MM3 (1.0-4.8); MEAN CELL VOLUME 86.8 FL (80.0-100.0); MEAN CORPUSCULAR HEMOGLOBIN 28.1 PG (27.0-34.0); MEAN CORPUSCULAR HGB CONC 32.4 % (32.0-36.0); MONO % 5.3 % (0.0-8.0); NEUT % 90.2 % (16.0-70.0); PLATELET COUNT 356 TH/MM3 (150-450); RED BLOOD COUNT 4.63 MIL/MM3 (4.50-5.90); RED CELL DISTRIBUTION WIDTH 14.6 % (11.6-17.2); WHITE BLOOD COUNT 24.4 TH/MM3 (4.0-11.0)
[2017-04-14 05:46] LABS: BICARBONATE 33.4 MEQ/L (21.0-32.0); MAGNESIUM 2.1 MG/DL (1.5-2.5)
[2017-04-14 05:49] LABS: POTASSIUM 5.5 MEQ/L (3.5-5.1)
[2017-04-14] MEDS: PCA - TOTAL MG DILAUDID DELIVERED PER SHIFT OTHER SCH ×2 (06:00→20:22)
--- NOTE | 2017-04-14 09:14 | HHI.PR ---
Subjective Remarks Follow up for perforated diverticulitis with interloop abscess and partial SBO. Patient is resting in bed but complains of diffuse abdominal pain, especially on the lower abdomen. He also reports multiple episodes of diarrhea. He also had fever of 101.5F. Objective Vitals Vital Signs Date Time Temp Pulse Resp B/P Pulse Ox O2 Delivery O2 Flow Rate FiO2 04/14/17 08:00 101.5 130 18 184/84 90 04/14/17 06:00 18 04/14/17 04:00 99.0 118 18 169/75 93 04/14/17 01:36 16 04/14/17 00:00 98.7 86 19 168/85 93 04/13/17 21:42 18 04/13/17 20:00 97.6 86 18 167/75 92 04/13/17 20:00 94 Nasal Cannula 3.00 04/13/17 16:53 16 04/13/17 16:00 98.7 111 20 164/81 90 04/13/17 14:00 16 04/13/17 12:00 95.9 102 18 141/92 90 I/O 04/13/17 04/13/17 04/13/17 04/14/17 04/14/17 04/14/17 06:59 14:59 22:59 06:59 14:59 22:59 Intake Total 0 ml 2188 ml 600 ml 909 ml Output Total 500 ml 600 ml 960 ml 10 ml Balance -500 ml 1588 ml -360 ml 899 ml Intake Oral 0 ml 0 ml 0 ml IV Total 2188 ml 600 ml 909 ml Output Urine Total 200 ml 600 ml 300 ml Gastric Drainage Total 300 ml 600 ml Drainage Total 0 ml 60 ml 10 ml # Voids 3 # Bowel Movements 0 0 0 2 Result Diagram: 04/14/17 0459 04/14/17 0459 Imaging Last Impressions Chest X-Ray 04/14/17 0000 Signed Impressions: Service Date/Time: Friday, April 14, 2017 12:22 - CONCLUSION: Hypoinflation with bibasilar consolidation partly due to atelectasis. I cannot exclude infiltrates. Viral Meza Jr., MD Abdomen/Pelvis CT 04/14/17 0000 Signed Impressions: Service Date/Time: Friday, April 14, 2017 17:36 - CONCLUSION: 1. Interim midline laparotomy and sigmoid colon resection with reanastomosis. The colon is nonobstructed. Small bowel gas pattern most typical of a mild small bowel ileus. No abrupt caliber changes are seen. 2. 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 No residual fistula tract demonstrated. 3. Trace ascites/mild mesenteric edema. No evidence of abscess. 4. Fatty liver again noted. 5. Nonobstructing stone of the lower pole the left kidney again noted. 6. Mild body wall edema/anasarca has developed. 7. Consolidation and moderate effusion of the right lung base, no. Trace atelectasis left base. Hi Marrero MD Objective Remarks GENERAL: AOX3, NAD. SKIN: Warm and dry. HEAD: Normocephalic. EYES: No scleral icterus. No injection or drainage. NECK: Supple, trachea midline. No JVD or lymphadenopathy. CARDIOVASCULAR: Regular rate and rhythm without murmurs, gallops, or rubs. RESPIRATORY: Breath sounds equal bilaterally. No accessory muscle use. GASTROINTESTINAL: Abdomen somewhat firm, Diffusely tender to palpation, dominique lower abd, nondistended. MUSCULOSKELETAL: No cyanosis, or edema. BACK: Nontender without obvious deformity. No CVA tenderness. A/P Problem List: (1) Bowel obstruction ICD Code: K56.60 Status: Acute (2) Leukocytosis ICD Code: D72.829 Status: Acute (3) Urticaria ICD Code: L50.9 Status: Chronic Assessment and Plan Mr. Chin is a 46 year old male with a history of diverticulitis and abscess who was admitted to the hospital due to intractable abdominal pain. He was recently discharged from the hospital after being treated for similar symptoms. He was discharged on Cipro and Flagyl. However, it appears that patient developed allergic reaction to Flagyl. He returned to the hospital due to intractable abdominal pain, distension, nausea, vomiting. Patient underwent ex lap, sigmoidectomy with primary anastomosis as well as small bowel repair. ID was consulted. - Perforated diverticulitis with interloop abscess - Small bowel obstruction - Continue Ertapenem 1g Q24hrs per ID. - Continue Micafungin 150mg Q24hrs per ID. - Surgery is following. Patient is currently NPO, NG tube clamped. 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 - Possible C. Diff colitis - Sepsis (Tachycardia, Fever 101.5, WBC 24.4K, intra-abdominal infection). - Due to multiple episodes of diarrhea, we will check C. Diff PCR. - High possibility of C. Diff colitis given patient's recent abx use, leukocytosis, diarrhea, fever. - Patient will likely need oral Vancomycin should C. Diff PCR comes to be positive. - Also check lactic acid and procalcitonin. - Hypertension - likely due to pain. Will continue to monitor. Full code. SCDs. Problem Qualifiers (1) Bowel obstruction: Qualified Code: K56.60 - Intestinal obstruction, unspecified type Denny Avila DO Apr 14, 2017 09:13
[2017-04-14] MEDS: DEXT 5%-NACL 0.9% 1000 ML INJ 1,000 ML IV SCH ×2 (09:39→18:17)
--- NOTE | 2017-04-14 10:31 | HHI.IDPN ---
Subjective Subjective Remarks pt developped diarrhea , 10 BMs yday fever up to 101.2 and worsening leukocytosis up to 24 K today He is co some abd pain RLQ Antibiotics ertapenem micafungin Allergies: Coded Allergies: codeine (Unverified Allergy, Severe, Constipation, 04/15/17) metronidazole (Unverified Allergy, Severe, extreme diarrhea, 04/15/17) fluconazole (Unverified Allergy, Unknown, Hives, 04/15/17) HIVES AND RASH morphine (Unverified Allergy, Unknown, 04/15/17) piperacillin (Unverified Allergy, Unknown, Hives, 04/15/17) HIVES AND RASH tazobactam (Unverified Allergy, Unknown, Hives, 04/15/17) HIVES AND RASH Objective . Vital Signs Date Time Temp Pulse Resp B/P Pulse Ox O2 Delivery O2 Flow Rate FiO2 04/14/17 08:00 101.5 130 18 184/84 90 04/14/17 06:00 18 04/14/17 04:00 99.0 118 18 169/75 93 04/14/17 01:36 16 04/14/17 00:00 98.7 86 19 168/85 93 04/13/17 21:42 18 04/13/17 20:00 97.6 86 18 167/75 92 04/13/17 20:00 94 Nasal Cannula 3.00 04/13/17 16:53 16 04/13/17 16:00 98.7 111 20 164/81 90 04/13/17 14:00 16 04/13/17 12:00 95.9 102 18 141/92 90 04/13/17 04/13/17 04/14/17 15:00 23:00 07:00 Intake Total 2188 ml 600 ml 909 ml Output Total 600 ml 960 ml 10 ml Balance 1588 ml -360 ml 899 ml Intake Oral 0 ml 0 ml IV Total 2188 ml 600 ml 909 ml Output Urine Total 600 ml 300 ml Gastric Drainage Total 600 ml Drainage Total 60 ml 10 ml # Voids 3 # Bowel Movements 0 0 2 . Laboratory Tests Test 04/13/17 04/14/17 18:19 04:59 White Blood Count 16.3 TH/MM3 24.4 TH/MM3 Red Blood Count 4.57 MIL/MM3 4.63 MIL/MM3 Hemoglobin 13.1 GM/DL 13.0 GM/DL Hematocrit 39.9 % 40.2 % Mean Corpuscular Volume 87.3 FL 86.8 FL Mean Corpuscular Hemoglobin 28.7 PG 28.1 PG Mean Corpuscular Hemoglobin 32.9 % 32.4 % Concent Red Cell Distribution Width 14.8 % 14.6 % Platelet Count 285 TH/MM3 356 TH/MM3 Mean Platelet Volume 9.0 FL 8.8 FL Neutrophils (%) (Auto) 84.9 % 90.2 % Lymphocytes (%) (Auto) 6.7 % 2.9 % Monocytes (%) (Auto) 6.3 % 5.3 % Eosinophils (%) (Auto) 2.0 % 0.8 % Basophils (%) (Auto) 0.1 % 0.8 % Neutrophils # (Auto) 13.8 TH/MM3 22.0 TH/MM3 Lymphocytes # (Auto) 1.1 TH/MM3 0.7 TH/MM3 Monocytes # (Auto) 1.0 TH/MM3 1.3 TH/MM3 Eosinophils # (Auto) 0.3 TH/MM3 0.2 TH/MM3 Basophils # (Auto) 0.0 TH/MM3 0.2 TH/MM3 CBC Comment DIFF FINAL DIFF FINAL Differential Comment Laboratory Tests Test 04/13/17 04/14/17 18:19 04:59 Sodium Level 131 MEQ/L 133 MEQ/L Potassium Level 4.6 MEQ/L 5.5 MEQ/L Chloride Level 97 MEQ/L 94 MEQ/L Carbon Dioxide Level 27.2 MEQ/L 33.4 MEQ/L Anion Gap 7 MEQ/L 6 MEQ/L Blood Urea Nitrogen 10 MG/DL 9 MG/DL Creatinine 0.50 MG/DL 0.65 MG/DL Estimat Glomerular Filtration 177 ML/MIN 131 ML/MIN Rate Random Glucose 95 MG/DL 95 MG/DL Calcium Level 7.8 MG/DL 7.9 MG/DL Total Bilirubin 0.4 MG/DL Aspartate Amino Transf 27 U/L (AST/SGOT) Alanine Aminotransferase 13 U/L (ALT/SGPT) Alkaline Phosphatase 61 U/L Total Protein 5.9 GM/DL Albumin 1.7 GM/DL 2.1 GM/DL Phosphorus Level 2.4 MG/DL Magnesium Level 2.1 MG/DL Physical Exam CONSTITUTIONAL/GENERAL: This is an obese young male patient, in no apparent distress. TUBES/LINES/DRAINS: SKIN: No jaundice, rashes, or lesions. EYES: Pupils equal and round and reactive. Extraocular motions intact. No scleral icterus. No injection or drainage. Fundi not examined. ENT: NG to suction. CARDIOVASCULAR: Regular rate and rhythm without murmurs, gallops, or rubs. No JVD. Peripheral pulses symmetric. RESPIRATORY/CHEST: Symmetric, unlabored respirations. Clear to auscultation. Breath sounds equal bilaterally. No wheezes, rales, or rhonchi. GASTROINTESTINAL: Abdomen post surgical, soft, minimally distended. Mildly tender to palpation diffsely Medial lapartomy incision covered with intact dressing. TAHMINA in place with serosang d/c No guarding. Bowel sounds present. MUSCULOSKELETAL: Extremities without clubbing, cyanosis, or edema. No mottling or clubbing. LYMPHATICS: No palpable cervical or supraclavicular adenopathy. NEUROLOGICAL: Awake and alert. Non focal PSYCHIATRIC:calm, cooperatinve Assessment & Plan Remarks perforated diverticulitis with interloop abscess and partial small bowell obstruction sp open sigmoidectomy with primary reanstomosis , small bowel repair Apr Allergic reaction to zosyn, hives, self reported Adverse reaction to Flagyl, diarrhea, self reported - pt denies hives to Flagyl - pt is willing to try flagyl again and see if can tolerate it w/o diarrhea Pt self reports fluconazol rection (hives) Abx associated new onsrt diarrhe, leukocytosis, fever : - diff dx include C.diff, IAA r/o C.diff if C.diff negative will order CT abd/pel monitor fever, WBC chk blood clx cont Invanz cont micafungin Discussed Condition With pt, hissiter dw Marychuy Garduno, Nikki Vail MD Apr 14, 2017 10:31
--- NOTE | 2017-04-14 11:45 | HHI.PR ---
Subjective Subjective Notes no nausea, tolerating ng clamp, still with pain +fever wbc 24k Objective Vitals/I&O Vital Signs Date Time Temp Pulse Resp B/P Pulse Ox O2 Delivery O2 Flow Rate FiO2 04/14/17 08:00 101.5 130 18 184/84 90 04/13/17 20:00 Nasal Cannula 3.00 Labs Laboratory Tests Test 04/13/17 04/14/17 18:19 04:59 White Blood Count 16.3 24.4 Red Blood Count 4.57 4.63 Hemoglobin 13.1 13.0 Hematocrit 39.9 40.2 Mean Corpuscular Volume 87.3 86.8 Mean Corpuscular Hemoglobin 28.7 28.1 Mean Corpuscular Hemoglobin 32.9 32.4 Concent Red Cell Distribution Width 14.8 14.6 Platelet Count 285 356 Mean Platelet Volume 9.0 8.8 Neutrophils (%) (Auto) 84.9 90.2 Lymphocytes (%) (Auto) 6.7 2.9 Monocytes (%) (Auto) 6.3 5.3 Eosinophils (%) (Auto) 2.0 0.8 Basophils (%) (Auto) 0.1 0.8 Neutrophils # (Auto) 13.8 22.0 Lymphocytes # (Auto) 1.1 0.7 Monocytes # (Auto) 1.0 1.3 Eosinophils # (Auto) 0.3 0.2 Basophils # (Auto) 0.0 0.2 CBC Comment DIFF FINAL DIFF FINAL Differential Comment Sodium Level 131 133 Potassium Level 4.6 5.5 Chloride Level 97 94 Carbon Dioxide Level 27.2 33.4 Anion Gap 7 6 Blood Urea Nitrogen 10 9 Creatinine 0.50 0.65 Estimat Glomerular Filtration 177 131 Rate Random Glucose 95 95 Calcium Level 7.8 7.9 Total Bilirubin 0.4 Aspartate Amino Transf 27 (AST/SGOT) Alanine Aminotransferase 13 (ALT/SGPT) Alkaline Phosphatase 61 Total Protein 5.9 Albumin 1.7 2.1 Phosphorus Level 2.4 Magnesium Level 2.1 Cardiovascular: Regular Lungs: Clear Abdomen: Other (soft incision with karol, c/d/i, jaison serous) A/P Assessment and Plan POD 3 dx lap lap eric, ex lap, sigmoidectomy with primary anastomosis, small bowel repair PLAN check ct a/p bcx, c diff ivf npo ng clamp oob to chair Swapnil Nixon MD Apr 14, 2017 11:45
[2017-04-14] MEDS ORDERED: DIATRIZOATE MEGLUM/DIATRIZOATE SOD 9 ML CUP PO ONE (13:45)
--- NOTE | 2017-04-14 14:22 | RADRPT ---
EXAM DATE/TIME: 04/14/2017 12:22 [place] COMPARISON: No previous studies available for comparison. INDICATIONS : Atelectasis. MEDICAL HISTORY : None. SURGICAL HISTORY : None. ENCOUNTER: Initial ACUITY: 3 days PAIN SCORE: 3/10 LOCATION: Right chest FINDINGS: Single portable frontal view of the chest shows low lung volumes. Bibasilar consolidation observed. M ore pronounced on the right. No effusions. Heart normal in size. Bony structures are unremarkable. 2 tiny metallic densities overlie the right humeral head. CONCLUSION: Hypoinflation with bibasilar consolidation partly due to atelectasis. I cannot exclude infiltrates. Viral Meza Jr., MD on April 14, 2017 at 14:19 Board Certified Radiologist. This report was verified electronically.
[2017-04-14] MEDS: ONDANSETRON HCL 4 MG/2 ML VIAL IVP PRN (15:58)
[2017-04-14 17:26] LABS: C. DIFF EPI 027 PRESUMPTIVE NEGATIVE (NEGATIVE)
[2017-04-14] MEDS ORDERED: IOHEXOL 350 MG/ML 10 ML VIAL (for RAD DIAG) IV ONE (17:42)
--- NOTE | 2017-04-14 18:22 | RADRPT ---
EXAM DATE/TIME: 04/14/2017 17:36 CORRECTION Corrected on: April 14, 2017; [facility] COMPARISON: CT ABDOMEN & PELVIS W CONTRAST, April 02, 2017, 21:06. INDICATIONS : Abdominal pain, evaluate for abscess. IV CONTRAST: 97 cc Omnipaque 350 (iohexol) IV ORAL CONTRAST: Prescribed oral contrast ingested. RADIATION DOSE: 16.49 CTDIvol (mGy) MEDICAL HISTORY : Diverticulitis. SURGICAL HISTORY : None. ENCOUNTER: Subsequent ACUITY: 2 weeks PAIN SCALE: 7/10 LOCATION: abdomen TECHNIQUE: Volumetric scanning of the abdomen and pelvis was performed. Using automated exposure control and ad justment of the mA and/or kV according to patient size, radiation dose was kept as low as reasonably achievable to obtain optimal diagnostic quality images. DICOM format image data is available electro nically for review and comparison. FINDINGS: Interim midline laparotomy and sigmoid colon resection. 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 Some residual matting of small bowel seen in the anterior to right lower quadrant o f the abdominal/pelvic cavity. In general, the small bowel inflammatory changes appear less severe an d a don't see a drainable abscess. There are upper limits of normal jejunum that seems to very gradua lly taper to normal caliber at the level of the ileum. No abrupt caliber changes are seen. There is t race ascites and mild mesenteric edema but nothing organized or drainable. A surgical drain is seen i n the pelvic cavity. Fatty liver again noted. Spleen, pancreas and adrenal glands are normal. The right kidney is normal. Nonobstructing 4 mm stone of the lower pole of the left kidney again noted. There is mild body wall edema. A moderate pleural effusion with lower lobe consolidation seen of the right base. There is trace atelectasis at the left base. CONCLUSION: 1. Interim midline laparotomy and sigmoid colon resection with reanastomosis. The colon is nonobstruc taty. Small bowel gas pattern most typical of a mild small bowel ileus. No abrupt caliber changes are seen. 2. 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 No residual fistula tract demonstrated. 3. Trace ascites/mild mesenteric edema. No evidence of abscess. 4. Fatty liver again noted. 5. Nonobstructing stone of the lower pole the left kidney again noted. 6. Mild body wall edema/anasarca has developed. 7. Consolidation and moderate effusion of the right lung base, no. Trace atelectasis left base. Hi Marrero MD on April 14, 2017 at 18:16 Board Certified Radiologist. This report was verified electronically. Hi Marrero MD on April 14, 2017 at 21:14 Board Certified Radiologist. This report was verified electronically.
[2017-04-14] MEDS: MICAFUNGIN INJ 150 MG in SODIUM CHLORIDE 0.9% INJ 100 ML IV SCH (20:20)
[2017-04-14] MEDS: ACETAMINOPHEN 325 MG TAB PO PRN (21:37)
[2017-04-14] MEDS: HEPARIN SODIUM - SQ 10,000 UNITS/ML VIAL SQ SCH (21:37)
[2017-04-14] MEDS: ERTAPENEM INJ 1,000 MG in SODIUM CHLORIDE 0.9% INJ 100 ML IV SCH (21:37)
[2017-04-15] VITALS (7 sets, daily range): BP systolic 134–174; BP diastolic 72–88; PULSE 89–127; RESP 16–22; TEMP 97.8–100.5; O2SAT 93–98
[2017-04-15] MEDS: VANCOMYCIN 500 MG VIAL (FOR ORAL USE ONLY) PO SCH ×4 (00:12→18:04)
[2017-04-15] MEDS: ACETAMINOPHEN 325 MG TAB PO PRN (00:52)
[2017-04-15] MEDS: diphenhydrAMINE HCL 50 MG CAP PO PRN ×2 (03:43→08:21)
[2017-04-15] MEDS: HEPARIN SODIUM - SQ 10,000 UNITS/ML VIAL SQ SCH ×3 (05:06→21:32)
[2017-04-15] MEDS: PCA - TOTAL MG DILAUDID DELIVERED PER SHIFT OTHER SCH ×3 (05:06→22:00)
--- NOTE | 2017-04-15 10:09 | HHI.PR ---
Subjective Remarks Follow up for perforated diverticulitis with interloop abscess and partial SBO and C. Diff colitis. Patient is currently doing well. He continues to have diarrhea. No fever, chills. at bedside. Objective Vitals Vital Signs Date Time Temp Pulse Resp B/P Pulse Ox O2 Delivery O2 Flow Rate FiO2 04/15/17 08:30 3.00 04/15/17 08:00 97.8 109 16 135/76 98 04/15/17 05:06 20 04/15/17 00:00 100.5 127 22 174/88 94 04/14/17 22:11 22 04/14/17 21:41 16 04/14/17 21:30 94 Nasal Cannula 3.00 04/14/17 20:22 16 04/14/17 20:00 100.9 126 20 160/80 92 04/14/17 19:48 Room Air 04/14/17 16:00 101.4 131 14 148/72 91 04/14/17 15:10 97.9 04/14/17 12:00 100.7 128 18 141/80 91 I/O 04/14/17 04/14/17 04/14/17 04/15/17 04/15/17 04/15/17 06:59 14:59 22:59 06:59 14:59 22:59 Intake Total 909 ml 0 ml 486 ml Output Total 10 ml 40 ml 0 ml Balance 899 ml 0 ml -40 ml 486 ml Intake Oral 0 ml 0 ml IV Total 909 ml 486 ml Drainage Total 10 ml 40 ml 0 ml # Voids 3 4 4 # Bowel Movements 2 4 2 Result Diagram: 04/14/17 0459 04/14/17 1230 Imaging Last Impressions Chest X-Ray 04/14/17 0000 Signed Impressions: Service Date/Time: Friday, April 14, 2017 12:22 - CONCLUSION: Hypoinflation with bibasilar consolidation partly due to atelectasis. I cannot exclude infiltrates. Viral Meza Jr., MD Abdomen/Pelvis CT 04/14/17 0000 Signed Impressions: Service Date/Time: Friday, April 14, 2017 17:36 - CONCLUSION: 1. Interim midline laparotomy and sigmoid colon resection with reanastomosis. The colon is nonobstructed. Small bowel gas pattern most typical of a mild small bowel ileus. No abrupt caliber changes are seen. 2. 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 No residual fistula tract demonstrated. 3. Trace ascites/mild mesenteric edema. No evidence of abscess. 4. Fatty liver again noted. 5. Nonobstructing stone of the lower pole the left kidney again noted. 6. Mild body wall edema/anasarca has developed. 7. Consolidation and moderate effusion of the right lung base, no. Trace atelectasis left base. Hi Marrero MD Objective Remarks GENERAL: AOX3, NAD. SKIN: Warm and dry. HEAD: Normocephalic. EYES: No scleral icterus. No injection or drainage. NECK: Supple, trachea midline. No JVD or lymphadenopathy. CARDIOVASCULAR: Regular rate and rhythm without murmurs, gallops, or rubs. RESPIRATORY: Breath sounds equal bilaterally. No accessory muscle use. GASTROINTESTINAL: Abdomen somewhat firm, Diffusely tender to palpation, dominique lower abd, nondistended. MUSCULOSKELETAL: No cyanosis, or edema. BACK: Nontender without obvious deformity. No CVA tenderness. Procedures 04/10/2017 PROCEDURE PERFORMED Rigid sigmoidoscopy A/P Problem List: (1) Bowel obstruction ICD Code: K56.60 Status: Acute (2) Leukocytosis ICD Code: D72.829 Status: Acute (3) Urticaria ICD Code: L50.9 Status: Chronic Assessment and Plan Mr. Chin is a 46 year old male with a history of diverticulitis and abscess who was admitted to the hospital due to intractable abdominal pain. He was recently discharged from the hospital after being treated for similar symptoms. He was discharged on Cipro and Flagyl. However, it appears that patient developed allergic reaction to Flagyl. He returned to the hospital due to intractable abdominal pain, distension, nausea, vomiting. Patient underwent ex lap, sigmoidectomy with primary anastomosis as well as small bowel repair. ID was consulted. - Perforated diverticulitis with interloop abscess - Small bowel obstruction - Continue Ertapenem 1g Q24hrs per ID. - Continue Micafungin 150mg Q24hrs per ID. - Surgery is following. Currently on Clear liquid diet. 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 - C. Diff colitis - Positive C. Diff PCR. - Likely due to recent abx use. - ID placed patient on PO Vancomycin 500mg Q6hrs. - Patient had some transient rash which improved with use of benadryl. Continue Benadryl PRN. - Hypertension - Currently normotensive. Full code. Heparin SQ. Problem Qualifiers (1) Bowel obstruction: Qualified Code: K56.60 - Intestinal obstruction, unspecified type Denny Avila DO Apr 15, 2017 10:09
[2017-04-15] MEDS: ONDANSETRON HCL 4 MG/2 ML VIAL IVP PRN (11:33)
--- NOTE | 2017-04-15 13:10 | HHI.PR ---
Subjective Subjective Notes Resting in bed and sister at bedside Objective Vitals/I&O Vital Signs Date Time Temp Pulse Resp B/P Pulse Ox O2 Delivery O2 Flow Rate FiO2 04/15/17 12:00 99.2 123 18 139/85 93 04/15/17 08:30 3.00 04/14/17 21:30 Nasal Cannula Labs Laboratory Tests Test 04/14/17 16:00 Stool C. difficile Toxin (PCR) POSITIVE Stl C. difficile Toxin PRESUMPTIVE Epiderm 027 NEGATIVE Date/Time Procedure Status Source Growth 04/14/17 12:45 Aerobic Blood Culture - Preliminary Resulted Blood Peripheral NO GROWTH IN 1 DAY 04/14/17 12:45 Anaerobic Blood Culture - Preliminary Resulted Blood Peripheral NO GROWTH IN 1 DAY Cardiovascular: Regular Lungs: Clear Abdomen: Other (midline incision with MAGALI in place hives ) Extremities: Other (see below) Narrative Exam hives over BUE and trunk A/P Assessment and Plan 46 year old male POD3 exlap, sigmoidectomy with primary anastomosis, small bowel repair -Cdiff+---added Vanco PO -DC NGT -Starts sips of clear liquids -Monitor labs -Continue IVF -OOB as tolerated -IS Attending Statement patient seen at bedside c diff- id for vanc abx doing better d/c ng start sips Attestation The exam, history, and the medical decision-making described in the above note were completed with the assistance of the mid-level provider. I reviewed and agree with the findings presented. I attest that I had a [id number] encounter with the patient on the same day, and personally performed and documented my assessment and findings in the medical record. Annemarie Hammonds Apr 15, 2017 13:10 Swapnil Nixon MD Apr 17, 2017 21:18
[2017-04-15 17:35] LABS: AUTOMATED NEUTROPHIL # 26.9 TH/MM3 (1.8-7.7); BASOPHIL % 0.2 % (0.0-2.0); EOSINOPHIL # 0.1 TH/MM3 (0-0.4); EOSINOPHIL % 0.2 % (0.0-4.0); HEMATOCRIT 37.5 % (39.0-51.0); HEMO FLAGS DIFF FINAL; LYMPH % 3.6 % (9.0-44.0); LYMPHOCYTE # 1.1 TH/MM3 (1.0-4.8); MEAN CELL VOLUME 87.3 FL (80.0-100.0); MEAN CORPUSCULAR HEMOGLOBIN 28.3 PG (27.0-34.0); MEAN CORPUSCULAR HGB CONC 32.5 % (32.0-36.0); PLATELET COUNT 433 TH/MM3 (150-450); RED BLOOD COUNT 4.29 MIL/MM3 (4.50-5.90); RED CELL DISTRIBUTION WIDTH 14.8 % (11.6-17.2); WHITE BLOOD COUNT 29.5 TH/MM3 (4.0-11.0)
[2017-04-15] MEDS ORDERED: SCOPOLAMINE 1.5 MG PATCH T-DERMAL SCH (18:00)
[2017-04-15 18:08] LABS: BICARBONATE 26.5 MEQ/L (21.0-32.0); POTASSIUM 3.8 MEQ/L (3.5-5.1)
[2017-04-15] MEDS: HYDROmorphone HCL PCA 6 MG/30 ML IV SCH (18:59)
[2017-04-15] MEDS: MICAFUNGIN INJ 150 MG in SODIUM CHLORIDE 0.9% INJ 100 ML IV SCH (21:31)
[2017-04-15] MEDS: ERTAPENEM INJ 1,000 MG in SODIUM CHLORIDE 0.9% INJ 100 ML IV SCH (23:05)
[2017-04-16 04:16] VITALS: BP 123/63; PULSE 92; RESP 18; TEMP 98; O2SAT 97
[2017-04-16] MEDS: PCA - TOTAL MG DILAUDID DELIVERED PER SHIFT OTHER SCH ×3 (06:00→22:00)
[2017-04-16] MEDS: VANCOMYCIN 500 MG VIAL (FOR ORAL USE ONLY) PO SCH ×4 (06:06→17:22)
[2017-04-16] MEDS: HEPARIN SODIUM - SQ 10,000 UNITS/ML VIAL SQ SCH ×3 (06:07→22:00)
[2017-04-16 08:12] LABS: AUTOMATED NEUTROPHIL # 13.5 TH/MM3 (1.8-7.7); BASOPHIL # 0.1 TH/MM3 (0-0.2); BASOPHIL % 0.4 % (0.0-2.0); EOSINOPHIL # 0.3 TH/MM3 (0-0.4); EOSINOPHIL % 1.6 % (0.0-4.0); HEMATOCRIT 31.2 % (39.0-51.0); HEMO FLAGS DIFF FINAL; LYMPH % 7.4 % (9.0-44.0); LYMPHOCYTE # 1.2 TH/MM3 (1.0-4.8); MEAN CELL VOLUME 85.6 FL (80.0-100.0); MEAN CORPUSCULAR HGB CONC 33.9 % (32.0-36.0); NEUT % 84.6 % (16.0-70.0); PLATELET COUNT 397 TH/MM3 (150-450); RED BLOOD COUNT 3.65 MIL/MM3 (4.50-5.90); RED CELL DISTRIBUTION WIDTH 14.4 % (11.6-17.2)
[2017-04-16 08:33] LABS: BICARBONATE 29.5 MEQ/L (21.0-32.0); POTASSIUM 3.4 MEQ/L (3.5-5.1)
--- NOTE | 2017-04-16 09:21 | MP ---
cc: CECILLE NIXON MD DATE OF SURGERY: 04/10/2017 PREOPERATIVE DIAGNOSIS Perforated acute diverticulitis with interloop abscesses, bowel obstruction. POSTOPERATIVE DIAGNOSIS Perforated acute diverticulitis with interloop abscesses, bowel obstruction. PROCEDURE PERFORMED 1. Diagnostic laparoscopy. 2. Laparoscopic lysis of adhesions. 3. Exploratory laparotomy. 4. Open sigmoidectomy with primary anastomosis. 5. Small bowel repair. 6. Rigid sigmoidoscopy. SURGEON Dr. Cecille Nixon PRECISION OPTICAL GOODS WORKER SURGEON Dr. Kleber Russell (needed for assistance due to the complexity of the open case). Dr. Russell assisted with retraction and aided in dominguez portions of the procedure. ANESTHESIA General endotracheal. IV FLUIDS 3000 cc. ESTIMATED BLOOD LOSS 50 cc. URINE OUTPUT 400 cc. DRAINS A 19-Yi Darnell drain placed in the pelvis. SPECIMEN Sigmoid doughnuts from EEA stapler sent for pathology. FINDINGS Dense inflammatory small bowel with interloop abscesses. Very thickened multiple adhesions especially to the anteromedial midline. No leak on saline submersion of the colon anastomosis. INDICATION The patient is a 46-year-old male who presented with a history of acute onset of acute diverticulitis. The patient several months ago was noted to have small dots of free intraperitoneal air which was treated nonoperatively conservatively. He developed worsening interloop abscess and at that time underwent IR aspiration and antibiotics. He was discharged. He has had several recurrent bouts of diverticulitis, all in a short interval time period. He was to undergo colonoscopy, however, given the extent of recurrent episodes of diverticulitis, concern for friable mucosa and risk with colonoscopy this was postponed until after the procedure. The patient was discussed regarding operative intervention, laparoscopy versus open exploratory surgery. The patient had a gentle bowel prep prior and was placed on Entereg. DETAILS OF PROCEDURE The patient was taken to the operating suite and placed in a supine position. He was prepped and draped in the usual sterile fashion after induction of general endotracheal anesthesia. A brief timeout was done stating the correct patient, procedure and surgical site, and all were in agreement with this. Attention was directed to the infraumbilical midline. A small 2 cm incision was made with a scalpel. Further dissection was done with Bovie electrocautery. The fascia was identified and opened. Tony technique was done to gain entrance into the abdomen. A small incision was made into the fascia. A hemostat was used to spread the fascia and upon doing so there was noted to be a small amount of greenish fluid present. Interdigitation with finger noted to be completely intraperitoneal and free of some adhesion. A trocar was then placed. The abdomen was insufflated to 15 mmHg pneumoperitoneum. A 5 right lower quadrant trocar was placed under direct visualization. On cursory examination of the abdomen there was noted to be inflammatory reaction with adhesions to the anterior infraumbilical midline. Approximately 30 minutes was done to lyse the adhesions and take them down off the anterior abdominal wall in order to facilitate further identification and mobilization of the rest of the GI tract. There was meticulous time consuming difficulty with doing these adhesions, significant to the anterior abdominal wall. Once these were finally freed along with some omentum that was taken down, the decision at this point since was that there were so much adhesions it was felt more practical and safer to convert to an open procedure. The incision was extended to the pubis with a 10 blade scalpel. Further dissection was done with Bovie electrocautery down the midline. Once this was facilitated a self-retaining retractor including a Bookwalter was placed. On examination of the small bowel it was noted to be very indurated and somewhat friable. There was noted to be two injuries to the mesenteric border of the jejunum. These were oversewn with 3-0 silk sutures in Lembert fashion in two layers. Another small area of deserosalization with no evidence of intermucosal injury was noted was approximated with several interrupted 3-0 silk sutures. Continued mobilization and lysis of adhesions was done in order to facilitate and identify dominguez landmarks and structures. The small bowel was eventually mobilized free and followed from the ligament of Treitz all the way to the terminal ileum without other evidence of abnormality other than a short segment with severe inflammation, induration and thickening. The abdomen was irrigated with several liters. Attention was then directed to the sigmoid colon. The proximal portion of the sigmoid colon actually appeared relatively healthy, pink and viable with very minimal negligible diverticula at the proximal portion. Upon further dissection the colon was medialized taking down the lateral peritoneal reflection, protecting the left ureter and identifying this. A window was created in the mesentery after lateral mobilization to a point in the proximal sigmoid and this was transected with a 75 SHELIA stapler. The colon was then continued to be mobilized down into the pelvis. There was noted to be a thickened and indurated diverticulitis segment with evidence of fibrosis noted. A point distal to this at the retrocecal sigmoid junction was identified and a Contour stapler was used to staple and transect the colon segment. A suture was placed to identify and remove a sigmoid specimen at the distal end. After thorough irrigation and washout the abdomen with multiple liters of warm normal saline was done until completely cleared. Further mobilization was done laterally in order to again facilitate distal approximation to the end of the other staple line. Once we had adequately mobilized this and felt this was tension-free, the EEA staple was identify at a [address] Kleber Russell went below to dilate and used rigid sigmoidoscopy to identify the staple line and confirm placement with the EEA stapler. Dr. Kleber Russell is to dictate his portion of the procedure. The EEA was fashioned and advanced. The proximal colon staple line was removed with Metzenbaum scissors and the anvil was placed inside. A pursestring suture was done with a 3-0 nylon. The spike was advanced just posterior to the distal staple line and the anvil and spike were connected. The spike was then retracted along with the anvil in place creating our anastomosis. This was cut and stapled in the typical usual fashion. The doughnuts of the staple lines were observed on the back table and noted to be a full ring with healthy viable tissue. For minimal reinforcement 3-0 silk sutures were placed at three locations to the colon. The cavity was then filled with saline and again Dr. Shahid went below with rigid sigmoidoscopy to insufflate air and the bowel was clamped proximal without evidence of leaking or bubbles. Once we were content with this, the abdomen was irrigated thoroughly and suctioned until affluent was clear. A 19-Yi Darnell drain was placed in the pelvic cavity and secured to the skin with 2-0 nylon. Hemostasis was obtained with Bovie electrocautery. The peritoneum was closed with 0 running Vicryl. The fascia was closed with multiple #1 PDS single-armed [id number]. Following this the subcuticular tissue was irrigated and sariah were placed and a MAGALI dressing was then placed. The patient tolerated the procedure well. There was no intraoperative complication. All lap and instrument counts were correct at the end of the procedure. The patient was extubated and taken stable to the PACU. MD BALDEMAR Salazar /9:01 PM /8:34 AM
[2017-04-16] MEDS: HYDROmorphone HCL PCA 6 MG/30 ML IV SCH (09:44)
--- NOTE | 2017-04-16 10:08 | HHI.PR ---
Subjective Subjective Notes WBC improved today, less diarrhea, pt feels better Objective Vitals/I&O Vital Signs Date Time Temp Pulse Resp B/P Pulse Ox O2 Delivery O2 Flow Rate FiO2 04/16/17 06:00 18 04/16/17 04:16 98.0 92 123/63 97 04/15/17 16:14 Nasal Cannula 3.00 Labs Laboratory Tests Test 04/15/17 04/16/17 15:22 07:06 White Blood Count 29.5 16.0 Red Blood Count 4.29 3.65 Hemoglobin 12.2 10.6 Hematocrit 37.5 31.2 Mean Corpuscular Volume 87.3 85.6 Mean Corpuscular Hemoglobin 28.3 29.0 Mean Corpuscular Hemoglobin 32.5 33.9 Concent Red Cell Distribution Width 14.8 14.4 Platelet Count 433 397 Mean Platelet Volume 8.9 9.2 Neutrophils (%) (Auto) 91.0 84.6 Lymphocytes (%) (Auto) 3.6 7.4 Monocytes (%) (Auto) 5.0 6.0 Eosinophils (%) (Auto) 0.2 1.6 Basophils (%) (Auto) 0.2 0.4 Neutrophils # (Auto) 26.9 13.5 Lymphocytes # (Auto) 1.1 1.2 Monocytes # (Auto) 1.5 1.0 Eosinophils # (Auto) 0.1 0.3 Basophils # (Auto) 0.0 0.1 CBC Comment DIFF FINAL DIFF FINAL Differential Comment Sodium Level 134 134 Potassium Level 3.8 3.4 Chloride Level 96 98 Carbon Dioxide Level 26.5 29.5 Anion Gap 12 7 Blood Urea Nitrogen 9 7 Creatinine 0.61 0.60 Estimat Glomerular Filtration 141 144 Rate Random Glucose 70 102 Calcium Level 8.3 7.8 Date/Time Procedure Status Source Growth 04/14/17 12:45 Aerobic Blood Culture - Preliminary Resulted Blood Peripheral NO GROWTH IN 1 DAY 04/14/17 12:45 Anaerobic Blood Culture - Preliminary Resulted Blood Peripheral NO GROWTH IN 1 DAY Cardiovascular: Regular Lungs: Clear Abdomen: Other (soft ,incision with karol scant dry drainage, mild ttp) A/P Assessment and Plan POD 5 dx lap lap eric, ex lap, sigmoidectomy with primary anastomosis, small bowel repair, c.diff, pathology shows diverticulitis PLAN advance to full diet, protein shakes pain control 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
--- NOTE | 2017-04-16 10:53 | HHI.PR ---
Subjective Remarks Follow up for perforated diverticulitis with interloop abscess and partial SBO and C. Diff colitis. Patient is feeling stronger, better. He is ambulating in the room. No fever, chills. Abd somewhat sore but no lower abdominal pain. Stool is becoming more formed. Objective Vitals Vital Signs Date Time Temp Pulse Resp B/P Pulse Ox O2 Delivery O2 Flow Rate FiO2 04/16/17 06:00 18 04/16/17 04:16 98.0 92 18 123/63 97 04/15/17 23:55 98.2 89 18 134/72 97 04/15/17 22:00 18 04/15/17 20:14 98.4 108 18 142/73 96 04/15/17 18:59 18 04/15/17 16:14 93 Nasal Cannula 3.00 04/15/17 16:00 100.0 119 21 136/77 93 04/15/17 14:00 18 04/15/17 12:00 99.2 123 18 139/85 93 I/O 04/15/17 04/15/17 04/15/17 04/16/17 04/16/17 04/16/17 07:00 15:00 23:00 07:00 15:00 23:00 Intake Total 486 ml 420 ml 631 ml 710 ml Output Total 0 ml 400 ml 10 ml Balance 486 ml 420 ml 231 ml 700 ml Intake Oral 420 ml 360 ml 280 ml IV Total 486 ml 271 ml 430 ml Output Urine Total 400 ml Drainage Total 0 ml 0 ml 10 ml # Voids 2 11 2 # Bowel Movements 1 15 Result Diagram: 04/16/17 0706 04/16/17 0706 Imaging Last Impressions Chest X-Ray 04/14/17 0000 Signed Impressions: Service Date/Time: Friday, April 14, 2017 12:22 - CONCLUSION: Hypoinflation with bibasilar consolidation partly due to atelectasis. I cannot exclude infiltrates. Viral Meza Jr., MD Abdomen/Pelvis CT 04/14/17 0000 Signed Impressions: Service Date/Time: Friday, April 14, 2017 17:36 - CONCLUSION: 1. Interim midline laparotomy and sigmoid colon resection with reanastomosis. The colon is nonobstructed. Small bowel gas pattern most typical of a mild small bowel ileus. No abrupt caliber changes are seen. 2. 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 No residual fistula tract demonstrated. 3. Trace ascites/mild mesenteric edema. No evidence of abscess. 4. Fatty liver again noted. 5. Nonobstructing stone of the lower pole the left kidney again noted. 6. Mild body wall edema/anasarca has developed. 7. Consolidation and moderate effusion of the right lung base, no. Trace atelectasis left base. Hi Marrero MD Objective Remarks GENERAL: AOX3, NAD. SKIN: Warm and dry. HEAD: Normocephalic. EYES: No scleral icterus. No injection or drainage. NECK: Supple, trachea midline. No JVD or lymphadenopathy. CARDIOVASCULAR: Regular rate and rhythm without murmurs, gallops, or rubs. RESPIRATORY: Breath sounds equal bilaterally. No accessory muscle use. GASTROINTESTINAL: Abdomen somewhat firm, largely non-tender, nondistended. MUSCULOSKELETAL: No cyanosis, or edema. BACK: Nontender without obvious deformity. No CVA tenderness. Procedures 04/10/2017 PROCEDURE PERFORMED Rigid sigmoidoscopy A/P Problem List: (1) Bowel obstruction ICD Code: K56.60 Status: Acute (2) Leukocytosis ICD Code: D72.829 Status: Acute (3) Urticaria ICD Code: L50.9 Status: Chronic Assessment and Plan Mr. Chin is a 46 year old male with a history of diverticulitis and abscess who was admitted to the hospital due to intractable abdominal pain. He was recently discharged from the hospital after being treated for similar symptoms. He was discharged on Cipro and Flagyl. However, it appears that patient developed allergic reaction to Flagyl. He returned to the hospital due to intractable abdominal pain, distension, nausea, vomiting. Patient underwent ex lap, sigmoidectomy with primary anastomosis as well as small bowel repair. ID was consulted. - Perforated diverticulitis with interloop abscess - Small bowel obstruction - Continue Ertapenem 1g Q24hrs per ID. - Continue Micafungin 150mg Q24hrs per ID. - Surgery is following. Currently on Clear liquid diet. 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 - Discussed with ID and Surgery. - C. Diff colitis - Positive C. Diff PCR. - Likely due to recent abx use. - ID placed patient on PO Vancomycin 500mg Q6hrs. - Patient had some transient rash which improved with use of benadryl. Continue Benadryl PRN. - Hypertension - Currently normotensive. Full code. Heparin SQ. Problem Qualifiers (1) Bowel obstruction: Qualified Code: K56.60 - Intestinal obstruction, unspecified type Denny Avila DO Apr 16, 2017 10:53 am
[2017-04-16 11:02] VITALS: O2SAT 93
[2017-04-16 12:00] VITALS: BP 121/65; PULSE 94; RESP 18; TEMP 97.6; O2SAT 96
--- NOTE | 2017-04-16 18:30 | HHI.IDPN ---
Subjective Subjective Remarks Stool + for C.diff doing much better Less BMs, down to 5-6 stated on full liquids no fever WBC down Antibiotics ertapenem micafungin vancomycin po Allergies: Coded Allergies: codeine (Unverified Allergy, Severe, Constipation, 04/15/17) metronidazole (Unverified Allergy, Severe, extreme diarrhea, 04/15/17) fluconazole (Unverified Allergy, Unknown, Hives, 04/15/17) HIVES AND RASH morphine (Unverified Allergy, Unknown, 04/15/17) piperacillin (Unverified Allergy, Unknown, Hives, 04/15/17) HIVES AND RASH tazobactam (Unverified Allergy, Unknown, Hives, 04/15/17) HIVES AND RASH Objective . Vital Signs Date Time Temp Pulse Resp B/P Pulse Ox O2 Delivery O2 Flow Rate FiO2 04/16/17 14:00 16 04/16/17 12:00 97.6 94 18 121/65 96 04/16/17 11:02 93 04/16/17 06:00 18 04/16/17 04:16 98.0 92 18 123/63 97 04/15/17 23:55 98.2 89 18 134/72 97 04/15/17 22:00 18 04/15/17 20:14 98.4 108 18 142/73 96 04/15/17 18:59 18 04/15/17 04/15/17 04/16/17 15:00 23:00 07:00 Intake Total 420 ml 631 ml 710 ml Output Total 400 ml 10 ml Balance 420 ml 231 ml 700 ml Intake Oral 420 ml 360 ml 280 ml IV Total 271 ml 430 ml Output Urine Total 400 ml Drainage Total 0 ml 10 ml # Voids 11 2 # Bowel Movements 15 . Laboratory Tests Test 04/15/17 04/16/17 15:22 07:06 White Blood Count 29.5 TH/MM3 16.0 TH/MM3 Red Blood Count 4.29 MIL/MM3 3.65 MIL/MM3 Hemoglobin 12.2 GM/DL 10.6 GM/DL Hematocrit 37.5 % 31.2 % Mean Corpuscular Volume 87.3 FL 85.6 FL Mean Corpuscular Hemoglobin 28.3 PG 29.0 PG Mean Corpuscular Hemoglobin 32.5 % 33.9 % Concent Red Cell Distribution Width 14.8 % 14.4 % Platelet Count 433 TH/MM3 397 TH/MM3 Mean Platelet Volume 8.9 FL 9.2 FL Neutrophils (%) (Auto) 91.0 % 84.6 % Lymphocytes (%) (Auto) 3.6 % 7.4 % Monocytes (%) (Auto) 5.0 % 6.0 % Eosinophils (%) (Auto) 0.2 % 1.6 % Basophils (%) (Auto) 0.2 % 0.4 % Neutrophils # (Auto) 26.9 TH/MM3 13.5 TH/MM3 Lymphocytes # (Auto) 1.1 TH/MM3 1.2 TH/MM3 Monocytes # (Auto) 1.5 TH/MM3 1.0 TH/MM3 Eosinophils # (Auto) 0.1 TH/MM3 0.3 TH/MM3 Basophils # (Auto) 0.0 TH/MM3 0.1 TH/MM3 CBC Comment DIFF FINAL DIFF FINAL Differential Comment Laboratory Tests Test 04/15/17 04/16/17 15:22 07:06 Sodium Level 134 MEQ/L 134 MEQ/L Potassium Level 3.8 MEQ/L 3.4 MEQ/L Chloride Level 96 MEQ/L 98 MEQ/L Carbon Dioxide Level 26.5 MEQ/L 29.5 MEQ/L Anion Gap 12 MEQ/L 7 MEQ/L Blood Urea Nitrogen 9 MG/DL 7 MG/DL Creatinine 0.61 MG/DL 0.60 MG/DL Estimat Glomerular Filtration 141 ML/MIN 144 ML/MIN Rate Random Glucose 70 MG/DL 102 MG/DL Calcium Level 8.3 MG/DL 7.8 MG/DL Microbiology Date/Time Procedure Status Source Growth 04/14/17 12:30 Aerobic Blood Culture - Preliminary Resulted Blood Peripheral NO GROWTH IN 2 DAYS 04/14/17 12:30 Anaerobic Blood Culture - Preliminary Resulted Blood Peripheral NO GROWTH IN 2 DAYS 04/14/17 12:45 Aerobic Blood Culture - Preliminary Resulted Blood Peripheral NO GROWTH IN 2 DAYS 04/14/17 12:45 Anaerobic Blood Culture - Preliminary Resulted Blood Peripheral NO GROWTH IN 2 DAYS Imaging Last Impressions Chest X-Ray 04/14/17 0000 Signed Impressions: Service Date/Time: Friday, April 14, 2017 12:22 - CONCLUSION: Hypoinflation with bibasilar consolidation partly due to atelectasis. I cannot exclude infiltrates. Viral Meza Jr., MD Abdomen/Pelvis CT 04/14/17 0000 Signed Impressions: Service Date/Time: Friday, April 14, 2017 17:36 - CONCLUSION: 1. Interim midline laparotomy and sigmoid colon resection with reanastomosis. The colon is nonobstructed. Small bowel gas pattern most typical of a mild small bowel ileus. No abrupt caliber changes are seen. 2. 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 No residual fistula tract demonstrated. 3. Trace ascites/mild mesenteric edema. No evidence of abscess. 4. Fatty liver again noted. 5. Nonobstructing stone of the lower pole the left kidney again noted. 6. Mild body wall edema/anasarca has developed. 7. Consolidation and moderate effusion of the right lung base, no. Trace atelectasis left base. Hi Marrero MD Physical Exam CONSTITUTIONAL/GENERAL: This is an obese young male patient, in no apparent distress. TUBES/LINES/DRAINS: SKIN: No jaundice, rashes, or lesions. EYES: Pupils equal and round and reactive. Extraocular motions intact. No scleral icterus. No injection or drainage. Fundi not examined. CARDIOVASCULAR: Regular rate and rhythm without murmurs, gallops, or rubs. No JVD. Peripheral pulses symmetric. RESPIRATORY/CHEST: Symmetric, unlabored respirations. Clear to auscultation. Breath sounds equal bilaterally. No wheezes, rales, or rhonchi. GASTROINTESTINAL: Abdomen post surgical, soft, minimally distended. Mildly tender to palpation diffsely Medial lapartomy incision covered with intact dressing. TAHMINA in place with serosang d/c No guarding. Bowel sounds present. MUSCULOSKELETAL: Extremities without clubbing, cyanosis, or edema. No mottling or clubbing. NEUROLOGICAL: Awake and alert. Non focal PSYCHIATRIC:calm, cooperatinve Assessment & Plan Remarks perforated diverticulitis with interloop abscess and partial small bowell obstruction sp open sigmoidectomy with primary reanstomosis , small bowel repair Apr Allergic reaction to zosyn, hives, self reported Adverse reaction to Flagyl, diarrhea, self reported - pt denies hives to Flagyl - pt is willing to try flagyl again and see if can tolerate it w/o diarrhea Pt self reports fluconazol rection (hives) C.diff monitor fever, WBC chk blood clx cont Invanz cont micafungin Anticipate stopping Invanz, micafungin 5-7 days after surgery if cont to improve Rx C.diff x 14 days with oral vancomycin Nikki Finnegan MD Apr 16, 2017 18:30
[2017-04-16 20:00] VITALS: BP 120/58; PULSE 94; RESP 18; TEMP 98.7; O2SAT 94; O2SAT 96
[2017-04-16] MEDS: MICAFUNGIN INJ 150 MG in SODIUM CHLORIDE 0.9% INJ 100 ML IV SCH (20:00)
[2017-04-17] VITALS: BP 108/54; PULSE 88; RESP 18; TEMP 98.6; O2SAT 98
[2017-04-17] MEDS: ERTAPENEM INJ 1,000 MG in SODIUM CHLORIDE 0.9% INJ 100 ML IV SCH (00:43)
[2017-04-17] MEDS: VANCOMYCIN 500 MG VIAL (FOR ORAL USE ONLY) PO SCH ×3 (00:43→11:55)
[2017-04-17 04:00] VITALS: BP 131/66; PULSE 78; RESP 18; TEMP 97.3; O2SAT 96
[2017-04-17] MEDS: PCA - TOTAL MG DILAUDID DELIVERED PER SHIFT OTHER SCH (06:00)
[2017-04-17] MEDS: HEPARIN SODIUM - SQ 10,000 UNITS/ML VIAL SQ SCH (06:19)
[2017-04-17 06:21] LABS: AUTOMATED NEUTROPHIL # 7.3 TH/MM3 (1.8-7.7); BASOPHIL # 0.1 TH/MM3 (0-0.2); BASOPHIL % 0.6 % (0.0-2.0); EOSINOPHIL # 0.5 TH/MM3 (0-0.4); EOSINOPHIL % 4.9 % (0.0-4.0); HEMATOCRIT 33.5 % (39.0-51.0); HEMO FLAGS DIFF FINAL; LYMPH % 16.2 % (9.0-44.0); LYMPHOCYTE # 1.7 TH/MM3 (1.0-4.8); MEAN CELL VOLUME 87.8 FL (80.0-100.0); MEAN CORPUSCULAR HEMOGLOBIN 29.4 PG (27.0-34.0); MEAN CORPUSCULAR HGB CONC 33.5 % (32.0-36.0); MONO % 7.5 % (0.0-8.0); NEUT % 70.8 % (16.0-70.0); PLATELET COUNT 493 TH/MM3 (150-450); RED BLOOD COUNT 3.82 MIL/MM3 (4.50-5.90); WHITE BLOOD COUNT 10.4 TH/MM3 (4.0-11.0)
[2017-04-17 06:42] LABS: ALT (GPT) 20 U/L (12-78); ANION GAP 6 MEQ/L (5-15); AST (GOT) 33 U/L (15-37); BICARBONATE 27.5 MEQ/L (21.0-32.0); BLOOD UREA NITROGEN 7 MG/DL (7-18); CHLORIDE 101 MEQ/L (98-107); GLOMERULAR FILTRATION RATE 156 ML/MIN (>89); SODIUM (NA) 134 MEQ/L (136-145)
[2017-04-17 06:45] LABS: ALKALINE PHOSPHATASE 64 U/L (45-117); TOTAL BILIRUBIN ADULT 0.4 MG/DL (0.2-1.0)
[2017-04-17] MEDS: HYDROmorphone HCL PCA 6 MG/30 ML IV SCH (06:45)
[2017-04-17 08:00] VITALS: BP 132/63; PULSE 88; RESP 20; TEMP 99.3; O2SAT 95
[2017-04-17] MEDS ORDERED: MORPHINE SULFATE 4 MG/ML INJ IV PUSH PRN (08:45)
--- NOTE | 2017-04-17 08:48 | HHI.PR ---
Subjective Subjective Notes no acute, tolerating liquids, diarrhea better wbc normal Objective Vitals/I&O Vital Signs Date Time Temp Pulse Resp B/P Pulse Ox O2 Delivery O2 Flow Rate FiO2 04/17/17 06:45 16 04/17/17 04:00 97.3 78 131/66 96 04/16/17 22:00 Nasal Cannula 3.00 Labs Laboratory Tests Test 04/17/17 05:37 White Blood Count 10.4 Red Blood Count 3.82 Hemoglobin 11.2 Hematocrit 33.5 Mean Corpuscular Volume 87.8 Mean Corpuscular Hemoglobin 29.4 Mean Corpuscular Hemoglobin 33.5 Concent Red Cell Distribution Width 15.0 Platelet Count 493 Mean Platelet Volume 8.3 Neutrophils (%) (Auto) 70.8 Lymphocytes (%) (Auto) 16.2 Monocytes (%) (Auto) 7.5 Eosinophils (%) (Auto) 4.9 Basophils (%) (Auto) 0.6 Neutrophils # (Auto) 7.3 Lymphocytes # (Auto) 1.7 Monocytes # (Auto) 0.8 Eosinophils # (Auto) 0.5 Basophils # (Auto) 0.1 CBC Comment DIFF FINAL Differential Comment Sodium Level 134 Potassium Level 4.0 Chloride Level 101 Carbon Dioxide Level 27.5 Anion Gap 6 Blood Urea Nitrogen 7 Creatinine 0.56 Estimat Glomerular Filtration 156 Rate Random Glucose 86 Calcium Level 7.9 Total Bilirubin 0.4 Aspartate Amino Transf 33 (AST/SGOT) Alanine Aminotransferase 20 (ALT/SGPT) Alkaline Phosphatase 64 Total Protein 6.2 Albumin 1.8 Date/Time Procedure Status Source Growth 04/14/17 12:45 Aerobic Blood Culture - Preliminary Resulted Blood Peripheral NO GROWTH IN 2 DAYS 04/14/17 12:45 Anaerobic Blood Culture - Preliminary Resulted Blood Peripheral NO GROWTH IN 2 DAYS Cardiovascular: Regular Lungs: Clear Abdomen: Other (incisions scant dry blood jaison serosang) A/P Assessment and Plan POD 6 dx lap lap eric, ex lap, sigmoidectomy with primary anastomosis, small bowel repair, c.diff, pathology shows diverticulitis PLAN advance to reg diet, soft d.c rn advice oob continue abx removed karol d/c planning later today or tomorrow Swapnil Nixon MD Apr 17, 2017 08:48
[2017-04-17 12:00] VITALS: BP 133/72; PULSE 92; RESP 19; TEMP 99.6; O2SAT 99
[2017-04-17] MEDS ORDERED: VANC250C2 PO (12:50)
[2017-04-17] MEDS ORDERED: HYDR-3288 PO (12:51)
[2017-04-17] MEDS ORDERED: VANC125C3 PO (13:56)
--- NOTE | 2017-04-17 14:03 | HHI.DS ---
Discharge Summary Admission Date Apr 06, 2017 at 9:58 pm Discharge Date: Apr 17, 2017 Admitting Diagnosis (1) Bowel obstruction ICD Code: K56.60 - Unspecified intestinal obstruction (2) Leukocytosis ICD Code: D72.829 - Elevated white blood cell count, unspecified (3) Urticaria ICD Code: L50.9 - Urticaria, unspecified (4) C. difficile colitis ICD Code: A04.7 - Enterocolitis due to Clostridium difficile Diagnosis: Principal Procedures 04/10/2017 PROCEDURE PERFORMED Rigid sigmoidoscopy Brief History - From Admission 46 y/o male with a history of HLD and diverticulitis with abscess presented to the [place] ED with complaints of increasing abdominal pain. Patient was recently admitted for diverticulitis with abscess and possible bowel obstruction , surgery and gastroenterology was consulted and it was believed she did not have small bowel obstruction, he was discharged on 04/04/17 and a colonoscopy is scheduled for Friday with Dr. Pickett. Patient states on Friday he began to have increasing sharp abdominal pain, 10 out of 10, localized mainly in his right lower quadrant with associated liquid stools and nausea. Patient states he could not take the pain anymore and did not believe he could wait till Friday to be seen. He he was discharged on antibiotics Flagyl by mouth ciprofloxacin by mouth, he states he is allergic to Flagyl IV and does break out in severe hives. He denies any chest pain, shortness of breath, vomiting, fever, chills, dizziness or headaches. CBC/BMP: 04/17/17 0537 04/17/17 0537 Significant Findings Laboratory Tests Test 04/14/17 04/15/17 04/16/17 04/17/17 16:00 15:22 07:06 05:37 Stool C. difficile Toxin (PCR) POSITIVE (NEGATIVE) White Blood Count 29.5 TH/MM3 16.0 TH/MM3 (4.0-11.0) (4.0-11.0) Red Blood Count 4.29 MIL/MM3 3.65 MIL/MM3 3.82 MIL/MM3 (4.50-5.90) (4.50-5.90) (4.50-5.90) Hemoglobin 12.2 GM/DL 10.6 GM/DL 11.2 GM/DL (13.0-17.0) (13.0-17.0) (13.0-17.0) Hematocrit 37.5 % 31.2 % 33.5 % (39.0-51.0) (39.0-51.0) (39.0-51.0) Neutrophils (%) (Auto) 91.0 % 84.6 % 70.8 % (16.0-70.0) (16.0-70.0) (16.0-70.0) Lymphocytes (%) (Auto) 3.6 % 7.4 % (9.0-44.0) (9.0-44.0) Neutrophils # (Auto) 26.9 TH/MM3 13.5 TH/MM3 (1.8-7.7) (1.8-7.7) Monocytes # (Auto) 1.5 TH/MM3 1.0 TH/MM3 (0-0.9) (0-0.9) Sodium Level 134 MEQ/L 134 MEQ/L 134 MEQ/L (136-145) (136-145) (136-145) Chloride Level 96 MEQ/L (98-107) Random Glucose 70 MG/DL (74-106) Calcium Level 8.3 MG/DL 7.8 MG/DL 7.9 MG/DL (8.5-10.1) (8.5-10.1) (8.5-10.1) Potassium Level 3.4 MEQ/L (3.5-5.1) Platelet Count 493 TH/MM3 (150-450) Eosinophils (%) (Auto) 4.9 % (0.0-4.0) Eosinophils # (Auto) 0.5 TH/MM3 (0-0.4) Creatinine 0.56 MG/DL (0.60-1.30) Total Protein 6.2 GM/DL (6.4-8.2) Albumin 1.8 GM/DL (3.4-5.0) Imaging Last Impressions Chest X-Ray 04/14/17 0000 Signed Impressions: Service Date/Time: Friday, April 14, 2017 12:22 - CONCLUSION: Hypoinflation with bibasilar consolidation partly due to atelectasis. I cannot exclude infiltrates. Viral Meza Jr., MD Abdomen/Pelvis CT 04/14/17 0000 Signed Impressions: Service Date/Time: Friday, April 14, 2017 17:36 - CONCLUSION: 1. Interim midline laparotomy and sigmoid colon resection with reanastomosis. The colon is nonobstructed. Small bowel gas pattern most typical of a mild small bowel ileus. No abrupt caliber changes are seen. 2. 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 No residual fistula tract demonstrated. 3. Trace ascites/mild mesenteric edema. No evidence of abscess. 4. Fatty liver again noted. 5. Nonobstructing stone of the lower pole the left kidney again noted. 6. Mild body wall edema/anasarca has developed. 7. Consolidation and moderate effusion of the right lung base, no. Trace atelectasis left base. Hi Marrero MD PE at Discharge GENERAL: AOX3, NAD. SKIN: Warm and dry. HEAD: Normocephalic. EYES: No scleral icterus. No injection or drainage. NECK: Supple, trachea midline. No JVD or lymphadenopathy. CARDIOVASCULAR: Regular rate and rhythm without murmurs, gallops, or rubs. RESPIRATORY: Breath sounds equal bilaterally. No accessory muscle use. GASTROINTESTINAL: Abdomen somewhat firm, largely non-tender, nondistended. MUSCULOSKELETAL: No cyanosis, or edema. BACK: Nontender without obvious deformity. No CVA tenderness. Pt update on day of discharge Patient is doing well. Ambulating well, tolerated diet well. Discussed with surgery and ID - both are okay with our discharge plan. Hospital Course Mr. Chin is a 46 year old male with a history of diverticulitis and abscess who was admitted to the hospital due to intractable abdominal pain. He was recently discharged from the hospital after being treated for similar symptoms. He was discharged on Cipro and Flagyl. However, it appears that patient developed allergic reaction to Flagyl. He returned to the hospital due to intractable abdominal pain, distension, nausea, vomiting. Patient underwent ex lap, sigmoidectomy with primary anastomosis as well as small bowel repair. ID was consulted. - Perforated diverticulitis with interloop abscess - Small bowel obstruction - Continued Ertapenem 1g Q24hrs per ID. - Continued Micafungin 150mg Q24hrs per ID. - Surgery is following. Currently on Clear liquid diet. - Dilaudid CEMENT CUTTER for pain management, probably start weaning tomorrow per Surgery. - Discussed with ID and Surgery. Per ID, 5-7 days of Ertapenem, Micafungin would be sufficient. Patient received 5-7 days. - C. Diff colitis - Positive C. Diff PCR. - Likely due to recent abx use. - ID placed patient on PO Vancomycin 500mg Q6hrs. - Upon discharge Vancomycin 125mg PO Q6hrs X 14 days per ID. - Hypertension - Currently normotensive. Pt Condition on Discharge: Good Discharge Disposition: Discharge Home Discharge Time: > 30 minutes Discharge Instructions DIET: Follow Instructions for: As Tolerated, No Restrictions Activities you can perform: Regular-No Restrictions Follow up Referrals: PCP Follow-up - 1 Week Surgical - 2 Weeks with Swapnil Nixon MD New Medications: Vancomycin (Vancomycin) 125 Mg Cap 125 MG PO QID for Infection, #56 CAP 0 Refills Discontinued Medications: Ciprofloxacin (Ciprofloxacin) 500 Mg Tab 500 MG PO BID for Infection, #14 TAB 0 Refills Diphenhydramine HCl (Benadryl Allergy) 25 Mg Tablet 1 TAB PO Q6HR PRN for ALLERGIC REACTION, #10 TAB Lactobacillus Acidophilus (Lactobacillus Acidophilus) 1 Tab Tab 1 TAB PO TIDAC for Nutritional Supplement, #30 TAB 0 Refills Loratadine (Allergy Relief) 10 Mg Tab 10 MG PO DAILY for Allergic Reaction, #3 TAB Metronidazole (Flagyl) 500 Mg Tab 500 MG PO TID for Infection, #21 TAB 0 Refills Oxycodone-Acetaminophen (Percocet) 5-325 mg Tab 1 TAB PO Q4H PRN for PAIN, #8 TAB 0 Refills Denny Avila DO Apr 17, 2017 14:03
[2017-04-18] MEDS ORDERED: REMOVE OLD SCOPOLAMINE PATCH T-DERMAL SCH (18:00)
== END 2017-04-17 15:28 | disposition home or self-care (01) | DRG 330 ==
LOC: NEDDLT 21:53 → N06A 21:58 → N07B 04-10 16:21 → N07A 04-10 18:37
PROVIDERS: ADMIT Hospitalist; ATTEND Hospitalist
PROC: 0DTN0ZZ Resection of Sigmoid Colon, Open Approach (ICD-10-PCS; 2017-04-10)
PROC: 0DQA0ZZ Repair Jejunum, Open Approach (ICD-10-PCS; 2017-04-10)
PROC: 0DN84ZZ Release Small Intestine, Percutaneous Endoscopic Approach (ICD-10-PCS; 2017-04-10)
PROC: 0DJD8ZZ Inspection of Lower Intestinal Tract, Via Natural or Artificial Opening Endoscopic (ICD-10-PCS; 2017-04-10)
PROC: 0DTN0ZZ Resection of Sigmoid Colon, Open Approach (ICD-10-PCS; principal; 2017-04-10 10:12)
PROC: 0WJP4ZZ Inspection of Gastrointestinal Tract, Percutaneous Endoscopic Approach (ICD-10-PCS; 2017-04-10 10:12)
PROC: 0DJD4ZZ Inspection of Lower Intestinal Tract, Percutaneous Endoscopic Approach (ICD-10-PCS; 2017-04-10 10:12)
DX: K57.20 Diverticulitis of large intestine with perforation and abscess without bleeding (principal); K56.60 Unspecified intestinal obstruction; A04.7 Enterocolitis due to Clostridium difficile; E87.1 Hypo-osmolality and hyponatremia; K91.71 Accidental puncture and laceration of a digestive system organ or structure during a digestive system procedure; E78.5 Hyperlipidemia, unspecified; L50.9 Urticaria, unspecified; E86.0 Dehydration; K66.0 Peritoneal adhesions (postprocedural) (postinfection); Z80.3 Family history of malignant neoplasm of breast; Z88.1 Allergy status to other antibiotic agents; Z80.49 Family history of malignant neoplasm of other genital organs; Z80.51 Family history of malignant neoplasm of kidney; Z80.8 Family history of malignant neoplasm of other organs or systems; Z82.49 Family history of ischemic heart disease and other diseases of the circulatory system; I10 Essential (primary) hypertension; G47.00 Insomnia, unspecified; Y73.3 Surgical instruments, materials and gastroenterology and urology devices (including sutures) associated with adverse incidents; Y92.234 Operating room of hospital as the place of occurrence of the external cause; T36.0X5D Adverse effect of penicillins, subsequent encounter
CPT/HCPCS: 71010; 74020; 74177; 76937; 80048; 80053; 80069; 81001; 82784; 82948; 83516; 83605; 83690; 83735; 84132; 84134; 84145; 85007; 85025; 85027; 86850; 86900; 86901; 87040; 87086; 87493; 88307; 94150; 94640; 96361; 96372; 96374; 96375; J0131; J0171; J0744; J1170; J1200; J1335; J1644; J1885; J2248; J2250; J2270; J2405; J2930; J3010; J3480; J7030; J7042; J7120; Q0163; Q0177; Q9963; Q9967